=== PATIENT | female | born 1955 | race Caucasian/White ===

== ENCOUNTER 2017-08-11 08:44 | Observation (INO) | payer OTHER ==
[~2017-08-11] VITALS: Ht 165.1 cm; Wt 78.3 kg
[~2017-08-11 08:44] MED LIST: ATV5 PO; OXYC-57 PO; SIMV5TAB2 PO
[2017-08-11] MEDS ORDERED: SODIUM CHLORIDE 0.9% 1000ML 2,000 ML IV STA (08:58)
--- NOTE | 2017-08-11 09:04 | EMERGENCY ROOM VISIT NOTE ---
History Report prepared by Tiara: Katelynn Lawrence Under the Supervision of: Dr. Jyoti Valdivia M.D. First contact with patient: 08:52 Chief Complaint: IRREGULAR HEARTBEAT Stated Complaint: IRREGULAR HEARTBEAT History of Present Illness The patient is a 61 year old female who presents to the Emergency Room with complaints of a persistent irregular heartbeat that began prior to arrival. She currently rates her discomfort as a 7/10 in severity. The patient states that she was at [facility] today for a scheduled colonoscopy. She states that she was found to have an irregular heartbeat and then was found to be in atrial fibrillation. The patient states that she has no history of atrial fibrillation , but reports a history of an irregular heartbeat. She states that she was sent to the emergency department by her sweatband perforator for further evaluation and treatment. The patient states that she was having a colonoscopy done for her IBS. She states that she was nauseous and vomited around 0300 this morning. Source of History: patient Onset: prior to arrival Position: other (heartbeat) Symptom Intensity: 7/10 Quality: other (irregular) Timing: other (persistent) Associated Symptoms: + nausea, + vomiting Review of Systems See HPI for pertinent positives & negatives. A total of 10 systems reviewed and were otherwise negative. Past Medical & Surgical Surgical Problems: (1) H/O breast surgery (2) H/O rotator cuff surgery (3) H/O: hysterectomy (4) Hx of cholecystectomy Family History Cancer Heart disease Social History Smoking Status: Former Smoker Smokeless Tobacco Use: No Alcohol Use: none Marital Status: Housing Status: lives with significant other Current/Historical Medications Scheduled Aspirin (Aspirin EC Low Dose), 81 MG PO QAM Fluticasone Propionate (Nasal) (Flonase Allergy Relief), 1-2 SPRAYS [place] DAILY Gabapentin (Neurontin), 900 MG PO TID Lorazepam (Ativan *), 0.5 MG PO Q6HR PRN Metoprolol Succinate (Metoprolol Succinate ER), 25 MG PO QAM Scheduled PRN Baclofen (Lioresal), 10-20 MG PO DAILY PRN for Muscle Spasms Hydrocodone/Acetaminophen ([place] 10/325 Tab), 1 TAB PO QID PRN for Pain Allergies Coded Allergies: Adhesives (Verified Allergy, Mild, RASH, 08/11/17) Promethazine (Verified Allergy, Mild, ITCHING, 08/11/17) Codeine (Verified Allergy, Unknown, 08/11/17) Uncoded Allergies: ANESTHESIA (Allergy, Unknown, VOMITING, NEASUA, 08/11/17) Physical Exam Vital Signs Date Time Temp Pulse Resp B/P (MAP) Pulse Ox O2 Delivery O2 Flow Rate FiO2 08/11/17 09:01 99 08/11/17 08:48 36.9 107 16 131/90 98 Room Air Physical Exam Vital signs reviewed. General: Well-appearing female, in no significant distress. HEENT: No scleral icterus, PERRLA, neck supple. Atraumatic. Cardiovascular: Slightly tachycardic rate and regular rhythm, no extra sounds. Pulmonary: Clear to auscultation bilaterally, normal work of breathing. Abdomen: Soft, nontender, nondistended, positive bowel sounds. Musculoskeletal: Atraumatic, no peripheral edema. Neurologic: Patient awake alert and oriented x 3, full strength in all 4 extremities. Cranial nerves 2 through 12 grossly intact. Skin: Warm, dry, no rash Medical Decision & Procedures Laboratory Results 08/11/17 09:20 Red Blood Count 4.78, Mean Corpuscular Volume 95.8, Mean Corpuscular Hemoglobin 32.2, Mean Corpuscular Hemoglobin Concent 33.6, Mean Platelet Volume 10.0, Neutrophils (%) (Auto) 64.5, Lymphocytes (%) (Auto) 28.4, Monocytes (%) (Auto) 6.0, Eosinophils (%) (Auto) 0.5, Basophils (%) (Auto) 0.3, Neutrophils # (Auto) 4.22, Lymphocytes # (Auto) 1.86, Monocytes # (Auto) 0.39, Eosinophils # (Auto) 0.03, Basophils # (Auto) 0.02 08/11/17 09:20 08/11/17 10:19 Test 08/11/17 09:20 08/11/17 09:21 08/11/17 10:19 White Blood Count 6.54 K/uL (4.8-10.8) Red Blood Count 4.78 M/uL (4.2-5.4) Hemoglobin 15.4 g/dL (12.0-16.0) Hematocrit 45.8 % (37-47) Mean Corpuscular Volume 95.8 fL (80-100) Mean Corpuscular Hemoglobin 32.2 pg (25-34) Mean Corpuscular Hemoglobin Concent 33.6 g/dl (32-36) Platelet Count 267 K/uL (130-400) Mean Platelet Volume 10.0 fL (7.4-10.4) Neutrophils (%) (Auto) 64.5 % Lymphocytes (%) (Auto) 28.4 % Monocytes (%) (Auto) 6.0 % Eosinophils (%) (Auto) 0.5 % Basophils (%) (Auto) 0.3 % Neutrophils # (Auto) 4.22 K/uL (1.4-6.5) Lymphocytes # (Auto) 1.86 K/uL (1.2-3.4) Monocytes # (Auto) 0.39 K/uL (0.11-0.59) Eosinophils # (Auto) 0.03 K/uL (0-0.5) Basophils # (Auto) 0.02 K/uL (0-0.2) RDW Standard Deviation 49.5 fL (36.4-46.3) RDW Coefficient of Variation 14.1 % (11.5-14.5) Immature Granulocyte % (Auto) 0.3 % Immature Granulocyte # (Auto) 0.02 K/uL (0.00-0.02) Anion Gap 7.0 mmol/L (3-11) Est Creatinine Clear Calc Drug Dose 89.3 ml/min Estimated GFR () 110.0 Estimated GFR (Non- 94.9 BUN/Creatinine Ratio 12.9 (10-20) Calcium Level 9.1 mg/dl (8.5-10.1) Total Bilirubin 0.5 mg/dl (0.2-1) Alanine Aminotransferase (ALT/SGPT) 16 U/L (12-78) Alkaline Phosphatase 83 U/L (45-117) Total Protein 7.3 gm/dl (6.4-8.2) Albumin 3.6 gm/dl (3.4-5.0) Thyroid Stimulating Hormone (TSH) 1.580 uIu/ml (0.300-4.500) Bedside Troponin I < 0.030 ng/ml (0-0.045) Magnesium Level 2.2 mg/dl (1.8-2.4) Direct Bilirubin < 0.1 mg/dl (0-0.2) Aspartate Amino Transf (AST/SGOT) 11 U/L (15-37) Laboratory results per my review. Medications Administered Medications (Trade) Dose Ordered Sig/Lokesh Route Start Time Stop Time Status Last Admin Dose Admin Sodium Chloride 2,000 ml @ 999 mls/hr Q2H1M STAT IV 08/11/17 08:58 08/11/17 10:58 DC 08/11/17 09:31 999 MLS/HR Acetaminophen/ Hydrocodone Bitart ([place] 10/325 Tab) 1 tab NOW STAT PO 08/11/17 09:57 08/11/17 09:59 DC 08/11/17 10:25 1 TAB Gabapentin (Neurontin Tab) 900 mg NOW STAT PO 08/11/17 09:57 08/11/17 09:59 DC 08/11/17 10:25 900 MG ECG Indication: palpitations Rate (beats per minute): 79 Rhythm: sinus rhythm Findings: PAC (frequent), no acute ischemic change, left axis deviation, other (previous septal infarct) Change: Repeat EKG shows atrial fibrillation with RVR, rate of 119, no ischemia. ED Course 0856: Past medical records reviewed. The patient was evaluated in room B11B. A complete history and physical examination was performed. 0858: Ordered Sodium Chloride 2000 ml @ 999 mls/hr IV. 0909: I discussed the patients case with Dr. Buchanan, Gastroenterology. He states that the patient was definitely in atrial fibrillation on a rhythm strip, not an EKG. He states that the patient will not have her colonoscopy done today. 0911: I spoke to the patient at this time, and updated her on the treatment plan. 0957: Ordered Gabapentin 900 mg PO, [place] 10/324 Tab 1 tab PO. 1103: I reevaluated the patient and she is resting comfortably. I discussed the test results with her and I discussed the treatment plan. She verbalized complete understanding and agreement. She will be ready for discharge shortly. 1151: Per nursing staff, the patient stood up and went into atrial fibrillation with RVR. Nursing staff performed an additional EKG. The patient will no longer be discharged at this time. 1156: I reevaluated the patient and she is resting. I discussed the exam findings with her and I discussed the treatment plan. She verbalized complete understanding and agreement. She will be evaluated for further treatment. Ordered Lopressor IV 5 mg IV. 1200: I discussed the patients case with Ascencion Vieyra. She is going to evaluate the patient for further treatment. Medical Decision Differential diagnosis: Etiologies such as premature contractions, electrolyte abnormality, cardiac dysrhythmia, thyroid dysfunction, pulmonary embolism, infection, gastrointestinal, as well as others were entertained. This pt was evaluated and appeared to be in no distress. Pt was placed on the [facility] shift lead and was found to be in a sinus rhythm. She was hydrated with NSS given her recent colonoscopy prep. Lab work was WNL. Pt was monitored for several hours and was prepared for d/c. Upon standing at the bedside, pt returned to a fib w RVR. Pt was given metoprolol 5 mg IV. As this is new onset and recurrent, pt was d/w the hospitalist service for further management. Medication Reconcilliation Current Medication List: was personally reviewed by me Blood Pressure Screening Patient's blood pressure: Normal blood pressure Blood pressure disposition: Did not require urgent referral Consults Time Called: 0858 Consulting Physician: Dr. Buchanan, Gastroenterology Returned Call: [phone] I discussed the patients case with Dr. Buchanan, Gastroenterology. He states that the patient was definitely in atrial fibrillation on a rhythm strip , not an EKG. He states that the patient will not have her colonoscopy done today. Additional Consults: Time Called: 1157 Consulted Physician: Ascencion Vieyra Returned Call: 1200 Additional Comments: I discussed the patients case with Ascencion Vieyra. She is going to evaluate the patient for further treatment. Impression Primary Impression: Transient atrial fibrillation Scribe Attestation The scribe's documentation has been prepared under my direction and personally reviewed by me in its entirety. I confirm that the note above accurately reflects all work, treatment, procedures, and medical decision making performed by me. Departure Information Dispostion Being Evaluated By Hospitalist Prescriptions Fluticasone Propionate (Nasal) (Flonase Allergy Relief) 50 Mcg/Act Spr 1-2 SPRAYS [place] DAILY, #1 SPRAY Prov: Yaneth Dyson ., D.O. 08/12/17 Aspirin (Aspirin EC Low Dose) 81 Mg Ectab 81 MG PO QAM, #30 TAB Prov: Yaneth Dyson ., D.O. 08/12/17 Metoprolol Succinate (Metoprolol Succinate ER) 25 Mg Tabcr 25 MG PO [facility], #30 TABS Prov: Yaneth Dyson ., D.O. 08/12/17 Referrals Hai Ortiz M.D.(ALFA) (PCP)
[2017-08-11 09:35] LABS: BASO % 0.3 %; BASO ABS # 0.02 K/uL (0-0.2); COMPLETE YES; EOS % 0.5 %; HEMATOCRIT 45.8 % (37-47); IG% 0.3 %; LYMPH % 28.4 %; LYMPH ABS # 1.86 K/uL (1.2-3.4); MEAN CELL VOLUME 95.8 fL (80-100); MEAN CORPUSCULAR HEMOGLOBIN 32.2 pg (25-34); MEAN CORPUSCULAR HGB CONC 33.6 g/dl (32-36); NEUT % 64.5 %; PLATELET COUNT 267 K/uL (130-400); RED BLOOD COUNT 4.78 M/uL (4.2-5.4); WHITE BLOOD COUNT 6.54 K/uL (4.8-10.8)
[2017-08-11] MEDS ORDERED: BACL10TA PO (09:39)
[2017-08-11] MEDS ORDERED: HYDR-4383 PO (09:39)
[2017-08-11] MEDS ORDERED: GABA-113 PO (09:39)
[2017-08-11] MEDS ORDERED: GABAPENTIN 600 MG TAB PO STA (09:57)
[2017-08-11] MEDS ORDERED: HYDROCODONE/ACETAMI 10/325 TAB PO STA (09:57)
[2017-08-11 10:07] LABS: BLOOD UREA NITROGEN 9 mg/dl (7-18); BUN/CREATININE RATIO 12.9 (10-20); CALCIUM 9.1 mg/dl (8.5-10.1); CARBON DIOXIDE 23 mmol/L (21-32); CHLORIDE 109 mmol/L (98-107); CREATININE 0.67 mg/dl (0.60-1.20); GLUCOSE 123 mg/dl (70-99); SODIUM 140 mmol/L (136-145)
[2017-08-11 10:13] LABS: ALKALINE PHOSPHATASE 83 U/L (45-117); ALT/SGPT 16 U/L (12-78)
[2017-08-11 10:55] LABS: MAGNESIUM 2.2 mg/dl (1.8-2.4)
[2017-08-11 11:01] LABS: AST/SGOT 11 U/L (15-37)
[2017-08-11] MEDS ORDERED: METOPROLOL TARTRATE 1 MG/ML VIAL IV STA (11:56)
[2017-08-11] MEDS ORDERED: METOPROLOL TARTRATE 1 MG/ML VIAL ONE (12:20)
[2017-08-11] MEDS ORDERED: METOPROLOL TARTRATE 25 MG TAB PO ONE (12:30)
[2017-08-11] MEDS ORDERED: METOPROLOL TARTRATE 1 MG/ML VIAL IV PRN (12:30)
[2017-08-11] MEDS ORDERED: ASPIRIN 81 MG ECTAB PO STA (12:40)
[2017-08-11] MEDS ORDERED: BACLOFEN 10 MG TAB PO PRN (12:45)
[2017-08-11] MEDS ORDERED: ACETAMINOPHEN 325 MG TAB PO PRN (12:45)
[2017-08-11] MEDS ORDERED: LORAZEPAM 0.5 MG TAB PO PRN (12:45)
[2017-08-11] MEDS ORDERED: ONDANSETRON INJ 2 MG/ML 2 ML VIAL IV PRN (12:45)
--- NOTE | 2017-08-11 12:57 | History and Physical ---
History & Physical Date & Time of Service: Aug 11, 2017 at 12:37 Chief Complaint: Irregular Heartbeat Primary Care Physician: Hai Ortiz M.D.(ALFA) History of Present Illness Source: patient, family 61 year old female with history of IBS, Fibromyalgia sent to the ER by Dr. Buchanan for finding of Atrial Fibrillation before scheduled Colonoscopy this AM. Patient follows with Dr. Ortiz for PCP. She states that she performed her bowel prep at around 1 am, and had around 10 BMs since. Earlier today, prior to the Colonoscopy, patient was found to be in A fib. She was then directed to the ER. At the ER, patient was noted to be in sinus rhythm with PACs. She was going to be discharged, but when she stood up, patient converted to A fib with HR 130s. On exam, patient resting in bed, comfortable. Denies chest pain, dyspnea, dizziness, nausea. Reports mild sensation of fast heartbeat but otherwise comfortable. Denies other symptoms. Past Medical/Surgical History Surgical Problems: (1) H/O breast surgery Status: Resolved (2) H/O rotator cuff surgery Status: Resolved (3) H/O: hysterectomy Status: Resolved (4) Hx of cholecystectomy Status: Resolved Family History Cancer Heart disease Social History Smoking Status: Former Smoker Smokeless Tobacco Use: No Alcohol Use: none Drug Use: none Marital Status: Housing status: lives with family Multi-Drug Resistant Organisms History of MDRO: No Allergies Coded Allergies: Adhesives (Verified Allergy, Mild, RASH, 08/11/17) Promethazine (Verified Allergy, Mild, ITCHING, 08/11/17) Codeine (Verified Allergy, Unknown, 08/11/17) Uncoded Allergies: ANESTHESIA (Allergy, Unknown, VOMITING, NEASUA, 08/11/17) Home Medications Scheduled Gabapentin (Neurontin), 900 MG PO TID Lorazepam (Ativan *), 0.5 MG PO Q6HR PRN Scheduled PRN Baclofen (Lioresal), 10-20 MG PO DAILY PRN for Muscle Spasms Hydrocodone/Acetaminophen ([place] 10/325 Tab), 1 TAB PO QID PRN for Pain Review of Systems Constitutional- no fever; no weight loss Eyes- no acute visual changes ENT- no sinus drainage; no pharyngitis Pulmonary- no cough, no wheezing, no shortness of breath Cardiac- no chest pain, no palpitations, no orthopnea, no dependent edema GI- no nausea, no vomiting, no diarrhea, no melena, no hematochezia - no dysuria, no hematuria Musculoskeletal- no arthralgias, no myalgias Derm- no rashes, no new skin lesions, no changing skin lesions Hematologic- no unusual bruising, no unusual bleeding Lymphatics- no adenopathy Endocrine- no polyuria or polydipsia; no heat or cold intolerance Neuro- no headaches, no focal neurologic symptoms Psych- no anxiety, no depression Physical Exam Vital Signs Date Time Temp Pulse Resp B/P (MAP) Pulse Ox O2 Delivery O2 Flow Rate FiO2 08/11/17 12:24 128 141/87 08/11/17 09:01 99 08/11/17 08:48 36.9 107 16 131/90 98 Room Air General Appearance: WD/WN, no apparent distress Head: normocephalic, atraumatic Eyes: normal inspection, PERRL, EOMI, sclerae normal ENT: normal ENT inspection, hearing grossly normal, pharynx normal Neck: supple, no adenopathy, thyroid normal, no JVD, trachea midline Respiratory/Chest: chest non-tender, lungs clear, normal breath sounds, no respiratory distress, no accessory muscle use Cardiovascular: no JVD, no murmur, + tachycardia, + irregularly irregular Abdomen/GI: normal bowel sounds, non tender, soft Back: normal inspection, no CVA tenderness Extremities/Musculoskelatal: normal inspection, no calf tenderness, normal capillary refill, no pedal edema, non-tender 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, no motor/sensory deficits, alert, normal reflexes, oriented x 3 Skin: normal color, warm/dry, no rash Lymphatic: no adenopathy Diagnostics Laboratory Results Results Past 24 Hours Test 08/11/17 09:20 08/11/17 09:21 08/11/17 10:19 Range/Units White Blood Count 6.54 4.8-10.8 K/uL Red Blood Count 4.78 4.2-5.4 M/uL Hemoglobin 15.4 12.0-16.0 g/dL Hematocrit 45.8 37-47 % Mean Corpuscular Volume 95.8 80-100 fL Mean Corpuscular Hemoglobin 32.2 25-34 pg Mean Corpuscular Hemoglobin Concent 33.6 32-36 g/dl Platelet Count 267 130-400 K/uL Mean Platelet Volume 10.0 7.4-10.4 fL Neutrophils (%) (Auto) 64.5 % Lymphocytes (%) (Auto) 28.4 % Monocytes (%) (Auto) 6.0 % Eosinophils (%) (Auto) 0.5 % Basophils (%) (Auto) 0.3 % Neutrophils # (Auto) 4.22 1.4-6.5 K/uL Lymphocytes # (Auto) 1.86 1.2-3.4 K/uL Monocytes # (Auto) 0.39 0.11-0.59 K/uL Eosinophils # (Auto) 0.03 0-0.5 K/uL Basophils # (Auto) 0.02 0-0.2 K/uL RDW Standard Deviation 49.5 36.4-46.3 fL RDW Coefficient of Variation 14.1 11.5-14.5 % Immature Granulocyte % (Auto) 0.3 % Immature Granulocyte # (Auto) 0.02 0.00-0.02 K/uL Sodium Level 140 136-145 mmol/L Potassium Level 4.0 3.5-5.1 mmol/L Chloride Level 109 98-107 mmol/L Carbon Dioxide Level 23 21-32 mmol/L Anion Gap 7.0 3-11 mmol/L Blood Urea Nitrogen 9 7-18 mg/dl Creatinine 0.67 0.60-1.20 mg/dl Est Creatinine Clear Calc Drug Dose 89.3 ml/min Estimated GFR () 110.0 Estimated GFR (Non- 94.9 BUN/Creatinine Ratio 12.9 10-20 Random Glucose 123 70-99 mg/dl Calcium Level 9.1 8.5-10.1 mg/dl Magnesium Level 2.2 1.8-2.4 mg/dl Total Bilirubin 0.5 0.2-1 mg/dl Direct Bilirubin < 0.1 0-0.2 mg/dl Aspartate Amino Transf (AST/SGOT) 11 15-37 U/L Alanine Aminotransferase (ALT/SGPT) 16 12-78 U/L Alkaline Phosphatase 83 45-117 U/L Total Protein 7.3 6.4-8.2 gm/dl Albumin 3.6 3.4-5.0 gm/dl Thyroid Stimulating Hormone (TSH) 1.580 0.300-4.500 uIu/ml Bedside Troponin I < 0.030 0-0.045 ng/ml Diagnostic Radiology cxr pending EKG HR 119, a fib Impression Assessment and Plan 61 year old female with history of IBS, Fibromyalgia sent to the ER by Dr. Buchanan for finding of Atrial Fibrillation before scheduled Colonoscopy this AM. NEW ONSET ATRIAL FIBRILLATION CHADsVasc score 1- female asymptomatic BP stable Lopressor 5mg IV given at the ER, HR improving to 110s K and Mg ok, TSH normal Echo ordered Metoprolol 25mg bid Aspirin 81mg po daily NSS discussed with Dr. Lyles IBS was scheduled for Colonoscopy today follows with GI HISTOR OF FIBROMYALGIA continue Gabapentin, PRN [place] DVT proph Lovenox Full code per patient Dispo pending anticipate d/c home when cleared by Cardio ff up with Dr. Ortiz and Cardio VTE Prophylaxis VTE Risk Assessment Done? Y/N: Yes Risk Level: Moderate
--- NOTE | 2017-08-11 13:00 | DIAGNOSTIC IMAGING REPORT ---
CHEST ONE VIEW PORTABLE CLINICAL HISTORY: atrial fibrillation cardiac arrhythmia COMPARISON STUDY: 03/20/2008 FINDINGS: Minimal chronic linear parenchymal scarring of the lungs bilaterally versus atelectasis. No acute infiltrate. No cardiac enlargement. Diaphragms smooth. IMPRESSION: Chronic change. No acute process. The above report was generated using voice recognition software. It may contain grammatical, syntax or spelling errors. Electronically signed by: Todd Lopez M.D. 08/11/2017 12:59 PM Dictated Date/Time: 08/11/2017 12:58 PM
[2017-08-11] MEDS ORDERED: IV FLUIDS COMPLETED PRN (13:45)
[2017-08-11 14:05] VITALS: BP 144/95; PULSE 122; TEMP 36.9; O2SAT 96; Ht 165.1 cm; Wt 78.3 kg
[2017-08-11 15:06] LABS: PROTHROMBIN TIME (PATIENT) 10.5 SECONDS (9.0-12.0)
[2017-08-11] MEDS: HYDROCODONE/ACETAMI 10/325 TAB PO PRN ×2 (15:41→21:23)
[2017-08-11] MEDS: GABAPENTIN 300 MG CAP PO SCH ×2 (15:41→21:15)
[2017-08-11] MEDS: NSS + 20MEQ KCL 1000ML 1,000 ML IV SCH ×2 (15:41→23:27)
[2017-08-11 16:00] VITALS: BP 140/77; PULSE 113; TEMP 36.9; O2SAT 96
[2017-08-11] MEDS ORDERED: ENOXAPARIN 40 MG/0.4 ML SYR SC SCH (16:00)
--- NOTE | 2017-08-11 16:04 | CARDIOLOGY CONSULTATION ---
DATE OF CONSULTATION: 08/11/2017 DATE OF CONSULTATION: 08/11/2017 REFERRING PHYSICIAN: Dr. Rod Lucas. REASON FOR CONSULTATION: Paroxysmal atrial fibrillation. HISTORY OF PRESENT ILLNESS: Ms. Howard is a 61-year-old female who presented to the Emergency Department by gastroenterology secondary to new onset Afib. The patient took a colonoscopy prep last night, was noted to be in atrial fibrillation. She denies any palpitations currently, however, reports intermittent palpitations for several years. She particularly notes this irregular heartbeat in the evenings. Denies any personal history of atrial fibrillation, however, her has a history of Afib and she is familiar with the disease process. Denies hypertension, diabetes, congestive heart failure, coronary artery disease, or rheumatic fever as a child. The patient underwent exercise stress echocardiography in April 2015 in preparation for hip surgery. At that time a stress test was found to be negative for inducible ischemia. Normal left ventricular systolic function with grade 1 diastolic dysfunction noted. Her left atrial side was reportedly normal. No significant valvular pathology. Currently, patient is resting comfortably. She is in atrial fibrillation with heart rate ranging from 110-135 beats per minute. She is unaware of her heart rate currently. Denies chest pain or palpitations. Reports intermittent lightheadedness which is not necessarily associated with palpitations. She is currently not lightheaded or dizzy. No orthopnea or PND. Offers no other complaints at this time. REVIEW OF SYSTEMS: The pertinent positive noted above, a comprehensive 10-system review is otherwise negative. PAST MEDICAL HISTORY: 1. Colon polyps. 2. Trigeminal neuralgia. 3. Fibromyalgia. 4. Mastodynia. 5. Chronic cholecystitis. 6. Migraine headache. 7. Irritable bowel syndrome. 8. Degenerative disc disease. 9. Chronic low back pain. PAST SURGICAL HISTORY: 1. Breast surgery. 2. Rotator cuff surgery. 3. Hysterectomy. 4. Cholecystectomy. 5. Multiple colonoscopies. SOCIAL HISTORY: Former tobacco use, quitting in 2007 with approximately [id number] history. FAMILY HISTORY: Father with heart disease later in life. Multiple family history with breast cancer, prostate cancer. ALLERGIES: ADHESIVES, PROMETHAZINE, CODEINE, ANESTHESIA. CURRENT OUTPATIENT MEDICATIONS: 1. Percocet 10/325 as needed. 2. Nortriptyline 10 mg, 1-3 capsules at bedtime. 3. Baclofen twice daily. 4. Ativan 0.5 mg 3 times a day. 5. Albuterol inhaler. 6. Neurontin 300 mg 3 times daily in addition to her 600 mg capsule for a total of 900 mg 3 times daily. 7. Excedrin as needed. ECG demonstrates atrial fibrillation 119 beats per minute with left axis deviation, age indeterminate septal infarct. Telemetry demonstrates atrial fibrillation. LABORATORY DATA: Sodium is 140, potassium 4.0, chloride is 109, CO2 is 23, BUN is 9, creatinine 0.67. Point of care troponin less than 0.030. TSH 1.580. White blood cell count 6.54, hemoglobin is 15.4, platelet count 267. PHYSICAL EXAMINATION: VITAL SIGNS: Temperature is 36.9 degrees centigrade, pulse 112 beats per minute and irregular, respiratory rate 60 breaths per minute, blood pressure 148/85. SAO2 is 98% on room air. GENERAL: NAD, awake, alert and oriented x3. HEAD, EYES, EARS, NOSE, AND THROAT: Mucous membranes are moist. No scleral icterus. Conjunctivae are pink. NECK: Supple without JVD or HJR. No carotid bruits. HEART: Is irregular and tachycardic with normal S1, S2. There is no murmur, rub, or gallop. LUNGS: Clear without rales, rhonchi or wheeze. ABDOMEN: Soft, nontender. No rebound or guarding. Normal bowel sounds. EXTREMITIES: Warm and dry without clubbing, cyanosis, or edema. NEUROLOGIC: Exam demonstrates no focal motor deficit. FINAL IMPRESSION: 1. Paroxysmal atrial fibrillation with rapid ventricular response, likely related to colonoscopy prep; however, with history of palpitations, intermittent paroxysmal atrial dysrhythmias must be considered. 2. No evidence of structural heart disease per recent resting 2D transthoracic echo April 2015. 3. No history of ischemic heart disease per recent stress testing April 2015. 4. Longstanding history of palpitations. PLAN AND RECOMMENDATIONS: The patient's overall stroke risk is low. Her CHADS2 score equals 0, CHADS VASc equals 1 secondary to female sex. We discussed risks versus benefit of anticoagulation given her low CHADS2 and CHADS VASc scores. The patient prefers to continue aspirin and beta rika therapy at this time. We will replace electrolytes as needed. She will continue low dose beta-rika therapy, metoprolol 25 mg twice daily. A repeat resting 2D transthoracic echo will be performed during hospitalization. We will continue to monitor telemetry. All questions answered to her satisfaction. I will continue to follow during hospitalization.
[2017-08-11 17:13] VITALS: BP 112/77; PULSE 76
[2017-08-11 20:00] VITALS: BP 127/62; PULSE 67; TEMP 36.6; O2SAT 96
[2017-08-11] MEDS: METOPROLOL TARTRATE 25 MG TAB PO SCH (21:14)
[2017-08-11 23:59] VITALS: BP 102/48; PULSE 58; TEMP 36.7; O2SAT 96
[2017-08-12 03:13] LABS: URINE APPEARANCE CLEAR (CLEAR); URINE BILIRUBIN NEG (NEG); URINE COLOR YELLOW; URINE NITRITE NEG (NEG); URINE SPECIFIC GRAVITY 1.014 (1.000-1.030); UROBILINOGEN NEG (NEG); ZZUR CULT IF INDIC CLEAN CATCH NO
[2017-08-12 03:14] LABS: MANUAL MICROSCOPIC REQUIRED? NO; REVIEW REQ? NO
[2017-08-12 04:00] VITALS: BP 119/72; PULSE 53; TEMP 36.6; O2SAT 96
[2017-08-12 08:00] VITALS: BP 105/57; PULSE 66; TEMP 36.6; O2SAT 95
[2017-08-12] MEDS: NSS + 20MEQ KCL 1000ML 1,000 ML IV SCH (08:51)
[2017-08-12] MEDS: HYDROCODONE/ACETAMI 10/325 TAB PO PRN (08:52)
[2017-08-12] MEDS: GABAPENTIN 300 MG CAP PO SCH (08:54)
[2017-08-12] MEDS: METOPROLOL TARTRATE 25 MG TAB PO SCH (08:56)
[2017-08-12] MEDS ORDERED: ASPIRIN 81 MG ECTAB PO SCH (09:00)
--- NOTE | 2017-08-12 10:15 | ECHOCARDIOGRAM REPORT ---
*NOTICE TO RECEIVING LIBERTARIAN AGENCY This information is strictly Confidential and protected under [place] law. [place] law prohibits you from making any further disclosure of this information unless further disclosure is expressly permitted by the written consent of the person to whom it pertains or is authorized by law. A general authorization for the release of medical or other information is not sufficient for this purpose. Hospital accepts no responsibility if the information is made available to any other person, INCLUDING THE PATIENT. Interpretation Summary * Name: SEKOU VÁSQUEZ Study Date: 08/12/2017 06:31 AM BP: 119/72 mmHg * Patient Location: .MSICU\S\E111\S\1 HR: 53 * : 1955 (M/d/yyy) Gender: Female Height: 65 in * Age: 61 yrs Ethnicity: CA Weight: 164 lb * Ordering Physician: Rod Lucas * Referring Physician: Self, Referred * Performed By: Suyapa Kitchen RCS * * Reason For Study: A-FIB * BSA: 1.8 m2 * The study was technically adequate. * There is no comparison study available. * -- Conclusions -- * Ejection Fraction = 55-60%. * The left atrial size is normal. * Pulse wave TDI of the anterior and posterior mitral annulas demonstrates normal LV relaxation * No significant valvular disease. Procedure Details * A complete two-dimensional transthoracic echocardiogram was performed (2D, M-mode, Doppler and color flow Doppler). Left Ventricle * The left ventricle is normal in size. * There is no thrombus. * There is normal left ventricular wall thickness. * Ejection Fraction = 55-60%. * Left ventricular systolic function is normal. * The left ventricular wall motion is normal. Right Ventricle * The right ventricle is normal size. * The right ventricular systolic function is normal as assessed by tricuspid annular plane systolic excursion (TAPSE) (normal >1.5 cm). Atria * The left atrial size is normal. * Right atrial size is normal. * There is no evidence of atrial septal defect, but resolution does not allow assessment for a patent foramen ovale. Mitral Valve * The mitral valve is normal. * There is no mitral valve stenosis. * Significant mitral regurgitation is absent. Tricuspid Valve * The tricuspid valve is normal. * There is no tricuspid stenosis. * There is trace tricuspid regurgitation. * Doppler findings do not suggest pulmonary hypertension. Aortic Valve * The aortic valve is trileaflet. * Aortic stenosis is absent. * There is no significant aortic regurgitation. Pulmonic Valve * The pulmonary valve is not well seen, but the Doppler examination is normal without significant regurgitation or stenosis. Great Vessels * The aortic root and proximal ascending aorta are normal sized. Pericardium/Pleural * There is no pericardial effusion. Great Vessels * Normal inferior vena cava diameter and respiratory variation suggests normal central venous pressure. Left Ventricular Diastolic Function * Pulse wave TDI of the anterior and posterior mitral annulas demonstrates normal LV relaxation MMode 2D Measurements and Calculations IVSd 1.0 cm IVSs 1.3 cm LVIDd 4.7 cm LVIDs 3.0 cm LVPWd 1.0 cm LVPWs 1.3 cm IVS/LVPW 1.0 FS 36.0 % EDV(Teich) 104.1 ml ESV(Teich) 35.8 ml EF(Teich) 65.6 % EDV(cubed) 106.1 ml ESV(cubed) 27.8 ml EF(cubed) 73.8 % % IVS thick 23.9 % % LVPW thick 25.0 % LV mass(C)d 171.1 grams LV mass(C)dI 94.1 grams/m\S\2 LV mass(C)s 121.1 grams LV mass(C)sI 66.6 grams/m\S\2 SV(Teich) 68.3 ml SI(Teich) 37.6 ml/m\S\2 SV(cubed) 78.3 ml SI(cubed) 43.1 ml/m\S\2 Ao root diam 3.4 cm Ao root area 8.9 cm\S\2 ACS 1.5 cm LA dimension 3.3 cm asc Aorta Diam 3.1 cm LA/Ao 0.99 EDV(MOD-sp4) 113.0 ml ESV(MOD-sp4) 56.0 ml EF(MOD-sp4) 50.4 % EDV(MOD-sp2) 158.0 ml ESV(MOD-sp2) 70.0 ml EF(MOD-sp2) 55.7 % SV(MOD-sp4) 57.0 ml SI(MOD-sp4) 31.4 ml/m\S\2 SV(MOD-sp2) 88.0 ml SI(MOD-sp2) 48.4 ml/m\S\2 Doppler Measurements and Calculations MV E max alison 91.0 cm/sec MV A max alison 54.8 cm/sec MV E/A 1.7 MV P1/2t max alison 100.8 cm/sec MV P1/2t 86.4 msec MVA(P1/2t) 2.5 cm\S\2 MV dec slope 341.9 cm/sec\S\2 MV dec time 0.27 sec Ao V2 max 131.8 cm/sec Ao max PG 7.0 mmHg Ao max PG (full) 2.8 mmHg LV V1 max PG 4.1 mmHg LV V1 max 101.4 cm/sec PA V2 max 84.6 cm/sec PA max PG 2.9 mmHg TR max alison 220.4 cm/sec
--- NOTE | 2017-08-12 11:19 | Cardiology Follow-Up ---
Subjective General Date of Service: Aug 12, 2017. Pt evaluation today including: conversation w/ patient, physical exam, chart review, lab review, review of studies, review of inpatient medication list History of Present Illness The patient is a 61 year old female seen in follow up. Converted to sinus rhythm yesterday at approximate 5 PM. Feeling well from a cardiovascular standpoint. Denies chest pain or unusual shortness of breath. Offers no complaints at this time. Resting 2-D transthoracic echo reviewed: Normal left atrial size, normal left ventricular systolic function, no significant valvular disease. Allergies Coded Allergies: Adhesives (Verified Allergy, Mild, RASH, 08/11/17) Promethazine (Verified Allergy, Mild, ITCHING, 08/11/17) Codeine (Verified Allergy, Unknown, 08/11/17) Uncoded Allergies: ANESTHESIA (Allergy, Unknown, VOMITING, NEASUA, 08/11/17) Social History Smoking Status: Former Smoker Hx Alcohol Use - Type And Amou: No Hx Substance Use - Type And Am: No Problem List Medical Problems: (1) Transient atrial fibrillation Status: Acute Review of Systems Respiratory: No cough, No sputum, No wheezing, No shortness of breath, No dyspnea at rest, No hemoptysis Cardiac: No chest pain, No orthopnea, No PND, No edema, No claudication, No palpitations Physical Exam Vital Signs Last Vital Signs Documentation Date Time Temp Pulse Resp B/P (MAP) Pulse Ox O2 Delivery O2 Flow Rate FiO2 08/12/17 08:00 36.6 66 16 105/57 (73) 95 Room Air Physical Exam Constitutional: General Apperance: heathly-appearing Level of Distress: NAD Ambulation: ambulating normally Head: normocephalic, atraumatic ENMT: normal ENT inspection Lungs: Auscultation: breath sounds normal, no wheezing, no rales/crackles, no rhonchi Cardiovascular: Heart Auscultation: RRR, normal S1, normal S2, no murmurs, no rubs, no gallops Peripheral Pulses: Radial Pulse: normal on the right Abdomen: Inspection & Palpation: soft, non-distended, no tenderness, guarding & rebound Extremities: no cyanosis, no edema, no clubbing, no ulcers Neurologic: Gait & Station: pertinent finding (no focal deficits.) Cranial Nerves: grossly intact Assessment and Plan Assessment and Plan FINAL IMPRESSION: 1. Paroxysmal atrial fibrillation with rapid ventricular response, likely related to colonoscopy prep. - CHADS2 = 0 - CHAdsVASc = 1 (female) 2. No structural heart disease 3. Longstanding history of palpitations. PLAN AND RECOMMENDATIONS: Transition metoprolol tartrate to Toprol-XL 25 mg daily. Continue low-dose aspirin, 81 mg daily. No further cardiac testing at this time. I will arrange for outpatient cardiology follow-up in 3-4 weeks. Thank you for allow me to participate in the care of your patient. Will sign off. Please call with questions. Laboratory Results Last 24 Hours Test 08/11/17 14:40 08/12/17 03:00 Prothrombin Time 10.5 SECONDS Prothromb Time International Ratio 1.0 Urine Color YELLOW Urine Appearance CLEAR Urine pH 5.0 Urine Specific Craig 1.014 Urine Protein NEG Urine Glucose (UA) NEG Urine Ketones NEG Urine Occult Blood NEG Urine Nitrite NEG Urine Bilirubin NEG Urine Urobilinogen NEG Urine Leukocyte Esterase NEG
[2017-08-12] MEDS ORDERED: FLUT0.15 NAE (12:57)
[2017-08-12] MEDS ORDERED: TPRSR25 PO (12:57)
[2017-08-12] MEDS ORDERED: ASPEC81 PO (12:57)
--- NOTE | 2017-08-12 13:02 | Discharge Instructions ---
Discharge Instructions Date of Service Aug 12, 2017. Admission Reason for Admission: Atrial Fibrillation Discharge Discharge Diagnosis / Problem: Atrial fibrillation Discharge Goals Goal(s): Therapeutic intervention Activity Recommendations Activity Limitations: resume your previous activity Lifting Limitations: gradually increase as tolerated Exercise/Sports Limitations: gradually increase as tolerated . Instructions / Follow-Up Instructions / Follow-Up Please see Dr. Ortiz on August 16 at 11:20AM Please see Cardiology in 3-4 weeks as arranged by them For cold/nasal rhinitis and sinus congestion please use nasal steroid spray, and as needed antihistamine (zyrtec or nirav or claritin), and over the counter zinc lozenges (i.e. cold-diego) Current Hospital Diet Patient's current hospital diet: Regular Diet Discharge Diet Recommended Diet: Regular Diet Procedures Procedures Performed: TTE Pending Studies Studies pending at discharge: no Medical Emergencies . Who to Call and When: Medical Emergencies: If at any time you feel your situation is an emergency, please call 911 immediately. . Non-Emergent Contact Non-Emergency issues call your: Primary Care Provider . . "Provider Documentation" section prepared by Yaneth Dyson. . VTE Core Measure Inpt VTE Proph given/why not?: Enoxaparin (Lovenox)SQ
--- NOTE | 2017-08-12 13:06 | Discharge Summary ---
Discharge Summary Date of Service Aug 12, 2017. Discharge Summary Admission Date: Aug 11, 2017 at 12:30 Discharge Date: Aug 12, 2017 Discharge Disposition: Home Principal Diagnosis: Atrial fibrillation Consultations: Cardiology Pending Studies/Follow-Up: Follow up with Cardiology in 3-4 weeks Medication Reconciliation New Medications: Fluticasone Propionate (Nasal) (Flonase Allergy Relief) 50 Mcg/Act Spr 1-2 SPRAYS [place] DAILY, #1 SPRAY Aspirin (Aspirin EC Low Dose) 81 Mg Ectab 81 MG PO QAM, #30 TAB Metoprolol Succinate (Metoprolol Succinate ER) 25 Mg Tabcr 25 MG PO QAM, #30 TABS Continued Medications: Baclofen (Lioresal) 10 Mg Tab 10-20 MG PO DAILY PRN for Muscle Spasms, TAB Gabapentin (Neurontin) 300 Mg Cap 900 MG PO TID, CAP Hydrocodone/Acetaminophen ([place] 10/325 Tab) 1 Tab Tab 1 TAB PO QID PRN for Pain, TAB Lorazepam (Ativan *) 0.5 Mg Tab 0.5 MG PO Q6HR PRN, 0 Refills Admission Information HPI (per Admitting provider): 61 year old female with history of IBS, Fibromyalgia sent to the ER by Dr. Buchanan for finding of Atrial Fibrillation before scheduled Colonoscopy this AM. Patient follows with Dr. Ortiz for PCP. She states that she performed her bowel prep at around 1 am, and had around 10 BMs since. Earlier today, prior to the Colonoscopy, patient was found to be in A fib. She was then directed to the ER. At the ER, patient was noted to be in sinus rhythm with PACs. She was going to be discharged, but when she stood up, patient converted to A fib with HR 130s. On exam, patient resting in bed, comfortable. Denies chest pain, dyspnea, dizziness, nausea. Reports mild sensation of fast heartbeat but otherwise comfortable. Denies other symptoms. Physical Exam (per Admitting): General Appearance: WD/WN, no apparent distress Head: normocephalic, atraumatic Eyes: normal inspection, PERRL, EOMI, sclerae normal ENT: normal ENT inspection, hearing grossly normal, pharynx normal Neck: supple, no adenopathy, thyroid normal, no JVD, trachea midline Respiratory/Chest: chest non-tender, lungs clear, normal breath sounds, no respiratory distress, no accessory muscle use Cardiovascular: no JVD, no murmur, + tachycardia, + irregularly irregular Abdomen/GI: normal bowel sounds, non tender, soft Back: normal inspection, no CVA tenderness Extremities/Musculoskelatal: normal inspection, no calf tenderness, normal capillary refill, no pedal edema, non-tender 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, no motor/sensory deficits, alert , normal reflexes, oriented x 3 Skin: normal color, warm/dry, no rash Lymphatic: no adenopathy Hospital Course NEW ONSET ATRIAL FIBRILLATION: -[id number] score 1- female -asymptomatic, HR controlled, BP stable -Lopressor 5mg IV given at the ER, was then started on PO lopressor -Potassium and Mg levels normal -TSH normal -TTE -Cardiology consulted, HR controlled, asa due to low chads score, ok for discharge with outpatient follow up -continue aspirin 81mg po daily -was on IV fluids overnight IBS: -was scheduled for Colonoscopy and had undergone the bowel prep when the a fib was detected by GI -outpatient follow up FIBROMYALGIA: -continue Gabapentin, PRN [place] PHYSICAL EXAM ON DAY OF DISCHARGE: GENERAL: Patient is in no acute distress. HEENT: No acute trauma, normocephalic, mucous membranes moist, no nasal congestion, no scleral icterus. NECK: No stridor, trachea is midline. LUNGS: Clear to auscultation bilaterally, no wheeze, no rhonchi, breath sounds equal. HEART: Without murmurs gallops or rubs, regular rate and rhythm. ABDOMEN: Soft, nontender, bowel sounds positive EXTREMITIES: No cyanosis or edema, full range of motion of all the joints without pain or difficulty NEUROLOGIC: Oriented x 3, no acute motor or sensory deficits, no focal weakness. SKIN: No rash, no jaundice, no diaphoresis. Total time spent on discharge = 35 This includes examination of the patient, discharge planning, medication reconciliation, and communication with other providers. Discharge Instructions See patient instructions
[2017-08-12 13:42] VITALS: BP 105/57; PULSE 66; TEMP 36.6; O2SAT 95
[2017-08-13] MEDS ORDERED: METOPROLOL SUCC 25MG EXT REL TAB PO SCH (09:00)
[2017-08-13] MEDS ORDERED: ALBU18002 PO (18:20)
[2017-08-13] MEDS ORDERED: FLUT0.15 NAE (18:20)
[2017-08-13] MEDS ORDERED: METO25TA3 PO (18:20)
[2017-08-13] MEDS ORDERED: NORT10CA2 PO (18:20)
[2017-08-13] MEDS ORDERED: ATV5 PO (18:20)
[2017-08-13] MEDS ORDERED: ASPI81TA28 PO (18:20)
[2017-08-16] MEDS ORDERED: BTP80 PO (17:32)
== END 2017-08-12 13:50 | disposition home or self-care (01) ==
LOC: C.EDB 08:45 → C.MSICU 12:30 → ENRESERV 13:03 → C.MSICU 14:05 → UNDOADMOB 14:05
PROVIDERS: ADMIT Internal Medicine; ATTEND Internal Medicine
DX: I48.91 Unspecified atrial fibrillation (principal); K58.9 Irritable bowel syndrome, unspecified; M79.7 Fibromyalgia; Z87.891 Personal history of nicotine dependence; Z79.82 Long term (current) use of aspirin; Z79.899 Other long term (current) drug therapy

== ENCOUNTER 2017-08-13 16:33 | Inpatient (IN) | payer OTHER ==
[~2017-08-13] VITALS: Ht 165.1 cm; Wt 78.1 kg
[~2017-08-13 16:33] MED LIST changes: +ASPEC81 PO; +BACL10TA PO; +FLUT0.15 NAE; +GABA-113 PO; +HYDR-4383 PO; -OXYC-57 PO; -SIMV5TAB2 PO; +TPRSR25 PO
[2017-08-13] MEDS ORDERED: METOPROLOL TARTRATE 1 MG/ML VIAL IV STA ×2 (17:08→17:51)
--- NOTE | 2017-08-13 17:22 | EMERGENCY ROOM VISIT NOTE ---
History Report prepared by Tiara: Adriana Garrett Under the Supervision of: Dr. Jyoti Valdivia M.D. First contact with patient: 16:46 Chief Complaint: IRREGULAR HEARTBEAT Stated Complaint: A FIB Nursing Triage Summary: pt seen in hospital and admitted for 2 days for new onset afib rvr pt d/c yesterday and pt was in nss today pt reports "getting sensation again" feeling dizzy, lightheaded, sweating pt was started on Metroprolol and asa History of Present Illness The patient is a 61 year old female who presents to the Emergency Room with complaints of a persistent irregular heartbeat. She was seen here in the ED and remained in the hospital for 2 days for new onset atrial fibrillation and was discharged home yesterday in a normal sinus rhythm. Earlier today, she began to feel dizzy and diaphoretic and states she could feel her heart beat become irregular again. The patient takes daily Metoprolol and Aspirin but no other daily blood thinners. 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 A total of 10 systems reviewed and were otherwise negative. Past Medical & Surgical Medical Problems: (1) Atrial fibrillation Surgical Problems: (1) H/O breast surgery (2) H/O rotator cuff surgery (3) H/O: hysterectomy (4) Hx of cholecystectomy Family History Cancer Heart disease Social History Smoking Status: Former Smoker Alcohol Use: none Drug Use: none Marital Status: Housing Status: lives with significant other Occupation Status: retired Current/Historical Medications Scheduled Aspirin (Aspirin Ec), 81 MG PO QAM Fluticasone Propionate (Nasal) (Flonase Allergy Relief), 1-2 SPRAYS [place] DAILY Gabapentin (Neurontin), 900 MG PO TID Metoprolol Succ (Toprol Xl) (Toprol-Xl), 25 MG PO QAM Nortriptyline (Pamelor), 10-30 MG PO HS Scheduled PRN Albuterol Sulfate (Proair Respiclick), 2 PUFFS PO Q6H PRN for IBS RELATED ISSUE Baclofen (Lioresal), 10-20 MG PO DAILY PRN for Muscle Spasms Hydrocodone/Acetaminophen ([place] 10/325 Tab), 1 TAB PO QID PRN for Pain Lorazepam (Lorazepam), 0.5 MG PO Q6H PRN for Anxiety/Agitation Allergies Coded Allergies: Adhesives (Verified Allergy, Mild, RASH, 08/13/17) Promethazine (Verified Allergy, Mild, ITCHING, 08/13/17) Codeine (Verified Allergy, Unknown, 08/13/17) Uncoded Allergies: ANESTHESIA (Allergy, Unknown, VOMITING, NEASUA, 08/11/17) Physical Exam Vital Signs Date Time Temp Pulse Resp B/P (MAP) Pulse Ox O2 Delivery O2 Flow Rate FiO2 08/13/17 21:16 92 08/13/17 20:57 120 16 113/76 98 Room Air 08/13/17 20:00 92 16 109/76 98 Room Air 08/13/17 19:15 115 16 123/89 95 Room Air 08/13/17 19:14 130 16 110/88 95 Room Air 08/13/17 18:16 127 20 114/81 95 Room Air 08/13/17 18:15 134 114/81 08/13/17 17:31 123 16 136/89 95 Room Air 08/13/17 17:30 126 145/104 08/13/17 17:02 139 08/13/17 16:59 139 08/13/17 16:41 37.0 130 20 149/114 94 Room Air Physical Exam Vital signs reviewed. General: Well-appearing 61 year old male, in no significant distress. HEENT: No scleral icterus, PERRLA, neck supple. Atraumatic. Cardiovascular: Rapid rate, irregular rhythm, no extra sounds. Pulmonary: Clear to auscultation bilaterally, normal work of breathing. Abdomen: Soft, nontender, nondistended, positive bowel sounds. Musculoskeletal: Atraumatic, no peripheral edema. Neurologic: Patient awake alert and oriented x 3, full strength in all 4 extremities. Cranial nerves 2 through 12 grossly intact. Skin: Warm, dry, no rash Medical Decision & Procedures Laboratory Results 08/13/17 17:30 08/13/17 17:30 Test 08/13/17 17:30 Red Blood Count 4.22 M/uL (4.2-5.4) Mean Corpuscular Volume 96.0 fL (80-100) Mean Corpuscular Hemoglobin 31.5 pg (25-34) Mean Corpuscular Hemoglobin Concent 32.8 g/dl (32-36) RDW Standard Deviation 49.3 fL (36.4-46.3) RDW Coefficient of Variation 14.0 % (11.5-14.5) Mean Platelet Volume 9.9 fL (7.4-10.4) Anion Gap 7.0 mmol/L (3-11) Est Creatinine Clear Calc Drug Dose 91.7 ml/min Estimated GFR () 108.9 Estimated GFR (Non- 94.0 BUN/Creatinine Ratio 20.2 (10-20) Calcium Level 8.9 mg/dl (8.5-10.1) Total Bilirubin 0.2 mg/dl (0.2-1) Aspartate Amino Transf (AST/SGOT) 16 U/L (15-37) Alanine Aminotransferase (ALT/SGPT) 21 U/L (12-78) Alkaline Phosphatase 79 U/L (45-117) Total Protein 6.4 gm/dl (6.4-8.2) Albumin 3.4 gm/dl (3.4-5.0) Globulin 3.0 gm/dl (2.5-4.0) Albumin/Globulin Ratio 1.1 (0.9-2) Laboratory results per my review. Medications Administered Medications (Trade) Dose Ordered Sig/Lokesh Route Start Time Stop Time Status Last Admin Dose Admin Metoprolol Tartrate (Lopressor Iv) 5 mg NOW STAT IV 08/13/17 17:08 08/13/17 17:13 DC 08/13/17 17:30 5 MG Metoprolol Tartrate (Lopressor Iv) 5 mg NOW STAT IV 08/13/17 17:51 08/13/17 17:53 DC 08/13/17 18:15 5 MG Sodium Chloride 250 ml @ 999 mls/hr Q16M STAT IV 08/13/17 18:35 08/13/17 18:50 DC 08/13/17 18:52 999 MLS/HR Diltiazem HCl (Cardizem Inj) 10 mg NOW STAT IV 08/13/17 18:46 08/13/17 18:50 DC 08/13/17 19:13 10 MG Acetaminophen/ Hydrocodone Bitart ([place] 10/325 Tab) 1 tab ONE STAT PO 08/13/17 19:41 08/13/17 19:44 DC 08/13/17 19:57 1 TAB Gabapentin (Neurontin Tab) 900 mg NOW STAT PO 08/13/17 19:41 08/13/17 19:44 DC 08/13/17 19:57 900 MG ECG Indication: other (atrial fibrillation) Rate (beats per minute): 135 Rhythm: atrial fibrillation (with RVR) Findings: no acute ischemic change, left axis deviation, other (Possible previous inferior infarct, likely previous septal infarct) ED Course 170: Lopressor 5 mg IV. 171: Past medical records reviewed. The patient was evaluated in room C5. A complete history and physical examination was performed. 175: Lopressor 5 mg IV. 183: NSS 250 ml @ 999 mls/hr IV. 184: Diltiazem 10 mg IV. 1940: Gabapentin 900 mg PO, [place] 10/325 mg 1 tab PO. 1956: I discussed the patients case with Dr. Norton, [facility] Hospitalist. The patient will be further evaluated. Medical Decision Differential diagnosis: Etiologies such as premature contractions, electrolyte abnormality, cardiac dysrhythmia, thyroid dysfunction, pulmonary embolism, infection, gastrointestinal, as well as others were entertained. This patient was evaluated and appeared to be in no significant distress. IV access was obtained and laboratory work was drawn. Patient was placed on the traffic monitor specialist and found to be in a rapid atrial fibrillation. He was medicated with 5 mg of IV metoprolol 2. Patient had very little improvement in her heart rate. She did require 250 mL of IV fluid for a mild drop in her systolic pressure. Patient was then given 10 mg of IV Cardizem with better rate control. She remained in atrial fibrillation. Given her recent inpatient stay and multiple hours in a rapid atrial fibrillation per patient's account, she will be evaluated by the hospitalist service for further management. Medication Reconcilliation Current Medication List: was personally reviewed by or Blood Pressure Screening Patient's blood pressure: Normal blood pressure Blood pressure disposition: Did not require urgent referral Consults Time Called: 1954 Consulting Physician: Dr. Norton, [facility] Hospitalist Returned Call: 1956 I discussed the patients case with Dr. Norton, [facility] Hospitalist. The patient will be further evaluated. Impression Primary Impression: Atrial fibrillation with RVR Critical Care I have personally spent greater than 30 minutes of critical care time in the direct management of this patient. This includes bedside care, interpretation of diagnostic studies, and testing, discussion with consultants, patient, and family members, and other required patient management activities. This 30 minutes is in excess of all separately billable procedures. Scribe Attestation The scribe's documentation has been prepared under my direction and personally reviewed by me in its entirety. I confirm that the note above accurately reflects all work, treatment, procedures, and medical decision making performed by me. Departure Information Dispostion Being Evaluated By Hospitalist Referrals Hai Ortiz M.D.([facility]) (PCP) Patient Instructions My [facility]
--- NOTE | 2017-08-13 17:23 | EMERGENCY ROOM VISIT NOTE ---
History First contact with patient: 16:46 Chief Complaint: IRREGULAR HEARTBEAT Stated Complaint: A FIB Nursing Triage Summary: pt seen in hospital and admitted for 2 days for new onset afib rvr pt d/c yesterday and pt was in nss today pt reports "getting sensation again" feeling dizzy, lightheaded, sweating pt was started on Metroprolol and asa History of Present Illness The patient is a 61 year old female who presents to the Emergency Room with complaints of irregular heart rate She was admitted two days ago with new onset AFIB with RVR. Patient was discharge yesterday afternoon and around 9pm began to feel palpitations and could not fall asleep. The patient was watching TV at 3am when she reports having blurry vision, dizziness and pronounced palpitations. Patient reports that the symptoms have waxed and waned since. She decided to come in this afternoon after consultation with her family physician. Patient denies CP, SOB, lower extremity swelling or syncopal episode. During previous hospitalization, patient was controlled with 25mg of Metoprolol. She was admitted and underwent a cardio workup which was found to be unremarkable. Cardiology sent home with Metoprolol 25 and ASA. Her Afib was thought to be due to colonoscopy preparation. Review of Systems see below Constitutional: No fever, No chills, No sweats Respiratory: No cough, No sputum, No wheezing, No shortness of breath, No dyspnea on exertion Cardiovascular: + palpitations, No chest pain, No orthopnea, No edema Abdomen: No pain, No nausea, No vomiting Past Medical/Surgical History Medical Problems: (1) Atrial fibrillation Surgical Problems: (1) H/O breast surgery (2) H/O rotator cuff surgery (3) H/O: hysterectomy (4) Hx of cholecystectomy Family History Cancer Heart disease Social History Smoking Status: Former Smoker Alcohol Use: none Drug Use: none Marital Status: Housing Status: lives with significant other Current/Historical Medications Scheduled Aspirin (Aspirin Ec), 81 MG PO QAM Fluticasone Propionate (Nasal) (Flonase Allergy Relief), 1-2 SPRAYS [place] DAILY Gabapentin (Neurontin), 900 MG PO TID Metoprolol Succ (Toprol Xl) (Toprol-Xl), 25 MG PO QAM Nortriptyline (Pamelor), 10-30 MG PO HS Scheduled PRN Albuterol Sulfate (Proair Respiclick), 2 PUFFS PO Q6H PRN for IBS RELATED ISSUE Baclofen (Lioresal), 10-20 MG PO DAILY PRN for Muscle Spasms Hydrocodone/Acetaminophen ([place] 10/325 Tab), 1 TAB PO QID PRN for Pain Lorazepam (Lorazepam), 0.5 MG PO Q6H PRN for Anxiety/Agitation Physical Exam Vital Signs Date Time Temp Pulse Resp B/P (MAP) Pulse Ox O2 Delivery O2 Flow Rate FiO2 08/13/17 22:06 75 16 115/72 98 Room Air 08/13/17 21:16 92 08/13/17 20:57 120 16 113/76 98 Room Air 08/13/17 20:00 92 16 109/76 98 Room Air 08/13/17 19:15 115 16 123/89 95 Room Air 08/13/17 19:14 130 16 110/88 95 Room Air 08/13/17 18:16 127 20 114/81 95 Room Air 08/13/17 18:15 134 114/81 08/13/17 17:31 123 16 136/89 95 Room Air 08/13/17 17:30 126 145/104 08/13/17 17:02 139 08/13/17 16:59 139 08/13/17 16:41 37.0 130 20 149/114 94 Room Air Physical Exam see below General Appearance: WD/WN, no apparent distress Head: normocephalic, atraumatic Respiratory/Chest: chest non-tender, lungs clear, normal breath sounds, no respiratory distress, no accessory muscle use Cardiovascular: no edema, no gallop, no murmur, + irregularly irregular Abdomen / GI: normal bowel sounds, non tender, soft Neurologic/Psych: alert, normal mood/affect, normal reflexes Medical Decision & Procedures Laboratory Results 08/13/17 17:30 08/13/17 17:30 Test 08/13/17 17:30 Red Blood Count 4.22 M/uL (4.2-5.4) Mean Corpuscular Volume 96.0 fL (80-100) Mean Corpuscular Hemoglobin 31.5 pg (25-34) Mean Corpuscular Hemoglobin Concent 32.8 g/dl (32-36) RDW Standard Deviation 49.3 fL (36.4-46.3) RDW Coefficient of Variation 14.0 % (11.5-14.5) Mean Platelet Volume 9.9 fL (7.4-10.4) Anion Gap 7.0 mmol/L (3-11) Est Creatinine Clear Calc Drug Dose 91.7 ml/min Estimated GFR () 108.9 Estimated GFR (Non- 94.0 BUN/Creatinine Ratio 20.2 (10-20) Calcium Level 8.9 mg/dl (8.5-10.1) Total Bilirubin 0.2 mg/dl (0.2-1) Aspartate Amino Transf (AST/SGOT) 16 U/L (15-37) Alanine Aminotransferase (ALT/SGPT) 21 U/L (12-78) Alkaline Phosphatase 79 U/L (45-117) Total Protein 6.4 gm/dl (6.4-8.2) Albumin 3.4 gm/dl (3.4-5.0) Globulin 3.0 gm/dl (2.5-4.0) Albumin/Globulin Ratio 1.1 (0.9-2) Medications Administered Medications (Trade) Dose Ordered Sig/Lokesh Route Start Time Stop Time Status Last Admin Dose Admin Metoprolol Tartrate (Lopressor Iv) 5 mg NOW STAT IV 08/13/17 17:08 08/13/17 17:13 DC 08/13/17 17:30 5 MG Metoprolol Tartrate (Lopressor Iv) 5 mg NOW STAT IV 08/13/17 17:51 08/13/17 17:53 DC 08/13/17 18:15 5 MG Sodium Chloride 250 ml @ 999 mls/hr Q16M STAT IV 08/13/17 18:35 08/13/17 18:50 DC 08/13/17 18:52 999 MLS/HR Diltiazem HCl (Cardizem Inj) 10 mg NOW STAT IV 08/13/17 18:46 08/13/17 18:50 DC 08/13/17 19:13 10 MG Acetaminophen/ Hydrocodone Bitart ([place] 10/325 Tab) 1 tab ONE STAT PO 08/13/17 19:41 08/13/17 19:44 DC 08/13/17 19:57 1 TAB Gabapentin (Neurontin Tab) 900 mg NOW STAT PO 08/13/17 19:41 08/13/17 19:44 DC 12/9/17 19:57 900 MG ED Course 1700 History and physical performed 1715 ordered the following test; EKG, CBC, CMP. Gave the patient 5mg of Metoprolol. 1745 patient given second does of Metoprolol 5 mg 1800 Reaccessed the patient 1830 Patient given 10mg of Cardizem, 250 NS bolus 1900 reaccessed the patient 1999 discussed admission with the [facility] Medical Decision 61 yo female comes into the ED with Afib with RVR Goal of therapy was to rate control and convert patient back in NSR. Patient was given 5 mg of Metoprolol x2. Her pressure decreased by 20mmhg and ventricular rate decreased by 20. Patient did not convert back to NSR. Patient was next given a 250 MS bolus and 10 mg push of Cardizem. Patient stayed in Afib despite interventions. Patient was seen in the ED on for new onset afib and was observed overnight. She converted back to NSR in the ED and was seen the following day by cardiology. . Cardiology did a ECHO which showed normal LV function. Patient was discharged on Tuesday with metoprolol 25 mg and returned to the ED in AFib this afternoon. The patient is being admitted for further workup. Patient is currently on ASA. Impression Primary Impression: Atrial fibrillation with RVR Departure Information Dispostion Admitted as an inpatient Condition FAIR Referrals Hai Ortiz M.D.(HUGH) (PCP) Patient Instructions My [facility]
[2017-08-13 17:42] LABS: HEMATOCRIT 40.5 % (37-47); MEAN CORPUSCULAR HEMOGLOBIN 31.5 pg (25-34); MEAN CORPUSCULAR HGB CONC 32.8 g/dl (32-36); MEAN PLATELET VOLUME 9.9 fL (7.4-10.4); PLATELET COUNT 246 K/uL (130-400); RED BLOOD COUNT 4.22 M/uL (4.2-5.4); WHITE BLOOD COUNT 6.27 K/uL (4.8-10.8)
[2017-08-13 17:58] LABS: BUN/CREATININE RATIO 20.2 (10-20); CALCIUM 8.9 mg/dl (8.5-10.1); CREATININE 0.69 mg/dl (0.60-1.20); POTASSIUM 4.1 mmol/L (3.5-5.1)
[2017-08-13 18:01] LABS: ALB/GLOB RATIO 1.1 (0.9-2)
[2017-08-13] MEDS ORDERED: ASPI81TA28 PO (18:20)
[2017-08-13] MEDS ORDERED: METO25TA3 PO (18:20)
[2017-08-13] MEDS ORDERED: FLUT0.15 NAE (18:20)
[2017-08-13] MEDS ORDERED: ALBU18002 PO (18:20)
[2017-08-13] MEDS ORDERED: NORT10CA2 PO (18:20)
[2017-08-13] MEDS ORDERED: ATV5 PO (18:20)
[2017-08-13] MEDS ORDERED: SODIUM CHLORIDE 0.9% 250ML 250 ML IV STA (18:35)
[2017-08-13] MEDS ORDERED: DILTIAZEM HCL 5 MG/ML 5 ML VIAL IV STA (18:46)
[2017-08-13] MEDS ORDERED: HYDROCODONE/ACETAMI 10/325 TAB PO STA (19:41)
[2017-08-13] MEDS ORDERED: GABAPENTIN 600 MG TAB PO STA (19:41)
--- NOTE | 2017-08-13 21:11 | History and Physical ---
History & Physical Date & Time of Service: Aug 13, 2017 at 21:10 Chief Complaint: A FIB Primary Care Physician: Hai Ortiz M.D.(ALFA) History of Present Illness Source: patient Patient is a 61 yr female with PMH of IBS, migraine, HLP, Fibromyalgia and other problems who was discharged yesterday from [facility] after being treated for Afib RVR returns back to ED with complaints of intermittent palpitations, dizziness, diaphoresis and nausea since one day duration. Also reports a very transient episode of blurry vision at around 3am today. She checked her HR and was found to be 130s and so called her PCP who recommended to be evaluated in ED. Patient was evaluated by cardiology during prior admission and was discharged on Metoprolol and Aspirin. She denies any history of Chest pain, SOB , cough, wheezing, fever, chills, syncope, abd pain, diarrhea, dysuria. Past Medical/Surgical History Surgical Problems: (1) H/O breast surgery Status: Resolved (2) H/O rotator cuff surgery Status: Resolved (3) H/O: hysterectomy Status: Resolved (4) Hx of cholecystectomy Status: Resolved Family History Cancer Heart disease Reviewed. Social History Smoking Status: Former Smoker Alcohol Use: none Drug Use: none Marital Status: Housing status: lives with family Occupational Status: retired Multi-Drug Resistant Organisms History of MDRO: No Allergies Coded Allergies: Adhesives (Verified Allergy, Mild, RASH, 08/13/17) Promethazine (Verified Allergy, Mild, ITCHING, 08/13/17) Codeine (Verified Allergy, Unknown, 08/13/17) Uncoded Allergies: ANESTHESIA (Allergy, Unknown, VOMITING, NEASUA, 08/11/17) Home Medications Scheduled Aspirin (Aspirin Ec), 81 MG PO QAM Fluticasone Propionate (Nasal) (Flonase Allergy Relief), 1-2 SPRAYS [place] DAILY Gabapentin (Neurontin), 900 MG PO TID Metoprolol Succ (Toprol Xl) (Toprol-Xl), 25 MG PO QAM Nortriptyline (Pamelor), 10-30 MG PO HS Scheduled PRN Albuterol Sulfate (Proair Respiclick), 2 PUFFS PO Q6H PRN for IBS RELATED ISSUE Baclofen (Lioresal), 10-20 MG PO DAILY PRN for Muscle Spasms Hydrocodone/Acetaminophen ([place] 10/325 Tab), 1 TAB PO QID PRN for Pain Lorazepam (Lorazepam), 0.5 MG PO Q6H PRN for Anxiety/Agitation Review of Systems See HPI for pertinent positives & negatives. A total of 10 systems reviewed and were otherwise negative. Physical Exam Vital Signs Date Time Temp Pulse Resp B/P (MAP) Pulse Ox O2 Delivery O2 Flow Rate FiO2 08/13/17 20:57 120 16 113/76 98 Room Air 08/13/17 20:00 92 16 109/76 98 Room Air 08/13/17 19:15 115 16 123/89 95 Room Air 08/13/17 19:14 130 16 110/88 95 Room Air 08/13/17 18:16 127 20 114/81 95 Room Air 08/13/17 18:15 134 114/81 08/13/17 17:31 123 16 136/89 95 Room Air 08/13/17 17:30 126 145/104 08/13/17 17:02 139 08/13/17 16:41 37.0 130 20 149/114 94 Room Air General Appearance: WD/WN, no apparent distress Head: normocephalic, atraumatic Eyes: normal inspection, PERRL, EOMI ENT: normal ENT inspection, hearing grossly normal Neck: supple, trachea midline Respiratory/Chest: chest non-tender, lungs clear, normal breath sounds, no respiratory distress, no accessory muscle use Cardiovascular: no edema, no murmur, + irregularly irregular Abdomen/GI: normal bowel sounds, non tender, soft Back: normal inspection Extremities/Musculoskelatal: normal inspection, no pedal edema 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/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: 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 as tested, no motor/sensory deficits, alert, normal mood/affect, oriented x 3 Skin: normal color, warm/dry Diagnostics Laboratory Results Results Past 24 Hours Test 08/13/17 17:30 Range/Units White Blood Count 6.27 4.8-10.8 K/uL Red Blood Count 4.22 4.2-5.4 M/uL Hemoglobin 13.3 12.0-16.0 g/dL Hematocrit 40.5 37-47 % Mean Corpuscular Volume 96.0 80-100 fL Mean Corpuscular Hemoglobin 31.5 25-34 pg Mean Corpuscular Hemoglobin Concent 32.8 32-36 g/dl RDW Standard Deviation 49.3 36.4-46.3 fL RDW Coefficient of Variation 14.0 11.5-14.5 % Platelet Count 246 130-400 K/uL Mean Platelet Volume 9.9 7.4-10.4 fL Sodium Level 143 136-145 mmol/L Potassium Level 4.1 3.5-5.1 mmol/L Chloride Level 111 98-107 mmol/L Carbon Dioxide Level 24 21-32 mmol/L Anion Gap 7.0 3-11 mmol/L Blood Urea Nitrogen 14 7-18 mg/dl Creatinine 0.69 0.60-1.20 mg/dl Est Creatinine Clear Calc Drug Dose 91.7 ml/min Estimated GFR () 108.9 Estimated GFR (Non- 94.0 BUN/Creatinine Ratio 20.2 10-20 Random Glucose 97 70-99 mg/dl Calcium Level 8.9 8.5-10.1 mg/dl Total Bilirubin 0.2 0.2-1 mg/dl Aspartate Amino Transf (AST/SGOT) 16 15-37 U/L Alanine Aminotransferase (ALT/SGPT) 21 12-78 U/L Alkaline Phosphatase 79 45-117 U/L Total Protein 6.4 6.4-8.2 gm/dl Albumin 3.4 3.4-5.0 gm/dl Globulin 3.0 2.5-4.0 gm/dl Albumin/Globulin Ratio 1.1 0.9-2 Impression Assessment and Plan Afib RVR: Admit in Telemetry CHADVasc: 1 Increase Metoprolol to 25mg BID Lopressor PRN Continue Aspirin Cardiology consulted ECHO ON 08/12: Ejection Fraction = 55-60%. The left atrial size is normal. Pulse wave TDI of the anterior and posterior mitral annulas demonstrates normal LV relaxation No significant valvular disease. IBS Follows with H/O Fibromyalgia: continue Gabapentin, PRN [place] DVT Px: Heparin SQ Code Status: Full code Disposition: Monitor in Tele
[2017-08-13] MEDS ORDERED: ACETAMINOPHEN 325 MG TAB PO PRN (21:45)
[2017-08-13] MEDS ORDERED: ONDANSETRON INJ 2 MG/ML 2 ML VIAL IV PRN (21:45)
[2017-08-13] MEDS ORDERED: SODIUM CHLORIDE 0.9% 1000ML 1,000 ML IV ONE (21:45)
[2017-08-13] MEDS ORDERED: BACLOFEN 10 MG TAB PO PRN (22:00)
[2017-08-13] MEDS ORDERED: LORAZEPAM 0.5 MG TAB PO PRN (22:00)
[2017-08-13 22:51] VITALS: BP 133/71; PULSE 87; TEMP 36.6; O2SAT 98; Ht 165.1 cm; Wt 78.1 kg
[2017-08-13] MEDS: METOPROLOL TARTRATE 1 MG/ML VIAL IV PRN (23:49)
[2017-08-13] MEDS: HYDROCODONE/ACETAMI 10/325 TAB PO PRN (23:56)
[2017-08-14] VITALS (8 sets, daily range): BP systolic 113–145; BP diastolic 61–94; PULSE 55–112; TEMP 36.4–36.8; O2SAT 93–98
[2017-08-14] MEDS ORDERED: HEPARIN SOD 5000 UNIT/0.5 ML CARP SQ SCH (06:00)
[2017-08-14 06:01] LABS: HEMATOCRIT 38.5 % (37-47); MEAN CORPUSCULAR HEMOGLOBIN 30.7 pg (25-34); MEAN CORPUSCULAR HGB CONC 31.7 g/dl (32-36); MEAN PLATELET VOLUME 10.2 fL (7.4-10.4); PLATELET COUNT 223 K/uL (130-400); RED BLOOD COUNT 3.97 M/uL (4.2-5.4); WHITE BLOOD COUNT 5.52 K/uL (4.8-10.8)
[2017-08-14 06:20] LABS: CALCIUM 8.3 mg/dl (8.5-10.1); CREATININE 0.48 mg/dl (0.60-1.20); MAGNESIUM 2.1 mg/dl (1.8-2.4); POTASSIUM 3.9 mmol/L (3.5-5.1)
[2017-08-14] MEDS: ASPIRIN 81 MG ECTAB PO SCH (07:38)
[2017-08-14] MEDS: FLUTICASONE PROPIONATE NA SPR 16 GM BTL NAE SCH (07:38)
[2017-08-14] MEDS: GABAPENTIN 300 MG CAP PO SCH ×3 (07:38→21:11)
[2017-08-14] MEDS: HYDROCODONE/ACETAMI 10/325 TAB PO PRN ×2 (07:41→21:58)
[2017-08-14] MEDS: METOPROLOL TARTRATE 1 MG/ML VIAL IV PRN (07:51)
[2017-08-14] MEDS ORDERED: METOPROLOL TARTRATE 25 MG TAB PO SCH (09:00)
[2017-08-14] MEDS ORDERED: SOTALOL HCL 80 MG TAB PO ONE (10:45)
[2017-08-14] MEDS ORDERED: POTASSIUM CHLORIDE 20 MEQ TABCR PO STA (10:48)
[2017-08-14] MEDS ORDERED: HEPARIN IV BOLUS 4,000 UNIT in SYRINGE 0 ML IV ONE (11:05)
[2017-08-14 11:24] LABS: BASO % 0.6 %; BASO ABS # 0.03 K/uL (0-0.2); EOS % 1.9 %; HEMATOCRIT 38.2 % (37-47); LYMPH % 40.2 %; LYMPH ABS # 2.07 K/uL (1.2-3.4); MEAN CELL VOLUME 96.2 fL (80-100); MEAN CORPUSCULAR HEMOGLOBIN 31.2 pg (25-34); MEAN PLATELET VOLUME 9.8 fL (7.4-10.4); MONO % 7.6 %; NEUT % 49.7 %; PLATELET COUNT 204 K/uL (130-400); RED BLOOD COUNT 3.97 M/uL (4.2-5.4); WHITE BLOOD COUNT 5.15 K/uL (4.8-10.8)
[2017-08-14 11:26] LABS: COMPLETE YES; MEAN CORPUSCULAR HGB CONC 32.5 g/dl (32-36)
[2017-08-14] MEDS: HEPARIN 25,000 UNIT/500ML D5W 500 ML IV PRN ×2 (11:26→18:37)
[2017-08-14 11:33] LABS: PARTIAL THROMBOPLASTIN RATIO 1.1; PROTHROMBIN TIME (PATIENT) 10.3 SECONDS (9.0-12.0)
--- NOTE | 2017-08-14 15:36 | CARDIOLOGY CONSULTATION ---
DATE OF CONSULTATION: 08/14/2017 Please refer to complete cardiology consultation performed on 08/11/2017. HISTORY OF PRESENT ILLNESS: The patient is a 61-year-old female who carries a history of paroxysmal atrial fibrillation, irritable bowel syndrome, chronic fibromyalgia, degenerative disc disease with chronic low back pain, recently hospitalized on 08/11/2017 with lapse into atrial fibrillation following colonoscopy prep. She spontaneously converted this on that admission. Upon returning home, was once again lapsed back into atrial fibrillation with rapid ventricular response. She notes symptoms began approximately at 3:00 a.m. with associated sensation of dizziness and blurry vision. Heart rates have slowed intermittently with IV metoprolol, but remain elevated. She denies any current chest pain. Notes no fevers, chills or sweats. Notes no melena, hematochezia, dysuria, or hematuria. Appetite and weight have been generally stable though with chronic issues present. Has chronic sleep disruption. ALLERGIES: ADHESIVE, CODEINE AND PROMETHAZINE. MEDICATIONS: Prior to hospitalization were albuterol inhaler, aspirin 81 mg per day, baclofen, gabapentin 900 t.i.d., lorazepam p.r.n., Toprol XL 25 mg q.a.m., Pamelor 30 mg at bedtime, hydrocodone p.r.n. pain. For past surgical, family, and social history, please refer to recent consultation. PHYSICAL EXAMINATION: VITAL SIGNS: Heart rate is 112, blood pressure is 127/89. HEENT: Normocephalic and atraumatic. Nares without discharge. Throat was clear. NECK: Supple without thyromegaly or lymphadenopathy. LUNGS: Clear to auscultation. CARDIOVASCULAR: Irregularly irregular with a rapid ventricular response of less than grade 1/6 systolic murmur. ABDOMEN: Soft, nontender. EXTREMITIES: Without cyanosis or clubbing. There is no peripheral edema. There are intact distal pulses. LABORATORY STUDIES: White cell count is 5.1, hemoglobin is 12.4, hematocrit is 38.2, , platelet count is 204. Sodium is 137, potassium is 3.9, chloride is 109, bicarbonate is 25, BUN is 12, creatinine is 0.48. Magnesium level is 2.1. INR is 1.0. Chest x-ray reveals no infiltrate or edema on the last examination. EKG today demonstrates atrial fibrillation with rapid ventricular response, rate 94, QT corrected 427. IMPRESSION: A 61-year-old female with paroxysmal atrial fibrillation with 2 recent relapses, once again presenting with atrial fibrillation with rapid ventricular response. Discussed options of management. RECOMMENDATIONS: We will begin anticoagulation with IV heparin at least transiently during hospital stay. We will initiate antiarrhythmic therapy with sotalol 80 mg twice per day, discontinuing Toprol. The patient will be mandated to be on monitor for at least an additional 36 hours. We will follow QT intervals on EKG and maintain constant telemetry. Potassium will be supplemented today. Bridged anticoagulation will be discussed with the patient. She continues to have low CHADS-VASc score.
[2017-08-14] MEDS: SOTALOL HCL 80 MG TAB PO SCH (16:08)
[2017-08-14 18:00] LABS: PARTIAL THROMBOPLASTIN RATIO 1.4
[2017-08-14] MEDS ORDERED: HEPARIN IV BOLUS 4,500 UNIT in SYRINGE 0 ML IV ONE (18:30)
--- NOTE | 2017-08-14 19:53 | Progress Note ---
Medicine Progress Note Date & Time of Visit: Aug 14, 2017 at 19:53. Subjective Patient seen earlier today; had just received first dose of sotalol. Complains of palpitations and feeling tired. States she also feels slight short of breath. No overnight events noted. Tolerating PO. Objective Last 8 Hrs Date Time Temp Pulse Resp B/P (MAP) Pulse Ox O2 Delivery O2 Flow Rate FiO2 08/14/17 19:49 Room Air 08/14/17 19:08 36.5 74 18 139/70 (93) 96 08/14/17 16:00 Room Air 08/14/17 15:57 36.8 68 18 145/72 (96) 97 08/14/17 12:00 Room Air Physical Exam: GENERAL: Patient is in no acute distress. HEENT: No acute trauma, normocephalic atraumatic, mucous membranes moist, no nasal congestion, no scleral icterus. NECK: No stridor, trachea is midline. LUNGS: Clear to auscultation bilaterally, no wheeze, no rhonchi, breath sounds equal. HEART: Without murmurs gallops or rubs, irregularly, irregular ABDOMEN: Soft, nontender, bowel sounds positive EXTREMITIES: No cyanosis or edema, full range of motion of all the joints without pain or difficulty, no signs for acute trauma. NEUROLOGIC: Oriented x 3, no acute motor or sensory deficits, no focal weakness. SKIN: No rash, no jaundice, no diaphoresis. Laboratory Results: Last 24 Hours Test 08/14/17 05:21 08/14/17 11:08 08/14/17 17:37 White Blood Count 5.52 K/uL 5.15 K/uL Red Blood Count 3.97 M/uL 3.97 M/uL Hemoglobin 12.2 g/dL 12.4 g/dL Hematocrit 38.5 % 38.2 % Mean Corpuscular Volume 97.0 fL 96.2 fL Mean Corpuscular Hemoglobin 30.7 pg 31.2 pg Mean Corpuscular Hemoglobin Concent 31.7 g/dl 32.5 g/dl RDW Standard Deviation 49.8 fL 50.3 fL RDW Coefficient of Variation 13.9 % 14.2 % Platelet Count 223 K/uL 204 K/uL Mean Platelet Volume 10.2 fL 9.8 fL Sodium Level 137 mmol/L Potassium Level 3.9 mmol/L Chloride Level 109 mmol/L Carbon Dioxide Level 25 mmol/L Anion Gap 3.0 mmol/L Blood Urea Nitrogen 12 mg/dl Creatinine 0.48 mg/dl Est Creatinine Clear Calc Drug Dose 127.7 ml/min Estimated GFR () 122.7 Estimated GFR (Non- 105.9 BUN/Creatinine Ratio 25.0 Random Glucose 87 mg/dl Calcium Level 8.3 mg/dl Magnesium Level 2.1 mg/dl Neutrophils (%) (Auto) 49.7 % Lymphocytes (%) (Auto) 40.2 % Monocytes (%) (Auto) 7.6 % Eosinophils (%) (Auto) 1.9 % Basophils (%) (Auto) 0.6 % Neutrophils # (Auto) 2.56 K/uL Lymphocytes # (Auto) 2.07 K/uL Monocytes # (Auto) 0.39 K/uL Eosinophils # (Auto) 0.10 K/uL Basophils # (Auto) 0.03 K/uL Immature Granulocyte % (Auto) 0.0 % Immature Granulocyte # (Auto) 0.00 K/uL Prothrombin Time 10.3 SECONDS Prothromb Time International Ratio 1.0 Activated Partial Thromboplast Time 28.0 SECONDS 36.1 SECONDS Partial Thromboplastin Ratio 1.1 1.4 Assessment & Plan PAROXYSMAL ATRIAL FIBRILLATION: -[id number] score 1- female -now symptomatic -HR controlled, BP stable -recently discharged on Lopressor and ASA -Potassium and Mg levels normal -TSH normal -Cardiology consulted, patient taken off lopressor, started on sotalol and heparin -was on IV fluids overnight IBS: -was scheduled for Colonoscopy and had undergone the bowel prep when the a fib was first detected by GI on Tuesday -outpatient follow up FIBROMYALGIA: -continue Gabapentin, PRN [place] Current Inpatient Medications: Current Inpatient Medications Medications (Trade) Dose Ordered Sig/Lokesh Route Start Time Stop Time Status Last Admin Dose Admin Acetaminophen (Tylenol Tab) 650 mg Q4H PRN PO 08/13/17 21:45 09/12/17 21:44 Ondansetron HCl (Zofran Inj) 4 mg Q6H PRN IV 08/13/17 21:45 09/12/17 21:44 Aspirin (Ecotrin Tab) 81 mg QAM PO 08/14/17 09:00 09/13/17 08:59 08/14/17 07:38 81 MG Baclofen (Lioresal Tab) 10 mg DAILY PRN PO 08/13/17 22:00 09/12/17 21:59 Fluticasone Propionate (Flonase Nasal [place]) 1 sprays DAILY [place] 08/14/17 09:00 09/13/17 08:59 Gabapentin (Neurontin Cap) 900 mg TID PO 08/14/17 09:00 09/13/17 08:59 08/14/17 14:01 900 MG Acetaminophen/ Hydrocodone Bitart ([place] 10/325 Tab) 1 tab QID PRN PO 08/13/17 22:00 08/27/17 21:59 08/14/17 07:41 1 TAB Lorazepam (Ativan Tab) 0.5 mg Q6H PRN PO 08/13/17 22:00 09/12/17 21:59 Nortriptyline HCl (Pamelor Cap) 10 mg HS PO 08/14/17 21:00 09/13/17 20:59 Sotalol HCl (Betapace Tab) 80 mg BID17 PO 08/14/17 17:00 09/13/17 16:59 08/14/17 16:08 80 MG Heparin Sodium/ Dextrose 500 ml @ 19 mls/hr Q24H PRN IV 08/14/17 11:15 09/13/17 11:14 08/14/17 18:37 19 MLS/HR
[2017-08-14] MEDS: NORTRIPTYLINE HCL 10 MG CAP PO SCH (21:11)
[2017-08-15 00:34] LABS: PARTIAL THROMBOPLASTIN RATIO 2.4
[2017-08-15 03:00] VITALS: BP 129/78; PULSE 53; TEMP 36.5; O2SAT 96
[2017-08-15] MEDS: HYDROCODONE/ACETAMI 10/325 TAB PO PRN ×3 (04:03→17:26)
[2017-08-15 07:20] VITALS: BP 115/69; PULSE 51; TEMP 36.9; O2SAT 95
[2017-08-15 07:29] LABS: MEAN CELL VOLUME 96.7 fL (80-100); MEAN CORPUSCULAR HEMOGLOBIN 30.9 pg (25-34); MEAN PLATELET VOLUME 9.8 fL (7.4-10.4); PLATELET COUNT 180 K/uL (130-400); RED BLOOD COUNT 3.62 M/uL (4.2-5.4); WHITE BLOOD COUNT 4.88 K/uL (4.8-10.8)
[2017-08-15 07:44] LABS: PARTIAL THROMBOPLASTIN RATIO 1.8
[2017-08-15] MEDS: SOTALOL HCL 80 MG TAB PO SCH ×2 (07:51→17:26)
[2017-08-15] MEDS: ASPIRIN 81 MG ECTAB PO SCH (07:51)
[2017-08-15] MEDS: FLUTICASONE PROPIONATE NA SPR 16 GM BTL NAE SCH (07:51)
[2017-08-15] MEDS: GABAPENTIN 300 MG CAP PO SCH ×3 (07:51→17:28)
[2017-08-15] MEDS: HEPARIN 25,000 UNIT/500ML D5W 500 ML IV PRN (08:40)
[2017-08-15] MEDS ORDERED: HEPARIN IV BOLUS 3,000 UNIT in SYRINGE 0 ML IV ONE (08:45)
[2017-08-15 11:12] VITALS: BP 13/54; PULSE 50; TEMP 36.6; O2SAT 93
--- NOTE | 2017-08-15 13:46 | PROGRESS NOTE ---
DATE: 08/15/2017 CARDIOLOGY CONSULTATION FOLLOWUP NOTE The patient seen and examined. Chart, medications, telemetry reviewed. SUBJECTIVE: The patient feels improved this morning, spontaneously converted to sinus rhythm last evening. Notes no dizziness, chest pain, shortness of breath, orthopnea. Notes no worsening peripheral edema. Notes no dizziness or lightheadedness when up in room. Notes no bleeding difficulties on current IV heparin. OBJECTIVE: VITAL SIGNS: Heart rate is 50, blood pressure is 115/69. HEENT: Normocephalic, atraumatic. Nares without discharge. Throat was clear. NECK: Supple without thyromegaly or lymphadenopathy. There are no carotid bruits. LUNGS: Clear to auscultation. CARDIOVASCULAR: Regular. Normal S1S2 ABD: Soft EXT: EKG: Pending AP PAF with successful conversion to sinus rhythm on Sotalol Will reduce sotalol to 49 mg bid, continue telemetry, IV heparin EKG am Bo JACOB
[2017-08-15 15:35] LABS: PARTIAL THROMBOPLASTIN RATIO 2.2
[2017-08-15 15:45] VITALS: BP 106/68; PULSE 50; TEMP 36.4; O2SAT 96
[2017-08-15 20:16] VITALS: BP 116/64; PULSE 64; TEMP 36.4; O2SAT 98
--- NOTE | 2017-08-15 20:36 | Progress Note ---
Medicine Progress Note Date & Time of Visit: Aug 15, 2017 at 20:33. Subjective Patient converted to NSR yesterday; states today she feels very tired and weak and also a bit lightheaded and dizzy when she stands. Also complains of hip and gluteal pain from laying in bed. Denies any CP or palpitations. No overnight events noted. Objective Last 8 Hrs Date Time Temp Pulse Resp B/P (MAP) Pulse Ox O2 Delivery O2 Flow Rate FiO2 08/15/17 20:16 36.4 64 16 116/64 (81) 98 Room Air 08/15/17 16:00 Room Air 08/15/17 15:45 36.4 50 20 106/68 (81) 96 Room Air Physical Exam: GENERAL: Patient is in no acute distress. HEENT: No acute trauma, normocephalic atraumatic, mucous membranes moist, no nasal congestion, no scleral icterus. NECK: No stridor, trachea is midline. LUNGS: Clear to auscultation bilaterally, no wheeze, no rhonchi, breath sounds equal. HEART: Without murmurs gallops or rubs, RR, S1 and S2 auscultated ABDOMEN: Soft, nontender, bowel sounds positive EXTREMITIES: No cyanosis or edema, full range of motion of all the joints without pain or difficulty, no signs for acute trauma. NEUROLOGIC: Oriented x 3, no acute motor or sensory deficits, no focal weakness. SKIN: No rash, no jaundice, no diaphoresis. Laboratory Results: Last 24 Hours Test 08/15/17 00:08 08/15/17 07:05 08/15/17 15:02 Activated Partial Thromboplast Time 61.4 SECONDS 46.2 SECONDS 56.2 SECONDS Partial Thromboplastin Ratio 2.4 1.8 2.2 White Blood Count 4.88 K/uL Red Blood Count 3.62 M/uL Hemoglobin 11.2 g/dL Hematocrit 35.0 % Mean Corpuscular Volume 96.7 fL Mean Corpuscular Hemoglobin 30.9 pg Mean Corpuscular Hemoglobin Concent 32.0 g/dl RDW Standard Deviation 51.4 fL RDW Coefficient of Variation 14.3 % Platelet Count 180 K/uL Mean Platelet Volume 9.8 fL Assessment & Plan PAROXYSMAL ATRIAL FIBRILLATION: -[id number] score 1- female -now symptomatic -HR controlled, BP stable -was recently discharged on Lopressor and ASA as she had returned to NSR -Potassium and Mg levels normal -TSH normal -Cardiology consulted, patient taken off lopressor, started on sotalol and heparin (day#2); sotalol dose decreased per Cardiology -was on IV fluids overnight IBS: -was scheduled for Colonoscopy and had undergone the bowel prep when the a fib was first detected by GI on Tuesday -outpatient follow up FIBROMYALGIA: -continue Gabapentin, PRN [place] Current Inpatient Medications: Current Inpatient Medications Medications (Trade) Dose Ordered Sig/Lokesh Route Start Time Stop Time Status Last Admin Dose Admin Acetaminophen (Tylenol Tab) 650 mg Q4H PRN PO 08/13/17 21:45 09/12/17 21:44 08/15/17 08:06 650 MG Ondansetron HCl (Zofran Inj) 4 mg Q6H PRN IV 08/13/17 21:45 09/12/17 21:44 Aspirin (Ecotrin Tab) 81 mg QAM PO 08/14/17 09:00 09/13/17 08:59 08/15/17 07:51 81 MG Baclofen (Lioresal Tab) 10 mg DAILY PRN PO 08/13/17 22:00 09/12/17 21:59 Fluticasone Propionate (Flonase Nasal [place]) 1 sprays DAILY [place] 08/14/17 09:00 09/13/17 08:59 Gabapentin (Neurontin Cap) 900 mg TID PO 08/14/17 09:00 09/13/17 08:59 08/15/17 17:28 900 MG Acetaminophen/ Hydrocodone Bitart ([place] 10/325 Tab) 1 tab QID PRN PO 08/13/17 22:00 08/27/17 21:59 08/15/17 17:26 1 TAB Lorazepam (Ativan Tab) 0.5 mg Q6H PRN PO 08/13/17 22:00 09/12/17 21:59 Nortriptyline HCl (Pamelor Cap) 10 mg HS PO 08/14/17 21:00 09/13/17 20:59 08/14/17 21:11 10 MG Heparin Sodium/ Dextrose 500 ml @ 20 mls/hr Q24H PRN IV 08/14/17 11:15 09/13/17 11:14 12/11/17 08:40 20 MLS/HR Sotalol HCl (Betapace Tab) 40 mg BID17 PO 08/15/17 17:00 09/13/17 16:59 08/15/17 17:26 40 MG
[2017-08-15] MEDS: NORTRIPTYLINE HCL 10 MG CAP PO SCH (21:24)
[2017-08-15 23:29] VITALS: BP 112/58; PULSE 54; TEMP 36.8; O2SAT 93
[2017-08-16] MEDS: HYDROCODONE/ACETAMI 10/325 TAB PO PRN ×3 (03:18→15:01)
[2017-08-16 04:00] VITALS: BP 116/62; PULSE 64; TEMP 37; O2SAT 96
[2017-08-16 07:12] LABS: HEMATOCRIT 36.1 % (37-47); MEAN CORPUSCULAR HEMOGLOBIN 31.2 pg (25-34); MEAN CORPUSCULAR HGB CONC 32.1 g/dl (32-36); MEAN PLATELET VOLUME 10.3 fL (7.4-10.4); PLATELET COUNT 196 K/uL (130-400); RED BLOOD COUNT 3.72 M/uL (4.2-5.4); WHITE BLOOD COUNT 4.52 K/uL (4.8-10.8)
[2017-08-16 07:24] LABS: PARTIAL THROMBOPLASTIN RATIO 1.8
[2017-08-16 07:35] VITALS: BP 120/67; PULSE 71; TEMP 37; O2SAT 93
[2017-08-16 07:40] LABS: CALCIUM 8.7 mg/dl (8.5-10.1); CREATININE 0.52 mg/dl (0.60-1.20); MAGNESIUM 2.2 mg/dl (1.8-2.4); POTASSIUM 4.3 mmol/L (3.5-5.1)
[2017-08-16] MEDS: FLUTICASONE PROPIONATE NA SPR 16 GM BTL NAE SCH (08:04)
[2017-08-16] MEDS: GABAPENTIN 300 MG CAP PO SCH ×2 (08:05→15:01)
[2017-08-16] MEDS: ASPIRIN 81 MG ECTAB PO SCH (08:05)
[2017-08-16] MEDS: SOTALOL HCL 80 MG TAB PO SCH (08:06)
[2017-08-16] MEDS ORDERED: HEPARIN IV BOLUS 3,000 UNIT in SYRINGE 0 ML IV ONE (09:00)
[2017-08-16] MEDS: HEPARIN 25,000 UNIT/500ML D5W 500 ML IV PRN (09:21)
--- NOTE | 2017-08-16 11:16 | PROGRESS NOTE ---
DATE: 08/16/2017 The patient seen and examined. Chart, medications, telemetry reviewed. SUBJECTIVE: The patient feels well this morning. She has had no further atrial arrhythmias. Rhythms has been sinus bradycardia. Notes no chest pains, dizziness, lightheadedness, syncope or near syncope. OBJECTIVE: VITAL SIGNS: Heart rate 71, blood pressure is 120/67. NECK: Thin. There is no jugular venous distention. No carotid bruits. LUNGS: Clear to auscultation. CARDIOVASCULAR: Regular with normal S1, S2, no murmur, gallop or rub. ABDOMEN: Soft, nontender. EXTREMITIES: Without cyanosis or clubbing. There is no peripheral edema. DATA: EKG reveals sinus bradycardia, rate of 537. QT corrected 370. IMPRESSION: A 61-year-old female with paroxysmal atrial fibrillation, now on a reduced dose of sotalol, no further arrhythmias. Heart rates are trending to slightly lower. We will repeat EKG after afternoon dose today. There is no QT prolongation. The patient is ambulatory in the hallway without complaint. We will discharge to home with plan to close clinical followup.
[2017-08-16 11:28] VITALS: BP 123/60; PULSE 51; TEMP 36.9; O2SAT 97
[2017-08-16 15:28] VITALS: BP 139/65; PULSE 46; TEMP 36.6; O2SAT 94
[2017-08-16] MEDS ORDERED: SOTALOL HCL 80 MG TAB PO SCH (16:00)
--- NOTE | 2017-08-16 17:26 | Progress Note ---
Internal Med Progress Note Date of Service: Aug 16, 2017. Provider Documentation: SUBJECTIVE: The patient was seen and examined Generally tired otherwise no other symptoms OBJECTIVE: Vital Signs-as noted below Exam: General-no distress at rest Eyes-normal ENT-normal Neck-supple Lungs-clear to auscultate bilaterally Heart-Regular,no murmur Abdomen-benign,no masses,bowel sound present Extremities-NO edema Neuro-AAOx3 Lab data as noted below. ASSESSMENT & PLAN: PAROXYSMAL ATRIAL FIBRILLATION: -[id number] score 1- female -HR controlled, BP stable -was recently discharged on Lopressor and ASA as she had returned to NSR -Potassium and Mg levels normal -TSH normal -Cardiology consulted, patient taken off Lopressor, started on sotalol and heparin (day#2); sotalol dose decreased per Cardiology -No more arrhythmia -Sotalol dose has been reduced -likely discharge today IBS: -was scheduled for Colonoscopy and had undergone the bowel prep when the a fib was first detected by GI on Tuesday -outpatient follow up FIBROMYALGIA: -continue Gabapentin, PRN [place] DISPOSITION Likely discharge today Vital Signs: Date Time Temp Pulse Resp B/P (MAP) Pulse Ox O2 Delivery O2 Flow Rate FiO2 08/16/17 16:00 Room Air 08/16/17 15:28 36.6 46 18 139/65 (89) 94 Room Air 08/16/17 12:00 Room Air 08/16/17 11:28 36.9 51 18 123/60 (81) 97 Room Air 08/16/17 08:00 Room Air 08/16/17 07:35 37.0 71 18 120/67 (84) 93 Room Air 08/16/17 04:00 Room Air 08/16/17 04:00 37.0 64 17 116/62 (80) 96 Room Air 08/15/17 23:59 Room Air 08/15/17 23:29 36.8 54 18 112/58 (76) 93 Room Air 08/15/17 20:16 36.4 64 16 116/64 (81) 98 Room Air 08/15/17 20:00 Room Air Lab Results: Results Past 24 Hours Test 08/16/17 06:43 Range/Units White Blood Count 4.52 4.8-10.8 K/uL Red Blood Count 3.72 4.2-5.4 M/uL Hemoglobin 11.6 12.0-16.0 g/dL Hematocrit 36.1 37-47 % Mean Corpuscular Volume 97.0 80-100 fL Mean Corpuscular Hemoglobin 31.2 25-34 pg Mean Corpuscular Hemoglobin Concent 32.1 32-36 g/dl RDW Standard Deviation 51.4 36.4-46.3 fL RDW Coefficient of Variation 14.4 11.5-14.5 % Platelet Count 196 130-400 K/uL Mean Platelet Volume 10.3 7.4-10.4 fL Activated Partial Thromboplast Time 46.3 21.0-31.0 SECONDS Partial Thromboplastin Ratio 1.8 Sodium Level 139 136-145 mmol/L Potassium Level 4.3 3.5-5.1 mmol/L Chloride Level 108 98-107 mmol/L Carbon Dioxide Level 25 21-32 mmol/L Anion Gap 6.0 3-11 mmol/L Blood Urea Nitrogen 17 7-18 mg/dl Creatinine 0.52 0.60-1.20 mg/dl Est Creatinine Clear Calc Drug Dose 117.4 ml/min Estimated GFR () 119.5 Estimated GFR (Non- 103.1 BUN/Creatinine Ratio 33.0 10-20 Random Glucose 88 70-99 mg/dl Calcium Level 8.7 8.5-10.1 mg/dl Magnesium Level 2.2 1.8-2.4 mg/dl
[2017-08-16] MEDS ORDERED: BTP80 PO (17:32)
--- NOTE | 2017-08-16 17:34 | Discharge Instructions ---
Discharge Instructions Date of Service Aug 16, 2017. Admission Reason for Admission: Atrial Fibrillation With Rvr Discharge Discharge Diagnosis / Problem: AF with RVR Discharge Goals Goal(s): Prevent Disease Progression Activity Recommendations Activity Limitations: resume your previous activity . Instructions / Follow-Up Instructions / Follow-Up PCP in 1 week-will call with appointment.Cardiology in 2 weeks Current Hospital Diet Patient's current hospital diet: AHA Diet (Heart Healthy) Discharge Diet Recommended Diet: AHA Diet (Heart Healthy) Pending Studies Studies pending at discharge: no Medical Emergencies . Who to Call and When: Medical Emergencies: If at any time you feel your situation is an emergency, please call 911 immediately. . Non-Emergent Contact Non-Emergency issues call your: Primary Care Provider . Past History Medical & Surgical History: (1) Atrial fibrillation (2) Atrial fibrillation with RVR . "Provider Documentation" section prepared by Jean Gray. . VTE Core Measure Inpt VTE Proph given/why not?: Unfractionated heparin SQ
[2017-08-16 17:45] VITALS: BP 139/65; PULSE 46; TEMP 36.6; O2SAT 94
--- NOTE | 2017-08-16 18:02 | PROGRESS NOTE ---
DATE: 08/16/2017 The patient seen and examined. Chart, medications reviewed. The patient notes only minimal lightheadedness when standing. She has been ambulatory in the hallway. Heart rates are running between 45 and 65, no arrhythmias. EKG this afternoon reveals no QT prolongation. Study at 08/16/2017 at 16:28 demonstrating sinus bradycardia, rate of 51. QT corrected of 416. Discussed findings in detail. Plan will be to continue low dose sotalol for arrhythmia control at 40 mg twice per day. Would not increase this further if the patient had recurrent events. Would consider Tikosyn. The patient is stable for discharge later today. Arrangements made for outpatient follow up.
--- NOTE | 2017-08-17 07:46 | Discharge Summary ---
Discharge Summary Date of Service Aug 17, 2017. Discharge Summary Admission Date: Aug 13, 2017 at 21:42 Discharge Date: Aug 16, 2017 Discharge Disposition: Home Principal Diagnosis: AF with RVR Secondary Diagnoses/Problems: Please see H&P and Hospital Progress note Consultations: Cardiology Medication Reconciliation New Medications: Sotalol HCl (Sotalol HCl) 80 Mg Tab 40 MG PO BID@0900,1600 for 30 Days, #30 TAB Continued Medications: Albuterol Sulfate (Proair Respiclick) 108 Mcg/Act Aer 2 PUFFS PO Q6H PRN for IBS RELATED ISSUE Aspirin (Aspirin Ec) 81 Mg Tab 81 MG PO QAM Baclofen (Lioresal) 10 Mg Tab 10-20 MG PO DAILY PRN for Muscle Spasms, TAB Fluticasone Propionate (Nasal) (Flonase Allergy Relief) 50 Mcg/Act Spr 1-2 SPRAYS [place] DAILY Gabapentin (Neurontin) 300 Mg Cap 900 MG PO TID, CAP Hydrocodone/Acetaminophen ([place] 10/325 Tab) 1 Tab Tab 1 TAB PO QID PRN for Pain, TAB Lorazepam (Lorazepam) 0.5 Mg Tab 0.5 MG PO Q6H PRN for Anxiety/Agitation Nortriptyline (Pamelor) 10 Mg Cap 10-30 MG PO HS, CAP Discontinued Medications: Metoprolol Succ (Toprol Xl) (Toprol-Xl) 25 Mg Tabcr 25 MG PO QAM, #30 TAB Admission Information HPI (per Admitting provider): Patient is a 61 yr female with PMH of IBS, migraine, HLP, Fibromyalgia and other problems who was discharged yesterday from [facility] after being treated for Afib RVR returns back to ED with complaints of intermittent palpitations, dizziness, diaphoresis and nausea since one day duration. Also reports a very transient episode of blurry vision at around 3am today. She checked her HR and was found to be 130s and so called her PCP who recommended to be evaluated in ED. Patient was evaluated by cardiology during prior admission and was discharged on Metoprolol and Aspirin. She denies any history of Chest pain, SOB , cough, wheezing, fever, chills, syncope, abd pain, diarrhea, dysuria. Past Medical/Surgical History Surgical Problems: (1) H/O breast surgery Status: Resolved (2) H/O rotator cuff surgery Status: Resolved (3) H/O: hysterectomy Status: Resolved (4) Hx of cholecystectomy Status: Resolved Family History Cancer Heart disease Reviewed. Social History Smoking Status: Former Smoker Alcohol Use: none Drug Use: none Marital Status: Housing status: lives with family Occupational Status: retired Multi-Drug Resistant Organisms History of MDRO: No Allergies Coded Allergies: Adhesives (Verified Allergy, Mild, RASH, 08/13/17) Promethazine (Verified Allergy, Mild, ITCHING, 08/13/17) Codeine (Verified Allergy, Unknown, 08/13/17) Uncoded Allergies: ANESTHESIA (Allergy, Unknown, VOMITING, NEASUA, 08/11/17) Home Medications Scheduled Aspirin (Aspirin Ec), 81 MG PO QAM Fluticasone Propionate (Nasal) (Flonase Allergy Relief), 1-2 SPRAYS [place] DAILY Gabapentin (Neurontin), 900 MG PO TID Metoprolol Succ (Toprol Xl) (Toprol-Xl), 25 MG PO QAM Nortriptyline (Pamelor), 10-30 MG PO HS Scheduled PRN Albuterol Sulfate (Proair Respiclick), 2 PUFFS PO Q6H PRN for IBS RELATED ISSUE Baclofen (Lioresal), 10-20 MG PO DAILY PRN for Muscle Spasms Hydrocodone/Acetaminophen ([place] 10/325 Tab), 1 TAB PO QID PRN for Pain Lorazepam (Lorazepam), 0.5 MG PO Q6H PRN for Anxiety/Agitation Review of Systems See HPI for pertinent positives & negatives. A total of 10 systems reviewed and were otherwise negative. Physical Ex - H&P Physical Exam Vital Signs Date Time Temp Pulse Resp B/P (MAP) Pulse Ox O2 Delivery O2 Flow Rate FiO2 08/13/17 20:57 120 16 113/76 98 Room Air 08/13/17 20:00 92 16 109/76 98 Room Air 08/13/17 19:15 115 16 123/89 95 Room Air 08/13/17 19:14 130 16 110/88 95 Room Air 08/13/17 18:16 127 20 114/81 95 Room Air 08/13/17 18:15 134 114/81 08/13/17 17:31 123 16 136/89 95 Room Air 08/13/17 17:30 126 145/104 08/13/17 17:02 139 08/13/17 16:41 37.0 130 20 149/114 94 Room Air General Appearance: WD/WN, no apparent distress Head: normocephalic, atraumatic Eyes: normal inspection, PERRL, EOMI ENT: normal ENT inspection, hearing grossly normal Neck: supple, trachea midline Respiratory/Chest: chest non-tender, lungs clear, normal breath sounds, no respiratory distress, no accessory muscle use Cardiovascular: no edema, no murmur, + irregularly irregular Abdomen/GI: normal bowel sounds, non tender, soft Back: normal inspection Extremities/Musculoskelatal: normal inspection, no pedal edema 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, no motor/sensory deficits, alert, normal mood/affect, oriented x 3 Skin: normal color, warm/dry Diagnostics - H&P Diagnostics Laboratory Results Results Past 24 Hours Test 08/13/17 17:30 Range/Units White Blood Count 6.27 4.8-10.8 K/uL Red Blood Count 4.22 4.2-5.4 M/uL Hemoglobin 13.3 12.0-16.0 g/dL Hematocrit 40.5 37-47 % Mean Corpuscular Volume 96.0 80-100 fL Mean Corpuscular Hemoglobin 31.5 25-34 pg Mean Corpuscular Hemoglobin Concent 32.8 32-36 g/dl RDW Standard Deviation 49.3 36.4-46.3 fL RDW Coefficient of Variation 14.0 11.5-14.5 % Platelet Count 246 130-400 K/uL Mean Platelet Volume 9.9 7.4-10.4 fL Sodium Level 143 136-145 mmol/L Potassium Level 4.1 3.5-5.1 mmol/L Chloride Level 111 98-107 mmol/L Carbon Dioxide Level 24 21-32 mmol/L Anion Gap 7.0 3-11 mmol/L Blood Urea Nitrogen 14 7-18 mg/dl Creatinine 0.69 0.60-1.20 mg/dl Est Creatinine Clear Calc Drug Dose 91.7 ml/min Estimated GFR () 108.9 Estimated GFR (Non- 94.0 BUN/Creatinine Ratio 20.2 10-20 Random Glucose 97 70-99 mg/dl Calcium Level 8.9 8.5-10.1 mg/dl Total Bilirubin 0.2 0.2-1 mg/dl Aspartate Amino Transf (AST/SGOT) 16 15-37 U/L Alanine Aminotransferase (ALT/SGPT) 21 12-78 U/L Alkaline Phosphatase 79 45-117 U/L Total Protein 6.4 6.4-8.2 gm/dl Albumin 3.4 3.4-5.0 gm/dl Globulin 3.0 2.5-4.0 gm/dl Albumin/Globulin Ratio 1.1 0.9-2 Impression - H&P Impression Assessment and Plan Afib RVR: Admit in Telemetry CHADVasc: 1 Increase Metoprolol to 25mg BID Lopressor PRN Continue Aspirin Cardiology consulted ECHO ON 08/12: Ejection Fraction = 55-60%. The left atrial size is normal. Pulse wave TDI of the anterior and posterior mitral annulas demonstrates normal LV relaxation No significant valvular disease. IBS Follows with H/O Fibromyalgia: continue Gabapentin, PRN [place] DVT Px: Heparin SQ Code Status: Full code Disposition: Monitor in Tele Physical Exam (per Admitting): General Appearance: WD/WN, no apparent distress Head: normocephalic, atraumatic Eyes: normal inspection, PERRL, EOMI ENT: normal ENT inspection, hearing grossly normal Neck: supple, trachea midline Respiratory/Chest: chest non-tender, lungs clear, normal breath sounds, no respiratory distress, no accessory muscle use Cardiovascular: no edema, no murmur, + irregularly irregular Abdomen/GI: normal bowel sounds, non tender, soft Back: normal inspection Extremities/Musculoskelatal: normal inspection, no pedal edema 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, no motor/sensory deficits, alert , normal mood/affect, oriented x 3 Skin: normal color, warm/dry Hospital Course PAROXYSMAL ATRIAL FIBRILLATION: -[id number] score 1- female -HR controlled, BP stable -was recently discharged on Lopressor and ASA as she had returned to NSR -Potassium and Mg levels normal -TSH normal -Cardiology consulted, patient taken off Lopressor, started on sotalol and heparin (day#2); sotalol dose decreased per Cardiology -No more arrhythmia -Sotalol dose has been reduced -likely discharge today IBS: -was scheduled for Colonoscopy and had undergone the bowel prep when the a fib was first detected by GI on Tuesday -outpatient follow up FIBROMYALGIA: -continue Gabapentin, PRN [place] DISPOSITION Likely discharge today Total time spent on discharge = 35 minutes This includes examination of the patient, discharge planning, medication reconciliation, and communication with other providers. Discharge Instructions Date of Service Aug 16, 2017. Admission Reason for Admission: Atrial Fibrillation With Rvr Discharge Discharge Diagnosis / Problem: AF with RVR Discharge Goals Goal(s): Prevent Disease Progression Activity Recommendations Activity Limitations: resume your previous activity . Instructions / Follow-Up Instructions / Follow-Up PCP in 1 week-will call with appointment.Cardiology in 2 weeks Current Hospital Diet Patient's current hospital diet: AHA Diet (Heart Healthy) Discharge Diet Recommended Diet: AHA Diet (Heart Healthy) Pending Studies Studies pending at discharge: no Medical Emergencies . Who to Call and When: Medical Emergencies: If at any time you feel your situation is an emergency, please call 911 immediately. . Non-Emergent Contact Non-Emergency issues call your: Primary Care Provider . Past History Medical & Surgical History: (1) Atrial fibrillation (2) Atrial fibrillation with RVR . "Provider Documentation" section prepared by Jean Gray. . VTE Core Measure Inpt VTE Proph given/why not?: Unfractionated heparin SQ <Electronically signed by Jean Gray M.D.> Additional Copies To Hai Ortiz M.D.(ALFA)
== END 2017-08-16 18:20 | disposition home or self-care (01) | DRG 310 ==
LOC: C.EDB 16:34 → C.2T 21:42 → ENRESERV 22:00 → C.2T 08-14 16:06
PROVIDERS: ADMIT Internal Medicine; ATTEND Internal Medicine
DX: I48.0 Paroxysmal atrial fibrillation (principal); K58.9 Irritable bowel syndrome, unspecified; E78.5 Hyperlipidemia, unspecified; M79.7 Fibromyalgia; Z87.891 Personal history of nicotine dependence; Z79.82 Long term (current) use of aspirin

== ENCOUNTER 2017-08-26 21:47 | Observation (INO) | payer OTHER ==
[~2017-08-26] VITALS: Ht 165.1 cm; Wt 75.1 kg
[~2017-08-26 21:47] MED LIST changes: -ASPEC81 PO; +ASPI81TA28 PO; -ATV5 PO; -BACL10TA PO; +BTP80 PO; -HYDR-4383 PO; +NORT10CA2 PO; -TPRSR25 PO
[2017-08-26] MEDS ORDERED: DILTIAZEM HCL 5 MG/ML 5 ML VIAL IV STA ×2 (22:04)
--- NOTE | 2017-08-26 22:05 | EMERGENCY ROOM VISIT NOTE ---
History Report prepared by Tiara: Eugenie Ahmadi Under the Supervision of: Dr. Papito Davis M.D. First contact with patient: 21:55 Chief Complaint: CARDIAC ASSESSMENT Stated Complaint: A-FIB History of Present Illness The patient is a 61 year old female who presents to the Emergency Room with complaints of constant heart fluttering beginning 5 days ago. The patient states that she was admitted to the hospital 3 weeks ago for atrial fibrillation. She notes that she was put on Sotalol and has also been taking Lisinopril for her hypertension and Aspirin. She reports that that she was wrapping presents when she felt the onset of her atrial fibrillation and she notes that she did drink coffee today which is unusual for her. She complains of diaphoresis and chest pressure. The patient denies any abdominal pain and shortness of breath. She notes that her symptoms today feel the same as her prior episodes of atrial fibrillation. Source of History: patient Onset: 5 hours ago Position: other (heart) Quality: other (fluttering) Timing: constant Associated Symptoms: + diaphoresis, + chest pain, No SOB, No abdominal pain Review of Systems See HPI for pertinent positives & negatives. A total of 10 systems reviewed and were otherwise negative. Past Medical & Surgical Medical Problems: (1) Atrial fibrillation Surgical Problems: (1) H/O breast surgery (2) H/O rotator cuff surgery (3) H/O: hysterectomy (4) Hx of cholecystectomy Family History Cancer Heart disease Social History Smoking Status: Never Smoker Alcohol Use: none Drug Use: none Marital Status: Housing Status: lives with significant other Occupation Status: retired Current/Historical Medications Scheduled Aspirin (Aspirin Ec), 81 MG PO QAM Baclofen (Lioresal), 10 MG PO BID Gabapentin (Neurontin), 300 MG PO TID Gabapentin (Neurontin), 600 MG PO TID Lisinopril (Zestril), 5 MG PO DAILY Sotalol Hcl (Sotalol Hcl), 40 MG PO QD@0900 Sotalol Hcl (Sotalol Hcl), 40 MG PO QD@1600 Scheduled PRN Albuterol Sulfate (Proair Respiclick), 2 PUFFS INH Q6H PRN for IBS Related Issue Topkwzm-Nnyjodefkelgl-Jirlmlgx (Excedrin Migraine), 1 TAB PO UD PRN for Migraine Hydrocodone/Acetaminophen ([place] 10/325 Tab), 1 TAB PO Q4-6HRS PRN for Pain Lorazepam (Lorazepam), 0.5 MG PO TID PRN for Anxiety Allergies Coded Allergies: Adhesives (Verified Allergy, Mild, RASH, 08/13/17) Promethazine (Verified Allergy, Mild, ITCHING, 08/13/17) Codeine (Verified Allergy, Unknown, 08/13/17) Uncoded Allergies: ANESTHESIA (Allergy, Unknown, VOMITING, NEASUA, 08/11/17) Physical Exam Vital Signs Date Time Temp Pulse Resp B/P (MAP) Pulse Ox O2 Delivery O2 Flow Rate FiO2 08/27/17 00:05 87 18 117/73 95 08/26/17 23:29 73 18 104/68 94 Room Air 08/26/17 23:20 69 18 92/60 91 Room Air 08/26/17 22:45 100 14 121/75 93 Room Air 08/26/17 22:32 108 128/68 92 Room Air 08/26/17 22:30 90 18 114/72 92 Room Air 08/26/17 22:24 94 Room Air 08/26/17 22:15 111 16 120/85 93 Room Air 08/26/17 22:13 115 08/26/17 22:10 94 Room Air 08/26/17 21:49 36.7 99 18 144/80 97 Room Air Physical Exam GENERAL: Patient is a healthy-appearing well-nourished [] HEAD: Normocephalic atraumatic EYES: Ocular movements intact pupils equal and react to light OROPHARYNX mucous membranes are moist no exudates present no erythema or edema present NECK: Supple no nuchal rigidity CHEST: Good equal expansion LUNGS: Clear and equal to auscultation CARDIAC: Normal S1 and S2 ABDOMEN: Soft nontender no guarding BACK: No CVA tenderness EXTREMITIES: No pain upon palpation normal muscle strength in all groups no clubbing cyanosis or edema NEURO: Patient is following commands and answering questions appropriately. Alert and oriented x3 Cranial Nerves 2-12 grossly intact Medical Decision & Procedures ER Provider Diagnostic Interpretation: X-ray results as stated below per interpretation by me and the radiologist: CHEST ONE VIEW PORTABLE FINDINGS: The cardiac and mediastinal contours are normal. There is no evidence of focal pulmonary consolidation. There is no evidence of failure. No pleural effusions are visualized.[ There are bilateral areas of linear atelectasis/scarring. IMPRESSION: No active disease in the chest. Electronically signed by: Yury Georges M.D. 08/26/2017 10:42 PM Dictated Date/Time: 08/26/2017 10:41 PM Laboratory Results 08/26/17 22:10 Red Blood Count 4.43, Mean Corpuscular Volume 95.0, Mean Corpuscular Hemoglobin 32.7, Mean Corpuscular Hemoglobin Concent 34.4, Mean Platelet Volume 9.9, Neutrophils (%) (Auto) 54.9, Lymphocytes (%) (Auto) 35.7, Monocytes (%) (Auto) 7.6, Eosinophils (%) (Auto) 1.0, Basophils (%) (Auto) 0.7, Neutrophils # (Auto) 4.22, Lymphocytes # (Auto) 2.74, Monocytes # (Auto) 0.58, Eosinophils # (Auto) 0.08, Basophils # (Auto) 0.05 08/26/17 22:10 Test 08/26/17 22:10 White Blood Count 7.68 K/uL (4.8-10.8) Red Blood Count 4.43 M/uL (4.2-5.4) Hemoglobin 14.5 g/dL (12.0-16.0) Hematocrit 42.1 % (37-47) Mean Corpuscular Volume 95.0 fL (80-100) Mean Corpuscular Hemoglobin 32.7 pg (25-34) Mean Corpuscular Hemoglobin Concent 34.4 g/dl (32-36) Platelet Count 276 K/uL (130-400) Mean Platelet Volume 9.9 fL (7.4-10.4) Neutrophils (%) (Auto) 54.9 % Lymphocytes (%) (Auto) 35.7 % Monocytes (%) (Auto) 7.6 % Eosinophils (%) (Auto) 1.0 % Basophils (%) (Auto) 0.7 % Neutrophils # (Auto) 4.22 K/uL (1.4-6.5) Lymphocytes # (Auto) 2.74 K/uL (1.2-3.4) Monocytes # (Auto) 0.58 K/uL (0.11-0.59) Eosinophils # (Auto) 0.08 K/uL (0-0.5) Basophils # (Auto) 0.05 K/uL (0-0.2) RDW Standard Deviation 48.0 fL (36.4-46.3) RDW Coefficient of Variation 13.8 % (11.5-14.5) Immature Granulocyte % (Auto) 0.1 % Immature Granulocyte # (Auto) 0.01 K/uL (0.00-0.02) Prothrombin Time 10.3 SECONDS (9.0-12.0) Prothromb Time International Ratio 1.0 (0.9-1.1) Anion Gap 6.0 mmol/L (3-11) Est Creatinine Clear Calc Drug Dose 94.0 ml/min Estimated GFR () 111.6 Estimated GFR (Non- 96.3 BUN/Creatinine Ratio 29.2 (10-20) Calcium Level 9.0 mg/dl (8.5-10.1) Phosphorus Level 3.9 mg/dl (2.5-4.9) Magnesium Level 2.2 mg/dl (1.8-2.4) Total Bilirubin 0.2 mg/dl (0.2-1) Direct Bilirubin < 0.1 mg/dl (0-0.2) Aspartate Amino Transf (AST/SGOT) 14 U/L (15-37) Alanine Aminotransferase (ALT/SGPT) 17 U/L (12-78) Alkaline Phosphatase 80 U/L (45-117) Total Creatine Kinase 99 U/L (26-192) Creatine Kinase MB 0.8 ng/ml (0.5-3.6) Creatine Kinase MB Ratio 0.8 (0-3.0) Troponin I < 0.015 ng/ml (0-0.045) Total Protein 6.5 gm/dl (6.4-8.2) Albumin 3.8 gm/dl (3.4-5.0) Lipase 154 U/L (73-393) Labs reviewed by ED physician. Medications Administered Medications (Trade) Dose Ordered Sig/Lokesh Route Start Time Stop Time Status Last Admin Dose Admin Diltiazem HCl (Cardizem Inj) 18 mg NOW STAT IV 08/26/17 22:04 08/26/17 22:07 DC 08/26/17 22:23 18 MG Diltiazem HCl (Cardizem Inj) 26 mg NOW STAT IV 08/26/17 22:04 08/26/17 22:08 DC 08/26/17 22:52 26 MG Gabapentin (Neurontin Cap) 900 mg NOW STAT PO 08/26/17 23:11 08/26/17 23:14 DC 08/26/17 23:27 900 MG Aspirin (Aspirin Chew) 324 mg NOW STAT PO 08/26/17 23:11 08/26/17 23:14 DC 08/26/17 23:26 324 MG Acetaminophen/ Hydrocodone Bitart ([place] 10/325 Tab) 1 tab NOW STAT PO 08/26/17 23:11 08/26/17 23:14 DC 08/26/17 23:27 1 TAB ECG Indication: palpitations Rate (beats per minute): 117 Rhythm: atrial fibrillation Findings: no acute ischemic change, no ectopy, other (RVR, old septal infarct) ED Course 2154: Past medical records reviewed. The patient was evaluated in room C9. A complete history and physical examination was performed. 2204: Cardizem Inj 26mg IV, Cardizem Inj 18mg IV. 2304: Cardizem Bolus/Drip 1 ea IV. 2315: Diltiazem HCl 125mg/Dextrose 125ml @ 0mls/hr protocol PRN IV titration. 2334: I discussed the patient's case with Dr. Ellison, he has agreed to evaluate the patient for further management and care. 2352: Upon reexamination the patient is doing well. I discussed results and treatment plan with the patient. She verbalizes agreement and understanding. I spoke with Dr. Ellison from the [facility] Hospitalist Service. The patient will be evaluated for further management. Medical Decision Differential diagnosis: Etiologies such as cardiac ischemia, aortic dissection, pulmonary embolism, pneumonia, pneumothorax, musculoskeletal, infections, pericarditis, myocarditis , esophageal rupture, gastrointestinal, as well as others were entertained. This is a 61 year old female who presents emergency department complaining of A. fib with RVR. Upon arrival to emergency Department patient start rate is 130 and she is in atrial fibrillation. The patient is not anticoagulated but takes 81 mg of aspirin a day. She was given Cardizem dosing 2. She continued to stay in A. fib therefore discussed the case with the hospitalist service who agreed to admit the patient. Patient family were in agreement with the treatment plan. Medication Reconcilliation Current Medication List: was personally reviewed by me Blood Pressure Screening Patient's blood pressure: Elevated blood pressure Blood pressure disposition: Elevated BP felt to be situational Consults Time Called: [phone] Consulting Physician: Dr. Terra Vegas Returned Call: [phone] I discussed the patient's case with Dr. Ellison, he has agreed to evaluate the patient for further management and care. Impression Primary Impression: Atrial fibrillation with rapid ventricular response Scribe Attestation The scribe's documentation has been prepared under my direction and personally reviewed by me in its entirety. I confirm that the note above accurately reflects all work, treatment, procedures, and medical decision making performed by me. Departure Information Dispostion Being Evaluated By Hospitalist Referrals Hai Ortiz M.D.(ALFA) (PCP) Patient Instructions My [facility]
[2017-08-26 22:25] LABS: BASO % 0.7 %; BASO ABS # 0.05 K/uL (0-0.2); EOS ABS # 0.08 K/uL (0-0.5); HEMATOCRIT 42.1 % (37-47); HEMOGLOBIN 14.5 g/dL (12.0-16.0); IG# 0.01 K/uL (0.00-0.02); LYMPH % 35.7 %; LYMPH ABS # 2.74 K/uL (1.2-3.4); MEAN CORPUSCULAR HEMOGLOBIN 32.7 pg (25-34); MEAN CORPUSCULAR HGB CONC 34.4 g/dl (32-36); MEAN PLATELET VOLUME 9.9 fL (7.4-10.4); MONO % 7.6 %; MONO ABS # 0.58 K/uL (0.11-0.59); NEUT % 54.9 %; NEUT ABS # 4.22 K/uL (1.4-6.5); PLATELET COUNT 276 K/uL (130-400); RED CELL DISTRIBUTION WIDTH CV 13.8 % (11.5-14.5); WHITE BLOOD COUNT 7.68 K/uL (4.8-10.8)
--- NOTE | 2017-08-26 22:43 | DIAGNOSTIC IMAGING REPORT ---
CHEST ONE VIEW PORTABLE CLINICAL HISTORY: Atypical chest pain COMPARISON STUDY: 08/11/2017 FINDINGS: The cardiac and mediastinal contours are normal. There is no evidence of focal pulmonary consolidation. There is no evidence of failure. No pleural effusions are visualized.[ There are bilateral areas of linear atelectasis/scarring. IMPRESSION: No active disease in the chest. Electronically signed by: Yury Georges M.D. 08/26/2017 10:42 PM Dictated Date/Time: 08/26/2017 10:41 PM
[2017-08-26 22:45] LABS: ALBUMIN 3.8 gm/dl (3.4-5.0); ALT/SGPT 17 U/L (12-78); BLOOD UREA NITROGEN 19 mg/dl (7-18); CARBON DIOXIDE 24 mmol/L (21-32); CREATININE 0.64 mg/dl (0.60-1.20); GLUCOSE 102 mg/dl (70-99); LIPASE 154 U/L (73-393); POTASSIUM 4.3 mmol/L (3.5-5.1); SODIUM 138 mmol/L (136-145)
[2017-08-26 22:49] LABS: ALKALINE PHOSPHATASE 80 U/L (45-117); AST/SGOT 14 U/L (15-37); CKMB 0.8 ng/ml (0.5-3.6); PHOSPHORUS 3.9 mg/dl (2.5-4.9); TOTAL PROTEIN 6.5 gm/dl (6.4-8.2)
[2017-08-26] MEDS ORDERED: LISI-729 PO (22:53)
[2017-08-26] MEDS ORDERED: SOTA80TA PO ×2 (22:53)
[2017-08-26] MEDS ORDERED: DILTIAZEM BOLUS / DRIP IV STA (23:04)
[2017-08-26] MEDS ORDERED: ASPIRIN 324 MG CHEW PO STA (23:11)
[2017-08-26] MEDS ORDERED: HYDROCODONE/ACETAMI 10/325 TAB PO STA (23:11)
[2017-08-26] MEDS ORDERED: GABAPENTIN 300 MG CAP PO STA (23:11)
[2017-08-26] MEDS ORDERED: DILTIAZEM HCL INJ 125 MG in DEXTROSE 5% 100ML IV PRN (23:15)
--- NOTE | 2017-08-26 23:28 | History and Physical ---
History & Physical Date & Time of Service: Aug 26, 2017 at 23:28 . Chief Complaint: palpitations . Primary Care Physician: Hai Ortiz M.D.(ALFA) . History of Present Illness Source: patient, family, clinic records, hospital records 61 YO female followed by Dr. Ortiz for Family Medicine and Dr. Bro for Cardiology. Recently diagnosed with paroxysmal atrial fibrillation. Initially hospitalized 08/11/17 with rapid AF. Converted to NSR after receiving metoprolol. Lytes, TSH, echo [place]. CHADS2-VASc score 1. Discharged 08/12 on aspirin and metoprolol. Recurrent AF 08/13. Transitioned from metoprolol to sotalol and converted to NSR. Bradycardic @ 50/min on sotalol 80 BID; dose decreased to 40 BID. Discharged 08/16 on sotalol 40 BID. Consideration of dofetilide recommended if NSR not maintained on sotalol. Had 2 episodes of palpitations since discharge, not severe, self-limited ( lasted 1-2 hrs). Did not seek medical attention. Checks BP at home and noted systolic BP as high as 190. Lisinopril 5 mg daily started 08/25. Wrapping [place] presents and home this evening and enjoying a mug of coffee. Developed tachypalpitations associated with mild midsternal chest pressure, sweats, lightheadedness. Symptoms persisted, so she came to ED where she was found to be in rapid AF with vent rate in 130's. Received 2 boluses of IV diltiazem with slowing of her rate and improvement of her symptoms. . Past Medical/Surgical History Chronic and Resolved Medical Problems: (1) Ankylosing spondylitis Status: Chronic (2) Degenerative disc disease Status: Chronic (3) Dyslipidemia Status: Chronic (4) Fibromyalgia Status: Chronic (5) History of adenomatous polyp of colon Status: Chronic (6) Hypertension Status: Chronic (7) Irritable bowel syndrome Status: Chronic (8) Migraine headache Status: Chronic (9) Paroxysmal atrial fibrillation Status: Chronic (10) Trigeminal neuralgia Status: Chronic Surgical Problems: (1) H/O breast surgery Status: Chronic (2) H/O rotator cuff surgery Status: Chronic (3) H/O: hysterectomy Status: Chronic (4) Hx of cholecystectomy Status: Chronic . Family History FATHER Colon cancer Prostate cancer Coronary artery disease MOTHER Breast cancer SISTER Cancer GRANDFATHER Stroke AUNT Diabetes mellitus Social History Smoking Status: Never Smoker Alcohol Use: none Drug Use: none Marital Status: Housing status: lives with family Occupational Status: retired Multi-Drug Resistant Organisms History of MDRO: No Allergies Coded Allergies: Adhesives (Verified Allergy, Mild, RASH, 08/13/17) Promethazine (Verified Allergy, Mild, ITCHING, 08/13/17) Codeine (Verified Allergy, Unknown, 08/13/17) Uncoded Allergies: ANESTHESIA (Allergy, Unknown, VOMITING, NEASUA, 08/11/17) Home Medications Scheduled Aspirin (Aspirin Ec), 81 MG PO QAM Baclofen (Lioresal), 10 MG PO BID Gabapentin (Neurontin), 300 MG PO TID Gabapentin (Neurontin), 600 MG PO TID Lisinopril (Zestril), 5 MG PO DAILY Sotalol Hcl (Sotalol Hcl), 40 MG PO QD@0900 Sotalol Hcl (Sotalol Hcl), 40 MG PO QD@1600 Scheduled PRN Albuterol Sulfate (Proair Respiclick), 2 PUFFS INH Q6H PRN for IBS Related Issue Hrathtv-Kpbovfaacisjc-Nutdaeaz (Excedrin Migraine), 1 TAB PO UD PRN for Migraine Hydrocodone/Acetaminophen ([place] 10/325 Tab), 1 TAB PO Q4-6HRS PRN for Pain Lorazepam (Lorazepam), 0.5 MG PO TID PRN for Anxiety Review of Systems Constitutional: No fever, No weight loss Eyes: No worsening of vision ENT: No nasal symptoms Respiratory: No cough, No shortness of breath Cardiovascular: + problem reported (as noted in HPI) Abdomen: + nausea (mild), + diarrhea (chronic), No vomiting, No GI bleeding Musculoskeletal: + joint pain, + muscle pain Genitourinary - Female: No dysuria, No hematuria Neurologic: + problem reported (migraine headaches) Psychiatric: + problem reported (stress) Endocrine: + fatigue, No excessive thirst, No excessive urination Hematologic / Lymphatic: + abnormal bleeding/bruising (bruises easily), No swollen lymph nodes Integumentary: + rash (fingers and elbows), No new/changing skin lesions Physical Exam Vital Signs Date Time Temp Pulse Resp B/P (MAP) Pulse Ox O2 Delivery O2 Flow Rate FiO2 08/26/17 23:20 69 18 92/60 91 Room Air 08/26/17 22:45 100 14 121/75 93 Room Air 08/26/17 22:32 108 128/68 92 Room Air 08/26/17 22:30 90 18 114/72 92 Room Air 08/26/17 22:24 94 Room Air 08/26/17 22:15 111 16 120/85 93 Room Air 08/26/17 22:13 115 08/26/17 22:10 94 Room Air 08/26/17 21:49 36.7 99 18 144/80 97 Room Air General Appearance: WD/WN, no apparent distress Head: normocephalic, atraumatic Eyes: normal inspection, PERRL, EOMI, sclerae normal ENT: normal ENT inspection, hearing grossly normal, pharynx normal Neck: supple, no adenopathy, thyroid normal, no JVD, trachea midline Respiratory/Chest: lungs clear, no respiratory distress, no accessory muscle use Cardiovascular: no edema, no gallop, no JVD, no murmur, normal peripheral pulses, + irregularly irregular Abdomen/GI: normal bowel sounds, non tender, soft, no organomegaly Extremities/Musculoskelatal: normal inspection, no calf tenderness, normal capillary refill, no pedal edema 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/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: 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 nml as tested (PERRL, EOMI, no facial palsy, no dysarthria), no motor/sensory deficits (motor strength upper and lower extremities intact), alert, normal mood/affect, oriented x 3 Skin: normal color, warm/dry, + pertinent finding (rash extensor surface of fingers) Lymphatic: no adenopathy (cervical) Diagnostics Laboratory Results Results Past 24 Hours Test 08/26/17 22:10 Range/Units White Blood Count 7.68 4.8-10.8 K/uL Red Blood Count 4.43 4.2-5.4 M/uL Hemoglobin 14.5 12.0-16.0 g/dL Hematocrit 42.1 37-47 % Mean Corpuscular Volume 95.0 80-100 fL Mean Corpuscular Hemoglobin 32.7 25-34 pg Mean Corpuscular Hemoglobin Concent 34.4 32-36 g/dl Platelet Count 276 130-400 K/uL Mean Platelet Volume 9.9 7.4-10.4 fL Neutrophils (%) (Auto) 54.9 % Lymphocytes (%) (Auto) 35.7 % Monocytes (%) (Auto) 7.6 % Eosinophils (%) (Auto) 1.0 % Basophils (%) (Auto) 0.7 % Neutrophils # (Auto) 4.22 1.4-6.5 K/uL Lymphocytes # (Auto) 2.74 1.2-3.4 K/uL Monocytes # (Auto) 0.58 0.11-0.59 K/uL Eosinophils # (Auto) 0.08 0-0.5 K/uL Basophils # (Auto) 0.05 0-0.2 K/uL RDW Standard Deviation 48.0 36.4-46.3 fL RDW Coefficient of Variation 13.8 11.5-14.5 % Immature Granulocyte % (Auto) 0.1 % Immature Granulocyte # (Auto) 0.01 0.00-0.02 K/uL Prothrombin Time 10.3 9.0-12.0 SECONDS Prothromb Time International Ratio 1.0 0.9-1.1 Sodium Level 138 136-145 mmol/L Potassium Level 4.3 3.5-5.1 mmol/L Chloride Level 108 98-107 mmol/L Carbon Dioxide Level 24 21-32 mmol/L Anion Gap 6.0 3-11 mmol/L Blood Urea Nitrogen 19 7-18 mg/dl Creatinine 0.64 0.60-1.20 mg/dl Est Creatinine Clear Calc Drug Dose 94.0 ml/min Estimated GFR () 111.6 Estimated GFR (Non- 96.3 BUN/Creatinine Ratio 29.2 10-20 Random Glucose 102 70-99 mg/dl Calcium Level 9.0 8.5-10.1 mg/dl Phosphorus Level 3.9 2.5-4.9 mg/dl Magnesium Level 2.2 1.8-2.4 mg/dl Total Bilirubin 0.2 0.2-1 mg/dl Direct Bilirubin < 0.1 0-0.2 mg/dl Aspartate Amino Transf (AST/SGOT) 14 15-37 U/L Alanine Aminotransferase (ALT/SGPT) 17 12-78 U/L Alkaline Phosphatase 80 45-117 U/L Total Creatine Kinase 99 26-192 U/L Creatine Kinase MB 0.8 0.5-3.6 ng/ml Creatine Kinase MB Ratio 0.8 0-3.0 Troponin I < 0.015 0-0.045 ng/ml Total Protein 6.5 6.4-8.2 gm/dl Albumin 3.8 3.4-5.0 gm/dl Lipase 154 73-393 U/L Diagnostic Radiology Chest x-ray reviewed by the undersigned and formally interpreted by Radiology: FINDINGS: The cardiac and mediastinal contours are normal. There is no evidence of focal pulmonary consolidation. There is no evidence of failure. No pleural effusions are visualized.[ There are bilateral areas of linear atelectasis/scarring. IMPRESSION: No active disease in the chest. Electronically signed by: Yury Georges M.D. 08/26/2017 10:42 PM Dictated Date/Time: 08/26/2017 10:41 PM . EKG EKG performed at 21:57 reviewed and demonstrated atrial fibrillation at 120 / minute, poor R-wave progression, no acute ST changes. EKG performed at 23:07 reviewed and demonstrated atrial fibrillation at 65 / minute, poor R-wave progression, no acute ST changes. . Impression Assessment and Plan PAROXYSMAL ATRIAL FIBRILLATION Recurrent PAF with RVR despite anti-arrhythmic therapy with sotalol. Lytes normal. Recent TSH normal. Sotalol dose only 40 mg BID, but had significant bradycardia at dose of 80 mg BID. Rate improved in ED after IV diltiazem x 2 boluses; will start diltiazem infusion once BP improved. Start IV heparin. Consult Cardiology. NPO in case cardioversion recommended. CHADS2-VASc score previously calculated at 1; score now 2 due to recently diagnosed hypertension. Will defer anti-thrombotic recommendations to Cardiology. HYPERTENSION Systolic BP's at home recently as high as 190. Started on lisinopril 5 mg daily. BP low after receiving IV diltiazem in ED. Follow and titrate Rx. FIBROMYALGIA Continue gabapentin. RASH Patient recently noted rash on extensor surfaces of elbows and fingers. May have psoriasis. Outpatient follow-up with PCP or Derm recommended. VTE PROPHYLAXIS IV heparin being initiated. Ambulate. DISPOSITION Observation status on Telemetry Unit. Expected discharge to home. Family Medicine follow-up with Dr. Ortiz. Cardiology follow-up with Dr. Bro. . VTE Prophylaxis Given or contraindicated: Other Anticoagulation (IV heparin)
[2017-08-26] MEDS ORDERED: LORAZEPAM 0.5 MG TAB PO PRN (23:45)
[2017-08-27] VITALS (12 sets, daily range): BP systolic 85–115; BP diastolic 56–77; PULSE 77–95; TEMP 36.3–36.8; O2SAT 93–97; Ht 165.1 cm; Wt 75.1 kg
--- NOTE | 2017-08-27 00:14 | NUR ---
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 AMBULATED FROM LITER TO BED WITH STEADY GAIT. A/O X 4 AND DENIES PAIN/CP. VOLTAGE TESTER APPLIED REVEALS AFIB WITH RATE IN THE 80'S-100'S. VS ACCEPTABLE. LUNGS CTA O2 SATS MID 90'S ON RA. L FA 22G SL PATENT/INTACT. ORIENTED TO ROOM, UNIT AND CALL [facility] SYSTEM. REINFORCED NPO STATUS AND DISCUSSED PLAN OF CARE. QUESTIONS ENCOURAGED. PROVIDED WITH STROKE EDUCATION PACKET AND DISCUSSED RISK FACTORS SPECIFICALLY AFIB. PRIMARY NURSE CHU ASSUMES CARE OF PT.
[2017-08-27] MEDS ORDERED: HEPARIN IV BOLUS 5,000 UNIT in SYRINGE 0 ML IV ONE (00:45)
[2017-08-27] MEDS ORDERED: HEPARIN 25,000 UNIT/500ML D5W 500 ML IV PRN (00:45)
[2017-08-27] MEDS ORDERED: DILTIAZEM BOLUS / DRIP IV STA (01:01)
[2017-08-27 01:15] LABS: PTT PATIENT 28.5 SECONDS (21.0-31.0)
--- NOTE | 2017-08-27 01:15 | NUR ---
Heparin drip and Cardizem drip initiated per orders. Patient was educated on these medications and communicated understanding of use and risks.
[2017-08-27] MEDS ORDERED: IV FLUIDS COMPLETED PRN (02:00)
--- NOTE | 2017-08-27 04:00 | NUR ---
A. Patient reassessed, resting in bed. No changes at this time. Sleeping on/off. She is denying any pain, SOB or dizziness. HR remains controlled <100 on Cardizem gtt @ 5mg/hr. Heparin drip infusing. IVs intact. Voiding in toilet. She was reminded to call if needing anything or any returning symptoms.
[2017-08-27 07:08] LABS: HEMATOCRIT 41.4 % (37-47); HEMOGLOBIN 13.8 g/dL (12.0-16.0); MEAN CELL VOLUME 95.4 fL (80-100); MEAN CORPUSCULAR HEMOGLOBIN 31.8 pg (25-34); MEAN CORPUSCULAR HGB CONC 33.3 g/dl (32-36); MEAN PLATELET VOLUME 9.7 fL (7.4-10.4); PLATELET COUNT 226 K/uL (130-400); RED CELL DISTRIBUTION WIDTH SD 49.1 fL (36.4-46.3)
[2017-08-27 07:34] LABS: PTT PATIENT 73.9 SECONDS (21.0-31.0)
[2017-08-27 07:45] LABS: CALCIUM 8.9 mg/dl (8.5-10.1); CREATININE 0.52 mg/dl (0.60-1.20); POTASSIUM 3.7 mmol/L (3.5-5.1)
--- NOTE | 2017-08-27 08:00 | NUR ---
A: Nursing assessment complete and documented in emr. A&O. VS WNL. Medicated for back pain. Denies sob. Afib per tele, rate 80-110. Lungs cta. Heparin and cardizem gtts infusing without difficulty. Independent in activity. No s/s of acute distress noted at this time. Call jefferson within reach and pt instructed to ring for assistance. Will continue to monitor. See emr for full assessment data.
[2017-08-27] MEDS: GABAPENTIN 300 MG CAP PO SCH ×3 (08:02→20:19)
[2017-08-27] MEDS: BACLOFEN 10 MG TAB PO SCH ×2 (08:02→20:19)
[2017-08-27] MEDS: GABAPENTIN 600 MG TAB PO SCH ×3 (08:04→20:19)
[2017-08-27] MEDS: HYDROCODONE/ACETAMI 10/325 TAB PO PRN ×3 (08:08→20:20)
[2017-08-27] MEDS ORDERED: ASPIRIN 81 MG ECTAB PO SCH (09:00)
--- NOTE | 2017-08-27 09:48 | NUR ---
body recall instructor case management note. Pt identified on social service screening tool as 30 day readmission. Spoke with pt. Pt a&o. Pt lives with , son and grandson. Pt does not use any assistive devices. Pt drives. Pt is independent with adl's. Pt does not have home health. Pt is a 30 day readmission. Pt discharged home self care. Explained role of caseworker protective services. Pt plans to return home at discharge. Pt denies any discharge needs. Case management to follow with pt.
[2017-08-27] MEDS ORDERED: SOTALOL HCL 80 MG TAB PO ONE (10:15)
[2017-08-27] MEDS ORDERED: RIVAROXABAN 20 MG TAB PO ONE (10:15)
--- NOTE | 2017-08-27 10:42 | CARDIOLOGY CONSULTATION ---
DATE OF CONSULTATION: 08/27/2017 CONSULTATION FOR: [facility] service. REASON FOR CONSULTATION: Atrial fibrillation with RVR. HISTORY OF PRESENT ILLNESS: This patient has had multiple hospital admissions for paroxysmal atrial fibrillation over the past several weeks. On the first admission, she was spontaneously converted to sinus rhythm and was started on metoprolol and aspirin and discharged home. The patient represented again with atrial fibrillation and was started on sotalol and has spontaneously converted to normal sinus rhythm. She had been started on a dose of 80 mg of sotalol twice daily. It is unclear to me from Dr. Bro's notes from the previous admission, but the sotalol dose was decreased to 40 mg b.i.d. after she converted to normal sinus rhythm. It did not seem that she had prolonged QT interval lengthening or hypotension. In any case, she was sent home on sotalol 40 mg b.i.d. She was receiving a prep for a colonoscopy. The patient then had reoccurrence of atrial fibrillation and is once again admitted. She was started on a diltiazem drip, which has controlled her heart rates, but she is in persistent atrial fibrillation. She was also started on heparin. She has no cardiac complaints at present. ALLERGIES: ADHESIVES, PROMETHAZINE, CODEINE, AND ANESTHESIA. PAST MEDICAL HISTORY: The patient has a history of paroxysmal atrial fibrillation as outlined above. She also has a history of fibromyalgia, IBS, ankylosing spondylitis, trigeminal neuralgia and hypertension. SOCIAL HISTORY: She lives with her . She has never smoked. FAMILY MEDICAL HISTORY: Noncontributory. REVIEW OF SYSTEMS: The 10-point review of systems is negative except for the history of chief complaint. PHYSICAL EXAMINATION: GENERAL: She is alert and oriented. VITAL SIGNS: She is in a persistent atrial fibrillation with heart rates in the 90/110 beats per minute, blood pressure is 120/70. HEENT: She is normocephalic. Pupils are equal and reactive to light. Extraocular muscles are intact bilaterally. NECK: The neck veins are flat. Carotids have good upstrokes bilaterally without bruits. Thyroid is nonpalpable. RESPIRATORY: Breath sounds equal bilaterally and clear to auscultation. CARDIOVASCULAR: Heart has a regular rhythm. Normal S1, S2. No S3, S4. No cardiac rubs or murmurs. GASTROINTESTINAL: Abdomen is soft, nontender without organomegaly. EXTREMITIES: Free of edema, digit clubbing, or cyanosis. NEUROLOGIC: Grossly intact. SKIN: Warm to touch. LYMPH NODES: Negative to palpation. LABORATORY DATA: Hemoglobin is 14.5, platelets 276. Creatinine 0.64, BUN is 19, potassium is 4.3. IMPRESSION: 1. Persistent atrial fibrillation. 2. Hypertension. 3. Fibromyalgia. 4. Irritable bowel syndrome. RECOMMENDATIONS: The sotalol dose that the patient was discharged on may not have been therapeutic. She would benefit from an increase in her sotalol to 80 mg b.i.d. As mentioned above, it is unclear why they dropped the dosage before discharge. I think it is worth trying once again to maintain her on a little higher dose of the sotalol. If she has prolongation of the QT interval or other problems such as bradycardia, then we will discontinue this medication and try Tikosyn. She is a little young to start amiodarone, but that is certainly a possibility. I outlined my plan with the patient and all questions were answered. She understands that she may be in the hospital for several days prior to being able to be discharged home. In regard to anticoagulation, her also has atrial fibrillation and is currently taking Xarelto. I think that this would be a better medication for her than warfarin. I think we can discontinue the heparin and start her on p.o. Xarelto today. I will obtain a daily EKG and monitor her heart rhythm as well as QT interval with this increased dosage of the sotalol.
--- NOTE | 2017-08-27 12:00 | NUR ---
A: Assessment complete and documented. VS WNL. Afib, rate 70-90's. Lungs cta. No complaints or s/s of acute distress noted. Call jefferson within reach. Will continue to monitor. See emr.
--- NOTE | 2017-08-27 12:40 | Progress Note ---
Internal Med Progress Note Date of Service: Aug 27, 2017. Provider Documentation: SUBJECTIVE: Seen and examined at bedside Feels tired Has intermittent palpitations Denies chest pain, SOB, dizziness Nauseous this morning which resolved Family at bedside No other complaints OBJECTIVE: Vital Signs-as noted below Physical Exam: General Appearance:Moderately built and nourished, no apparent distress Head: normocephalic, Atraumatic Eyes: normal inspection, EOMI, PERRL Neck: supple, Trachea midline Respiratory/Chest: Normal breath sounds, CTA Cardiovascular: Irregularly Irregular, No murmur Abdomen/GI:Soft, Non tender, Bowel sounds present Extremities/Musculoskelatal:normal inspection, no edema Neurologic/Psych:AAOX3, grossly no focal neurological deficits Skin: normal color, warm Lab data as noted below. ASSESSMENT & PLAN: Persistent Atrial Fibrillation TSH normal Sotalol dose increased to 80 mg BID IV heparin discontinued Started on Xarelto for anticoagulation Appreciate Cardiology Input Daily ECG to monitor QTC HTN Currently on lower side On BB Fibromyalgia: Continue gabapentin. Rash on UE: likely Psoriasis Advised to follow up as outpatient DVT Px: On Xarelto DISPOSITION Observation in Tele Expectant to discharge home when stable Vital Signs: Date Time Temp Pulse Resp B/P (MAP) Pulse Ox O2 Delivery O2 Flow Rate FiO2 08/27/17 10:49 36.8 95 20 99/69 (79) 97 Room Air 08/27/17 08:00 Room Air 08/27/17 07:42 36.7 87 20 106/71 (83) 95 Room Air 08/27/17 06:16 90 105/64 (78) 08/27/17 04:00 Room Air 08/27/17 03:59 89 106/75 (85) 08/27/17 03:57 36.8 81 18 100/61 (74) 97 Room Air 08/27/17 02:18 77 111/74 (86) 08/27/17 00:14 36.6 83 16 115/77 96 Room Air 08/27/17 00:05 87 18 117/73 95 08/26/17 23:29 73 18 104/68 94 Room Air 08/26/17 23:20 69 18 92/60 91 Room Air 08/26/17 22:45 100 14 121/75 93 Room Air 08/26/17 22:32 108 128/68 92 Room Air 08/26/17 22:30 90 18 114/72 92 Room Air 08/26/17 22:24 94 Room Air 08/26/17 22:15 111 16 120/85 93 Room Air 08/26/17 22:13 115 08/26/17 22:10 94 Room Air 08/26/17 21:49 36.7 99 18 144/80 97 Room Air Lab Results: Results Past 24 Hours Test 08/26/17 22:10 08/27/17 06:58 Range/Units White Blood Count 7.68 5.80 4.8-10.8 K/uL Red Blood Count 4.43 4.34 4.2-5.4 M/uL Hemoglobin 14.5 13.8 12.0-16.0 g/dL Hematocrit 42.1 41.4 37-47 % Mean Corpuscular Volume 95.0 95.4 80-100 fL Mean Corpuscular Hemoglobin 32.7 31.8 25-34 pg Mean Corpuscular Hemoglobin Concent 34.4 33.3 32-36 g/dl Platelet Count 276 226 130-400 K/uL Mean Platelet Volume 9.9 9.7 7.4-10.4 fL Neutrophils (%) (Auto) 54.9 % Lymphocytes (%) (Auto) 35.7 % Monocytes (%) (Auto) 7.6 % Eosinophils (%) (Auto) 1.0 % Basophils (%) (Auto) 0.7 % Neutrophils # (Auto) 4.22 1.4-6.5 K/uL Lymphocytes # (Auto) 2.74 1.2-3.4 K/uL Monocytes # (Auto) 0.58 0.11-0.59 K/uL Eosinophils # (Auto) 0.08 0-0.5 K/uL Basophils # (Auto) 0.05 0-0.2 K/uL RDW Standard Deviation 48.0 49.1 36.4-46.3 fL RDW Coefficient of Variation 13.8 14.0 11.5-14.5 % Immature Granulocyte % (Auto) 0.1 % Immature Granulocyte # (Auto) 0.01 0.00-0.02 K/uL Prothrombin Time 10.3 9.0-12.0 SECONDS Prothromb Time International Ratio 1.0 0.9-1.1 Activated Partial Thromboplast Time 28.5 73.9 21.0-31.0 SECONDS Partial Thromboplastin Ratio 1.1 2.8 Sodium Level 138 138 136-145 mmol/L Potassium Level 4.3 3.7 3.5-5.1 mmol/L Chloride Level 108 107 98-107 mmol/L Carbon Dioxide Level 24 27 21-32 mmol/L Anion Gap 6.0 4.0 3-11 mmol/L Blood Urea Nitrogen 19 16 7-18 mg/dl Creatinine 0.64 0.52 0.60-1.20 mg/dl Est Creatinine Clear Calc Drug Dose 94.0 115.1 ml/min Estimated GFR () 111.6 119.5 Estimated GFR (Non- 96.3 103.1 BUN/Creatinine Ratio 29.2 31.1 10-20 Random Glucose 102 95 70-99 mg/dl Calcium Level 9.0 8.9 8.5-10.1 mg/dl Phosphorus Level 3.9 2.5-4.9 mg/dl Magnesium Level 2.2 1.8-2.4 mg/dl Total Bilirubin 0.2 0.2-1 mg/dl Direct Bilirubin < 0.1 0-0.2 mg/dl Aspartate Amino Transf (AST/SGOT) 14 15-37 U/L Alanine Aminotransferase (ALT/SGPT) 17 12-78 U/L Alkaline Phosphatase 80 45-117 U/L Total Creatine Kinase 99 26-192 U/L Creatine Kinase MB 0.8 0.5-3.6 ng/ml Creatine Kinase MB Ratio 0.8 0-3.0 Troponin I < 0.015 0-0.045 ng/ml Total Protein 6.5 6.4-8.2 gm/dl Albumin 3.8 3.4-5.0 gm/dl Lipase 154 73-393 U/L
[2017-08-27 14:11] LABS: PTT PATIENT 37.6 SECONDS (21.0-31.0)
--- NOTE | 2017-08-27 20:00 | NUR ---
A:Nursing assessment completed. Pt resting in bed. Reporting hip pain increased from usual due to lying in bed more than usual. Remains in Afib on monitor. Denies needs. Ambulating in room to bathroom independently. Call jefferson within reach. Verbalizes understanding to ring for assistance with needs.
[2017-08-27] MEDS: SOTALOL HCL 80 MG TAB PO SCH (20:19)
[2017-08-28] VITALS (7 sets, daily range): BP systolic 93–171; BP diastolic 62–90; PULSE 52–94; TEMP 36.4–36.9; O2SAT 95–98
--- NOTE | 2017-08-28 | NUR ---
A:Resting in bed with eyes closed, reports being very tired this night. Remains in Afib. Denies needs.
--- NOTE | 2017-08-28 04:00 | NUR ---
A:Has been resting in bed. Reports mild nausea upon wakening, crackers given. Declines need for antiemetic. Afib with rates 80-100's at rest, non sustained bursts up to 130's with activity.
[2017-08-28] MEDS: HYDROCODONE/ACETAMI 10/325 TAB PO PRN ×3 (05:26→21:27)
[2017-08-28 06:49] LABS: HEMATOCRIT 42.9 % (37-47); MEAN CORPUSCULAR HEMOGLOBIN 31.3 pg (25-34); MEAN CORPUSCULAR HGB CONC 32.6 g/dl (32-36); MEAN PLATELET VOLUME 9.9 fL (7.4-10.4); PLATELET COUNT 266 K/uL (130-400); RED CELL DISTRIBUTION WIDTH SD 49.6 fL (36.4-46.3); WHITE BLOOD COUNT 5.86 K/uL (4.8-10.8)
[2017-08-28 07:21] LABS: CALCIUM 8.8 mg/dl (8.5-10.1); CREATININE 0.61 mg/dl (0.60-1.20); POTASSIUM 4.3 mmol/L (3.5-5.1)
--- NOTE | 2017-08-28 08:00 | NUR ---
A: Nursing assessment complete and documented in emr. A&O. VS WNL. C/O back pain. Denies sob. Afib per tele, rate 80-110. Lungs cta. Independent in activity. No s/s of acute distress noted at this time. Call jefferson within reach and pt instructed to ring for assistance. Will continue to monitor. See emr for full assessment data.
[2017-08-28] MEDS: BACLOFEN 10 MG TAB PO SCH ×2 (08:33→21:19)
[2017-08-28] MEDS: GABAPENTIN 300 MG CAP PO SCH ×3 (08:33→21:19)
[2017-08-28] MEDS: SOTALOL HCL 80 MG TAB PO SCH (08:33)
[2017-08-28] MEDS: GABAPENTIN 600 MG TAB PO SCH ×3 (08:33→21:19)
[2017-08-28] MEDS: RIVAROXABAN 20 MG TAB PO SCH (08:34)
--- NOTE | 2017-08-28 09:52 | Progress Note ---
Internal Med Progress Note Date of Service: Aug 28, 2017. Provider Documentation: SUBJECTIVE: Seen and examined at bedside Reports intermittent palpitations but improved Reports nausea but no vomiting Denies chest pain, SOB, dizziness No other complaints OBJECTIVE: Vital Signs-as noted below Physical Exam: General Appearance:Moderately built and nourished, no apparent distress Head: normocephalic, Atraumatic Eyes: normal inspection, EOMI, PERRL Neck: supple, Trachea midline Respiratory/Chest: Normal breath sounds, CTA Cardiovascular: Irregularly Irregular, +Tachycardia, No murmur Abdomen/GI:Soft, Non tender, Bowel sounds present Extremities/Musculoskelatal:normal inspection, no edema Neurologic/Psych:AAOX3, grossly no focal neurological deficits Skin: normal color, warm Lab data as noted below. ASSESSMENT & PLAN: Persistent Atrial Fibrillation TSH normal Continue Sotalol 80 mg BID IV heparin discontinued Continue Xarelto for anticoagulation Appreciate Cardiology Input Continue daily ECG to monitor QTC Tiredness improved HTN Stable On BB Fibromyalgia: Continue gabapentin. Rash on UE: likely Psoriasis Advised to follow up as outpatient DVT Px: On Xarelto DISPOSITION Observation in Tele Expectant to discharge home when stable Vital Signs: Date Time Temp Pulse Resp B/P (MAP) Pulse Ox O2 Delivery O2 Flow Rate FiO2 08/28/17 07:04 36.4 94 20 115/75 (88) 98 Room Air 08/28/17 04:00 Room Air 08/28/17 03:49 36.5 79 17 108/81 (90) 97 Room Air 08/28/17 00:00 Room Air 08/27/17 23:35 36.5 92 16 88/61 (70) 95 Room Air 08/27/17 20:00 Room Air 08/27/17 19:19 36.3 92 16 94/63 (73) 97 Room Air 08/27/17 16:00 Room Air 08/27/17 15:00 36.8 78 18 100/62 (75) 93 Room Air 08/27/17 12:00 Room Air 08/27/17 10:49 36.8 95 20 99/69 (79) 97 Room Air Lab Results: Results Past 24 Hours Test 08/27/17 13:47 08/28/17 06:04 Range/Units Activated Partial Thromboplast Time 37.6 28.0 21.0-31.0 SECONDS Partial Thromboplastin Ratio 1.4 1.1 White Blood Count 5.86 4.8-10.8 K/uL Red Blood Count 4.47 4.2-5.4 M/uL Hemoglobin 14.0 12.0-16.0 g/dL Hematocrit 42.9 37-47 % Mean Corpuscular Volume 96.0 80-100 fL Mean Corpuscular Hemoglobin 31.3 25-34 pg Mean Corpuscular Hemoglobin Concent 32.6 32-36 g/dl RDW Standard Deviation 49.6 36.4-46.3 fL RDW Coefficient of Variation 14.0 11.5-14.5 % Platelet Count 266 130-400 K/uL Mean Platelet Volume 9.9 7.4-10.4 fL Sodium Level 138 136-145 mmol/L Potassium Level 4.3 3.5-5.1 mmol/L Chloride Level 108 98-107 mmol/L Carbon Dioxide Level 25 21-32 mmol/L Anion Gap 5.0 3-11 mmol/L Blood Urea Nitrogen 27 7-18 mg/dl Creatinine 0.61 0.60-1.20 mg/dl Est Creatinine Clear Calc Drug Dose 98.1 ml/min Estimated GFR () 113.4 Estimated GFR (Non- 97.8 BUN/Creatinine Ratio 44.6 10-20 Random Glucose 91 70-99 mg/dl Calcium Level 8.8 8.5-10.1 mg/dl Magnesium Level 2.3 1.8-2.4 mg/dl
--- NOTE | 2017-08-28 10:25 | PROGRESS NOTE ---
DATE: 08/28/2017 FOLLOWUP VISIT SUBJECTIVE: The patient is a 61-year-old female with multiple hospital admissions for paroxysmal atrial fibrillation. She has been restarted on sotalol at an increased dose of 80 mg b.i.d. So far, she has not converted to sinus rhythm. I also started Xarelto yesterday and she is tolerating this medication. She has no new cardiac complaints. OBJECTIVE: GENERAL: She is alert and oriented in no acute distress. VITAL SIGNS: Blood pressure is 115/75 and pulse is irregular at 100 beats per minute. She is afebrile. HEENT: She is normocephalic. Pupils are equal and reactive to light. Extraocular muscles are intact bilaterally. NECK: The neck veins are flat. Carotids have good upstrokes bilaterally without bruits. Thyroid is nonpalpable. RESPIRATORY: Breath sounds equal bilaterally and clear to auscultation. CARDIOVASCULAR: Heart has an irregular rhythm. Normal S1 and S2. No S3 or S4. No cardiac rubs or murmurs. GASTROINTESTINAL: Abdomen is soft and nontender without organomegaly. EXTREMITIES: Free of edema, digit clubbing, or cyanosis. NEUROLOGIC: Grossly intact. SKIN: Warm to touch. LYMPH NODES: Negative to palpation. IMPRESSION: 1. Persistent atrial fibrillation. 2. Hypertension. 3. Fibromyalgia. 4. Irritable bowel syndrome. RECOMMENDATIONS: The patient is tolerating sotalol well. His QT interval is stable. I will continue the sotalol at a dosage of 80 mg b.i.d. So far, she has not converted spontaneously to sinus mechanism.
--- NOTE | 2017-08-28 12:00 | NUR ---
A: Assessment complete and documented. VS WNL. Afib, rate 70-110's. Lungs cta. No complaints or s/s of acute distress noted. Call jefferson within reach. Will continue to monitor. See emr.
--- NOTE | 2017-08-28 15:27 | NUR ---
A: Please disregard vital signs entered for 1201. Entered on wrong patient.
--- NOTE | 2017-08-28 16:00 | NUR ---
A: Assessment complete and documented. VS WNL. SB per tele. Lungs dim. No complaints or s/s of acute distress noted. Call jefferson within reach. Will continue to monitor. See emr.
[2017-08-28] MEDS ORDERED: NURSING VERBAL MED ORDER ONE (16:15)
--- NOTE | 2017-08-28 20:00 | NUR ---
A:Nursing assessment completed. Pt independent in room. Remains in Sinus bhumi 50's to Nsr 60's with pac's. Denies needs. Verbalizes understanding to ring for assistance with needs.
[2017-08-28] MEDS ORDERED: SOTALOL HCL 80 MG TAB PO SCH (21:00)
--- NOTE | 2017-08-29 | NUR ---
A: Pt alert and oriented, VSS on room air. SR/SB on monitor. Pt denies pain or SOB at this time. Pt independent in room. D/c plans uncertain at this time. Call jefferson in reach. Will continue to monitor.
[2017-08-29] MEDS: HYDROCODONE/ACETAMI 10/325 TAB PO PRN ×4 (03:29→23:43)
[2017-08-29 03:54] VITALS: BP 102/67; PULSE 56; TEMP 36.4; O2SAT 98
--- NOTE | 2017-08-29 04:00 | NUR ---
A: Assessment and vitals as charted. No change in pt condition noted. No new needs verbalized. Monitoring to continue.
[2017-08-29 07:29] VITALS: BP 131/74; PULSE 47; TEMP 36.8; O2SAT 98
--- NOTE | 2017-08-29 08:00 | NUR ---
No changes this morning; pt slept ok and ate breakfast. Heart rate 40-60 overnight.
--- NOTE | 2017-08-29 08:36 | Progress Note ---
Internal Med Progress Note Date of Service: Aug 29, 2017. Provider Documentation: SUBJECTIVE: Seen and examined at bedside States palpitations, tiredness, dizziness resolved Currently in Sinus with PACs on monitor Denies chest pain, SOB No other complaints OBJECTIVE: Vital Signs-as noted below Physical Exam: General Appearance:Moderately built and nourished, no apparent distress Head: normocephalic, Atraumatic Eyes: normal inspection, EOMI, PERRL Neck: supple, Trachea midline Respiratory/Chest: Normal breath sounds, CTA Cardiovascular: S1, S2, No murmur Abdomen/GI:Soft, Non tender, Bowel sounds present Extremities/Musculoskelatal:normal inspection, no edema Neurologic/Psych:AAOX3, grossly no focal neurological deficits Skin: normal color, warm Lab data as noted below. ASSESSMENT & PLAN: Atrial Fibrillation with RVR: Converted to sinus TSH normal Continue Sotalol 80 mg BID>>>60mg BID Currently in Sinus with PACs on monitor Continue Xarelto for anticoagulation Appreciate Cardiology Input Daily ECG to monitor QTC HTN Stable Fibromyalgia: Continue gabapentin. Rash on UE: likely Psoriasis Advised to follow up as outpatient DVT Px: On Xarelto DISPOSITION Observation in Tele Expectant to discharge home when stable Vital Signs: Date Time Temp Pulse Resp B/P (MAP) Pulse Ox O2 Delivery O2 Flow Rate FiO2 08/29/17 07:29 36.8 47 18 131/74 (93) 98 Room Air 08/29/17 04:00 Room Air 08/29/17 03:54 36.4 56 17 102/67 (79) 98 Room Air 08/29/17 00:00 Room Air 08/28/17 23:51 36.8 55 17 93/69 (77) 96 Room Air 08/28/17 20:00 Room Air 08/28/17 19:30 36.9 63 16 99/62 (74) 95 Room Air 08/28/17 16:00 Room Air 08/28/17 15:15 36.7 52 16 116/76 (89) 96 Room Air 08/28/17 12:01 59 18 171/90 (117) 98 08/28/17 12:00 Room Air 08/28/17 10:26 36.5 94 20 98/67 (77) 95 Room Air
--- NOTE | 2017-08-29 09:15 | PROGRESS NOTE ---
DATE: 08/29/2017 FOLLOWUP VISIT SUBJECTIVE: The patient is a 61-year-old female with multiple hospital admissions for paroxysmal atrial fibrillation. She was on 40 mg of sotalol b.i.d. and had breakthrough atrial fibrillation with RVR. After admission, she increased her sotalol 80 mg b.i.d. and converted to normal sinus rhythm yesterday. She was then given 60 mg of sotalol last night. She has also been started on Xarelto. She had an uneventful night without any complaints. Her heart rates are generally adequate in the 50s and 60s while she is awake. At some point in the park worker hours while she was sleeping, her heart rates dipped into the 40s. Her QT interval has not lengthened. She has had no new complaints this morning. OBJECTIVE: GENERAL: She is alert and oriented in no acute distress. VITAL SIGNS: Blood pressure is 130/70, pulse is regular at 60 beats per minute. She is afebrile. HEENT: She is normocephalic. Pupils are equal and reactive to light. Extraocular muscles are intact bilaterally. NECK: The neck veins are flat. Carotids have good upstrokes bilaterally without bruits. Thyroid is nonpalpable. RESPIRATORY: Breath sounds equal bilaterally and clear to auscultation. CARDIOVASCULAR: Heart has a regular rhythm. Normal S1, S2. No S3, S4. No cardiac rubs or murmurs. GASTROINTESTINAL: Abdomen is soft, nontender without organomegaly. EXTREMITIES: Free of edema, digit clubbing, or cyanosis. NEUROLOGIC: Grossly intact. SKIN: Warm to touch. LYMPH NODES: Negative to palpation. IMPRESSION: 1. Paroxysmal atrial fibrillation. 2. Hypertension. 3. Fibromyalgia. 4. Irritable bowel syndrome. RECOMMENDATIONS: As outlined above, the patient is tolerating the sotalol. I believe after reviewing her telemetry that her heart rates are adequate. We will continue with the sotalol at 60 mg b.i.d. I planned to monitor her throughout today. If she becomes bradycardic on this new dose of sotalol, then we will have to consider stopping the medication and allowing it to wash out before we start her on Tikosyn.
[2017-08-29] MEDS: BACLOFEN 10 MG TAB PO SCH ×2 (10:41→21:47)
[2017-08-29] MEDS: RIVAROXABAN 20 MG TAB PO SCH (10:41)
[2017-08-29] MEDS: GABAPENTIN 300 MG CAP PO SCH ×3 (10:41→23:41)
[2017-08-29] MEDS: SOTALOL HCL 80 MG TAB PO SCH ×2 (10:42→21:47)
[2017-08-29] MEDS: GABAPENTIN 600 MG TAB PO SCH ×3 (10:44→23:40)
--- NOTE | 2017-08-29 12:00 | NUR ---
Pt ambulating hallway; no changes. Requests pain pill for back pain.
[2017-08-29 12:33] VITALS: BP 108/59; PULSE 64; TEMP 36.4; O2SAT 93
[2017-08-29 15:44] VITALS: BP 105/67; PULSE 57; TEMP 36.8; O2SAT 97
--- NOTE | 2017-08-29 16:00 | NUR ---
Ambulating hallway with . Requests pain pill for back. No changes at this time. Plan to dc home tomorrow.
[2017-08-29 19:24] VITALS: BP 103/55; PULSE 49; TEMP 36.6; O2SAT 97
--- NOTE | 2017-08-29 20:00 | NUR ---
A: Pt alert and oriented, VSS on room air. SB on monitor. Pt denies pain or SOB at this time. Ambulating independently in hallways, independent in room. D/c plans uncertain at this time. Call jefferson in reach. Will continue to monitor.
[2017-08-29 23:57] VITALS: BP 127/79; PULSE 52; TEMP 36.5; O2SAT 96
--- NOTE | 2017-08-30 | NUR ---
A: Assessment and vitals as charted. No change in pt condition noted at this time. Pain treated with prn medication. Monitoring ongoing
[2017-08-30 03:30] VITALS: BP 114/81; PULSE 50; TEMP 36.5; O2SAT 96
--- NOTE | 2017-08-30 04:00 | NUR ---
A: Pt resting in bed at this time. VSS, SB on monitor. See EMR for full assessment. Monitoring to continue.
[2017-08-30 04:25] VITALS: BP 114/81; PULSE 50; TEMP 36.5; O2SAT 96
[2017-08-30] MEDS: HYDROCODONE/ACETAMI 10/325 TAB PO PRN (06:24)
[2017-08-30 07:16] VITALS: BP 103/65; PULSE 47; TEMP 36.5; O2SAT 95
[2017-08-30 07:24] LABS: CALCIUM 8.6 mg/dl (8.5-10.1); CREATININE 0.63 mg/dl (0.60-1.20); POTASSIUM 4.1 mmol/L (3.5-5.1)
--- NOTE | 2017-08-30 08:00 | NUR ---
A: Patient awake, alert and oriented. Sinus bradycardia with frequent PACs noted. Patient verbalizes understanding of dosing changes to Sotalol. Denies chest pain/discomfort. Ambulating frequently. Call jefferson within reach, demonstrates ability to ring for assistance as needed.
[2017-08-30] MEDS: BACLOFEN 10 MG TAB PO SCH (08:20)
[2017-08-30] MEDS: SOTALOL HCL 80 MG TAB PO SCH (08:20)
[2017-08-30] MEDS: GABAPENTIN 600 MG TAB PO SCH (08:20)
[2017-08-30] MEDS: GABAPENTIN 300 MG CAP PO SCH (08:20)
[2017-08-30] MEDS: RIVAROXABAN 20 MG TAB PO SCH (08:21)
--- NOTE | 2017-08-30 10:09 | Progress Note ---
Internal Med Progress Note Date of Service: Aug 30, 2017. Provider Documentation: SUBJECTIVE: Seen and examined at bedside Reports being anxious for a brief period overnight but doing well this morning States palpitations, tiredness, dizziness resolved Currently in Sinus with PACs on monitor Denies chest pain, SOB No other complaints Discussed with Cardiology Today OBJECTIVE: Vital Signs-as noted below Physical Exam: General Appearance:Moderately built and nourished, no apparent distress Head: normocephalic, Atraumatic Eyes: normal inspection, EOMI, PERRL Neck: supple, Trachea midline Respiratory/Chest: Normal breath sounds, CTA Cardiovascular: S1, S2, No murmur Abdomen/GI:Soft, Non tender, Bowel sounds present Extremities/Musculoskelatal:normal inspection, no edema Neurologic/Psych:AAOX3, grossly no focal neurological deficits Skin: normal color, warm Lab data as noted below. ASSESSMENT & PLAN: Atrial Fibrillation with RVR: Converted to sinus TSH normal Continue Sotalol 80 mg BID>>>60mg BID Currently in Sinus with PACs on monitor Continue Xarelto for anticoagulation Appreciate Cardiology Input Daily ECG to monitor QTC Continue current management HTN Stable Fibromyalgia: Continue gabapentin. Rash on UE: likely Psoriasis Advised to follow up as outpatient DVT Px: On Xarelto DISPOSITION Plan to discharge home today Follow up with Dr. Ortiz on 09/02/17 at 1:55pm Follow up with your Oil Field Operator on 09/01/17 at 9:45am Your Sotolol dose is changed to 60mg Twice a day as per recommendations from cardiology Seek immediate medical attention if your symptoms reoccur or worsen Vital Signs: Date Time Temp Pulse Resp B/P (MAP) Pulse Ox O2 Delivery O2 Flow Rate FiO2 08/30/17 08:00 Room Air 08/30/17 07:16 36.5 47 20 103/65 (78) 95 Room Air 08/30/17 04:25 36.5 50 17 114/81 (92) 96 Room Air 08/30/17 04:00 Room Air 08/30/17 03:30 36.5 50 17 114/81 (92) 96 Room Air 08/30/17 00:00 Room Air 08/29/17 23:57 36.5 52 17 127/79 (95) 96 Room Air 08/29/17 20:00 Room Air 08/29/17 19:24 36.6 49 16 103/55 (71) 97 Room Air 08/29/17 16:02 Room Air 08/29/17 15:44 36.8 57 16 105/67 (80) 97 Room Air 08/29/17 12:33 36.4 64 19 108/59 (75) 93 Room Air 08/29/17 12:15 Room Air Lab Results: Results Past 24 Hours Test 08/30/17 06:14 Range/Units Sodium Level 140 136-145 mmol/L Potassium Level 4.1 3.5-5.1 mmol/L Chloride Level 108 98-107 mmol/L Carbon Dioxide Level 27 21-32 mmol/L Anion Gap 5.0 3-11 mmol/L Blood Urea Nitrogen 18 7-18 mg/dl Creatinine 0.63 0.60-1.20 mg/dl Est Creatinine Clear Calc Drug Dose 95.1 ml/min Estimated GFR () 112.2 Estimated GFR (Non- 96.8 BUN/Creatinine Ratio 28.0 10-20 Random Glucose 82 70-99 mg/dl Calcium Level 8.6 8.5-10.1 mg/dl Magnesium Level 2.2 1.8-2.4 mg/dl
[2017-08-30] MEDS ORDERED: SOTA120T PO (10:14)
[2017-08-30] MEDS ORDERED: XRL20 PO (10:14)
--- NOTE | 2017-08-30 10:17 | Discharge Summary ---
Discharge Summary Date of Service Aug 30, 2017. Discharge Summary Admission Date: Aug 26, 2017 at 23:30 Discharge Date: Aug 30, 2017 Discharge Disposition: Home Principal Diagnosis: Afib RVR Procedures: CXR: No active disease in the chest Consultations: Cardiology Pending Studies/Follow-Up: Follow up with Dr. Ortiz on 09/02/17 at 1:55pm Follow up with your Manager Wealth Management on 09/01/17 at 9:45am Your Sotolol dose is changed to 60mg Twice a day as per recommendations from cardiology Aspirin was discontinued as your are started on Xarelto Also Lisinopril 5mg daily is discontinued Seek immediate medical attention if your symptoms reoccur or worsen Medication Reconciliation New Medications: Sotalol Hcl (Sotalol Hcl) 120 Mg Tab 60 MG PO BID for 30 Days, #30 TABS Rivaroxaban (Xarelto) 20 Mg Tab 20 MG PO DAILY for 30 Days, #30 TAB 1 Refill Continued Medications: Albuterol Sulfate (Proair Respiclick) 108 Mcg/Act Aer 2 PUFFS INH Q6H PRN for IBS Related Issue Clwsurj-Njfvudaecqzvm-Zmnfcvkl (Excedrin Migraine) 1 Tab Tab 1 TAB PO UD PRN for Migraine TAKE PER PACKAGE DIRECTIONS Baclofen (Lioresal) 10 Mg Tab 10 MG PO BID, TAB Gabapentin (Neurontin) 300 Mg Cap 300 MG PO TID, CAP TAKE ONE 300 MG CAPSULE ALONG WITH ONE 600 MG CAPSULE TO EQUAL 900 MG DOSE THREE TIMES A DAY Gabapentin (Neurontin) 600 Mg Tab 600 MG PO TID, TAB TAKE ONE 600 MG CAPSULE ALONG WITH ONE 300 MG CAPSULE TO EQUAL 900 MG DOSE THREE TIMES A DAY Hydrocodone/Acetaminophen ([place] 10/325 Tab) 1 Tab Tab 1 TAB PO Q4-6HRS PRN for Pain, TAB Lorazepam (Lorazepam) 0.5 Mg Tab 0.5 MG PO TID PRN for Anxiety Discontinued Medications: Aspirin (Aspirin Ec) 81 Mg Tab 81 MG PO QAM Lisinopril (Zestril) 5 Mg Tab 5 MG PO DAILY, TAB Sotalol Hcl (Sotalol Hcl) 80 Mg Tab 40 MG PO QD@0900, TAB Sotalol Hcl (Sotalol Hcl) 80 Mg Tab 40 MG PO QD@1600, TAB Admission Information HPI (per Admitting provider): 61 YO female followed by Dr. Ortiz for Family Medicine and Dr. Bro for Cardiology. Recently diagnosed with paroxysmal atrial fibrillation. Initially hospitalized 08/11/17 with rapid AF. Converted to NSR after receiving metoprolol. Lytes, TSH, echo OK. CHADS2-VASc score 1. Discharged 08/12 on aspirin and metoprolol. Recurrent AF 08/13. Transitioned from metoprolol to sotalol and converted to NSR. Bradycardic @ 50/min on sotalol 80 BID; dose decreased to 40 BID. Discharged 08/16 on sotalol 40 BID. Consideration of dofetilide recommended if NSR not maintained on sotalol. Had 2 episodes of palpitations since discharge, not severe, self-limited ( lasted 1-2 hrs). Did not seek medical attention. Checks BP at home and noted systolic BP as high as 190. Lisinopril 5 mg daily started 08/25. Wrapping Tina presents and home this evening and enjoying a mug of coffee. Developed tachypalpitations associated with mild midsternal chest pressure, sweats, lightheadedness. Symptoms persisted, so she came to ED where she was found to be in rapid AF with vent rate in 130's. Received 2 boluses of IV diltiazem with slowing of her rate and improvement of her symptoms. . Physical Exam (per Admitting): General Appearance: WD/WN, no apparent distress Head: normocephalic, atraumatic Eyes: normal inspection, PERRL, EOMI, sclerae normal ENT: normal ENT inspection, hearing grossly normal, pharynx normal Neck: supple, no adenopathy, thyroid normal, no JVD, trachea midline Respiratory/Chest: lungs clear, no respiratory distress, no accessory muscle use Cardiovascular: no edema, no gallop, no JVD, no murmur, normal peripheral pulses, + irregularly irregular Abdomen/GI: normal bowel sounds, non tender, soft, no organomegaly Extremities/Musculoskelatal: normal inspection, no calf tenderness, normal capillary refill, no pedal edema Neurologic/Psych: children's librarian II-XII nml as tested (PERRL, EOMI, no facial palsy, no dysarthria), no motor/sensory deficits (motor strength upper and lower extremities intact), alert, normal mood/affect, oriented x 3 Skin: normal color, warm/dry, + pertinent finding (rash extensor surface of fingers) Lymphatic: no adenopathy (cervical) Hospital Course Atrial Fibrillation with RVR: Converted to sinus TSH normal Continue Sotalol 80 mg BID>>>60mg BID Currently in Sinus with PACs on monitor Continue Xarelto for anticoagulation Appreciate Cardiology Input Daily ECG to monitor QTC Continue current management HTN Stable Fibromyalgia: Continue gabapentin. Rash on UE: likely Psoriasis Advised to follow up as outpatient DVT Px: On Xarelto DISPOSITION Plan to discharge home today Follow up with Dr. Ortiz on 09/02/17 at 1:55pm Follow up with your Manager Wealth Management on 09/01/17 at 9:45am Your Sotolol dose is changed to 60mg Twice a day as per recommendations from cardiology Seek immediate medical attention if your symptoms reoccur or worsen Total time spent on discharge = 34 minutes This includes examination of the patient, discharge planning, medication reconciliation, and communication with other providers. Discharge Instructions Discharge Instructions Date of Service Aug 30, 2017. Admission Reason for Admission: Atrial Fibrillation With Rapid Ventricular Respons Discharge Discharge Diagnosis / Problem: Afib RVR Discharge Goals Goal(s): Decrease discomfort, Improve function Activity Recommendations Activity Limitations: resume your previous activity Exercise/Sports Limitations: as tolerated . Instructions / Follow-Up Instructions / Follow-Up Follow up with Dr. Ortiz on 09/02/17 at 1:55pm Follow up with your Manager Wealth Management on 09/01/17 at 9:45am Your Sotolol dose is changed to 60mg Twice a day as per recommendations from cardiology Aspirin was discontinued as your are started on Xarelto Also Lisinopril 5mg daily is discontinued Seek immediate medical attention if your symptoms reoccur or worsen Current Hospital Diet Patient's current hospital diet: AHA Diet (Heart Healthy) Discharge Diet Recommended Diet: AHA Diet (Heart Healthy) Pending Studies Studies pending at discharge: no Medical Emergencies . Who to Call and When: Medical Emergencies: If at any time you feel your situation is an emergency, please call 911 immediately. . Non-Emergent Contact Non-Emergency issues call your: Primary Care Provider, Manager Wealth Management Call Non-Emergent contact if: you have a fever, your pain is not controlled, your pain is worsening, your pain is unusual for you, your pain is concerning you, you have any medication questions . . "Provider Documentation" section prepared by Adilson Norton. . VTE Core Measure Inpt VTE Proph given/why not?: Other Anticoagulation (Xarelto)
[2017-08-30 10:33] VITALS: BP 103/65; PULSE 47; TEMP 36.5; O2SAT 95
--- NOTE | 2017-08-30 10:47 | PROGRESS NOTE ---
DATE: 08/30/2017 FOLLOWUP VISIT SUBJECTIVE: The patient is a 61-year-old female with paroxysmal atrial fibrillation. She converted spontaneously to normal sinus rhythm and is currently taking sotalol 60 mg b.i.d. She is tolerating this medication and her QT interval has not been prolonged. She is also on Xarelto. She has no new complaints today and has maintained a sinus rhythm with appropriate heart rates on the current dosage of sotalol. OBJECTIVE: GENERAL: She is alert and oriented in no acute distress. VITAL SIGNS: Blood pressure is 130/70, pulse is regular at 65 beats per minute. She is afebrile. HEENT: She is normocephalic. Pupils are equal and reactive to light. Extraocular muscles are intact bilaterally. NECK: The neck veins are flat. Carotids have good upstrokes bilaterally without bruits. Thyroid is not palpable. RESPIRATORY: Breath sounds equal bilaterally and clear to auscultation. CARDIOVASCULAR: Heart has a regular rhythm. Normal S1, S2. No S3, S4. No cardiac rubs or murmurs. GASTROINTESTINAL: Abdomen is soft, nontender without organomegaly. EXTREMITIES: Free of edema, digit clubbing, or cyanosis. NEUROLOGIC: Grossly intact. SKIN: Warm to touch. LYMPH NODES: Negative to palpation. IMPRESSION: 1. Paroxysmal atrial fibrillation. 2. Hypertension. 3. Fibromyalgia. 4. Irritable bowel syndrome. RECOMMENDATIONS: The patient is clinically stable and can be discharged to outpatient followup. She has a followup appointment with her jig worker Dr. Bro this , which I recommended that she keep.
[2018-02-12] MEDS ORDERED: BACL10TA PO (09:39)
[2018-02-12] MEDS ORDERED: HYDR-4383 PO (09:39)
[2018-02-12] MEDS ORDERED: SOTA120T PO ×2 (16:48)
[2018-02-12] MEDS ORDERED: RIVA1TAB4 PO (16:48)
[2018-02-12] MEDS ORDERED: PRLSR20 PO (16:53)
[2018-02-12] MEDS ORDERED: PHEN-775 PO (17:57)
[2018-02-12] MEDS ORDERED: CEPH500C PO (17:57)
[2018-02-12] MEDS ORDERED: ALBU18002 INH (18:20)
[2018-02-12] MEDS ORDERED: ATV5 PO (18:20)
[2018-02-12] MEDS ORDERED: LISI-729 PO (18:58)
[2018-02-12] MEDS ORDERED: GABA-1218 PO (22:53)
[2018-02-12] MEDS ORDERED: GABA600T PO (22:53)
[2018-02-12] MEDS ORDERED: ASPI-390 PO (22:56)
== END 2017-08-30 11:12 | disposition home or self-care (01) ==
LOC: C.EDB 21:48 → C.2T 23:30 → ENRESERV 23:52
PROVIDERS: ADMIT Hospitalist; ATTEND Internal Medicine
DX: I48.0 Paroxysmal atrial fibrillation (principal); I10 Essential (primary) hypertension; R21 Rash and other nonspecific skin eruption; M79.7 Fibromyalgia; G50.0 Trigeminal neuralgia; K58.9 Irritable bowel syndrome, unspecified; M45.9 Ankylosing spondylitis of unspecified sites in spine; Z79.01 Long term (current) use of anticoagulants; Z86.010 Personal history of colon polyps; Z90.710 Acquired absence of both cervix and uterus; Z90.49 Acquired absence of other specified parts of digestive tract

== ENCOUNTER 2017-09-04 18:16 | Emergency (ER) | payer OTHER ==
[~2017-09-04] VITALS: Ht 165.1 cm; Wt 76.9 kg
[~2017-09-04 18:16] MED LIST changes: -ASPI81TA28 PO; -BTP80 PO; -FLUT0.15 NAE; -GABA-113 PO; -NORT10CA2 PO; +SOTA120T PO; +XRL20 PO
[2017-09-04 18:17] VITALS: TEMP 36.9; Ht 165.1 cm; Wt 76.9 kg
[2017-09-04] MEDS ORDERED: SODIUM CHLORIDE 0.9% 500ML 500 ML IV STA (18:42)
[2017-09-04 18:57] VITALS: O2SAT 96
--- NOTE | 2017-09-04 19:07 | DIAGNOSTIC IMAGING REPORT ---
CHEST ONE VIEW PORTABLE CLINICAL HISTORY: CHEST PAIN dyspnea COMPARISON STUDY: 08/26/2017 FINDINGS: Mild stable cardia megaly. Stable platelike atelectasis both lung bases. Lungs otherwise appear clear. Slight accentuation of the basilar parenchymal markings possibly secondary to mild pulmonary hypoaeration. IMPRESSION: Negative chest. The above report was generated using voice recognition software. It may contain grammatical, syntax or spelling errors. Electronically signed by: Todd Lopez M.D. 09/04/2017 7:06 PM Dictated Date/Time: 09/04/2017 7:05 PM
[2017-09-04 19:19] LABS: BASO % 0.7 %; BASO ABS # 0.05 K/uL (0-0.2); EOS ABS # 0.15 K/uL (0-0.5); HEMATOCRIT 40.3 % (37-47); HEMOGLOBIN 13.6 g/dL (12.0-16.0); IG# 0.01 K/uL (0.00-0.02); LYMPH ABS # 2.45 K/uL (1.2-3.4); MEAN CELL VOLUME 95.7 fL (80-100); MEAN CORPUSCULAR HEMOGLOBIN 32.3 pg (25-34); MEAN CORPUSCULAR HGB CONC 33.7 g/dl (32-36); MEAN PLATELET VOLUME 9.8 fL (7.4-10.4); MONO ABS # 0.52 K/uL (0.11-0.59); NEUT % 57.2 %; NEUT ABS # 4.25 K/uL (1.4-6.5); PLATELET COUNT 232 K/uL (130-400); RED CELL DISTRIBUTION WIDTH SD 48.9 fL (36.4-46.3); WHITE BLOOD COUNT 7.43 K/uL (4.8-10.8)
[2017-09-04 19:44] LABS: ALBUMIN 3.8 gm/dl (3.4-5.0); ALT/SGPT 18 U/L (12-78); BLOOD UREA NITROGEN 20 mg/dl (7-18); CALCIUM 9.1 mg/dl (8.5-10.1); CARBON DIOXIDE 25 mmol/L (21-32); CREATININE 0.62 mg/dl (0.60-1.20); GLUCOSE 91 mg/dl (70-99); LIPASE 181 U/L (73-393); SODIUM 141 mmol/L (136-145)
[2017-09-04 19:55] LABS: ALKALINE PHOSPHATASE 71 U/L (45-117); AST/SGOT 14 U/L (15-37); TOTAL PROTEIN 6.8 gm/dl (6.4-8.2)
[2017-09-04 21:30] VITALS: BP 151/83; PULSE 55; O2SAT 97
--- NOTE | 2017-09-04 21:44 | EMERGENCY ROOM VISIT NOTE ---
History Report prepared by Tiara: Donald Fish Under the Supervision of: Dr. Jameson Ortega M.D. First contact with patient: 18:30 Chief Complaint: CARDIAC ASSESSMENT Stated Complaint: A-FIB History of Present Illness The patient is a 61 year old female who presents to the Emergency Room with complaints of intermittent heart palpitations beginning two days ago. She has a history of A-fib for which she is on Xarelto. She was admitted as an inpatient last week for her A-fib. The patient is worried because her heart rate felt rapid today, but feels slower now. Her palpitations have been persistent for the past 3.5 hours. She took Sotalol shortly prior to arrival, but nothing has improved her symptoms. The patient notes that she spoke with her Matchbook Maker ( Dr. Bro) three days ago. She notes that she was started on Lisinopril two days ago for HTN. She has a history of IBS, but states that she has had increased diarrhea recently. The patient denies cough, congestion, urinary symptoms, fevers, or chills. She was diagnosed with A-fib earlier this month during a visit for a routine colonoscopy. Source of History: patient Onset: Two days ago Quality: other (heart palpitations) Timing: intermittent Associated Symptoms: No fevers, No chills, No cough, No urinary symptoms Note: The patient denies congestion. Review of Systems See HPI for pertinent positives and negatives. A total of ten systems were reviewed and were otherwise negative. Past Medical & Surgical Medical Problems: (1) Ankylosing spondylitis (2) Degenerative disc disease (3) Dyslipidemia (4) Fibromyalgia (5) History of adenomatous polyp of colon (6) Hypertension (7) Irritable bowel syndrome (8) Migraine headache (9) Paroxysmal atrial fibrillation (10) Trigeminal neuralgia Surgical Problems: (1) H/O breast surgery (2) H/O rotator cuff surgery (3) H/O: hysterectomy (4) Hx of cholecystectomy Family History Breast cancer MOTHER Cancer SISTER Colon cancer FATHER Coronary artery disease FATHER Diabetes mellitus AUNT Prostate cancer FATHER Stroke GRANDFATHER Social History Smoking Status: Never Smoker Alcohol Use: none Drug Use: none Marital Status: Housing Status: lives with significant other Occupation Status: retired Current/Historical Medications Scheduled Baclofen (Lioresal), 10 MG PO BID Gabapentin (Neurontin), 300 MG PO TID Gabapentin (Neurontin), 600 MG PO TID Lisinopril (Prinivil), 5 MG PO DAILY Rivaroxaban (Xarelto), 20 MG PO DAILY Sotalol Hcl (Sotalol Hcl), 60 MG PO BID Scheduled PRN Albuterol Sulfate (Proair Respiclick), 2 PUFFS INH Q6H PRN for IBS Related Issue Fmuwzhy-Jyxojrzpzduxq-Sftkpzcf (Excedrin Migraine), 1 TAB PO UD PRN for Migraine Hydrocodone/Acetaminophen ([place] 10/325 Tab), 1 TAB PO Q4-6HRS PRN for Pain Lorazepam (Lorazepam), 0.5 MG PO TID PRN for Anxiety Allergies Coded Allergies: Adhesives (Verified Allergy, Mild, RASH, 09/04/17) Promethazine (Verified Allergy, Mild, ITCHING, 09/04/17) Codeine (Verified Allergy, Unknown, 09/04/17) Uncoded Allergies: ANESTHESIA (Allergy, Unknown, VOMITING, NEASUA, 08/11/17) Physical Exam Vital Signs Date Time Temp Pulse Resp B/P (MAP) Pulse Ox O2 Delivery O2 Flow Rate FiO2 09/04/17 21:30 55 16 151/83 97 Room Air 09/04/17 20:00 54 16 143/80 96 Room Air 09/04/17 18:57 96 Room Air 09/04/17 18:57 96 Room Air 09/04/17 18:46 59 09/04/17 18:17 36.9 68 18 133/74 95 Room Air Physical Exam GENERAL: Awake, alert, anxious-appearing, in no distress HENT: Normocephalic, atraumatic. Dry mucous membranes. EYES: Normal conjunctiva. Sclera non-icteric. NECK: Supple. No nuchal rigidity. FROM. No JVD. RESPIRATORY: Clear to auscultation. CARDIAC: Irregularly irregular rhythm. Normal rate. Extremities warm and well perfused. Pulses equal. ABDOMEN: Soft, non-distended. No tenderness to palpation. No rebound or guarding. No masses. RECTAL: Deferred. MUSCULOSKELETAL: Chest examination reveals no tenderness. The back is symmetrical on inspection without obvious abnormality. There is no CVA tenderness to palpation. No joint edema. LOWER EXTREMITIES: Calves are equal size bilaterally and non-tender. No edema. No discoloration. NEURO: Normal sensorium. No sensory or motor deficits noted. SKIN: No rash or jaundice noted. Medical Decision & Procedures ER Provider Diagnostic Interpretation: Radiology results as stated below per my review and radiologist interpretation: CHEST ONE VIEW PORTABLE FINDINGS: Mild stable cardia megaly. Stable platelike atelectasis both lung bases. Lungs otherwise appear clear. Slight accentuation of the basilar parenchymal markings possibly secondary to mild pulmonary hypoaeration. IMPRESSION: Negative chest. The above report was generated using voice recognition software. It may contain grammatical, syntax or spelling errors. Electronically signed by: Todd Lopez M.D. 09/04/2017 7:06 PM Laboratory Results 09/04/17 18:05 Red Blood Count 4.21, Mean Corpuscular Volume 95.7, Mean Corpuscular Hemoglobin 32.3, Mean Corpuscular Hemoglobin Concent 33.7, Mean Platelet Volume 9.8, Neutrophils (%) (Auto) 57.2, Lymphocytes (%) (Auto) 33.0, Monocytes (%) (Auto) 7.0, Eosinophils (%) (Auto) 2.0, Basophils (%) (Auto) 0.7, Neutrophils # (Auto) 4.25, Lymphocytes # (Auto) 2.45, Monocytes # (Auto) 0.52, Eosinophils # (Auto) 0.15, Basophils # (Auto) 0.05 09/04/17 18:05 Test 09/04/17 18:05 09/04/17 21:00 White Blood Count 7.43 K/uL (4.8-10.8) Red Blood Count 4.21 M/uL (4.2-5.4) Hemoglobin 13.6 g/dL (12.0-16.0) Hematocrit 40.3 % (37-47) Mean Corpuscular Volume 95.7 fL (80-100) Mean Corpuscular Hemoglobin 32.3 pg (25-34) Mean Corpuscular Hemoglobin Concent 33.7 g/dl (32-36) Platelet Count 232 K/uL (130-400) Mean Platelet Volume 9.8 fL (7.4-10.4) Neutrophils (%) (Auto) 57.2 % Lymphocytes (%) (Auto) 33.0 % Monocytes (%) (Auto) 7.0 % Eosinophils (%) (Auto) 2.0 % Basophils (%) (Auto) 0.7 % Neutrophils # (Auto) 4.25 K/uL (1.4-6.5) Lymphocytes # (Auto) 2.45 K/uL (1.2-3.4) Monocytes # (Auto) 0.52 K/uL (0.11-0.59) Eosinophils # (Auto) 0.15 K/uL (0-0.5) Basophils # (Auto) 0.05 K/uL (0-0.2) RDW Standard Deviation 48.9 fL (36.4-46.3) RDW Coefficient of Variation 14.0 % (11.5-14.5) Immature Granulocyte % (Auto) 0.1 % Immature Granulocyte # (Auto) 0.01 K/uL (0.00-0.02) Anion Gap 7.0 mmol/L (3-11) Est Creatinine Clear Calc Drug Dose 97.7 ml/min Estimated GFR () 112.8 Estimated GFR (Non- 97.3 BUN/Creatinine Ratio 31.7 (10-20) Calcium Level 9.1 mg/dl (8.5-10.1) Magnesium Level 2.2 mg/dl (1.8-2.4) Total Bilirubin 0.2 mg/dl (0.2-1) Direct Bilirubin < 0.1 mg/dl (0-0.2) Aspartate Amino Transf (AST/SGOT) 14 U/L (15-37) Alanine Aminotransferase (ALT/SGPT) 18 U/L (12-78) Alkaline Phosphatase 71 U/L (45-117) Troponin I < 0.015 ng/ml (0-0.045) Total Protein 6.8 gm/dl (6.4-8.2) Albumin 3.8 gm/dl (3.4-5.0) Lipase 181 U/L (73-393) Thyroid Stimulating Hormone (TSH) 1.930 uIu/ml (0.300-4.500) Urine Color YELLOW Urine Appearance CLEAR (CLEAR) Urine pH 6.0 (4.5-7.5) Urine Specific [place] 1.027 (1.000-1.030) Urine Protein NEG (NEG) Urine Glucose (UA) NEG (NEG) Urine Ketones NEG (NEG) Urine Occult Blood NEG (NEG) Urine Nitrite NEG (NEG) Urine Bilirubin NEG (NEG) Urine Urobilinogen NEG (NEG) Urine Leukocyte Esterase NEG (NEG) Laboratory results reviewed by me Medications Administered Medications (Trade) Dose Ordered Sig/Lokesh Route Start Time Stop Time Status Last Admin Dose Admin Sodium Chloride 500 ml @ 999 mls/hr Q31M STAT IV 09/04/17 18:42 09/04/17 19:12 DC 09/04/17 18:42 999 MLS/HR ECG Indication: palpitations Rate (beats per minute): 59 Rhythm: sinus bradycardia Findings: no acute ischemic change, left axis deviation ED Course 1830: The patient was evaluated in room B9. A complete history and physical exam was performed. 2139: I reevaluated the patient. Discussed results and discharge instructions: she verbalized understanding and agreement. The patient is ready for discharge. Medical Decision I reviewed the patient's past medical history, medications, and the nursing notes as described above. The patient's presentation and history were concerning for etiologies such as premature contractions, electrolyte abnormality, cardiac dysrhythmia, thyroid dysfunction, pulmonary embolism, infection, gastrointestinal, as well as others were entertained. The patient is a 61 y/o woman with a pmhx of IBS and a recent dx in August of parosymal afib on [facility] who presents to the emergency department with persistent palpitations with "fast and normal heart beat" since tuesday per HPI. On arrival the patient is anxious appearing but in NAD. AFVSS. On exam the patient does have a IRIR but when palced on the monitor and on EKG was NSR. Labs unremarkable. CXR negative. Patient in NSR throughout ED observation with normal rate. Patient follows with [facility], and will contact the office on Tuesday for an appointment. Per Dr. Bro's clinic note from last plan is for changing patient's antiarhythmic or obtain EP eval for possible ablation if patient's sx persist. Findings and plan for follow-up reviewed with patient. Patient agreeable and d/c'd per discharge instructions. Medication Reconcilliation Current Medication List: was personally reviewed by me Blood Pressure Screening Patient's blood pressure: Elevated blood pressure Blood pressure disposition: Elevated BP felt to be situational Impression Primary Impression: Atrial fibrillation Scribe Attestation The scribe's documentation has been prepared under my direction and personally reviewed by me in its entirety. I confirm that the note above accurately reflects all work, treatment, procedures, and medical decision making performed by me. Departure Information Dispostion Home / Self-Care Referrals Hai Ortiz M.D.(ALFA) (PCP) Patient Instructions Atrial Fibrillation Dc, My [facility] Additional Instructions Please follow up with your computer typesetter keyliner, Dr. Bro, on Tuesday for re- evaluation. Otherwise, your exam, EKG, chest xray, and lab results did not show signs of an emergent condition at this time. Return to the emergency department for worsening symptoms as described in the accompanying instructions.
[2018-02-12] MEDS ORDERED: BACL10TA PO (09:39)
[2018-02-12] MEDS ORDERED: HYDR-4383 PO (09:39)
[2018-02-12] MEDS ORDERED: RIVA1TAB4 PO (16:48)
[2018-02-12] MEDS ORDERED: SOTA120T PO ×2 (16:48)
[2018-02-12] MEDS ORDERED: PRLSR20 PO (16:53)
[2018-02-12] MEDS ORDERED: CEPH500C PO (17:57)
[2018-02-12] MEDS ORDERED: PHEN-775 PO (17:57)
[2018-02-12] MEDS ORDERED: ALBU18002 INH (18:20)
[2018-02-12] MEDS ORDERED: ATV5 PO (18:20)
[2018-02-12] MEDS ORDERED: LISI-729 PO (18:58)
[2018-02-12] MEDS ORDERED: GABA-1218 PO (22:53)
[2018-02-12] MEDS ORDERED: GABA600T PO (22:53)
[2018-02-12] MEDS ORDERED: ASPI-390 PO (22:56)
== END 2017-09-04 21:52 | disposition home or self-care (01) ==
LOC: C.EDB 18:16
DX: I48.91 Unspecified atrial fibrillation (principal); K58.9 Irritable bowel syndrome, unspecified; M45.9 Ankylosing spondylitis of unspecified sites in spine; E78.5 Hyperlipidemia, unspecified; M79.7 Fibromyalgia; I10 Essential (primary) hypertension; G50.0 Trigeminal neuralgia; Z79.01 Long term (current) use of anticoagulants; Z79.899 Other long term (current) drug therapy; Z80.9 Family history of malignant neoplasm, unspecified; Z82.49 Family history of ischemic heart disease and other diseases of the circulatory system; Z83.3 Family history of diabetes mellitus

== ENCOUNTER 2023-12-22 18:33 | Inpatient (IN) ==
[2023-12-22] MEDS: SODIUM CHLORIDE 0.9% 500 ML IV STA (19:21)
[2023-12-22 19:33] LABS: Hematocrit (blood only) 17.9 % (37.0-47.0); Hemoglobin 4.9 g/dl (12.0-16.0); Mean Corpuscular Hemoglobin 21.8 pg (25.0-34.0); Mean Corpuscular Hgb Conc 27.4 g/dL (32.0-36.0); Mean Corpuscular Volume 79.6 fL (80.0-100.0); Mean Platelet Volume 9.9 fL (9.4-12.4); Nucleated RBC # (auto) 0.03 K/uL (0.00-0.12); Nucleated RBC % (auto) 0.4 %; Platelet Count 382 K/uL (130-400); RDW Coefficient of Variation 24.1 % (11.5-14.5); RDW Standard Deviation 64.2 fL (36.4-46.3); Red Blood Count 2.25 M/uL (4.20-5.40); White Blood Count 8.15 K/ul (4.8-10.8)
[2023-12-22] MEDS ORDERED: SODIUM CHLORIDE 0.9% 250 ML IV PRN ×2 (19:40→20:29)
--- NOTE | 2023-12-22 19:42 | Emergency Department Note ---
Impression & Plan SOB (shortness of breath), Anemia, Acute GI bleeding, Coagulopathy ED Provider Note NAME: SEKOU VÁSQUEZ AGE: 67 SEX: F : 1955 ARRIVES VIA: Walk-In INFORMANT: [Patient] ED PROVIDER(S): [Kelvin Hernandez MD] CHIEF COMPLAINT: Chest pain, weakness HISTORY OF PRESENT ILLNESS: The patient is a 67-year-old female who presents to the ER with a week of increasing fatigue and shortness of breath. She states that she has had about 4 days of intermittent epigastric abdominal pain, 2 days of black stool. She has had some pressure across the chest, almost a heaviness. All her symptoms worsen with exertion. She can barely take a few steps without having to stop and rest. Patient's noticed she was quite pale today. She presents for evaluation. Patient does have a history of A-fib and is on warfarin. Her last INR was therapeutic. The patient has had an ulcer in the past, she cannot recall ever being diagnosed with GI bleeding. The patient states she has been using a lot of Tylenol lately, occasionally some Excedrin. PMHx/PSHx/Social Hx: See Below PHYSICAL EXAM: GENERAL: Patient is in no acute distress. HEENT: No acute trauma, normocephalic atraumatic, mucous membranes moist, no nasal congestion. NECK: No stridor, no adenopathy, no meningismus, trachea is midline. LUNGS: Clear to auscultation bilaterally, no wheeze, no rhonchi, breath sounds equal. HEART: Subtle systolic murmur, regular rate and rhythm. ABDOMEN: Soft, nontender, no peritonitis. EXTREMITIES: No cyanosis, full range of motion of all the joints without pain or difficulty. NEUROLOGIC: Oriented x 3, no acute motor or sensory deficits, no focal weakness. SKIN: No jaundice, no diaphoresis. Very pale. Rectal: Black stool, heme positive. DIFFERENTIAL DIAGNOSIS: GI bleeding, ulcer, anemia, gastritis, coagulopathy, PR, among others EMERGENCY DEPARTMENT PROCEDURES: MEDICAL DECISION MAKING: There is no leukocytosis. The patient was significantly anemic with a hemoglobin of 4.9. There was a normal platelet count. Stool was black in color and heme positive. INR was quite high at greater than 9.5. Potassium somewhat low at 3.1. No renal failure. No concerning liver enzyme elevation. ECG showed a sinus rhythm, no ischemia. Cardiac enzyme testing x 1 was not consistent with acute cardiac injury. Chest x-ray did not show pneumonia, free air or pneumothorax. On exam, the patient was quite pale. She complained of some epigastric abdominal pain. The patient was aggressively managed given her findings. She was ordered for 2 units of packed red blood cells to be transfused. She did sign consent for the transfusion. She received a liter of IV saline for hydration. She received IV Protonix and IV Pepcid. She was given IV vitamin K and IV Kcentra. She received IV Zofran for nausea, IV morphine for pain. Patient presents with shortness of breath. She was quite pale. She was found to be significant anemic. She was found to be suffering from GI bleeding, likely upper GI bleeding. She was over anticoagulated. Given her findings, given her presentation, she is in need of a hospital stay. I did speak with the patient and case management. I did speak with Dr. Back. The on-call hospitalist was consulted. Prior/Outside records/notes reviewed: None ECG per my interpretation: Indication was weakness. The ECG shows a normal sinus rhythm with a rate of 90. There is LVH present. No acute ST elevation, no PVCs. The QTc is 489. Continuous Cardiac Monitoring per my interpretation: An order was placed for continuous cardiac monitoring. The monitor shows a rate of 85 with normal sinus rhythm. Imaging/x-ray results per my interpretation: Chest x-ray did not show mediastinal widening, or free air or CHF. There was no pneumonia. Chronic Medical/Social conditions affecting care: Chronic warfarin use. Care/Management discussed with: Case management, the on-call hospitalist. Coagulation consult-Dr. Back Level of care consideration(s): After review of the information above and other included data: --I believe the patient requires escalation of care to admission Critical Care Note: I have personally spent 52 minutes of critical care time in the direct management of this patient. This includes bedside care, interpretation of diagnostic studies, and testing, discussion with consultants, patient, and family members, and other required patient management activities. This 52 minutes is in excess of all separately billable procedures. DISPOSITION: Admission Past Med/Surg History Medical History (Updated 12/23/23 @ 00:01 by Kelvin Hernandez MD) Gastroesophageal reflux H/O cold sores Tinnitus Vertigo History of adenomatous polyp of colon Ankylosing spondylitis Trigeminal neuralgia Migraine headache Fibromyalgia Surgical History Hx of cholecystectomy (~1985) H/O: hysterectomy (~2002) and BSO H/O rotator cuff surgery (~03/2008) left H/O breast surgery 1985 breast augmentation with silicone implants, r replaced 2000 with saline Family History Other Breast cancer Colorectal cancer Diabetes Social History Smoking Status: Never smoker Tobacco Type: Cigarettes Preferred Language: Maori Feels Safe at Home: Yes Allergies Allergies Allergy/AdvReac Type Severity Reaction Status Date / Time adhesive Allergy Mild RASH Verified 12/22/23 20:50 promethazine Allergy Mild ITCHING Verified 12/22/23 20:50 codeine Allergy Unknown CAN'T Verified 12/22/23 20:50 REMEMBER fentanyl AdvReac Nausea Verified 12/22/23 21:10 ANESTHESIA Allergy Intermediate VOMITING, Uncoded 12/22/23 20:50 NEASUA Home Meds Home Medications Medication Instructions Recorded Confirmed albuterol sulfate 90 mcg/actuation 1 puff inhalation QID PRN 12/22/23 12/22/23 aerosol inhaler Shortness Of Breath Or Wheezing amlodipine 2.5 mg tablet 2.5 mg PO HS 12/22/23 12/22/23 [id number] 250 1 tab PO Q6H PRN Migraine Headache 12/22/23 12/22/23 mg-250 mg-65 mg tablet (Excedrin Extra Strength) clotrimazole-betamethasone 1 1 applic topical BID PRN flare ups 12/22/23 12/22/23 %-0.05 % topical cream ezetimibe 10 mg tablet 10 mg PO QAM 12/22/23 12/22/23 furosemide 20 mg tablet (Lasix) 20 mg PO DIRECTED PRN Edema 12/22/23 12/22/23 gabapentin 800 mg tablet 800 mg PO TID 12/22/23 12/22/23 lisinopril 5 mg tablet 5 mg PO QAM 12/22/23 12/22/23 rosuvastatin 20 mg tablet 20 mg PO QAM 12/22/23 12/22/23 sotalol 120 mg tablet 120 mg PO AMHS 12/22/23 12/22/23 warfarin 5 mg tablet 5 - 10 mg PO DIRECTED 12/22/23 12/22/23 Results & Data (ED) Vital Signs Vital Signs - 24 hr 12/22/23 18:47 12/22/23 19:27 12/22/23 19:28 Temperature Temperature Source Pulse Rate 85 82 81 Pulse Rate from SpO2 Sensor 80 Pulse Rhythm Pulse Strength Respiratory Rate 22 25 H Blood Pressure 105/59 L Blood Pressure Mean 74 Blood Pressure Position Pulse Oximetry 99 98 Oxygen Delivery Method Room Air Oxygen Flow Rate Sepsis Recent Fever Within 48 Hours No Sepsis New/Unexplained Change in Mental Status No Sepsis Action Taken by Nursing No Action Required 12/22/23 19:30 12/22/23 20:00 12/22/23 20:10 Temperature Temperature Source Pulse Rate 79 84 85 Pulse Rate from SpO2 Sensor 81 Pulse Rhythm Pulse Strength Respiratory Rate 16 21 21 Blood Pressure 141/58 H Blood Pressure Mean 85 Blood Pressure Position Pulse Oximetry 97 Oxygen Delivery Method Oxygen Flow Rate Sepsis Recent Fever Within 48 Hours Sepsis New/Unexplained Change in Mental Status Sepsis Action Taken by Nursing 12/22/23 20:30 12/22/23 21:45 12/22/23 22:00 Temperature 36.6 C 36.7 C Temperature Source Oral Oral Pulse Rate 80 91 H 89 Pulse Rate from SpO2 Sensor Pulse Rhythm Regular Regular Pulse Strength Normal Normal Respiratory Rate 19 17 16 Blood Pressure 108/55 L 167/70 H 139/74 Blood Pressure Mean 72 102 95 Blood Pressure Position Lying Pulse Oximetry 96 93 Oxygen Delivery Method Oxygen Flow Rate 0 0 Sepsis Recent Fever Within 48 Hours Sepsis New/Unexplained Change in Mental Status Sepsis Action Taken by Nursing 12/22/23 22:15 12/22/23 22:45 Temperature 36.5 C 36.6 C Temperature Source Oral Oral Pulse Rate 91 H 91 H Pulse Rate from SpO2 Sensor Pulse Rhythm Regular Regular Pulse Strength Normal Normal Respiratory Rate 18 20 Blood Pressure 140/69 136/65 Blood Pressure Mean 92 88 Blood Pressure Position Sitting Sitting Pulse Oximetry 96 95 Oxygen Delivery Method Oxygen Flow Rate 0 0 Sepsis Recent Fever Within 48 Hours Sepsis New/Unexplained Change in Mental Status Sepsis Action Taken by [facility] Medications Current Medication List: was personally reviewed by me Laboratory Data Attestation: I reviewed the patient's lab results. 12/22/23 18:59 12/22/23 18:59 Lab Results 12/22/23 12/22/23 12/22/23 Range/Units 18:59 19:05 19:28 WBC 8.15 (4.8-10.8) K/ul RBC 2.25 L (4.20-5.40) M/uL Hgb 4.9 L* (12.0-16.0) g/dl Hct 17.9 L* (37.0-47.0) % MCV 79.6 L (80.0-100.0) fL MCH 21.8 L (25.0-34.0) pg MCHC 27.4 L (32.0-36.0) g/dL RDW Std Deviation 64.2 H (36.4-46.3) fL RDW Coeff of Ana Cristina 24.1 H (11.5-14.5) % Plt Count 382 (130-400) K/uL MPV 9.9 (9.4-12.4) fL Immature Gran % (Auto) 0.4 % Neut % (Auto) 67.5 % Lymph % (Auto) 22.7 % [place] % (Auto) 8.0 % Eos % (Auto) 0.2 % Baso % (Auto) 1.2 % Neut # (Auto) 5.50 (1.40-6.50) K/uL Lymph # (Auto) 1.85 (1.20-3.40) K/uL [place] # (Auto) 0.65 H (0.11-0.59) K/uL Eos # (Auto) 0.02 (0.00-0.50) K/uL Baso # (Auto) 0.10 (0.00-0.20) K/uL Immature Gran # (Auto) 0.03 (0.01-0.20) K/uL Absolute Nucleated RBC 0.03 (0.00-0.12) K/uL Nucleated RBC % (auto) 0.4 % Polychromasia 2+ Anisocytosis Present Microcytosis Present PT > 90.0 H (9.0-12.0) Seconds INR > 9.5 H* (0.9-1.1) APTT 46 H (21-31) Seconds PTT Ratio 1.6 Sodium 137 (136-145) mmol/L Potassium 3.1 L (3.5-5.1) mmol/L Chloride 106 (98-107) mmol/L Carbon Dioxide 20 L (21-32) mmol/L Anion Gap 11 (3-11) BUN 18 (6-23) mg/dl Creatinine 0.75 (0.6-1.2) mg/dl Est Cr Clr Drug Dosing Not Reportable Est GFR ( Amer) 95.6 ml/min Est GFR (Non-Af Amer) 82.5 ml/min BUN/Creatinine Ratio 24.0 H (10-20) Glucose 211 H (70-99(Fasting)) mg/dl POC Glucose 250 H (70-99) mg/dl Calcium 8.5 L (8.6-10.3) mg/dl Magnesium 2.0 (1.7-2.4) mg/dl Total Bilirubin 0.2 (0.2-1.0) mg/dl AST 10 L (13-39) U/L ALT 7 (7-52) U/L Alkaline Phosphatase 73 (34-104) U/L Troponin I High Sens 6.1 (0-14) pg/ml Total Protein 6.1 (6.0-8.3) gm/dl Albumin 4.0 (3.4-5.0) gm/dl Globulin 2.1 L (2.5-4.0) gm/dl Albumin/Globulin Ratio 1.9 (0.9-2) Blood Type A Positive Blood Type Recheck Antibody Screen NEGATIVE Crossmatch See Detail 12/22/23 Range/Units 20:50 WBC (4.8-10.8) K/ul RBC (4.20-5.40) M/uL Hgb (12.0-16.0) g/dl Hct (37.0-47.0) % MCV (80.0-100.0) fL MCH (25.0-34.0) pg MCHC (32.0-36.0) g/dL RDW Std Deviation (36.4-46.3) fL RDW Coeff of Ana Cristina (11.5-14.5) % Plt Count (130-400) K/uL MPV (9.4-12.4) fL Immature Gran % (Auto) % Neut % (Auto) % Lymph % (Auto) % [place] % (Auto) % Eos % (Auto) % Baso % (Auto) % Neut # (Auto) (1.40-6.50) K/uL Lymph # (Auto) (1.20-3.40) K/uL [place] # (Auto) (0.11-0.59) K/uL Eos # (Auto) (0.00-0.50) K/uL Baso # (Auto) (0.00-0.20) K/uL Immature Gran # (Auto) (0.01-0.20) K/uL Absolute Nucleated RBC (0.00-0.12) K/uL Nucleated RBC % (auto) % Polychromasia Anisocytosis Microcytosis PT (9.0-12.0) Seconds INR (0.9-1.1) APTT (21-31) Seconds PTT Ratio Sodium (136-145) mmol/L Potassium (3.5-5.1) mmol/L Chloride (98-107) mmol/L Carbon Dioxide (21-32) mmol/L Anion Gap (3-11) BUN (6-23) mg/dl Creatinine (0.6-1.2) mg/dl Est Cr Clr Drug Dosing Est GFR ( Amer) ml/min Est GFR (Non-Af Amer) ml/min BUN/Creatinine Ratio (10-20) Glucose (70-99(Fasting)) mg/dl POC Glucose (70-99) mg/dl Calcium (8.6-10.3) mg/dl Magnesium (1.7-2.4) mg/dl Total Bilirubin (0.2-1.0) mg/dl AST (13-39) U/L ALT (7-52) U/L Alkaline Phosphatase (34-104) U/L Troponin I High Sens (0-14) pg/ml Total Protein (6.0-8.3) gm/dl Albumin (3.4-5.0) gm/dl Globulin (2.5-4.0) gm/dl Albumin/Globulin Ratio (0.9-2) Blood Type Blood Type Recheck A Positive Antibody Screen Crossmatch Administered Medications Pantoprazole Sodium 40 mg/ (Dextrose) 100 mls @ 20 mls/hr IV Q5H TARA Stop: 01/21/24 20:29 Last Admin: 12/22/23 22:47 Dose: 8 mg/hr, 20 mls/hr Documented By: YOSEF Potassium Chloride/Sodium Chloride (Normal Saline W/20 Meq Kcl) 20 meq in 1,000 mls @ 60 mls/hr IV .[id number] ONE; Protocol Stop: 12/23/23 13:05 Last Admin: 12/22/23 23:25 Dose: 60 mls/hr Documented By: YOSEF Potassium Chloride (Potassium Chloride Crtab 20 Meq Tabcr) 40 meq PO TODAY@2024 TARA Stop: 12/22/23 23:59 Last Admin: 12/22/23 23:24 Dose: 40 meq Documented By: YOSEF Discontinued Medications Sodium Chloride (Nss) 500 mls @ 999 mls/hr IV .Q31M STA Stop: 12/22/23 19:39 Last Infusion: 12/22/23 20:01 Dose: Infused Documented By: Admin: 12/22/23 19:21 Dose: 999 mls/hr Documented By: YOSEF Famotidine (Pepcid 20mg Iv Push) 20 mg in 5 mls @ 2.5 mls/min IV NOW STA Stop: 12/22/23 19:40 Last Admin: 12/22/23 19:54 Dose: 2.5 mls/min Documented By: YOSEF Pantoprazole Sodium 80 mg/ (Dextrose) 120 mls @ 400 mls/hr IV NOW ONE Stop: 12/22/23 19:56 Last Infusion: 12/22/23 20:35 Dose: Infused Documented By: Admin: 12/22/23 20:17 Dose: 400 mls/hr Documented By: YOSEF Sodium Chloride (Nss) 500 mls @ 999 mls/hr IV .Q31M ONE Stop: 12/22/23 20:09 Last Infusion: 12/22/23 20:35 Dose: Infused Documented By: Admin: 12/22/23 20:01 Dose: 999 mls/hr Documented By: YOSEF Phytonadione 10 mg/ Dextrose 51 mls @ 102 mls/hr IV ONE ONE Stop: 12/22/23 21:44 Last Infusion: 12/22/23 22:29 Dose: Infused Documented By: Admin: 12/22/23 21:31 Dose: 102 mls/hr Documented By: YOSEF Phytonadione 10 mg/ Dextrose 51 mls @ 102 mls/hr IV ONE ONE Stop: 12/22/23 21:28 Last Admin: 12/22/23 22:29 Dose: Not Given Documented By: YOSEF Prothrombin Complex Concent ( (Human) 4,000 units/ Syringe) 160 mls @ 10 mls/min IV NOW ONE; Protocol Stop: 12/22/23 22:00 Last Admin: 12/22/23 22:01 Dose: 10 mls/min Documented By: YOSEF Ioversol (Optiray 320 100ml) 92 ml IV ONCE ONE Stop: 12/22/23 21:26 Last Admin: 12/22/23 21:26 Dose: 92 ml Documented By: CONSTANTINO Morphine Sulfate (Morphine Sulfate 2 Mg/Ml Carp) 2 mg IV NOW STA Stop: 12/22/23 19:59 Last Admin: 12/22/23 20:06 Dose: 2 mg Documented By: YOSEF Morphine Sulfate (Morphine Sulfate 4 Mg/Ml 1 Ml Carp\Vial) 4 mg IV Q30M PRN PRN Reason: Pain Stop: 01/05/24 21:24 Last Admin: 12/22/23 23:24 Dose: 4 mg Documented By: Admin: 12/22/23 21:31 Dose: 4 mg Documented By: YOSEF Ondansetron HCl (Ondansetron Inj 2 Mg/Ml 2 Ml Vial) 4 mg IV NOW STA Stop: 12/22/23 19:44 Last Admin: 12/22/23 19:54 Dose: 4 mg Documented By: YOSEF Imaging Data Radiologist's Impression: Chest X-Ray 12/22/23 18:52 SINGLE VIEW CHEST CLINICAL HISTORY: Atypical chest pain. FINDINGS: An AP, portable, upright chest radiograph is compared to study dated 09/04/2017. The heart is enlarged noting atherosclerotic calcification of the thoracic aorta. The pulmonary vasculature is noncongested. Linear scarring/atelectasis is seen in the left mid lung. No airspace consolidation or large pleural effusion is identified. No pneumothorax is seen. The skeletal structures are osteopenic. The bony thorax is grossly intact. A surgical anchor is noted in the left humeral head. IMPRESSION: Cardiomegaly with no active disease in the chest. ACT 112: Negative or not required by law. Electronically signed by: Kelvin Danielle M.D. 12/22/2023 9:44 PM Abdomen/Pelvis CT 12/22/23 20:55 CT SCAN OF THE ABDOMEN AND PELVIS WITH IV CONTRAST CLINICAL HISTORY: Generalized abdominal pain. GI bleeding. COMPARISON STUDY: Abdominal CT dated 03/28/2021. TECHNIQUE: Following the IV administration of 92 cc of Optiray 320, CT scan of the abdomen and pelvis is performed from the lung bases to the proximal femora. Images are reviewed in the axial, sagittal, and coronal planes. IV contrast was administered without complication. A dose lowering technique was utilized adhering to the principles of ALARA. FINDINGS: Lung bases: The heart is top normal in size and without pericardial effusion. There is mild bibasilar atelectasis. The lung bases are otherwise clear. A small fat-containing Bochdalek hernia is noted on the right. Bilateral breast implants are noted. Liver: The contrast-enhanced liver is normal in size, contour, and attenuation. There is mild intrahepatic biliary ductal dilatation. The hepatic veins and portal veins are patent. Scattered hepatic cysts measure up to 3.8 cm. Additional subcentimeter hepatic hypodensities also likely represent cysts but are too small for definitive characterization. Gallbladder: Surgically absent noting clips in the gallbladder fossa. Spleen: Normal in size and attenuation. Pancreas: .A 1.8 cm simple cystic lesion in the pancreatic head on image #128 is unchanged and likely represents a sidebranch IPMN versus mucinous cystic neoplasm. The pancreas is otherwise normal in appearance. Adrenal glands: Unremarkable. Kidneys: The contrast enhanced kidneys are normal in size and without hydronephrosis. The kidneys enhance symmetrically. A 4 mm nonobstructing calculus is seen in the left upper pole. Abdominal vasculature: The abdominal aorta is normal in course and caliber noting advanced atherosclerotic calcification. Bowel: There is moderate colonic diverticulosis without CT evidence of acute diverticulitis. No bowel obstruction is seen. The appendix is well-visualized and normal. Peritoneum: There is no intraperitoneal free air or abdominal ascites. There is a fat-containing umbilical hernia. Lymphadenopathy: None. Pelvic viscera: The bladder is normal as visualized. The uterus is surgically absent. No adnexal lesion is seen. Skeletal structures: The skeletal structures are osteopenic. There is mild lumbosacral spondylosis. No lytic or blastic lesions are seen. IMPRESSION: 1. No acute infectious or inflammatory findings are identified in the abdomen or pelvis. 2. Left-sided nephrolithiasis. 3. Colonic diverticulosis without CT evidence of acute diverticulitis. 4. Additional findings as above. ACT 112: Negative or not required by law. Electronically signed by: Kelvin Danielle M.D. 12/22/2023 9:[address] 12/22/23 20:55 CT SCAN OF THE BRAIN WITHOUT IV CONTRAST CLINICAL HISTORY: Headache. COMPARISON STUDY: MRI of the brain dated 06/03/2014. TECHNIQUE: Unenhanced axial CT scan of the brain is performed from the vertex to the skull base. A dose lowering technique was utilized adhering to the principles of ALARA. CT DOSE: 2005.75 mGy.cm FINDINGS: Brain parenchyma: The brain parenchyma is normal in appearance. There is no hemorrhage, mass effect, or evidence of acute territorial ischemia by CT criteria. Daniels-white matter differentiation is preserved. No extra-axial fluid collection is seen. Ventricles, sulci, cisterns: Normal in configuration. Intracranial vasculature: There is atherosclerotic calcification of the cavernous carotid arteries. Calvarium: Unremarkable. Sinuses and mastoids: The visualized paranasal sinuses are clear. The mastoid air cells are well pneumatized. Orbits: The bony orbits are grossly intact. IMPRESSION: No acute intracranial abnormality. ACT 112: Negative or not required by law. Electronically signed by: Kelvin Danielle M.D. 12/22/2023 9:47 PM Discharge Plan Visit Data Chief Complaint: Chest Pain Stated Complaint: AFIB, SOB, DIZZY ED Provider: Kelvin Hernandez Discharge Problem: SOB (shortness of breath), Anemia, Acute GI bleeding, Coagulopathy Patient Disposition: Admitted As Inpatient Condition: Serious Discharge Instructions Interventions: ED Discharge Assessment Last Done: 12/22/23 23:34 Discharge Problem: Anemia Qualifiers: Anemia type: unspecified type Qualified Code(s): D64.9 - Anemia, unspecified
[2023-12-22 19:44] LABS: Alanine Aminotransferase 7 U/L (7-52); Albumin Globulin Ratio 1.9 (0.9-2); Alkaline Phosphatase 73 U/L (34-104); Anion Gap 11 (3-11); Aspartate Aminotransferase 10 U/L (13-39); Bilirubin,Total 0.2 mg/dl (0.2-1.0); Blood Urea Nitrogen 18 mg/dl (6-23); Calcium 8.5 mg/dl (8.6-10.3); Carbon Dioxide 20 mmol/L (21-32); Chloride 106 mmol/L (98-107); Est GFR (African American) 95.6 ml/min; Est GFR (Non-African American) 82.5 ml/min; Globulin 2.1 gm/dl (2.5-4.0); Glucose 211 mg/dl (70-99(Fasting)); Potassium 3.1 mmol/L (3.5-5.1); Sodium 137 mmol/L (136-145); Total Protein 6.1 gm/dl (6.0-8.3)
[2023-12-22 19:50] LABS: Anisocytosis Present; Basophils % (auto) 1.2 %; Eosinophils # (auto) 0.02 K/uL (0.00-0.50); Eosinophils % (auto) 0.2 %; Immature Granulocytes # (auto) 0.03 K/uL (0.01-0.20); Immature Granulocytes % (auto) 0.4 %; Lymphocytes # (auto) 1.85 K/uL (1.20-3.40); Lymphocytes % (auto) 22.7 %; Microcytosis Present; Monocytes # (auto) 0.65 K/uL (0.11-0.59); Neutrophils % (auto) 67.5 %; Polychromasia 2+; Troponin I High Sensitivity 6.1 pg/ml (0-14)
[2023-12-22] MEDS: ONDANSETRON INJ 2 MG/ML 2 ML VIAL IV STA (19:54)
[2023-12-22] MEDS: FAMOTIDINE 20MG IV PUSH 20 MG/5 ML SYR IV STA (19:54)
[2023-12-22] MEDS: SODIUM CHLORIDE 0.9% 500 ML IV ONE (20:01)
[2023-12-22] MEDS: MoRPHine SULFATE 2 MG/ML CARP IV STA (20:06)
[2023-12-22] MEDS: PANTOprazole 80 MG in DEXTROSE 5% 100 ML IV ONE (20:17)
[2023-12-22 20:21] LABS: Partial Thromboplastin Ratio 1.6; Partial Thromboplastin Time 46 Seconds (21-31)
[2023-12-22] MEDS ORDERED: POTASSIUM CHLORIDE CRTAB 20 MEQ TABCR PO STA (20:25)
[2023-12-22 20:46] LABS: INR > 9.5 (0.9-1.1); Prothrombin Time > 90.0 Seconds (9.0-12.0)
[2023-12-22] MEDS: OPTIRAY 320 100ml IV ONE (21:26)
[2023-12-22] MEDS: PHYTONADIONE 10 MG in DEXTROSE 5% 50 ML IV ONE ×2 (21:31→22:29)
[2023-12-22] MEDS: MoRPHine SULFATE 4 MG/ML 1 ML CARP\\VIAL IV PRN (21:31)
--- NOTE | 2023-12-22 21:46 | XRay Report ---
SINGLE VIEW CHEST CLINICAL HISTORY: Atypical chest pain. FINDINGS: An AP, portable, upright chest radiograph is compared to study dated 09/04/2017. The heart is enlarged noting atherosclerotic calcification of the thoracic aorta. The pulmonary vasculature is noncongested. Linear scarring/atelectasis is seen in the left mid lung. No airspace consolidation or large pleural effusion is identified. No pneumothorax is seen. The skeletal structures are osteopenic . The bony thorax is grossly intact. A surgical anchor is noted in the left humeral head. IMPRESSION: Cardiomegaly with no active disease in the chest. ACT 112: Negative or not required by law. Electronically signed by: Kelvin Danielle M.D. 12/22/2023 9:44 PM
--- NOTE | 2023-12-22 21:49 | CT Scan Report ---
CT SCAN OF THE BRAIN WITHOUT IV CONTRAST CLINICAL HISTORY: Headache. COMPARISON STUDY: MRI of the brain dated 06/03/2014. TECHNIQUE: Unenhanced axial CT scan of the brain is performed from the vertex to the skull base. A d ose lowering technique was utilized adhering to the principles of ALARA. CT DOSE: 2005.75 mGy.cm FINDINGS: Brain parenchyma: The brain parenchyma is normal in appearance. There is no hemorrhage, mass effect, or evidence of acute territorial ischemia by CT criteria. Daniels-white matter differentiation is preser suri. No extra-axial fluid collection is seen. Ventricles, sulci, cisterns: Normal in configuration. Intracranial vasculature: There is atherosclerotic calcification of the cavernous carotid arteries. Calvarium: Unremarkable. Sinuses and mastoids: The visualized paranasal sinuses are clear. The mastoid air cells are well pneu matized. Orbits: The bony orbits are grossly intact. IMPRESSION: No acute intracranial abnormality. ACT 112: Negative or not required by law. Electronically signed by: Kelvin Danielle M.D. 12/22/2023 9:47 PM
--- NOTE | 2023-12-22 21:57 | CT Scan Report ---
CT SCAN OF THE ABDOMEN AND PELVIS WITH IV CONTRAST CLINICAL HISTORY: Generalized abdominal pain. GI bleeding. COMPARISON STUDY: Abdominal CT dated 03/28/2021. TECHNIQUE: Following the IV administration of 92 cc of Optiray 320, CT scan of the abdomen and pelvi s is performed from the lung bases to the proximal femora. Images are reviewed in the axial, sagittal , and coronal planes. IV contrast was administered without complication. A dose lowering technique wa s utilized adhering to the principles of ALARA. FINDINGS: Lung bases: The heart is top normal in size and without pericardial effusion. There is mild bibasilar atelectasis. The lung bases are otherwise clear. A small fat-containing Bochdalek hernia is noted on the right. Bilateral breast implants are noted. Liver: The contrast-enhanced liver is normal in size, contour, and attenuation. There is mild intrahe patic biliary ductal dilatation. The hepatic veins and portal veins are patent. Scattered hepatic cys ts measure up to 3.8 cm. Additional subcentimeter hepatic hypodensities also likely represent cysts b ut are too small for definitive characterization. Gallbladder: Surgically absent noting clips in the gallbladder fossa. Spleen: Normal in size and attenuation. Pancreas: .A 1.8 cm simple cystic lesion in the pancreatic head on image #128 is unchanged and likely represents a sidebranch IPMN versus mucinous cystic neoplasm. The pancreas is otherwise normal in ap pearance. Adrenal glands: Unremarkable. Kidneys: The contrast enhanced kidneys are normal in size and without hydronephrosis. The kidneys enh ance symmetrically. A 4 mm nonobstructing calculus is seen in the left upper pole. Abdominal vasculature: The abdominal aorta is normal in course and caliber noting advanced atheroscle rotic calcification. Bowel: There is moderate colonic diverticulosis without CT evidence of acute diverticulitis. No bowel obstruction is seen. The appendix is well-visualized and normal. Peritoneum: There is no intraperitoneal free air or abdominal ascites. There is a fat-containing umbi lical hernia. Lymphadenopathy: None. Pelvic viscera: The bladder is normal as visualized. The uterus is surgically absent. No adnexal lesi on is seen. Skeletal structures: The skeletal structures are osteopenic. There is mild lumbosacral spondylosis. N o lytic or blastic lesions are seen. IMPRESSION: 1. No acute infectious or inflammatory findings are identified in the abdomen or pelvis. 2. Left-sided nephrolithiasis. 3. Colonic diverticulosis without CT evidence of acute diverticulitis. 4. Additional findings as above. ACT 112: Negative or not required by law. Electronically signed by: Kelvin Danielle M.D. 12/22/2023 9:54 PM
[2023-12-22] MEDS: PROTHROMBIN COMP CONC- KCENTRA 4,000 UNITS in SYRINGE 0 ML IV ONE (22:01)
[2023-12-22] MEDS: PANTOprazole 40 MG in DEXTROSE 5% MINI-B 100 ML IV SCH (22:47)
--- NOTE | 2023-12-22 22:59 | History & Physical Report ---
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 until patient seen by GI in anticipation of endoscopy DVT prophylaxis. SCDs Re: GI bleed Full code Text document was generated using [employer] voice recognition software. It may contain grammatical or spelling errors. Kindly contact undersigned for clarification of any documentation item in question. History of Present Illness Chief Complaint: Melena, abdominal pain Primary Care Provider: Evangelist Parada DO History obtained from patient and records. 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 Last confinement 2016 for A-fib with RVR. 3 weeks ago, patient fell down after her dog jumped on her. Achy pain in her bottom. No head trauma or LOC. Last week, patient noted shortness of breath worse on exertion. Few days ago, patient noted epigastric discomfort followed by melanotic stools 2 days ago. Bilious emesis. Migraine attack somewhat more intense. Transient chest pressure and dizziness symptoms. Patient admits to taking 2 tablets of Excedrin daily on an empty stomach for some time now. No recent changes in Coumadin regimen. Last outpatient INR from 2 weeks ago was 3.1. No unusual weight loss. Patient consulted ER for evaluation. IV Protonix and Pepcid, Kcentra, vitamin K, 2 units PRBC transfused at the ER for UGIB. 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 Allergies Allergy/AdvReac Type Severity Reaction Status Date / Time adhesive Allergy Mild RASH Verified 12/23/23 10:53 promethazine Allergy Mild ITCHING Verified 12/23/23 10:53 codeine Allergy Unknown CAN'T Verified 12/23/23 10:53 REMEMBER fentanyl AdvReac Nausea Verified 12/23/23 10:53 ANESTHESIA Allergy Intermediate VOMITING, Uncoded 12/23/23 10:53 NEASUA Home Medications Medication Instructions Recorded Confirmed Type albuterol sulfate 90 mcg/actuation 1 puff inhalation QID PRN 12/22/23 12/22/23 History aerosol inhaler Shortness Of Breath Or Wheezing amlodipine 2.5 mg tablet 2.5 mg PO HS 12/22/23 12/22/23 History oxtnnlr-xrhaciyzxcktc-mbhjcljn 250 1 tab PO Q6H PRN Migraine Headache 12/22/23 12/22/23 History mg-250 mg-65 mg tablet (Excedrin Extra Strength) clotrimazole-betamethasone 1 1 applic topical BID PRN flare ups 12/22/23 12/22/23 History %-0.05 % topical cream ezetimibe 10 mg tablet 10 mg PO QAM 12/22/23 12/22/23 History furosemide 20 mg tablet (Lasix) 20 mg PO DIRECTED PRN Edema 12/22/23 12/22/23 History gabapentin 800 mg tablet 800 mg PO TID 12/22/23 12/22/23 History lisinopril 5 mg tablet 5 mg PO QAM 12/22/23 12/22/23 History rosuvastatin 20 mg tablet 20 mg PO QAM 12/22/23 12/22/23 History sotalol 120 mg tablet 120 mg PO AMHS 12/22/23 12/22/23 History warfarin 5 mg tablet 5 - 10 mg PO DIRECTED 12/22/23 12/22/23 History Past Med/Surg History Medical History Gastroesophageal reflux H/O cold sores Tinnitus Vertigo History of adenomatous polyp of colon Ankylosing spondylitis Trigeminal neuralgia Migraine headache Fibromyalgia Surgical History Hx of cholecystectomy (~1985) H/O: hysterectomy (~2002) and BSO H/O rotator cuff surgery (~03/2008) left H/O breast surgery 1985 breast augmentation with silicone implants, r replaced 2000 with saline Family History Other Breast cancer Colorectal cancer Diabetes Social History Smoking Status: Never smoker Tobacco Type: Cigarettes Hx Alcohol Use: No Hx Substance Use: No Preferred Language: Greek Communication Ability: Effective 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 Beliefs That Will Affect Care: None Current Living Situation: Spouse Other Information That Helps Us Care for You: No Feels Safe at Home: Yes Safety Concerns: Feels Safe At This Time Assistive Devices: None Review of Systems Review of Systems: As per HPI, all other systems reviewed and negative Physical Exam Physical Exam: GENERAL: Comfortable, pleasant, obese, no respiratory distress SKIN: Pallor, warm HEENT: Pale palpebral conjunctivae, no ptosis, dry buccal mucosa NECK : Supple, no tenderness CHEST : CTA, no tenderness HEART : RRR, no obvious murmurs ABDOMEN: Some distention, epigastric tenderness EXTREMITIES : No LE swelling/tenderness, no other conspicuous deformities noted NEUROLOGIC : Coherent, no facial asymmetry, no other gross focality Results & Data Results & Data Vital Signs (Past 12 Hours) Vital Signs Temp Pulse Resp BP Pulse Ox O2 Del Method O2 Flow Rate 12/22/23 22:45 36.6 C 91 H 20 136/65 95 0 12/22/23 22:15 36.5 C 91 H 18 140/69 96 0 12/22/23 22:00 36.7 C 89 16 139/74 93 0 12/22/23 21:45 36.6 C 91 H 17 167/70 H 96 0 12/22/23 20:30 80 19 108/55 L 12/22/23 20:10 85 21 141/58 H 12/22/23 20:00 84 21 12/22/23 19:30 79 16 97 12/22/23 19:28 81 25 H 98 12/22/23 19:27 82 12/22/23 18:47 85 22 105/59 L 99 Room Air Laboratory Results Laboratory Results WBC 8.15 K/ul (4.8-10.8) 12/22/23 18:59 RBC 2.25 M/uL (4.20-5.40) L 12/22/23 18:59 Hgb 4.9 g/dl (12.0-16.0) L* 12/22/23 18:59 Hct 17.9 % (37.0-47.0) L* 12/22/23 18:59 MCV 79.6 fL (80.0-100.0) L 12/22/23 18:59 MCH 21.8 pg (25.0-34.0) L 12/22/23 18:59 MCHC 27.4 g/dL (32.0-36.0) L 12/22/23 18:59 RDW Std Deviation 64.2 fL (36.4-46.3) H 12/22/23 18:59 RDW Coeff of Ana Cristina 24.1 % (11.5-14.5) H 12/22/23 18:59 Plt Count 382 K/uL (130-400) 12/22/23 18:59 MPV 9.9 fL (9.4-12.4) 12/22/23 18:59 Immature Gran % (Auto) 0.4 % 12/22/23 18:59 Neut % (Auto) 67.5 % 12/22/23 18:59 Lymph % (Auto) 22.7 % 12/22/23 18:59 [place] % (Auto) 8.0 % 12/22/23 18:59 Eos % (Auto) 0.2 % 12/22/23 18:59 Baso % (Auto) 1.2 % 12/22/23 18:59 Neut # (Auto) 5.50 K/uL (1.40-6.50) 12/22/23 18:59 Lymph # (Auto) 1.85 K/uL (1.20-3.40) 12/22/23 18:59 [place] # (Auto) 0.65 K/uL (0.11-0.59) H 12/22/23 18:59 Eos # (Auto) 0.02 K/uL (0.00-0.50) 12/22/23 18:59 Baso # (Auto) 0.10 K/uL (0.00-0.20) 12/22/23 18:59 Immature Gran # (Auto) 0.03 K/uL (0.01-0.20) 12/22/23 18:59 Absolute Nucleated RBC 0.03 K/uL (0.00-0.12) 12/22/23 18:59 Nucleated RBC % (auto) 0.4 % 12/22/23 18:59 Polychromasia 2+ 12/22/23 18:59 Anisocytosis Present 12/22/23 18:59 Microcytosis Present 12/22/23 18:59 PT > 90.0 Seconds (9.0-12.0) H 12/22/23 18:59 INR > 9.5 (0.9-1.1) H* 12/22/23 18:59 APTT 46 Seconds (21-31) H 12/22/23 18:59 PTT Ratio 1.6 12/22/23 18:59 Sodium 137 mmol/L (136-145) 12/22/23 18:59 Potassium 3.1 mmol/L (3.5-5.1) L 12/22/23 18:59 Chloride 106 mmol/L (98-107) 12/22/23 18:59 Carbon Dioxide 20 mmol/L (21-32) L 12/22/23 18:59 Anion Gap 11 (3-11) 12/22/23 18:59 BUN 18 mg/dl (6-23) 12/22/23 18:59 Creatinine 0.75 mg/dl (0.6-1.2) 12/22/23 18:59 Est Cr Clr Drug Dosing Not Reportable 12/22/23 18:59 Est GFR ( Amer) 95.6 ml/min 12/22/23 18:59 Est GFR (Non-Af Amer) 82.5 ml/min 12/22/23 18:59 BUN/Creatinine Ratio 24.0 (10-20) H 12/22/23 18:59 Glucose 211 mg/dl (70-99(Fasting)) H 12/22/23 18:59 POC Glucose 250 mg/dl (70-99) H 12/22/23 19:05 Calcium 8.5 mg/dl (8.6-10.3) L 12/22/23 18:59 Magnesium 2.0 mg/dl (1.7-2.4) 12/22/23 18:59 Total Bilirubin 0.2 mg/dl (0.2-1.0) 12/22/23 18:59 AST 10 U/L (13-39) L 12/22/23 18:59 ALT 7 U/L (7-52) 12/22/23 18:59 Alkaline Phosphatase 73 U/L (34-104) 12/22/23 18:59 Troponin I High Sens 6.1 pg/ml (0-14) 12/22/23 18:59 Total Protein 6.1 gm/dl (6.0-8.3) 12/22/23 18:59 Albumin 4.0 gm/dl (3.4-5.0) 12/22/23 18:59 Globulin 2.1 gm/dl (2.5-4.0) L 12/22/23 18:59 Albumin/Globulin Ratio 1.9 (0.9-2) 12/22/23 18:59 Blood Type A Positive 12/22/23 19:28 Blood Type Recheck A Positive 12/22/23 20:50 Antibody Screen NEGATIVE 12/22/23 19:28 Crossmatch See Detail 12/22/23 19:28 Impressions Chest X-Ray 12/22/23 18:52 SINGLE VIEW CHEST CLINICAL HISTORY: Atypical chest pain. FINDINGS: An AP, portable, upright chest radiograph is compared to study dated 09/04/2017. The heart is enlarged noting atherosclerotic calcification of the thoracic aorta. The pulmonary vasculature is noncongested. Linear scarring/atelectasis is seen in the left mid lung. No airspace consolidation or large pleural effusion is identified. No pneumothorax is seen. The skeletal structures are osteopenic. The bony thorax is grossly intact. A surgical anchor is noted in the left humeral head. IMPRESSION: Cardiomegaly with no active disease in the chest. ACT 112: Negative or not required by law. Electronically signed by: Kelvin Danielle M.D. 12/22/2023 9:44 PM Abdomen/Pelvis CT 12/22/23 20:55 CT SCAN OF THE ABDOMEN AND PELVIS WITH IV CONTRAST CLINICAL HISTORY: Generalized abdominal pain. GI bleeding. COMPARISON STUDY: Abdominal CT dated 03/28/2021. TECHNIQUE: Following the IV administration of 92 cc of Optiray 320, CT scan of the abdomen and pelvis is performed from the lung bases to the proximal femora. Images are reviewed in the axial, sagittal, and coronal planes. IV contrast was administered without complication. A dose lowering technique was utilized adhering to the principles of ALARA. FINDINGS: Lung bases: The heart is top normal in size and without pericardial effusion. There is mild bibasilar atelectasis. The lung bases are otherwise clear. A small fat-containing Bochdalek hernia is noted on the right. Bilateral breast implants are noted. Liver: The contrast-enhanced liver is normal in size, contour, and attenuation. There is mild intrahepatic biliary ductal dilatation. The hepatic veins and portal veins are patent. Scattered hepatic cysts measure up to 3.8 cm. Additional subcentimeter hepatic hypodensities also likely represent cysts but are too small for definitive characterization. Gallbladder: Surgically absent noting clips in the gallbladder fossa. Spleen: Normal in size and attenuation. Pancreas: .A 1.8 cm simple cystic lesion in the pancreatic head on image #128 is unchanged and likely represents a sidebranch IPMN versus mucinous cystic neoplasm. The pancreas is otherwise normal in appearance. Adrenal glands: Unremarkable. Kidneys: The contrast enhanced kidneys are normal in size and without hydronephrosis. The kidneys enhance symmetrically. A 4 mm nonobstructing calculus is seen in the left upper pole. Abdominal vasculature: The abdominal aorta is normal in course and caliber noting advanced atherosclerotic calcification. Bowel: There is moderate colonic diverticulosis without CT evidence of acute diverticulitis. No bowel obstruction is seen. The appendix is well-visualized and normal. Peritoneum: There is no intraperitoneal free air or abdominal ascites. There is a fat-containing umbilical hernia. Lymphadenopathy: None. Pelvic viscera: The bladder is normal as visualized. The uterus is surgically absent. No adnexal lesion is seen. Skeletal structures: The skeletal structures are osteopenic. There is mild lumbosacral spondylosis. No lytic or blastic lesions are seen. IMPRESSION: 1. No acute infectious or inflammatory findings are identified in the abdomen or pelvis. 2. Left-sided nephrolithiasis. 3. Colonic diverticulosis without CT evidence of acute diverticulitis. 4. Additional findings as above. ACT 112: Negative or not required by law. Electronically signed by: Kelvin Danielle M.D. 12/22/2023 9:[address] 12/22/23 20:55 CT SCAN OF THE BRAIN WITHOUT IV CONTRAST CLINICAL HISTORY: Headache. COMPARISON STUDY: MRI of the brain dated 06/03/2014. TECHNIQUE: Unenhanced axial CT scan of the brain is performed from the vertex to the skull base. A dose lowering technique was utilized adhering to the principles of ALARA. CT DOSE: 2005.75 mGy.cm FINDINGS: Brain parenchyma: The brain parenchyma is normal in appearance. There is no hemorrhage, mass effect, or evidence of acute territorial ischemia by CT criteria. Daniels-white matter differentiation is preserved. No extra-axial fluid collection is seen. Ventricles, sulci, cisterns: Normal in configuration. Intracranial vasculature: There is atherosclerotic calcification of the cavernous carotid arteries. Calvarium: Unremarkable. Sinuses and mastoids: The visualized paranasal sinuses are clear. The mastoid air cells are well pneumatized. Orbits: The bony orbits are grossly intact. IMPRESSION: No acute intracranial abnormality. ACT 112: Negative or not required by law. Electronically signed by: Kelvin Danielle M.D. 12/22/2023 9:47 PM Diagnostic Findings EKG as per my interpretation :Rate 90, NSR, LAD, LAFB, LVH, no ischemia
[2023-12-22] MEDS ORDERED: LORazepam 0.5 MG TAB PO PRN (23:03)
[2023-12-22] MEDS: POTASSIUM CHLORIDE CRTAB 20 MEQ TABCR PO SCH (23:24)
[2023-12-22] MEDS: NSS + 20MEQ KCL 20 MEQ/1,000 ML BAG IV ONE (23:25)
[2023-12-23] MEDS: SOTALOL HCL 80 MG TAB PO SCH (01:07)
[2023-12-23] MEDS: oxyCODONE HCL IR 5 MG TAB (IMMEDIATE RELEASE) PO PRN (01:08)
[2023-12-23 07:03] LABS: Basophils # (auto) 0.08 K/uL (0.00-0.20); Eosinophils # (auto) 0.05 K/uL (0.00-0.50); Eosinophils % (auto) 0.6 %; Hematocrit (blood only) 26.9 % (37.0-47.0); Hemoglobin 8.1 g/dl (12.0-16.0); Immature Granulocytes # (auto) 0.03 K/uL (0.01-0.20); Immature Granulocytes % (auto) 0.4 %; Lymphocytes # (auto) 1.42 K/uL (1.20-3.40); Lymphocytes % (auto) 17.1 %; Mean Corpuscular Hemoglobin 24.8 pg (25.0-34.0); Mean Corpuscular Hgb Conc 30.1 g/dL (32.0-36.0); Mean Corpuscular Volume 82.5 fL (80.0-100.0); Mean Platelet Volume 9.7 fL (9.4-12.4); Monocytes # (auto) 0.63 K/uL (0.11-0.59); Monocytes % (auto) 7.6 %; Neutrophils # (auto) 6.11 K/uL (1.40-6.50); Neutrophils % (auto) 73.3 %; Nucleated RBC # (auto) 0.02 K/uL (0.00-0.12); Nucleated RBC % (auto) 0.2 %; Platelet Count 212 K/uL (130-400); RDW Coefficient of Variation 19.8 % (11.5-14.5); RDW Standard Deviation 58.1 fL (36.4-46.3); Red Blood Count 3.26 M/uL (4.20-5.40); White Blood Count 8.32 K/ul (4.8-10.8)
[2023-12-23 07:07] LABS: Hypochromasia Present
[2023-12-23 07:26] LABS: Prothrombin Time 11.1 Seconds (9.0-12.0)
[2023-12-23 07:29] LABS: BUN Creatinine Ratio 19.5 (10-20); Calcium 8.3 mg/dl (8.6-10.3); Creatinine Clr Calc Pharmacy 141.4 ml/min; Est GFR (African American) 123.9 ml/min; Est GFR (Non-African American) 106.9 ml/min; Potassium 3.6 mmol/L (3.5-5.1)
[2023-12-23] MEDS: lisinopril 5 MG TAB PO SCH (08:07)
[2023-12-23] MEDS: ROSUVASTATIN CALCIUM 20 MG TAB PO SCH (08:07)
[2023-12-23] MEDS: EZETIMIBE 10 MG TAB PO SCH (08:07)
[2023-12-23] MEDS: GABAPENTIN 800 MG TAB PO SCH (08:08)
--- NOTE | 2023-12-23 09:26 | Gastrointestinal Consultation ---
Date of Consultation December 23, 2023 Assessment & Plan (1) Melena: (2) Anemia: Plan -Continue PPI drip at present -Keep NPO for EGD today -Continue to monitor H/H -Further recommendations pending results of EGD Supervising Physician Co-Signing Physician Notes Agree with TOSHIA Silverman as above Interviewed and examined patient independently and agree with above Abd: Soft, NT, ND, +BS Continue current therapy and supportive care Proceed with EGD now. History of Present Illness Reason for Consultation: Melena, anemia Attending Physician: Jerry Salinas MD History of Present Illness Patient is a 67 yo female with PMH of arthritis, HL, IBS, HTN, Paroxysmal A fib on Coumadin, & Mercer's Esophagus who presents to the ED at [facility] with symptoms of melena x 3 days and epigastric pain. She notes progressive weakness and d yspnea on exertion. She presented to the ED and was noted ot have an H/H of 4.9/17.9. Her INR was >9.5. She is presently on a PPI drip, INR has been reversed and is now 1.0. She has been transfused and now has an H/H of 8.1/26.9. She notes that she has a history of Mercer's Esophagus and undergoes annual EGDs with Dr. Pineda of [facility]. She notes her last EGD was in August 2023 and she does not recall any alarming findings. She infrequently uses NSAIDs. She does not have a PPI listed on her home med list. She notes frequent colonoscopies due to a family history of Peutz-Jeghers Syndrome. I do not have copies of her previous EGDs & colonoscopies along with subsequent pathology as these were performed by a different GI group an an external facility. Allergies Allergy/AdvReac Type Severity Reaction Status Date / Time adhesive Allergy Mild RASH Verified 12/22/23 20:50 promethazine Allergy Mild ITCHING Verified 12/22/23 20:50 codeine Allergy Unknown CAN'T Verified 12/22/23 20:50 REMEMBER fentanyl AdvReac Nausea Verified 12/22/23 21:10 ANESTHESIA Allergy Intermediate VOMITING, Uncoded 12/22/23 20:50 NEASUA Home Medications Medication Instructions Recorded Confirmed Type albuterol sulfate 90 mcg/actuation 1 puff inhalation QID PRN 12/22/23 12/22/23 History aerosol inhaler Shortness Of Breath Or Wheezing amlodipine 2.5 mg tablet 2.5 mg PO HS 12/22/23 12/22/23 History deikghm-srpkfqmxegkav-ywbprdgr 250 1 tab PO Q6H PRN Migraine Headache 12/22/23 12/22/23 History mg-250 mg-65 mg tablet (Excedrin Extra Strength) clotrimazole-betamethasone 1 1 applic topical BID PRN flare ups 12/22/23 12/22/23 History %-0.05 % topical cream ezetimibe 10 mg tablet 10 mg PO QAM 12/22/23 12/22/23 History furosemide 20 mg tablet (Lasix) 20 mg PO DIRECTED PRN Edema 12/22/23 12/22/23 History gabapentin 800 mg tablet 800 mg PO TID 12/22/23 12/22/23 History lisinopril 5 mg tablet 5 mg PO QAM 12/22/23 12/22/23 History rosuvastatin 20 mg tablet 20 mg PO QAM 12/22/23 12/22/23 History sotalol 120 mg tablet 120 mg PO AMHS 12/22/23 12/22/23 History warfarin 5 mg tablet 5 - 10 mg PO DIRECTED 12/22/23 12/22/23 History Patient History Medical History Gastroesophageal reflux H/O cold sores Tinnitus Vertigo History of adenomatous polyp of colon Ankylosing spondylitis Trigeminal neuralgia Migraine headache Fibromyalgia Surgical History Hx of cholecystectomy (~1985) H/O: hysterectomy (~2002) and BSO H/O rotator cuff surgery (~03/2008) left H/O breast surgery 1985 breast augmentation with silicone implants, r replaced 2000 with saline Family History Other Breast cancer Colorectal cancer Diabetes Social History Smoking Status: Never smoker Tobacco Type: Cigarettes Hx Alcohol Use: No Hx Substance Use: No Preferred Language: Polish Communication Ability: Effective Home Health Rn Required: No Beliefs That Will Affect Care: None Current Living Situation: Spouse Other Information That Helps Us Care for You: No Feels Safe at Home: Yes Safety Concerns: Feels Safe At This Time Assistive Devices: None Review of Systems Constitutional: + weakness; no fever and no chills Respiratory: + dyspnea on exertion; no cough Cardiovascular: no chest pain Gastrointestinal: + abdominal pain and + melena; no heartb urn, no nausea, no vomiting, no coffee ground emesis and no change in bowel habits Physical Exam Constitutional: well developed Respiratory: normal respiratory effort Cardiovascular: Rate/Rhythm: regular rate Gastrointestinal (Abdomen): Inspection/Auscultation: abdomen normal to inspection Psychiatric: Orientation: alert and oriented x 3 Results & Data Vital Signs (Past 12 Hours) Vital Signs Temp Pulse Resp BP Pulse Ox Pulse Ox O2 Del Method 12/23/23 08:13 76 12/23/23 05:30 66 15 93 Room Air 12/23/23 05:00 68 14 146/74 H 93 Room Air 12/23/23 04:31 65 20 124/51 L 93 Room Air 12/23/23 04:30 36.9 C 63 18 126/72 93 12/23/23 04:15 63 20 112/49 L 93 Room Air 12/23/23 04:00 66 16 138/55 L 93 Room Air 12/23/23 04:00 36.9 C 12/23/23 03:58 69 18 146/60 H 93 Room Air 12/23/23 03:45 146/73 H 90 Room Air 12/23/23 03:45 36.9 C 12/23/23 03:30 140/68 90 Room Air 12/23/23 03:30 36.8 C 12/23/23 03:15 36.7 C 12/23/23 03:00 36.8 C 12/23/23 03:00 68 21 138/65 94 Room Air 12/23/23 02:58 36.7 C 75 17 146/51 H 93 12/23/23 02:45 71 14 159/73 H 93 Room Air 12/23/23 02:45 Room Air 12/23/23 02:45 36.8 C 12/23/23 02:41 71 16 156/68 H 93 Room Air 12/23/23 02:41 36.8 C 72 18 156/68 H 93 12/23/23 02:30 71 15 154/70 H 94 Room Air 12/23/23 02:20 36.9 C 70 20 140/73 93 12/23/23 02:15 74 16 135/97 94 Room Air 12/23/23 02:00 36.8 C 12/23/23 02:00 79 19 152/68 H 91 Room Air 12/23/23 01:45 78 15 133/86 94 Room Air 12/23/23 01:45 36.9 C 12/23/23 01:45 36.9 C 12/23/23 01:30 74 14 125/64 91 Room Air 12/23/23 01:30 36.8 C 12/23/23 01:16 78 19 151/72 H 93 Room Air 12/23/23 01:16 36.8 C 12/23/23 01:00 36.9 C 12/23/23 01:00 80 15 127/63 93 Room Air 12/23/23 00:52 85 22 146/74 H 91 Room Air 12/23/23 00:46 82 17 144/66 H 91 12/23/23 00:46 36.9 C 84 18 144/66 H 93 12/23/23 00:42 36.9 C 12/23/23 00:41 93 12/23/23 00:39 80 15 141/93 H 92 Room Air 12/23/23 00:00 78 14 141/69 H 93 Room Air 12/22/23 23:45 83 17 148/67 H 12/22/23 23:45 36.5 C 80 18 148/67 H 96 12/22/23 23:31 89 20 150/67 H 99 12/22/23 23:01 94 H 18 119/42 L 12/22/23 22:45 90 19 136/65 12/22/23 22:45 36.6 C 91 H 20 136/65 95 12/22/23 22:31 87 15 96 12/22/23 22:30 86 17 126/100 96 12/22/23 22:15 85 18 140/69 96 12/22/23 22:15 36.5 C 91 H 18 140/69 96 12/22/23 22:00 88 18 139/74 93 12/22/23 22:00 36.7 C 89 16 139/74 93 12/22/23 21:47 90 18 138/60 12/22/23 21:45 36.6 C 91 H 17 167/70 H 96 12/22/23 21:30 96 H 22 167/70 H 98 12/22/23 21:28 96 H 22 163/65 H 97 O2 Del Method O2 Flow Rate 12/23/23 08:13 12/23/23 05:30 12/23/23 05:00 12/23/23 04:31 12/23/23 04:30 12/23/23 04:15 12/23/23 04:00 12/23/23 04:00 12/23/23 03:58 12/23/23 03:45 12/23/23 03:45 12/23/23 03:30 12/23/23 03:30 12/23/23 03:15 12/23/23 03:00 12/23/23 03:00 12/23/23 02:58 12/23/23 02:45 12/23/23 02:45 12/23/23 02:45 12/23/23 02:41 12/23/23 02:41 12/23/23 02:30 12/23/23 02:20 12/23/23 02:15 12/23/23 02:00 12/23/23 02:00 12/23/23 01:45 12/23/23 01:45 12/23/23 01:45 12/23/23 01:30 12/23/23 01:30 12/23/23 01:16 12/23/23 01:16 12/23/23 01:00 12/23/23 01:00 12/23/23 00:52 12/23/23 00:46 12/23/23 00:46 12/23/23 00:42 12/23/23 00:41 Room Air 12/23/23 00:39 12/23/23 00:00 12/22/23 23:45 12/22/23 23:45 0 12/22/23 23:31 12/22/23 23:01 12/22/23 22:45 12/22/23 22:45 0 12/22/23 22:31 12/22/23 22:30 12/22/23 22:15 12/22/23 22:15 0 12/22/23 22:00 12/22/23 22:00 0 12/22/23 21:47 12/22/23 21:45 0 12/22/23 21:30 12/22/23 21:28 PG Care Time/CCT Total # of Minutes Spent Total Time Spent with Patient: Total time spent is greater than 50% in coordination of care (as documented) at patient's floor/unit and/or counseling patient: Coding Level of Care Code 54619 INT INP/OBS CARE 3/75MIN Diagnoses Melena K92.1 Anemia D64.9 Anemia type: unspecified type (2) Anemia Anemia type: unspecified type Qualified Code(s): D64.9 - Anemia, unspecified
[2023-12-23] MEDS ORDERED: POTASSIUM CHLORIDE CRTAB 20 MEQ TABCR PO STA (09:44)
--- NOTE | 2023-12-23 09:58 | Anesthesiology Consultation ---
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 Surgery Operation Date: 12/23/23 16:30 Proposed Procedures p Esophagogastroduodenoscopy Dr Aguila - Gavino Jean Case, DO Height/Weight Height: 5 ft 3 in Weight: 89.6 kg Allergies Allergy/AdvReac Type Severity Reaction Status Date / Time adhesive Allergy Mild RASH Verified 12/22/23 20:50 promethazine Allergy Mild ITCHING Verified 12/22/23 20:50 codeine Allergy Unknown CAN'T Verified 12/22/23 20:50 REMEMBER fentanyl AdvReac Nausea Verified 12/22/23 21:10 ANESTHESIA Allergy Intermediate VOMITING, Uncoded 12/22/23 20:50 NEASUA Medications Home Medications Medication Instructions Recorded Confirmed Last Taken albuterol sulfate 90 mcg/actuation 1 puff inhalation QID PRN 12/22/23 12/22/23 Unknown aerosol inhaler Shortness Of Breath Or Wheezing amlodipine 2.5 mg tablet 2.5 mg PO HS 12/22/23 12/22/23 12/21/23 widnpvx-ymwjcrjeuilvb-tmcprvcm 250 1 tab PO Q6H PRN Migraine Headache 12/22/23 12/22/23 12/21/23 mg-250 mg-65 mg tablet (Excedrin Extra Strength) clotrimazole-betamethasone 1 1 applic topical BID PRN flare ups 12/22/23 12/22/23 Unknown %-0.05 % topical cream ezetimibe 10 mg tablet 10 mg PO QAM 12/22/23 12/22/23 12/22/23 06:00 furosemide 20 mg tablet (Lasix) 20 mg PO DIRECTED PRN Edema 12/22/23 12/22/23 Unknown gabapentin 800 mg tablet 800 mg PO TID 12/22/23 12/22/23 12/22/23 12:00 lisinopril 5 mg tablet 5 mg PO QAM 12/22/23 12/22/23 12/22/23 06:00 rosuvastatin 20 mg tablet 20 mg PO QAM 12/22/23 12/22/23 12/22/23 06:00 sotalol 120 mg tablet 120 mg PO AMHS 12/22/23 12/22/23 12/22/23 06:00 warfarin 5 mg tablet 5 - 10 mg PO DIRECTED 04/12/22/23 12/21/23 Active Medications Generic Name Dose Route Start Last Admin Trade Name Freq PRN Reason Stop Dose Admin Ezetimibe 10 mg 12/23/23 09:00 12/23/23 08:07 Ezetimibe 10 Mg Tab PO 01/22/24 08:59 10 mg QAM TARA Administration Gabapentin 800 mg 12/23/23 09:00 12/23/23 08:08 Gabapentin 800 Mg Tab PO 01/22/24 08:59 800 mg TID TARA Administration Pantoprazole Sodium 40 mg/ 100 mls @ 20 mls/hr 12/22/23 20:30 12/23/23 08:36 Dextrose IV 01/21/24 20:29 8 mg/hr Q5H TARA 20 mls/hr Administration 8 MG/HR Potassium Chloride/Sodium Chloride 20 meq in 1,000 mls @ 60 mls/hr 12/22/23 20:26 12/22/23 23:25 Normal Saline W/20 Meq Kcl IV 12/23/23 13:05 60 mls/hr .[id number] ONE Administration Protocol Lisinopril 5 mg 12/23/23 09:00 12/23/23 08:07 Lisinopril 5 Mg Tab PO 01/22/24 08:59 5 mg QAM TARA Administration Oxycodone HCl 5 mg 12/22/23 23:03 12/23/23 08:06 Oxycodone Hcl Ir 5 Mg Tab (Immediate Release) PO 01/05/24 23:02 5 mg Q4H PRN Administration Pain Rosuvastatin Calcium 20 mg 12/23/23 09:00 12/23/23 08:07 Rosuvastatin Calcium 20 Mg Tab PO 01/22/24 08:59 20 mg QAM TARA Administration Sotalol HCl 120 mg 12/22/23 23:34 12/23/23 08:07 Sotalol Hcl 80 Mg Tab PO 01/21/24 23:33 120 mg AMHS TARA Administration Past Medical History Medical History Gastroesophageal reflux H/O cold sores Tinnitus Vertigo History of adenomatous polyp of colon Ankylosing spondylitis Trigeminal neuralgia Migraine headache Fibromyalgia Past Family History Family History Other Breast cancer Colorectal cancer Diabetes Past Surgical History Surgical History Hx of cholecystectomy (~1985) H/O: hysterectomy (~2002) and BSO H/O rotator cuff surgery (~03/2008) left H/O breast surgery 1985 breast augmentation with silicone implants, r replaced 2000 with saline Social History Smoking Status: Never smoker Hx Alcohol Use: No Hx Substance Use: No substance use type: does not use Physical Exam Vital Signs Last Vital Signs Temp 98.4 F 12/23/23 04:30 Pulse 76 12/23/23 08:13 Resp 15 12/23/23 05:30 BP 146/74 H 12/23/23 05:00 Pulse Ox 93 12/23/23 05:30 O2 Del Method Room Air 12/23/23 05:30 O2 Flow Rate 0 12/22/23 23:45 Testing Laboratory Results 12/23/23 06:24 12/23/23 06:24 PT 11.1 Seconds (9.0-12.0) 12/23/23 06:24 INR 1.0 (0.9-1.1) 12/23/23 06:24 APTT 46 Seconds (21-31) H 12/22/23 18:59 Blood Type A Positive 12/22/23 19:28 Antibody Screen NEGATIVE 12/22/23 19:28 Electrocardiogram Date: 12/22/23 Normal sinus rhythm, rate 90 bpm Left ventricular hypertrophy with repolarization abnormality ( R in aVL , [place] product ) Abnormal ECG When compared with ECG of 12-FEB-2018 16:20, T wave inversion no longer evident in Anterior leads QT has lengthened Chest X-Ray IMPRESSION: Cardiomegaly with no active disease in the chest.
[2023-12-23] MEDS: SODIUM CHLORIDE 0.9% 500 ML IV PRN (10:48)
--- NOTE | 2023-12-23 12:04 | GI REPORT ---
Patient Name: Jennifer Howard Procedure Date: 12/23/2023 11:34 AM Date of : 1955 Admit Type: Inpatient Age: 67 Gender: Female Attending MD: Gavino Aguila DO, Procedure: Upper GI endoscopy Providers: Gavino Aguila DO Referring MD: Jerry Salinas Md, Evangelist Parada Do Indications: Acute post hemorrhagic anemia, Melena Medicines: Monitored Anesthesia Care Complications: No immediate complications. Estimated Blood Loss: Estimated blood loss: none. Procedure: Pre-Anesthesia Assessment: - Prior to the procedure, a History and Physical was performed, and patient medications and allergies were reviewed. The patient's tolerance of previous anesthesia was also reviewed. The risks and benefits of the procedure and the sedation options and risks were discussed with the patient. All questions were answered, and informed consent was obtained. Prior Anticoagulants: The patient has taken Coumadin (warfarin), last dose was 2 days prior to procedure. ASA Grade Assessment: III - A patient with severe systemic disease. After reviewing the risks and benefits, the patient was deemed in satisfactory condition to undergo the procedure. After obtaining informed consent, the endoscope was passed under direct vision. Throughout the procedure, the patient's blood pressure, pulse, and oxygen saturations were monitored continuously. The Endoscope was introduced through the mouth, and advanced to the second part of duodenum. The upper GI endoscopy was accomplished without difficulty. The patient tolerated the procedure well. Findings: The esophagus was normal. Localized moderate inflammation characterized by erosions and erythema was found in the gastric antrum. Biopsies were taken with a cold forceps for histology. The examined duodenum was normal. Impression: - Normal esophagus. - Gastritis. Biopsied. - Normal examined duodenum. Recommendation: - Return patient to hospital [facility] for ongoing care. - Advance diet as tolerated. - Continue present medications. - Await pathology results. Gavino Aguila DO 12/23/2023 12:03:58 PM This report has been signed electronically. Note Initiated On: 12/23/2023 11:34 AM Number of Addenda: 0 I attest to the content of the Intraoperative Record and orders documented therein, exceptions below {[id number]}
--- NOTE | 2023-12-23 12:21 | Anesthesiology Progress Note ---
Date of Service December 23, 2023 Anesthesia Post Procedure Vital Signs Vital Signs: Temp Pulse Pulse Resp BP BP Pulse Ox 12/23/23 12:13 60 16 119/40 L 98 12/23/23 11:58 60 14 136/41 L 98 12/23/23 10:42 97.9 F 63 16 168/70 H 94 12/23/23 08:13 76 12/23/23 08:00 65 18 175/108 H 12/23/23 05:30 66 15 93 12/23/23 05:00 68 14 146/74 H 93 12/23/23 04:31 65 20 124/51 L 93 12/23/23 04:30 98.4 F 63 18 126/72 93 12/23/23 04:15 63 20 112/49 L 93 12/23/23 04:00 66 16 138/55 L 93 12/23/23 04:00 98.4 F 12/23/23 03:58 69 18 146/60 H 93 12/23/23 03:45 146/73 H 90 12/23/23 03:45 98.4 F 12/23/23 03:30 140/68 90 12/23/23 03:30 98.2 F 12/23/23 03:15 98.1 F 12/23/23 03:00 98.2 F 12/23/23 03:00 68 21 138/65 94 12/23/23 02:58 98.1 F 75 17 146/51 H 93 12/23/23 02:45 71 14 159/73 H 93 12/23/23 02:45 12/23/23 02:45 98.2 F 12/23/23 02:41 71 16 156/68 H 93 12/23/23 02:41 98.2 F 72 18 156/68 H 93 12/23/23 02:30 71 15 154/70 H 94 12/23/23 02:20 98.4 F 70 20 140/73 93 12/23/23 02:15 74 16 135/97 94 12/23/23 02:00 98.2 F 12/23/23 02:00 79 19 152/68 H 91 12/23/23 01:45 78 15 133/86 94 12/23/23 01:45 98.4 F 12/23/23 01:45 98.4 F 12/23/23 01:30 74 14 125/64 91 12/23/23 01:30 98.2 F 12/23/23 01:16 78 19 151/72 H 93 12/23/23 01:16 98.2 F 12/23/23 01:00 98.4 F 12/23/23 01:00 80 15 127/63 93 12/23/23 00:52 85 22 146/74 H 91 12/23/23 00:46 82 17 144/66 H 91 12/23/23 00:46 98.4 F 84 18 144/66 H 93 12/23/23 00:42 98.4 F 12/23/23 00:41 12/23/23 00:39 80 15 141/93 H 92 12/23/23 00:00 78 14 141/69 H 93 12/22/23 23:45 83 17 148/67 H 12/22/23 23:45 97.7 F 80 18 148/67 H 96 12/22/23 23:31 89 20 150/67 H 99 12/22/23 23:01 94 H 18 119/42 L 12/22/23 22:45 90 19 136/65 12/22/23 22:45 97.9 F 91 H 20 136/65 95 12/22/23 22:31 87 15 96 12/22/23 22:30 86 17 126/100 96 12/22/23 22:15 85 18 140/69 96 12/22/23 22:15 97.7 F 91 H 18 140/69 96 12/22/23 22:00 88 18 139/74 93 12/22/23 22:00 98.1 F 89 16 139/74 93 12/22/23 21:47 90 18 138/60 12/22/23 21:45 97.9 F 91 H 17 167/70 H 96 12/22/23 21:30 96 H 22 167/70 H 98 12/22/23 21:28 96 H 22 163/65 H 97 12/22/23 21:00 86 29 H 116/64 12/22/23 20:30 80 19 108/55 L 12/22/23 20:10 85 21 141/58 H 12/22/23 20:00 84 21 12/22/23 19:30 79 16 97 12/22/23 19:28 81 25 H 98 12/22/23 19:27 82 12/22/23 18:47 85 22 105/59 L 99 Pulse Ox O2 Del Method O2 Del Method O2 Flow Rate 12/23/23 12:13 Room Air 12/23/23 11:58 Oxymask 11 12/23/23 10:42 Room Air 12/23/23 08:13 12/23/23 08:00 12/23/23 05:30 Room Air 12/23/23 05:00 Room Air 12/23/23 04:31 Room Air 12/23/23 04:30 12/23/23 04:15 Room Air 12/23/23 04:00 Room Air 12/23/23 04:00 12/23/23 03:58 Room Air 12/23/23 03:45 Room Air 12/23/23 03:45 12/23/23 03:30 Room Air 12/23/23 03:30 12/23/23 03:15 12/23/23 03:00 12/23/23 03:00 Room Air 12/23/23 02:58 12/23/23 02:45 Room Air 12/23/23 02:45 Room Air 12/23/23 02:45 12/23/23 02:41 Room Air 12/23/23 02:41 12/23/23 02:30 Room Air 12/23/23 02:20 12/23/23 02:15 Room Air 12/23/23 02:00 12/23/23 02:00 Room Air 12/23/23 01:45 Room Air 12/23/23 01:45 12/23/23 01:45 12/23/23 01:30 Room Air 12/23/23 01:30 12/23/23 01:16 Room Air 12/23/23 01:16 12/23/23 01:00 12/23/23 01:00 Room Air 12/23/23 00:52 Room Air 12/23/23 00:46 12/23/23 00:46 12/23/23 00:42 12/23/23 00:41 93 Room Air 12/23/23 00:39 Room Air 12/23/23 00:00 Room Air 12/22/23 23:45 12/22/23 23:45 0 12/22/23 23:31 12/22/23 23:01 12/22/23 22:45 12/22/23 22:45 0 12/22/23 22:31 12/22/23 22:30 12/22/23 22:15 12/22/23 22:15 0 12/22/23 22:00 12/22/23 22:00 0 12/22/23 21:47 12/22/23 21:45 0 12/22/23 21:30 12/22/23 21:28 12/22/23 21:00 12/22/23 20:30 12/22/23 20:10 12/22/23 20:00 12/22/23 19:30 12/22/23 19:28 12/22/23 19:27 12/22/23 18:47 Room Air Pain Intensity Abdomen: Pain Intensity: 9 Transfer of Care Handoff Completed per policy Notes Mental Status: alert / awake / arousable and participated in evaluation Patient Amnestic to Procedure: Yes Nausea / Vomiting: adequately controlled Pain: adequately controlled Airway Patency, RR, SpO2: stable & adequate BP & HR: stable & adequate Hydration State: stable & adequate Anesthetic Complications: no major complications apparent and Pt Satisfied with anesthetic care
[2023-12-23] MEDS ORDERED: Nursing to Pharmacy Communication SCH (14:00)
--- NOTE | 2023-12-23 14:00 | Hospitalist Progress Note ---
Date of Service December 23, 2023 Assessment & Plan (1) UGIB (upper gastrointestinal bleed): Plan: 67-year-old lady with PMH of PAF s/p ablation/ on Coumadin, HTN, HLD, prediabetes, trigeminal neuralgia, migraine, fibromyalgia, IBS, gastritis, diverticulosis, polyps, colonic angiodysplasia, Peutz Jegers syndrome, past tobacco abuse presented with complaint of shortness of breath with exertion going on for about a week, she also noted epigastric discomfort with melanotic stool a few days ago prior to arrival. Patient admits to taking 2 tablets of Excedrin daily on an empty stomach for some time now. 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 No unusual weight loss. No changes in Coumadin regimen. She is being managed for the following: Upper GI bleed ISO Coumadin coagulopathy and Excedrin treatment for migraine History of gastritis: Per EGD 2021. Coumadin coagulopathy Acute blood loss anemia, symptomatic anemia Patient reports taking Excedrin x 2 tablets on empty stomach, denies any Coumadin changes recently Patient coming in with progressive shortness of breath and epigastric pain associated with melanotic stool. Admitting hemoglobin of 4.9, admitting INR greater than 9.5. Admitting CXR with no acute finding, admitting CTAP with no acute finding/there is left-sided nephrolithiasis. GI on board, status post EGD scope 12/22, gastritis noted with normal esophagus and normal duodenum. Biopsies taken -follow biopsy results. Recs are ADAT, continue current meds. Status post 3 unit PRBC, H&H 8 point 1 in the morning. Repeat H&H in the afternoon and in the night. Transfuse PRBC for less than 7 or symptomatic anemia. Patient counseled to avoid Excedrin and NSAIDs in future. Continue PPI IV, continue to monitor PT/INR. Will resume anticoagulation with clearance from GI. 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 Follow-up with your PCP office for long-term monitoring. Will likely benefit from outpatient GI evaluation. Fall: Per patient about 3 weeks ago, has hurt her back. Will get an LS x-ray. Patient declined any Voltaren gel or lidocaine patch. Other chronic medical conditions: Continue with/resume home meds as and when able PAF status post ablation on Coumadin. Anticoagulation on hold [see above]. EKG with NSR. hypertension, BP stable. Continue home medications hyperlipidemia, on statin Rx. Continue. 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 SCDs Re: GI bleed Full code Text document was generated using [employer] voice recognition software. It may contain grammatical or spelling errors. Kindly contact undersigned for clarification of any documentation item in question. Admission and Anticipated Discharge Date Admission Date: December 22, 2023 Subjective Patient was seen and examined at bedside. Patient was sitting up in bed, on room air, NAD. Patient denies abdominal pain, denies any further bowel movement. Patient denies lightheadedness or dizziness or chest pain or palpitation. Patient reports low back pain, reports falling 3 weeks ago. Will get an x-ray. Physical Exam Physical Exam: GENERAL: Comfortable, pleasant, obese class II, no respiratory distress SKIN: Pallor, warm HEENT: Pale palpebral conjunctivae, no ptosis, moist buccal mucosa NECK : Supple, no tenderness CHEST : CTA, no tenderness HEART : RRR, no obvious murmurs ABDOMEN: Some distention, epigastric tenderness EXTREMITIES : No LE swelling/tenderness, no other conspicuous deformities noted NEUROLOGIC : Coherent, no facial asymmetry, no other gross focality Results & Data Results & Data Vital Signs (Past 12 Hours) Vital Signs Temp Pulse Pulse Resp BP BP Pulse Ox 12/23/23 12:24 58 L 16 117/50 L 95 12/23/23 12:13 60 16 119/40 L 98 12/23/23 11:58 60 14 136/41 L 98 12/23/23 10:42 36.6 C 63 16 168/70 H 94 12/23/23 08:13 76 12/23/23 08:00 65 18 175/108 H 12/23/23 05:30 66 15 93 12/23/23 05:00 68 14 146/74 H 93 12/23/23 04:31 65 20 124/51 L 93 12/23/23 04:30 36.9 C 63 18 126/72 93 12/23/23 04:15 63 20 112/49 L 93 12/23/23 04:00 66 16 138/55 L 93 12/23/23 04:00 36.9 C 12/23/23 03:58 69 18 146/60 H 93 12/23/23 03:45 146/73 H 90 12/23/23 03:45 36.9 C 12/23/23 03:30 140/68 90 12/23/23 03:30 36.8 C 12/23/23 03:15 36.7 C 12/23/23 03:00 36.8 C 12/23/23 03:00 68 21 138/65 94 12/23/23 02:58 36.7 C 75 17 146/51 H 93 12/23/23 02:45 71 14 159/73 H 93 12/23/23 02:45 12/23/23 02:45 36.8 C 12/23/23 02:41 71 16 156/68 H 93 12/23/23 02:41 36.8 C 72 18 156/68 H 93 12/23/23 02:30 71 15 154/70 H 94 12/23/23 02:20 36.9 C 70 20 140/73 93 12/23/23 02:15 74 16 135/97 94 12/23/23 02:00 36.8 C 12/23/23 02:00 79 19 152/68 H 91 O2 Del Method O2 Flow Rate 12/23/23 12:24 Room Air 12/23/23 12:13 Room Air 12/23/23 11:58 Oxymask 11 12/23/23 10:42 Room Air 12/23/23 08:13 12/23/23 08:00 12/23/23 05:30 Room Air 12/23/23 05:00 Room Air 12/23/23 04:31 Room Air 12/23/23 04:30 12/23/23 04:15 Room Air 12/23/23 04:00 Room Air 12/23/23 04:00 12/23/23 03:58 Room Air 12/23/23 03:45 Room Air 12/23/23 03:45 12/23/23 03:30 Room Air 12/23/23 03:30 12/23/23 03:15 12/23/23 03:00 12/23/23 03:00 Room Air 12/23/23 02:58 12/23/23 02:45 Room Air 12/23/23 02:45 Room Air 12/23/23 02:45 12/23/23 02:41 Room Air 12/23/23 02:41 12/23/23 02:30 Room Air 12/23/23 02:20 12/23/23 02:15 Room Air 12/23/23 02:00 12/23/23 02:00 Room Air
[2023-12-23] MEDS: POTASSIUM CHLORIDE CRTAB 20 MEQ TABCR PO STA (14:33)
[2023-12-23 14:49] LABS: Hematocrit (blood only) 28.9 % (37.0-47.0)
--- NOTE | 2023-12-23 16:29 | XRay Report ---
LUMBAR SPINE 3 VIEWS CLINICAL HISTORY: Recent fall. Low back pain. FINDINGS: 3 views of the lumbar spine are compared to study dated 09/11/2014. The skeletal structures are osteopenic. There is no radiographic evidence of fracture or malalignment. Vertebral body height is maintained. There is minimal anterolisthesis at L4-L5. Alignment is otherwise preserved. The trans verse and spinous processes are intact. Small anterior and lateral marginal osteophytes are seen thro ughout. Mild facet arthropathy is noted in the lower lumbar region. The lumbar disc spaces appear cailin ntained. There is moderate disc space narrowing with endplate sclerosis at T11-T12. The visualized fidelia ny pelvis appears intact. Degenerative sclerosis is seen in the sacroiliac joints. There is a nonobst ructed abdominal bowel gas pattern. Cholecystectomy clips are noted in the right upper quadrant. Athe rosclerotic calcification is noted in the abdominal aorta. IMPRESSION: 1. No acute bony abnormality is seen involving the lumbar spine. 2. Osteopenia and mild spondylotic change as above. ACT 112: Negative or not required by law. Electronically signed by: Kelvin Danielle M.D. 12/23/2023 4:27 PM
[2023-12-23] MEDS: amLODIPine BESYLATE 5 MG TAB PO SCH (20:22)
--- OUTSIDE RECORDS SUMMARY | 2023-12-23 21:05 | External Medical Summary | Summary of Care ---
Author Name Unknown Organization [facility] Address [address] [place] [address] Phone [phone] Care Team Providers Care Medical Dermatologist Name Role Phone Evangelist Parada Primary Care Provider Reason for Visit * Reason Comments eRx-Medication Refill Encounter Details Date Type Department Care Team ([facility] Contact Info) Description 11/08/2023 Refill Cardiology, [facility] [address] [place] [place] [address] Bo Bro MD [address] [facility] [address] Paroxysmal atrial fibrillation (HCC) Allergies Active Allergy Reactions Criticality Noted Date Comments Adhesive Tape 10/24/2002 band-aid type-blisters Anesthetics, Chata Itching 02/26/2015 Allergy to novocaine Codeine Hives 03/20/1998 SOB Fentanyl 12/08/2020 vomiting Phenothiazines Hives 10/24/2002 Phenergan makes pt itch documented as of this encounter (statuses as of 11/09/2023) Medications Medication Sig Dispensed Refills Start Date End Date Status Furosemide 20 MG Oral Tablet (Lasix) Take 2-3 days per week as needed for edema 30 Tab 5 1 Active Albuterol Sulfate HFA 108 (90 Base) MCG/ACT Inhalation Aerosol Solution Inhale 2 Puffs by mouth every 6 hours as needed (anal pain). 18 g 1 1 Active Ferrous Sulfate 325 (65 Fe) MG Oral Tablet (Feosol) 1 tab every other day 60 Tab 11 1 Active Alendronate Sodium 70 MG Oral Tablet (Fosamax)Indicat ions:Age-related osteoporosis without current pathological fracture Take by mouth 1 Tablet once a week . with 8 oz. water 30 minutes before first meal of the day. Remain upright for 30 min after taking tablet. 15 Tablet 3 2 Active Additional Information Patient not taking.Reported on 08/11/2023 Vitamin B-12 1000 MCG Oral TabletIndication s:B12 deficiency Take by mouth 1 Tablet in the morning. 90 Tablet 3 2 Active metFORMIN HCl ER 500 MG Oral Tablet Extended Release 24 Hour (Glucophage XR) Take by mouth 1 Tablet in the morning. 90 Tablet 3 2 Active Additional Information Patient not taking.Reported on 08/15/2023 Clotrimazole-Bet amethasone 1-0.05 % External Cream (Lotrisone)Indic ations:Rash and nonspecific skin eruption APPLY TO AFFECTED AREA TWICE DAILY UNTIL HEALED. USE NO LONGER THAN 28 DAYS 45 g 1 2 Active Methocarbamol 500 MG Oral Tablet (Robamol) Take 1 Tablet by mouth in the morning and 1 Tablet at noon and 1 Tablet before bedtime. 90 Tablet 5 3 Active Warfarin Sodium 5 MG Oral Tablet (Coumadin) 15 mg every Tuesday; 10 mg all other days or as directed by anticoagulation clinic 200 Tablet 5 3 Active Ezetimibe 10 MG Oral Tablet (Zetia)Indicatio ns:Dyslipidemia, goal to be determined Take 1 Tablet by mouth in the morning. 90 Tablet 3 3 Active amLODIPine Besylate 2.5 MG Oral Tablet (Norvasc)Indicat ions:HTN, goal below 140/90 TAKE 1 TABLET BY MOUTH ONCE DAILY AT BEDTIME 90 Tablet 3 3 Active Gabapentin 800 MG Oral Tablet (Neurontin) TAKE 1 TABLET BY MOUTH IN THE MORNING, 1 TABLET AT NOON AND 1 TABLET BEFORE BEDTIME 270 Tablet 3 3 Active Lisinopril 5 MG Oral Tablet (Prinivil)Indica tions:HTN, goal below 140/90 TAKE 1 TABLET BY MOUTH IN THE MORNING 90 Tablet 3 3 Active Excedrin Extra Strength 250-250-65 MG Oral Tablet (Aspirin-Acetami nophen-Caffeine 250-250-65 mg per tab) Take 1 Tablet by mouth every 6 hours as needed for Migraine. 0 Active Ciprofloxacin HCl 500 MG Oral Tablet (Cipro) Take 1 Tablet by mouth in the morning and 1 Tablet before bedtime. 10 Tablet 0 3 Active Rosuvastatin Calcium 20 MG Oral Tablet (Crestor)Indicat ions:Dyslipidemi a, goal to be determined TAKE 1 TABLET BY MOUTH ONCE DAILY IN THE MORNING 90 Tablet 3 4 Active Sotalol HCl 120 MG Oral TabletIndication s:Paroxysmal atrial fibrillation (HCC) TAKE 1 TABLET BY MOUTH IN THE MORNING AND 1 TAB AT BEDTIME 180 Tablet 0 4 Active Sotalol HCl 120 MG Oral TabletIndication s:Paroxysmal atrial fibrillation (HCC) TAKE 1 TABLET BY MOUTH IN THE MORNING AND 1 TAB BEFORE BEDTIME 180 Tablet 0 4 024 Discontinued documented as of this encounter (statuses as of 11/09/2023) Active Problems Problem Noted Date Diagnosed Date Prediabetes 03/15/2022 Overview: Per Prediabetes protocol Peutz-Jeghers syndrome 02/11/2022 Peutz-Jeghers syndrome 02/11/2022 Peutz-Jeghers syndrome 02/11/2022 S/P ablation of atrial fibrillation 12/24/2017 PAF (paroxysmal atrial fibrillation) 10/20/2017 Chronic left-sided low back pain with left-sided sciatica 06/24/2016 MEDICATION USE AGREEMENT 10/03/2014 Overview: Signed 10/03/2014 MD Amparo Hernandez Degeneration of cervical intervertebral disc Degeneration of lumbosacral intervertebral disc 04/18/2014 IBS (irritable bowel syndrome) 07/24/2012 Migraine with aura 12/30/2010 Family history of GI malignancy 03/04/2010 ADVANCE DIRECTIVE INFORMATION 10/19/2009 Overview: Yes, Patient instructed to provide copy of advance directive for provider to review and to be scanned into Electronic Medical Record DYSLIPIDEMIA, GOAL TO BE DETERMINED 08/14/2009 Overview: Per Lipid Taxonomy. Fibromyalgia 02/22/2003 Trigeminal neuralgia 01/17/2003 FAMILY HX-BREAST MALIG 02/07/2002 documented as of this encounter (statuses as of 11/09/2023) Resolved Problems Problem Noted Date Diagnosed Date Resolved Date Prediabetes 06/16/2020 04/21/2021 Overview: Per Prediabetes protocol Enthesopathy of hip region 10/16/2014 1 Vitamin D deficiency 03/13/2014 017 Sciatica 03/27/2012 06/24/2016 ALLERGIC RHINITIS - MIXED TYPE 04/14/2010 09/02/2017 Irritable bowel syndrome 01/11/200812/2014 Tobacco use disorder 09/11/2007 010 PLANTAR FIBROMATOSIS 04/23/2005 017 Chronic cholecystitis 09/15/20042016 Mastodynia 04/25/2003 09/02/2017 DUE TO BREAST PROTHESIS 09/04/200208/06 PURE HYPERCHOLESTEROLEM 06/21/200108/05 Overview: Per Lipid Taxonomy. HERPETIC GINGIVOSTOMAT 06/17/200009/02 Panic disorder 04/29/2000 07/24/2012 CLASSICAL MIGRAINE WITHOU ME NTION OF INTRACTABLE MIGRAINE 04/29/2000 11/25/2020 documented as of this encounter (statuses as of 11/09/2023) Immunizations Name Administration Dates Next Due COVID-19 mRNA, LNP-s, No Pre serve, 2-Dose Series (Pfizer) 06/27/2021,06/06/2021 Seasonal Influenza, PF, 6 M & above, IM , (FluLaval or Fluzone) 05/23/2020 Seasonal Influenza, Split, IIV3, With Preserve, Inj 08/05/2016 TDAP (age 10 and older)(Boostrix) 01/25/2020 TDAP (age 11 and older)(Adacel) 08/28/2009 documented as of this encounter Social History Tobacco Use Types Packs/Day Years Used Date Smoking Tobacco: Former Cigarettes 0.5 10 0 03/05/1998 - 03/05/2008 Smokeless Tobacco: Never Comments:no passive smoke ex posures Alcohol Use Standard Drinks/Week Comments No 0 (1 standard drink = 0.6 oz pur e alcohol) PHQ-2 Answer Date Recorded PHQ Adult Total Score 0 03/27/2021 Hunger Vital Sign Answer Date Recorded Within the past 12 months, y ou worried that your food would run out before you got the money to buy more. Never true 11/25/19 21 Within the past 12 months, t he food you bought just didn't last and you didn't have money to get more. Never true 11/24/2020 Sex and Gender Information Value Date Recorded Sex Assigned at Female 06/26/2021 8:41 AM EDT Gender Identity Female 06/26/2021 8:41 AM EDT Sexual Orientation Straight 06/26/2021 8: 41 AM EDT Job Start Date Occupation Industry Not on file Not on file Not on file documented as of this encounter Miscellaneous Notes * Telephone Encounter - Vicki Barry COT - 11/09/2023 8:38 AM ESTPending Prescriptions: Disp Refills Sotalol HCl 120 MG Oral Tablet 180 Ta*0 Sig: TAKE 1 TABLET BY MOUTH IN THE MORNING AND 1 TAB AT BEDTIME * Telephone Encounter - Vicki Barry COT - 11/09/2023 8:37 AM EST Scheduling -- please contact pt for follow up. * Telephone Encounter - Vicki Barry COT - 11/09/2023 8:37 AM EST Did you pend patient's preferred pharmacy and medication before forwarding?yes Pharmacy: [facility] [address] [place] [address] [facility] Pending Prescriptions: Disp Refills Sotalol HCl 120 MG Oral Tablet 180 Ta*0 Sig: TAKE 1 TABLET BY MOUTH IN THE MORNING AND 1 TAB AT BEDTIME Last Visit: 03/10/2022 (in office), Visit date not found (telemedicine) Next Visit: Visit date not found If no future appointments scheduled, and last appointment is greater than a year ago, please schedule patient for a follow-up appointment Last date the medication was ordered: 09-27-2023 Is this request for a controlled substance?No Urine Drug Screen: Results for orders placed or performed in visit on 05/04/22 PAIN MANAGEMENT DRUG PANEL, URINE W/ INTERPRETATION Result Value Compliance Interpretation Based on the medication information provided: The presence of hydrocodone, dihydrocodeine and hydromorphone is CONSISTENT with hydrocodone use. Amphetamines Screen, U Negative Benzodiazepines Screen, U Negative Cannabinoids Screen, U Negative Cocaine Metabolite Screen, U Negative Fentanyl Screen, U Negative Hydrocodone Screen, U Refer to confirmation results (A) Methadone Metabolite Screen, U Negative Morphine/Codeine Screen, U Refer to confirmation results (A) Oxycodone Screen, U Refer to confirmation results (A) Valid Interpretation Normal Creatinine, U 112 Narrative Cutoff Concentrations: Drug Level Amphetamines 500 ng/mL Benzodiazepines 100 ng/mL Cannabinoids 50 ng/mL Cocaine Metabolite 150 ng/mL Fentanyl 1 ng/mL Hydrocodone / Hydromorphone 300 ng/mL Methadone Metabolite 100 ng/mL Morphine / Codeine 300 ng/mL Oxycodone / Oxymorphone 100 ng/mL Screening results are presumptive and can only be used for medical purposes. Confirmatory testing is available upon request. Results for orders placed or performed in visit on 06/05/18 TOX SCREEN, URINE, W/ CONFIRMATION Result Value Amphetamine NEGATIVE Barbiturates NEGATIVE Benzodiazepines NEGATIVE Cannabinoids NEGATIVE Cocaine Metabolite NEGATIVE Morphine / Codeine POSITIVE (A) METHADONE METABOLITE NEGATIVE OXYCODONE NEGATIVE TOX COMMENT THE ABOVE SCREENING RESULTS ARE PRESUMPTIVE AND CAN ONLY BE USED FOR MEDICAL PURPOSES. POSITIVE RESULTS REFLEX TO CONFIRMATORY TESTING. Cutoff Concentration *Note: Due to a large number of results and/or encounters for the requested time period, some results have not been displayed. A complete set of results can be found in Results Review. Patient Phone Numbers Labs: Lab Results Component Value Date/Time CREAT 0.6 02/21/2023 02:51 PM CREAT 0.7 06/04/2020 08:02 AM POTASSIUM 4.6 02/21/2023 02:51 PM POTASSIUM 4.5 06/04/2020 08:02 AM TSH 2.48 07/16/2019 07:05 AM LDLCALC 105 02/23/2022 09:51 AM LDLCALC 220 (H) 11/23/2019 10:12 AM LDLDIRECT 49 12/01/2020 01:47 PM LDLDIRECT NOT APPLICABLE 11/23/2019 10:12 AM LDLDIRECT 123 (H) 03/04/2010 03:24 PM ALT 20 02/21/2023 02:51 PM ALT 12 06/04/2020 08:02 AM HGBA1C 5.4 02/21/2023 02:51 PM HGBA1C 5.8 (H) 06/04/2020 08:02 AM documented in this encounter Plan of Treatment Upcoming Encounters Date Type Department Care Team (Late st Contact Info) Description 11/28/2023 3:45 PM EDT Office Visit Urology, [facility] [address] [facility] [place] [address] Cale Mosley MD [address] [facility] [address] [place] [address] 12/06/2023 4:20 PM EDT Laboratory Laboratory [facility] [place] [address] [place] [id number] [place] [address] [place] [address] 12/07/2023 6:15 AM EDT Anticoagulation Pharmacy Call Center [phone] [place] [address] [facility] [address] [facility] [place] [address] 02/15/2024 10:45 AM EDT Imaging Radiology [facility] [address] [facility] [address] [facility] [place] [address] 07/05/2024 6:00 PM EDT Office Visit Family Practice [facility] [address] [place] [address] Evangelist Parada, [address] [place] [address] Scheduled Procedures Name Priority Associated Diagnoses Date/Ti me ESOPHAGOGASTRODUODENOSCOPY ( EGD), FLEXIBLE, TRANSORAL, DIAGNOSTIC Recall Mercer's esophagus with esophagitis Pancreatic cyst ESOPHAGOGASTRODUODENOSCOPY ( EGD), FLEXIBLE, TRANSORAL, ENDOSCOPIC ULTRASOUND Recall Mercer's esophagus with esophagitis Pancreatic cyst COLONOSCOPY FLEXIBLE PROXIMAL DIAGNOSTIC Recall History of colon polyps Familial polyposis Health Maintenance Due Date Last Done Comments Zoster Vaccines (1 of 2) 12/28/2005 Pneumococcal Vaccine: 65+ Years (1 of 1 - PCV) 12/28/2020 Depression Screening 03/27/2022 03/27/2021 COVID-19 Vaccine (3 - 2022- season) 2023 06/27/2021, 06/06/2021 Influenza Vaccine (FLU shot) (#1) 2023 05/23/2020, 08/05/2016 COLONOSCOPY-EVERY 3 YRS AGES 18-100 10/28/2023 10/28/2020, 10/28/2020, 09/04/2019, Additional history exists Mammogram 02/10/2024 02/09/2023, 06/0 03/2023, 01/19/2022, Additional history exists HbA1c 02/22/2024 02/21/2023, 02/04, 12/01/2020, Additional history exists Lipid Panel 02/23/2027 02/23/2022, 11/04, 11/23/2019, Additional history exists DXA Scan 01/12/2029 01/12/2022, 01/12/2022 DTaP,Tdap,and Td Vaccines (3 - Td or Tdap) 01/24/2030 01/25/2020, 08/28/2009 COLONOSCOPY-ANNUAL AGES 18-100 Discontinued 10/28/2020, 10/28/2020, 09/04/2019, Additional history exists GARDASIL-HPV IMMUNIZATION SERIES Aged Out No longer eligible based on patient's age to complete this topic Hepatitis B Aged Out No longer eligi ble based on patient's age to complete this topic MENINGOCOCCAL (MENACTRA/MENVEO) Aged Out No longer eligible based on patient's age to complete this topic documented as of this encounter Medical Devices Implanted Type Area Horticulture Superintendent Device Identifier Shelf Expiration Date Model / Serial / Lot Endotine Forehead 3.5mm - [id number] Implanted:Qty: 1 on 02/10/2021 by Charlee Rincon MD at OR [facility] [employer] [id number] 08/02/2022 [id number] / [id number] documented as of this encounter Visit Diagnoses Diagnosis Paroxysmal atrial fibrillation (HCC) Atrial fibrillation documented in this encounter Advance Directives Latest Code Status on File Code Status Date Activated Date Inactivated Comments Full Code 02/06/2018 2:41 PM 02/07/2018 1:28 PM This or vu reflects the patients wishes and were consensually agreed upon. Code Status History Code Status Date Activated Date Inactivated Comments Full Code 12/19/2017 1:21 PM 12/20/2017 12:45 PM This order reflects the patients wishes and were consensually agreed upon. Care Teams Medical Dermatologist Relationship Specialty Start Date End Date Evangelist Parada DO [address] [place] [id number] PCP - General Family Medicine 10/30/20 documented as of this encounter
--- OUTSIDE RECORDS SUMMARY | 2023-12-23 21:05 | External Medical Summary | Summary of Care ---
Author Name Unknown Organization [facility] Address [address] [place] [address] Phone [phone] Care Team Providers Care Administrative Manager Name Role Phone Yulissa Paradaalvin Tateallan Primary Care Provider Reason for Visit * Reason Comments Outpatient Testing Encounter Details Date Type Department Care Team (Late st Contact Info) Description 11/08/2023 2:40 PM EST Laboratory Laboratory [facility] [address] [place] [address] [facility] [address] [place] [address] PAF (paroxysmal atrial fibrillation) ([facility]); 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; 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 Allergies Active Allergy Reactions Criticality Noted Date Comments Adhesive Tape 10/24/2002 band-aid type-blisters Anesthetics, Chata Itching 02/26/2015 Allergy to novocaine Codeine Hives 03/20/1998 SOB Fentanyl 12/08/2020 vomiting Phenothiazines Hives 10/24/2002 Phenergan makes pt itch documented as of this encounter (statuses as of 11/08/2023) Medications Medication Sig Dispensed Refills Start Date End Date Status Furosemide 20 MG Oral Tablet (Lasix) Take 2-3 days per week as needed for edema 30 Tab 5 12/10/2020 Active Albuterol Sulfate HFA 108 (90 Base) MCG/ACT Inhalation Aerosol Solution Inhale 2 Puffs by mouth every 6 hours as needed (anal pain). 18 g 1 04/09/2021 Active Ferrous Sulfate 325 (65 Fe) MG Oral Tablet (Feosol) 1 tab every other day 60 Tab 11 07/06/2021 Active Alendronate Sodium 70 MG Oral Tablet (Fosamax)Indicatio ns:Age-related osteoporosis without current pathological fracture Take by mouth 1 Tablet once a week . with 8 oz. water 30 minutes before first meal of the day. Remain upright for 30 min after taking tablet. 15 Tablet 3 02/02/2022 Active Additional Information Patient not taking.Reported on 08/11/2023 Vitamin B-12 1000 MCG Oral TabletIndications: B12 deficiency Take by mouth 1 Tablet in the morning. 90 Tablet 3 02/16/2022 Active metFORMIN HCl ER 500 MG Oral Tablet Extended Release 24 Hour (Glucophage XR) Take by mouth 1 Tablet in the morning. 90 Tablet 3 03/02/2022 Active Additional Information Patient not taking.Reported on 08/15/2023 Clotrimazole-Betam ethasone 1-0.05 % External Cream (Lotrisone)Indicat ions:Rash and nonspecific skin eruption APPLY TO AFFECTED AREA TWICE DAILY UNTIL HEALED. USE NO LONGER THAN 28 DAYS 45 g 1 09/03/2022 Active Methocarbamol 500 MG Oral Tablet (Robamol) Take 1 Tablet by mouth in the morning and 1 Tablet at noon and 1 Tablet before bedtime. 90 Tablet 5 09/23/2022 Active Warfarin Sodium 5 MG Oral Tablet (Coumadin) 15 mg every Tuesday; 10 mg all other days or as directed by anticoagulation clinic 200 Tablet 5 12/31/2022 Active Ezetimibe 10 MG Oral Tablet (Zetia)Indications :Dyslipidemia, goal to be determined Take 1 Tablet by mouth in the morning. 90 Tablet 3 02/03/2023 Active amLODIPine Besylate 2.5 MG Oral Tablet (Norvasc)Indicatio ns:HTN, goal below 140/90 TAKE 1 TABLET BY MOUTH ONCE DAILY AT BEDTIME 90 Tablet 3 03/02/2023 Active Gabapentin 800 MG Oral Tablet (Neurontin) TAKE 1 TABLET BY MOUTH IN THE MORNING, 1 TABLET AT NOON AND 1 TABLET BEFORE BEDTIME 270 Tablet 3 07/22/2023 Active Lisinopril 5 MG Oral Tablet (Prinivil)Indicati ons:HTN, goal below 140/90 TAKE 1 TABLET BY MOUTH IN THE MORNING 90 Tablet 3 07/25/2023 Active Excedrin Extra Strength 250-250-65 MG Oral Tablet (Aspirin-Acetamino phen-Caffeine 250-250-65 mg per tab) Take 1 Tablet by mouth every 6 hours as needed for Migraine. 0 Active Ciprofloxacin HCl 500 MG Oral Tablet (Cipro) Take 1 Tablet by mouth in the morning and 1 Tablet before bedtime. 10 Tablet 0 08/15/2023 Active Sotalol HCl 120 MG Oral TabletIndications: Paroxysmal atrial fibrillation (HCC) TAKE 1 TABLET BY MOUTH IN THE MORNING AND 1 TAB BEFORE BEDTIME 180 Tablet 0 09/27/2023 Active Rosuvastatin Calcium 20 MG Oral Tablet (Crestor)Indicatio ns:Dyslipidemia, goal to be determined TAKE 1 TABLET BY MOUTH ONCE DAILY IN THE MORNING 90 Tablet 3 09/28/2023 Active documented as of this encounter (statuses as of 11/08/2023) Active Problems Problem Noted Date Diagnosed Date [...] as of this encounter (statuses as of 11/08/2023) Resolved Problems Problem Noted Date Diagnosed Date [...] as of this encounter (statuses as of 11/08/2023) Immunizations Name Administration Dates Next Due COVID-19 mRNA, LNP-s, No Pre serve, 2-Dose Series ([employer]) 06/27/2021,06/06/2021 Seasonal Influenza, PF, 6 M & [...] on file documented as of this encounter Plan of Treatment Upcoming Encounters Date Type Department Care Team (Late st Contact Info) Description 11/09/2023 6:15 AM EST Anticoagulation Pharmacy Call Center [address] [facility] [place] [address] [facility] 58 60 [facility] [place] [address] 11/28/2023 3:45 PM EDT Office Visit Urology, [facility] [address] [place] [address] Cale Mosley MD [address] [place] [address] [place] [address] 02/15/2024 10:45 AM EDT Imaging Radiology [facility] 1st [facility] [address] [place] [address] 07/05/2024 6:00 PM EDT Office Visit Family Practice [facility] [address] [place] [address] Evangelist Parada DO [address] [place] [address] Pending Results Name Type Priority Associated Diagnoses Date /Time PT INR Lab Routine PAF (paroxysmal atrial fibrillation) (HCC) 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 11/08/2023 2:23 PM EST Scheduled Procedures Name Priority Associated Diagnoses Date/Ti [...] this encounter Medical Devices Implanted Type Area Restaurant Hourly Manager Device Identifier Shelf Expiration Date Model / Serial / Lot Endotine Forehead 3.5mm - [id number] Implanted:Qty: 1 on 02/10/2021 by Charlee Rincon MD at OR [facility] [employer] [id number] 08/02/2022 [id number] / / [id number] documented as of this encounter Visit Diagnoses Diagnosis PAF (paroxysmal atrial fibrillation) (HCC) Atrial fibrillation 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 Care Teams Administrative Manager Relationship Specialty Start Date End Date Evangelist Parada DO [address] [address] PCP - General Family Medicine 10/30/20 documented as of this encounter
--- OUTSIDE RECORDS SUMMARY | 2023-12-23 21:05 | External Medical Summary | Summary of Care ---
Author Name Unknown Organization [facility] Address [address] [place] [address] Phone [phone] Care Team Providers Care Cotton Ginner Helper Name Role Phone Evangelist Parada Primary Care Provider Reason for Visit * Reason Onset Date Comments Appointment 07/20/2023 Encounter Details Date Type Department Care Team ([facility] Contact Info) Description 07/20/2023 Telephone Pharmacy, [facility] [address] [place] [address] [facility] [address] [place] [address] Appointment Allergies Active Allergy Reactions Criticality Noted Date Comments Adhesive Tape 10/24/2002 band-aid type-blisters Anesthetics, Chata Itching 02/26/2015 Allergy to novocaine Codeine Hives 03/20/1998 SOB Fentanyl 12/08/2020 vomiting Phenothiazines Hives 10/24/2002 Phenergan makes pt itch documented as of this encounter (statuses as of 10/19/2023) Medications Medication Sig Dispensed Refills Start Date [...] AT BEDTIME 90 Tablet 3 03/02/2023 Active Excedrin Extra Strength 250-250-65 MG Oral Tablet (Aspirin-Acetamino phen-Caffeine 250-250-65 mg per tab) Take 1 Tablet by mouth every 6 hours as needed for Migraine. 0 Active Ciprofloxacin HCl 500 MG Oral Tablet (Cipro) Take 1 Tablet by mouth in the morning and 1 Tablet before bedtime. 10 Tablet 0 08/15/2023 Active documented as of this encounter (statuses as of 10/19/2023) Active Problems Problem Noted Date Diagnosed Date [...] as of this encounter (statuses as of 10/19/2023) Resolved Problems Problem Noted Date Diagnosed Date [...] as of this encounter (statuses as of 10/19/2023) Immunizations Name Administration Dates Next Due COVID-19 [...] Date Smoking Tobacco: Former Cigarettes 0.5 10 Q uit: 03/05/2008 Smokeless Tobacco: Never Comments:no passive smoke [...] encounter Miscellaneous Notes * Telephone Encounter - Gillian Hannon [facility] - 07/20/2023 12:09 PM EST Spoke with patient today. Pt is having ongoing issues with Vertigo. Denies any concerns with Warfarin. Will plan to go to labon Mon 07/25 along with . Gillian Hannon Rp, Pharm.D. Clinical Pharmacist [facility] ([facility]) (formerly Telepharmacy) [phone] 07/20/2023,12:13 PM * Telephone Encounter - Romi Bhatt [facility] - 07/20/2023 10:20 AM EST Pt needs to reschedule phone appt. Was not able to do lab draw due to illness today. Please call pt back to assist at [phone]. documented in this encounter Plan of Treatment Upcoming Encounters Date Type Department Care Team (Late st Contact Info) Description 11/01/2023 11:30 AM EST Laboratory Laboratory [facility] [address] [place] [id number] Cammal, [facility] [address] [place] [address] 11/02/2023 6:15 AM EST Anticoagulation Pharmacy Call Center [address] [place] [address] [facility] 58 60 [facility] [address] 11/28/2023 3:45 PM EDT Office Visit Urology, [facility] 132 [facility] [place] [address] Cale Mosley MD 27 [facility] [address] [place] [address] 02/15/2024 10:45 AM EDT Imaging Radiology [address] 132 [facility] [place] [address] 07/05/2024 6:00 PM EDT Office Visit Family [facility] [address] [place] [address] Evangelist Parada DO [address] [place] [address] Scheduled Procedures Name Priority Associated Diagnoses Date/Ti [...] 2) 12/28/2005 Pneumococcal Vaccine: 65+ Years (1 - PCV) 12/28/2020 Depression Screening 03/27/2022 03/27/2021 COVID-19 Vaccine (3 - 2022- season) 2023 06/27/2021, 06/06/2021 Influenza Vaccine (FLU shot) (#1) 2023 05/23/2020, 08/05/2016 COLONOSCOPY-EVERY 3 YRS AGES 18-100 10/28/2023 10/28/2020, 10/28/2020, 09/04/2019, Additional history exists Mammogram 02/10/2024 02/09/2023, 0603/2023, 01/19/2022, Additional history exists HbA1c 02/22/2024 02/21/2023, [...] this encounter Medical Devices Implanted Type Area Fire Prevention Bureau Captain Device Identifier Shelf Expiration Date Model / Serial / Lot Endotine Forehead 3.5mm - [id number] Implanted:Qty: 1 on 02/10/2021 by Charlee Rincon MD at OR [facility] [employer] [id number] 08/02/2022 [id number] / / [id number] documented as of this encounter Visit Diagnoses Diagnosis PAF (paroxysmal atrial fibrillation) (HCC)- Primary Atrial fibrillation documented in this encounter Advance [...] and were consensually agreed upon. Care Teams Cotton Ginner Helper Relationship Specialty Start Date End Date Evangelist Parada DO [address] [place] [address] PCP - General Family Medicine 10/30/20 documented as of this encounter
--- OUTSIDE RECORDS SUMMARY | 2023-12-23 21:05 | External Medical Summary | Summary of Care ---
Author Name Unknown Organization [facility] Address [address] [place] [address] Phone [phone] Care Team Providers Care Banking And Finance Instructor Name Role Phone Evangelist Parada Primary Care Provider Encounter Details Date Type Department Care Team (Late st Contact Info) Description 11/08/2023 Orders Only Outcomes Research Department [address] [place] [address] Ruthann De La Cruz CHRA [employer] Research Other*[id number] Allergies Active Allergy Reactions Criticality Noted Date [...] 6:15 AM EST Anticoagulation Pharmacy Call Center WB [address]60 [facility] [place] [address] Ccp, [facility] 58 60 [facility] [place] [address] 11/28/2023 3:45 PM EDT Office Visit Urology, [facility] 132 [facility] [place] [address] Cale Mosley MD 27 [facility] [address] [place] [address] 02/15/2024 10:45 AM EDT Imaging Radiology [facility] 1st [facility] 132 [facility] [place] [address] 07/05/2024 6:00 PM EDT Office Visit Family Practice [facility] 132 [facility] [place] [address] Evangelist Parada, 132 [facility] [place] [address] Scheduled Orders Name Type Priority Associated Diagnoses Orde r Schedule MYCODE SUBSEQUENT ADULT Lab Routine My[employer] Research Other*[id number] Every 6 Months for 2 Occurrences starting 11/08/2023 until 11/27/2024 Scheduled Procedures Name Priority Associated Diagnoses Date/Ti [...] Additional history exists Lipid Panel 02/23/2027 02/23/2022, 2 05/2021, 11/23/2019, Additional history exists DXA Scan 01/12/2029 [...] this encounter Medical Devices Implanted Type Area Oil Refinery Operator Device Identifier Shelf Expiration Date Model / Serial / Lot Endotine Forehead 3.5mm - [id number] Implanted:Qty: 1 on 02/10/2021 by Charlee Rincon MD at [place] [facility] [employer] [id number] 08/02/2022 [id number] / / [id number] documented as of this encounter Visit Diagnoses Diagnosis [employer] Research Other*[id number] documented in this encounter Advance Directives Latest [...] and were consensually agreed upon. Care Teams Banking And Finance Instructor Relationship Specialty Start Date End Date Evangelist Parada DO [address] [place] [address] PCP - General Family Medicine 10/30/20 documented as of this encounter
--- OUTSIDE RECORDS SUMMARY | 2023-12-23 21:05 | External Medical Summary | Summary of Care ---
Author Name Unknown Organization [facility] Address [address] [place] [address] Phone [phone] Care Team Providers Care Laser Beam Machine Operator Name Role Phone Hernan Paradatad Tateallan Primary Care Provider Reason for Visit * Reason Comments Dosage Adjustment Via Phone (anticoag Cl inic) Encounter Details Date Type Department Care Team (Latest Contact Info) Description 11/09/2023 6:15 AM EST Anticoagulation Pharmacy Call Center [address] [place] [address] [facility] [address] [place] [address] PAF (paroxysmal atrial fibrillation) ([facility])* Allergies Active Allergy Reactions Criticality Noted Date [...] before bedtime. 10 Tablet 0 08/15/2023 Active Rosuvastatin Calcium 20 MG Oral Tablet (Crestor)Indicatio ns:Dyslipidemia, goal to be determined TAKE 1 TABLET BY MOUTH ONCE DAILY IN THE MORNING 90 Tablet 3 09/28/2023 Active Sotalol HCl 120 MG Oral TabletIndications: Paroxysmal atrial fibrillation (HCC) TAKE 1 TABLET BY MOUTH IN THE MORNING AND 1 TAB AT BEDTIME 180 Tablet 0 11/09/2023 Active documented as of this encounter (statuses [...] mRNA, LNP-s, No Pre serve, 2-Dose Series ([employer]) 06/27/2021,06/06/2021 Seasonal Influenza, PF, 6 M & [...] on file documented as of this encounter Progress Notes * Helga Ruiz PHARM Tech - 11/09/2023 3:49 PM EST Contacts Type Contact Phone/Fax 11/09/2023 03:48 PM EST Phone (Outgoing) Jennifer Howard (Self) [phone] (M) Spoke to Patient Subjective Patient Findings Negatives: Signs/symptoms of bleeding, Change in health, Change in activity, Upcoming invasive procedure, Missed doses, Extra doses, Change in medications, Change in diet/appetite, Bruising Advised patient to contact Anticoagulation Clinic if any unusual bruising or bleeding, recent illness, changes in medication, or questions/concerns. PT/INR results, Coumadin dose instructions, and next PT/INR date communicated as noted by Pharmacist: Yes RAJESH Neri 11/09/2023, 3:49 PM * [facility] - 11/09/2023 8:07 AM EST Coumadin Clinic (region specific) Objective Current Warfarin Dose As of 11/09/2023 Warfarin maintenance plan: 5 mg (5 mg x 1) every Mon, Fri; 10 mg (5 mg x 2) all other days INR Result As of 11/09/2023 INR goal: 2.0-3.0 INR used for dosin.0 (11/08/2023) Assessment & Plan Warfarin Plan As of 11/09/2023 Full warfarin instructions: 5 mg every Mon, Fri; 10 mg all other days No change documented: Gillian Hannon RPh Next INR check: 12/06/2023 Repeat PT/INR in 4 week(s) Weekly dose: not changed Additional Dosing Information: Description Charlotte Parkinson 12/23/22: Xarelto & Eliquis too expensive- pt looking into financial assistance specialist options but will continue Coumadin for now Tech to contact patient with dose instructions as noted. Gillian Hannon RPh 11/09/2023, 8:07 AM documented in this encounter Plan of Treatment Upcoming Encounters Date Type Department Care Team (Late st Contact Info) Description 11/28/2023 3:45 PM EDT Office Visit Urology, [facility] 132 [facility] [place] [address] Cale Mosley MD 27 [facility] [address] [place] [address] 12/06/2023 4:20 PM EDT Laboratory Laboratory [facility] 200 [facility] [place] [phone] [facility] 200 [facility] [place] [address] 12/07/2023 6:15 AM EDT Anticoagulation Pharmacy Call Center WB [address]60 [facility] [place] [address] [facility] 58 60 [facility] [place] [address] 02/15/2024 10:45 AM EDT Imaging Radiology [facility] 1st [facility] 132 [facility] [place] [address] 07/05/2024 6:00 PM EDT Office Visit Family Practice [facility] 132 [facility] [place] [address] Evangelist Parada, DO [address] [place] [address] Scheduled Procedures Name Priority Associated Diagnoses Date/Ti [...] this encounter Medical Devices Implanted Type Area Clothing Sales Assistant Device Identifier Shelf Expiration Date Model / Serial / Lot Endotine Forehead 3.5mm - [id number] Implanted:Qty: 1 on 02/10/2021 by Charlee Rincon MD at OR [facility] [employer] [id number] 08/02/2022 [id number] / / [id number] documented as of this encounter Visit Diagnoses [...] and were consensually agreed upon. Care Teams Laser Beam Machine Operator Relationship Specialty Start Date End Date Evangelist Parada DO [address] [place] [address] PCP - General Family Medicine 10/30/20 documented as of this encounter
--- OUTSIDE RECORDS SUMMARY | 2023-12-23 21:05 | External Medical Summary ---
Author Name Unknown Address Unknown Organization K09[facility] [address] Laboratory Report Ordering Provider Test Date Status SEBASTIAN SANTACRUZ V 11/08/2023 14:23:32 Final Warfarin Therapy
INR: 2 .0-3.0 conventional anticoagulation
INR: 2.5- 3.5 high intensity anticoagulation Observation Date Value Abnormality Reference (Units ) Status PT 11/08/2023 14:23:32 31.9 Above high normal 11 .6-15.2 (seconds) Final INR 11/08/2023 14:23:32 3.0 Above high normal 0. 8-1.2 Final Performing Location [facility] [place] [address]
--- OUTSIDE RECORDS SUMMARY | 2023-12-23 21:06 | External Medical Summary ---
Author Name Unknown Address Unknown Organization [id number]:[facility] [address] Laboratory Report Ordering Provider Test Date Status SEBASTIAN SANTACRUZ V 10/04/2023 14:30:43 Final Warfarin Therapy
INR: 2 .0-3.0 conventional anticoagulation
INR: 2.5- 3.5 high intensity anticoagulation Observation Date Value Abnormality Reference (Units ) Status PT 10/04/2023 14:30:43 28.1 Above high normal 11 .6-15.2 (seconds) Final INR 10/04/2023 14:30:43 2.6 Above high normal 0. 8-1.2 Final Performing Location [facility] [place] [address]
--- OUTSIDE RECORDS SUMMARY | 2023-12-23 21:06 | External Medical Summary | Summary of Care ---
Author Name Unknown Organization [facility] Address [address] [place] [address] Phone [phone] Care Team Providers Care Spa Associate Name Role Phone Hernan Paradatad Tateallan Primary Care Provider Reason for Visit * Reason Comments Dosage Adjustment Via Phone (anticoag Cl inic) Encounter Details Date Type Department Care Team (Latest Contact Info) Description 10/05/2023 6:15 AM EST Anticoagulation Pharmacy Call Center [address] [place] [address] [facility] [address] [place] [address] PAF (paroxysmal atrial fibrillation) ([facility])* Allergies Active Allergy Reactions Criticality Noted Date Comments Adhesive Tape 10/24/2002 band-aid type-blisters Anesthetics, Chata Itching 02/26/2015 Allergy to novocaine Codeine Hives 03/20/1998 SOB Fentanyl 12/08/2020 vomiting Phenothiazines Hives 10/24/2002 Phenergan makes pt itch documented as of this encounter (statuses as of 10/05/2023) Medications Medication Sig Dispensed Refills Start Date [...] as of this encounter (statuses as of 10/05/2023) Active Problems Problem Noted Date Diagnosed Date [...] as of this encounter (statuses as of 10/05/2023) Resolved Problems Problem Noted Date Diagnosed Date [...] as of this encounter (statuses as of 10/05/2023) Immunizations Name Administration Dates Next Due COVID-19 mRNA, LNP-s, No Pre serve, 2-Dose Series (H2020) 06/27/2021,06/06/2021 Seasonal Influenza, PF, 6 M & [...] as of this encounter Progress Notes * Gabriela Cobian PHARM Tech - 10/05/2023 10:03 AM EST Contacts Type Contact Phone/Fax 10/05/2023 10:00 AM EST Phone (Outgoing) Jennifer Howard (Self) [phone] (M) No Answer/Busy Subjective Patient Findings Negatives: Signs/symptoms of bleeding, Change in health, Change in activity, Upcoming invasive procedure, Missed doses, Extra doses, Change in medications, Change in diet/appetite, Bruising Advised patient to contact Anticoagulation Clinic if any unusual bruising or bleeding, recent illness, changes in medication, or questions/concerns. PT/INR results, Coumadin dose instructions, and next PT/INR date communicated as noted by Pharmacist: Yes RAJESH EDOUARD 10/05/2023, 10:03 AM * Gillian Hannon [facility] - 10/05/2023 8:55 AM EST Coumadin Clinic (region specific) Objective Current Warfarin Dose As of 10/05/2023 Warfarin maintenance plan: 5 mg (5 mg x 1) every Mon, Fri; 10 mg (5 mg x 2) all other days INR Result As of 10/05/2023 INR goal: 2.0-3.0 INR used for dosin.6 (10/04/2023) Assessment & Plan Warfarin Plan As of 10/05/2023 Full warfarin instructions: 5 mg every Mon, Fri; 10 mg all other days No change documented: Gillian Hannon RPh Next INR check: 11/01/2023 Repeat PT/INR in 4 week(s) Weekly dose: not changed Additional Dosing Information: Description Charlotte Parkinson 12/23/22: Xarelto & Eliquis too expensive- pt 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 Gillian Hannon RPh 10/05/2023, 8:56 AM documented in this encounter Plan of Treatment Upcoming Encounters Date Type Department Care Team (Late st Contact Info) Description 11/01/2023 11:30 AM EST Laboratory Laboratory [facility] [address] [place] [phone] [place] [facility] 200 [facility] [place] [address] 11/02/2023 6:15 AM EST Anticoagulation Pharmacy Call Center [address] [place] [address] [facility] [address] 60 [facility] [place] [address] 11/28/2023 3:45 PM EDT Office Visit Urology, [facility] [address] [facility] [place] [address] Cale Mosley MD 27 [facility] [address] [place] [address] 02/15/2024 10:45 AM EDT Imaging Radiology [facility] 1st [facility] [address] [place] [address] 07/05/2024 6:00 PM EDT Office Visit Family Practice [facility] [address] [facility] [place] [address] Evangelist Parada, DO [address] [place] [address] Scheduled Procedures Name Priority Associated Diagnoses Date/Ti [...] this encounter Medical Devices Implanted Type Area Financial Professional Device Identifier Shelf Expiration Date Model / Serial / Lot Endotine Forehead 3.5mm - [id number] Implanted:Qty: 1 on 02/10/2021 by Charlee Rincon MD at [place] [facility] [employer] [id number] 08/02/2022 [id number] / / [id number] documented as of this encounter Visit Diagnoses [...] and were consensually agreed upon. Care Teams Spa Associate Relationship Specialty Start Date End Date Evangelist Parada DO 132 [place] [address] PCP - General Family Medicine 10/30/20 documented as of this encounter
--- OUTSIDE RECORDS SUMMARY | 2023-12-23 21:06 | External Medical Summary | Summary of Care ---
Author Name Unknown Organization [facility] Address [address] [place] [address] Phone [phone] Care Team Providers Care Financial Services Counselor Name Role Phone Hernan Paradatad Tateallan Primary Care Provider Reason for Visit * Reason Comments Outpatient Testing Encounter Details Date Type Department Care Team (Late st Contact Info) Description 09/26/2023 1:40 PM EST Laboratory [facility] [address] [place] [phone] [facility] [address] [place] [address] PAF (paroxysmal atrial fibrillation) ([facility]); 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; [facility] current use of anticoagulant therapy Allergies Active Allergy Reactions Criticality Noted Date Comments Adhesive Tape 10/24/2002 band-aid type-blisters Anesthetics, Chata Itching 02/26/2015 Allergy to novocaine Codeine Hives 03/20/1998 SOB Fentanyl 12/08/2020 vomiting Phenothiazines Hives 10/24/2002 Phenergan makes pt itch documented as of this encounter (statuses as of 09/26/2023) Medications Medication Sig Dispensed Refills Start Date [...] other day 60 Tab 11 07/06/2021 Active Sotalol HCl 120 MG Oral TabletIndications: Paroxysmal atrial fibrillation (HCC) Take by mouth 1 Tablet in the morning AND 1 Tablet before bedtime. 135 Tablet 3 12/25/2021 Active Alendronate Sodium 70 MG Oral Tablet [...] the morning. 90 Tablet 3 02/03/2023 Active Rosuvastatin Calcium 20 MG Oral Tablet (Crestor)Indicatio ns:Dyslipidemia, goal to be determined Take 1 Tablet by mouth in the morning. 90 Tablet 0 02/03/2023 Active amLODIPine Besylate 2.5 MG Oral [...] as of this encounter (statuses as of 09/26/2023) Active Problems Problem Noted Date Diagnosed Date [...] as of this encounter (statuses as of 09/26/2023) Resolved Problems Problem Noted Date Diagnosed Date [...] as of this encounter (statuses as of 09/26/2023) Immunizations Name Administration Dates Next Due COVID-19 mRNA, LNP-s, No Pre serve, 2-Dose Series ([employer]) 06/27/2021,06/06/2021 Seasonal Influenza, PF, 6 M & [...] Care Team (Late st Contact Info) Description 09/27/2023 11:50 AM EST Laboratory Laboratory Scenery [facility] [address] [place] [phone] [address] [facility] [address] [place] [address] 09/28/2023 6:15 AM EST Anticoagulation Pharmacy Call Center [address] [place] [address] [facility] [address] [place] [address] 11/10/2023 1:00 PM EST Office Visit Family Practice [facility] 132 [facility] [place] [address] Evangelist Parada, [address] [place] [address] 11/28/2023 3:45 PM EDT Office Visit Urology, [facility] [address] [place] [address] Cale Mosley MD [address] [place] [address] 02/15/2024 10:45 AM EDT Imaging Radiology [address] [place] [address] Pending Results Name Type Priority Associated Diagnoses Date /Time PT INR Lab Routine PAF (paroxysmal atrial fibrillation) (HCC) 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 09/26/2023 1:42 PM EST Scheduled Procedures Name Priority Associated [...] this encounter Medical Devices Implanted Type Area Poolroom Table Attendant Device Identifier Shelf Expiration Date Model / Serial / Lot Endotine Forehead 3.5mm - [id number] Implanted:Qty: 1 on 02/10/2021 by Charlee Rincon MD at [place] [facility] [employer] [id number] 08/02/2022 [id number] / / [id number] documented as of this encounter Visit Diagnoses Diagnosis PAF (paroxysmal atrial fibrillation) (HCC) Atrial fibrillation 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 Encounter for therapeutic drug monitoring 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 Care Teams Financial Services Counselor Relationship Specialty Start Date End Date Evangelist Parada DO [address] [place] [address] PCP - General Family Medicine 10/30/20 documented as of this encounter
--- OUTSIDE RECORDS SUMMARY | 2023-12-23 21:06 | External Medical Summary | Summary of Care ---
Author Name Unknown Organization [facility] Address [address] [place] [address] Phone [phone] Care Team Providers Care Director Of Residential Services Name Role Phone Vicente Parada DO Primary Care Provider Reason for Visit * Reason Comments eRx-Medication Refill Encounter Details Date Type Department Care Team ([facility] Contact Info) Description 09/26/[address] [facility] [address] [place] [address] Vicente Parada DO [address] [facility] [address] Dyslipidemia, goal to be determined Allergies Active Allergy Reactions Criticality Noted Date Comments Adhesive Tape 10/24/2002 band-aid type-blisters Anesthetics, Chata Itching 02/26/2015 Allergy to novocaine Codeine Hives 03/20/1998 SOB Fentanyl 12/08/2020 vomiting Phenothiazines Hives 10/24/2002 Phenergan makes pt itch documented as of this encounter (statuses as of 09/28/2023) Medications Medication Sig Dispensed Refills Start Date [...] MG Oral TabletIndication s:Paroxysmal atrial fibrillation (HCC) Take by mouth 1 Tablet in the morning AND 1 Tablet before bedtime. 135 Tablet 3 2 024 Discontinued Rosuvastatin Calcium 20 MG Oral Tablet (Crestor)Indicat ions:Dyslipidemi a, goal to be determined Take 1 Tablet by mouth in the morning. 90 Tablet 0 3 024 Discontinued documented as of this encounter (statuses as of 09/28/2023) Active Problems Problem Noted Date Diagnosed Date [...] as of this encounter (statuses as of 09/28/2023) Resolved Problems Problem Noted Date Diagnosed Date [...] as of this encounter (statuses as of 09/28/2023) Immunizations Name Administration Dates Next Due COVID-19 mRNA, LNP-s, No Pre serve, 2-Dose Series ([employer]) 06/27/2021,06/06/2021 Seasonal Influenza, PF, 6 M & [...] encounter Miscellaneous Notes * Telephone Encounter - Vicente Parada DO - 09/28/2023 9:38 AM EST Signed Prescriptions: Disp Refills Rosuvastatin Calcium 20 MG Oral Tablet (Cr*90 Tab*3 Sig: TAKE 1 TABLET BY MOUTH ONCE DAILY IN THE MORNING Authorizing Provider: VICENTE PARADA Refused Prescriptions: Disp Refills predniSONE 5 MG Oral Tablet (Deltasone) 21 Tab*0 Sig: TAKE 3 TABLETS BY MOUTH ONCE DAILY FOR 3 DAYS, THEN 2 TABS ONC E DAILY FOR 4 DAYS, THEN 1 TAB ONCE DAILY FOR 4 DAYS NEEDED FOR PAIN Refused By: SHIRLEY ZABALA Reason for Refusal: Appt. Required, please call patient * Telephone Encounter - Shirley Zabala LPN - 09/28/2023 9:21 AM ESTPending Prescriptions: Disp Refills Rosuvastatin Calcium 20 MG Oral Tablet (Cr*90 Tab*0 Sig: TAKE 1 TABLET BY MOUTH ONCE DAILY IN THE MORNING Refused Prescriptions: Disp Refills predniSONE 5 MG Oral Tablet (Deltasone) 21 Tab*0 Sig: TAKE 3 TABLETS BY MOUTH ONCE DAILY FOR 3 DAYS, THEN 2 TABS ONCE DAILY FOR 4 DAYS, THEN 1 TAB ONCE DAILY FOR 4 DAYS NEEDED FOR PAIN Refused By: SHIRLEY ZABALA Reason for Refusal: Appt. Required, please call patient * Telephone Encounter - Shirley Zabala LPN - 09/28/2023 9:12 AM EST Pending Prescriptions: Disp Refills Rosuvastatin Calcium 20 MG Oral Tablet (C*90 Tab*0 Sig: TAKE 1 TABLET BY MOUTH ONCE DAILY IN THE MORNING Refused Prescriptions: Disp Refills predniSONE 5 MG Oral Tablet (Deltasone) 21 Tab*0 Sig: TAKE 3 TABLETS BY MOUTH ONCE DAILY FOR 3 DAYS, THEN 2 TABS ONCE DAILY FOR 4 DAYS, THEN 1 TAB ONCE DAILY FOR 4 DAYS NEEDED FOR PAIN Refused By: SHIRLEY ZABALA Reason for Refusal: Appt. Required, please call patient Last Visit: 02/11/2022 (in office), 04/01/2021 (telemedicine) Next Visit: 11/10/2023 Last date the medication was ordered: 02/03/23 Patient Active Problem List Diagnosis Code FAMILY HX-BREAST MALIG Z80.3 Trigeminal neuralgia G50.0 Fibromyalgia M79.7 ADVANCE DIRECTIVE INFORMATION DYSLIPIDEMIA, GOAL TO BE DETERMINED E78.5 Family history of GI malignancy Z80.0 Migraine with aura G43.109 IBS (irritable bowel syndrome) K58.9 Degeneration of cervical intervertebral disc M50.30 Degeneration of lumbosacral intervertebral disc M51.37 MEDICATION USE AGREEMENT [id number] Chronic left-sided low back pain with left-sided sciatica M54.42, G89.29 PAF (paroxysmal atrial fibrillation) ([facility]) I48.0 S/P ablation of atrial fibrillation Z98.890, Z86.79 Peutz-Jeghers 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 syndrome (HCC) Q85.89 Prediabetes R73.03 Labs: Lab Results Component Value Date/Time CREATININE - [facility] 0.6 02/21/2023 02:51 PM CREATININE - [facility] 0.7 06/04/2020 08:02 AM CREATININE LUIS 85 11/23/2019 10:07 AM CREATININE LUIS - [facility] 112 05/04/2022 09:03 AM CREATININE, RANDOM URINE - [facility] 32 03/10/2023 02:48 PM CREATININE-OUTSIDE LAB 0.78 02/12/2018 12:00 AM Lab Results Component Value Date/Time POTASSIUM - [facility] 4.6 02/21/2023 02:51 PM POTASSIUM - [facility] 4.5 06/04/2020 08:02 AM POTASSIUM POCT - [facility] 4.0 12/19/2017 10:55 AM POTASSIUM-OUTSIDE LAB 3.9 02/12/2018 12:00 AM Lab Results Component Value Date/Time TSH - [facility] 2.48 07/16/2019 07:05 AM Lab Results Component Value Date/Time LDL CHOLESTEROL (CALCULATED) - [facility] 105 02/23/2022 09:51 AM LDL CHOLESTEROL (CALCULATED) - [facility] 220 (H) 11/23/2019 10:12 AM LDL CHOLESTEROL (CALCULATED) - [facility] 177 (H) 07/16/2019 07:05 AM LDL CHOLESTEROL (DIRECT MEASURE) - [facility] 49 12/01/2020 01:47 PM LDL CHOLESTEROL (DIRECT MEASURE) - [facility] NOT APPLICABLE 11/23/2019 10:12 AM LDL CHOLESTEROL (DIRECT MEASURE) - [facility] 123 (H) 03/04/2010 03:24 PM Lab Results Component Value Date/Time ALT - [facility] 20 02/21/2023 02:51 PM ALT - [facility] 12 06/04/2020 08:02 AM ALT-OUTSIDE LAB 18 09/04/2017 12:00 AM Hemoglobin AIC Results: Lab Results Component Value Date/Time HEMOGLOBIN A1C - [facility] 5.4 02/21/2023 02:51 PM HEMOGLOBIN A1C - [facility] 5.7 (H) 02/23/2022 09:51 AM HEMOGLOBIN A1C - [facility] 5.6 12/01/2020 01:47 PM HEMOGLOBIN A1C - [facility] 5.8 (H) 06/04/2020 08:02 AM documented in this encounter Plan of Treatment Upcoming Encounters Date Type Department Care Team (Late st Contact Info) Description 10/03/2023 11:50 AM EST Laboratory Laboratory [address] [address] [place] [phone] [place], Lab Scenery [address] [place] [address] 10/04/2023 6:15 AM EST [facility] Pharmacy Call Center [address] [facility] [place] [address] [facility] 58 60 [facility] [place] [address] 11/10/2023 1:00 PM EST Office Visit Family Practice [facility] 132 [facility] [place] [address] Vicente Parada DO [address] [place] [address] 11/28/2023 3:45 PM EDT Office Visit Urology, [facility] [address] [place] [address] Cale Mosley MD [address] [place] [address] [place] [address] 02/15/2024 10:45 AM EDT Imaging [facility]st [facility] 132 [place] [address] Scheduled Procedures Name Priority Associated Diagnoses Date/Ti [...] 09/04/2019, Additional history exists Mammogram 02/10/2024 02/09/2023, 060 03/2023, 01/19/2022, Additional history exists HbA1c 02/22/2024 [...] this encounter Medical Devices Implanted Type Area Media Planner / Buyer Device Identifier Shelf Expiration Date Model / Serial / Lot Endotine Forehead 3.5mm - [id number] Implanted:Qty: 1 on 02/10/2021 by Charlee Rincon MD [place] [facility] [employer] [id number] 08/02/2022 [facility]-[id number] / / [id number] documented as of this encounter Visit Diagnoses Diagnosis Dyslipidemia, goal to be determined Other and unspecified hyperlipidemia documented in this encounter Advance Directives Latest [...] and were consensually agreed upon. Care Teams Director Of Residential Services Relationship Specialty Start Date End Date Vicente Parada DO [address] [place] [address] PCP - General Family Medicine 10/30/20 documented as of this encounter
--- OUTSIDE RECORDS SUMMARY | 2023-12-23 21:06 | External Medical Summary | Summary of Care ---
Author Name Unknown Organization [facility] Address [address] [place] [address] Phone [phone] Care Team Providers Care Right Of Way Worker Name Role Phone Evangelist Parada Primary Care Provider Reason for Visit * Reason Comments eRx-Medication Refill Encounter Details Date Type Department Care Team ([facility] Contact Info) Description 09/26/2023 Refill Cardiology, [facility] [address] [facility] [place] [address] Bo Bro MD [address] [place] [address] Paroxysmal atrial fibrillation (HCC) Allergies Active Allergy Reactions Criticality Noted Date Comments Adhesive Tape 10/24/2002 band-aid type-blisters Anesthetics, Chata Itching 02/26/2015 Allergy to novocaine Codeine Hives 03/20/1998 SOB Fentanyl 12/08/2020 vomiting Phenothiazines Hives 10/24/2002 Phenergan makes pt itch documented as of this encounter (statuses as of 09/27/2023) Medications Medication Sig Dispensed Refills Start Date [...] the morning. 90 Tablet 3 3 Active Rosuvastatin Calcium 20 MG Oral Tablet (Crestor)Indicat ions:Dyslipidemi a, goal to be determined Take 1 Tablet by mouth in the morning. 90 Tablet 0 3 Active amLODIPine Besylate 2.5 MG Oral [...] before bedtime. 10 Tablet 0 3 Active Sotalol HCl 120 MG Oral TabletIndication s:Paroxysmal atrial fibrillation (HCC) TAKE 1 TABLET BY MOUTH IN THE MORNING AND 1 TAB BEFORE BEDTIME 180 Tablet 0 4 Active Sotalol HCl 120 MG Oral TabletIndication s:Paroxysmal atrial fibrillation (HCC) Take by mouth 1 Tablet in the morning AND 1 Tablet before bedtime. 135 Tablet 3 2 024 Discontinued documented as of this encounter (statuses as of 09/27/2023) Active Problems Problem Noted Date Diagnosed Date [...] as of this encounter (statuses as of 09/27/2023) Resolved Problems Problem Noted Date Diagnosed Date [...] as of this encounter (statuses as of 09/27/2023) Immunizations Name Administration Dates Next Due COVID-19 [...] Telephone Encounter - Vicki Barry COT - 09/26/2023 2:11 PM ESTPending Prescriptions: Disp Refills Sotalol HCl 120 MG Oral Tablet 180 Ta*0 Sig: TAKE 1 TABLET BY MOUTH IN THE MORNING AND 1 TAB BEFORE BEDTIME * Telephone Encounter - Vicki Barry COT - 09/26/2023 2:11 PM EST Scheduling -- please contact pt for follow up. * Telephone Encounter - Vicki Barry COT - 09/26/2023 2:11 PM EST Did you pend patient's preferred pharmacy and medication before forwarding?yes Pharmacy: [facility] [address] [place] [address] RAFI NATALEE [facility] Pending Prescriptions: Disp Refills Sotalol HCl 120 MG Oral Tablet 180 Ta*0 Sig: TAKE 1 TABLET BY MOUTH IN THE MORNING AND 1 TAB BEFORE BEDTIME Last Visit: 03/10/2022 (in office), Visit date not found (telemedicine) Next Visit: Visit date not found If no future appointments scheduled, and last appointment is greater than a year ago, please schedule patient for a follow-up appointment Last date the medication was ordered: 12-25-2021 Is this request for a controlled substance?No [...] found in Results Review. Patient Phone Numbers mobile [phone] Labs: Lab Results Component Value Date/Time CREAT [...] 10/03/2023 11:50 AM EST Laboratory Laboratory Scenery [facility] [address] [place] [address] Tesha, Lab Scenery [address] [place] [address] 10/04/2023 6:15 AM EST Anticoagulation Pharmacy Call Center [address] [place] [address] [facility] [address] 60 [place] [address] 11/10/2023 1:00 PM EST Office Visit Family Practice [facility] [address] [place] [address] Evangelist Parada DO [address] [place] [address] 11/28/2023 3:45 PM EDT Office Visit Urology, [facility] [address] [place] [address] Cale Mosley MD [address] [place] [address] [place] [address] 02/15/2024 10:45 AM EDT Imaging Radiology [address] 132 [facility] [place] [address] Scheduled Procedures Name Priority Associated Diagnoses Date/Ti [...] this encounter Medical Devices Implanted Type Area Weaver Wire Loom Device Identifier Shelf Expiration Date Model / Serial / Lot Endotine Forehead 3.5mm - [id number] Implanted:Qty: 1 on 02/10/2021 by Charlee Rincon MD at [place] [facility] [employer] [id number] 08/02/2022 [id number] / / [id number] documented as of this encounter Visit Diagnoses [...] and were consensually agreed upon. Care Teams Right Of Way Worker Relationship Specialty Start Date End Date Evangelist Parada DO [address] [place] [address] PCP - General Family Medicine 10/30/20 documented as of this encounter
--- OUTSIDE RECORDS SUMMARY | 2023-12-23 21:06 | External Medical Summary | Summary of Care ---
Author Name Unknown Organization [facility] Address [address] [place] [address] Phone [phone] Care Team Providers Care Steam Roller Operator Name Role Phone Yulissa Paradar Balta Primary Care Provider Reason for Visit * Reason Comments Outpatient Testing Encounter Details Date Type Department Care Team (Late st Contact Info) Description 10/04/2023 11:30 AM EST Laboratory Laboratory Scenery [facility] [address] [place] [phone] [facility] Lab Scenery [address] [place] [facility] [place] [address] PAF (paroxysmal atrial fibrillation) ([facility]); 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; FPC current use of anticoagulant therapy Allergies Active Allergy Reactions Criticality Noted Date Comments Adhesive Tape 10/24/2002 band-aid type-blisters Anesthetics, Chata Itching 02/26/2015 Allergy to novocaine Codeine Hives 03/20/1998 SOB Fentanyl 12/08/2020 vomiting Phenothiazines Hives 10/24/2002 Phenergan makes pt itch documented as of this encounter (statuses as of 10/04/2023) Medications Medication Sig Dispensed Refills Start Date [...] as of this encounter (statuses as of 10/04/2023) Active Problems Problem Noted Date Diagnosed Date [...] as of this encounter (statuses as of 10/04/2023) Resolved Problems Problem Noted Date Diagnosed Date [...] as of this encounter (statuses as of 10/04/2023) Immunizations Name Administration Dates Next Due COVID-19 mRNA, LNP-s, No Pre serve, 2-Dose Series (Cartilix) 06/27/2021,06/06/2021 Seasonal Influenza, PF, 6 M & [...] Care Team (Late st Contact Info) Description 10/05/2023 6:15 AM EST Anticoagulation Pharmacy Call Center [address] [facility] [place] [address] [facility] 58 60 [facility] [place] [address] 11/28/2023 3:45 PM EDT Office Visit Urology, [facility] [address] [place] [address] Cale Mosley MD [address] [place] [address] [place] [address] 02/15/2024 10:45 AM EDT Imaging Radiology [address] 132 [place] [address] 07/05/2024 6:00 PM EDT Office Visit Family Practice [facility] [address] [place] [address] Evangelist Parada DO 132 [place] [address] Pending Results Name Type Priority Associated Diagnoses Date /Time PT INR Lab Routine PAF (paroxysmal atrial fibrillation) (HCC) 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 FPC current use of anticoagulant therapy 10/04/2023 2:30 PM EST Scheduled Procedures Name Priority Associated [...] this encounter Medical Devices Implanted Type Area New Car Inspector Device Identifier Shelf Expiration Date Model / Serial / Lot Endotine Forehead 3.5mm - [id number] Implanted:Qty: 1 on 02/10/2021 by Charlee Rincon MD [place] [facility] [employer] [id number] 08/02/2022 [id number] / / [id number] documented as of this encounter Visit Diagnoses Diagnosis PAF (paroxysmal atrial fibrillation) (HCC) Atrial fibrillation 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 Encounter for therapeutic drug monitoring FPC current use of anticoagulant therapy documented in [...] and were consensually agreed upon. Care Teams Steam Roller Operator Relationship Specialty Start Date End Date Evangelist Parada DO [address] [place] [address] [place] [address] PCP - General Family Medicine 10/30/20 documented as of this encounter
--- OUTSIDE RECORDS SUMMARY | 2023-12-23 21:06 | External Medical Summary ---
Author Name Unknown Address Unknown Organization [id number]:[facility] [address] Laboratory Report Ordering Provider Test Date Status SEBASTIAN SANTACRUZ V 09/26/2023 13:42:42 Final Warfarin Therapy
INR: 2 .0-3.0 conventional anticoagulation
INR: 2.5- 3.5 high intensity anticoagulation Observation Date Value Abnormality Reference (Units ) Status PT 09/26/2023 13:42:42 12.1 11.6-15.2 (seconds) Final INR 09/26/2023 13:42:42 0.9 0.8-1.2 Final Performing Location [facility] [place] [address]
--- OUTSIDE RECORDS SUMMARY | 2023-12-23 21:06 | External Medical Summary | Summary of Care ---
Author Name Unknown Organization [facility] Address [address] [place] [address] Phone [phone] Care Team Providers Care Calcine Furnace Tender Name Role Phone Tal Evangelist Tateallan Primary Care Provider Reason for Visit * Reason Comments Dosage Adjustment Via Phone (anticoag Cl inic) Encounter Details Date Type Department Care Team (Latest Contact Info) Description 09/26/2023 6:00 PM EST Anticoagulation Pharmacy Call Center WB [address] [place] [address] [facility] [address] [place] [address] PAF (paroxysmal atrial fibrillation) ([facility])* Allergies Active Allergy Reactions Criticality Noted Date [...] mRNA, LNP-s, No Pre serve, 2-Dose Series (Anaergia) 06/27/2021,06/06/2021 Seasonal Influenza, PF, 6 M & [...] as of this encounter Progress Notes * Gillian Hannon RPh - 09/26/2023 4:17 PM EST Noted Gillian Hannon Rph, Pharm.D. Clinical Pharmacist Centralized Clinical Pharmacy Services (CCPS) (formerly Telepharmacy) [phone] 09/26/2023,4:17 PM * Indiana Batista PHARM Tech - 09/26/2023 3:31 PM EST Contacts Type Contact Phone/Fax 09/26/2023 03:21 PM EST Phone (Outgoing) Jennifer Howard (Self) [phone] (M) Spoke to Patient Subjective Patient Findings Positives: Missed doses (Missed all doses last week. Informed [facility], she advised same plan.) Negatives: Signs/symptoms of bleeding, Change in health, Change in activity, Upcoming invasive procedure, Extra doses, Change in medications, Change in diet/appetite, Bruising Comments: Pt stopped coumadin due to dental procedure, advised to call clinic going forward to makeRPh aware of procedure. Advised patient to contact Anticoagulation Clinic if any unusual bruising or bleeding, recent illness, changes in medication, or questions/concerns. PT/INR results, Coumadin dose instructions, and next PT/INR date communicated as noted by Pharmacist: Yes RAJESH BOSTON 09/26/2023, 3:31 PM * Gillian Hannon [facility] - 09/26/2023 3:16 PM EST Coumadin Clinic (region specific) Objective Current Warfarin Dose As of 09/26/2023 Warfarin maintenance plan: 5 mg (5 mg x 1) every Mon, Fri; 10 mg (5 mg x 2) all other days INR Result As of 09/26/2023 INR goal: 2.0-3.0 INR used for dosin.9 (09/26/2023) Assessment & Plan Warfarin Plan As of 09/26/2023 Full warfarin instructions: 09/26: 10 mg; 09/27: 15 mg; Otherwise 5 mg every Mon, Fri; 10 mg all other days Next INR check: 10/03/2023 Repeat PT/INR in 1 week(s) Weekly dose: not changed Additional Dosing Information: Description [place] 12/23/22: Xarelto & Eliquis too expensive- pt looking into senior financial consultant options but will continue Coumadin for now Tech to contact patient with dose instructions as noted. Gillian Hannon luciana 09/26/2023, 3:18 PM documented in this encounter Plan of Treatment Upcoming Encounters Date Type Department Care Team (Late st Contact Info) Description 09/27/2023 11:50 AM EST Laboratory Laboratory [place] [address] [place] [phone] Estefanía Parkinson [address] [facility] [place] [address] 10/03/2023 11:50 AM EST Laboratory Laboratory [place] [address] [place] [phone] Estefanía Parkinson [address] [facility] [place] [address] 10/04/2023 6:15 AM EST Anticoagulation Pharmacy Call Center [address] [facility] [place] [address] [facility] [address] [facility] [place] [address] 11/10/2023 1:00 PM EST Office Visit Family Practice [facility] 132 [facility] [address] Evangelist Parada, 132 [facility] [place] [address] 11/28/2023 3:45 PM EDT Office Visit Urology, [facility] 132 [facility] [place] [address] Cale Mosley MD [address] 270 [place] [address] 02/15/2024 10:45 AM EDT Imaging Radiology [facility] 1st Floor, [place] 132 [place] [address] Scheduled Procedures Name Priority Associated Diagnoses Date/Ti [...] Screening 03/27/2022 03/27/2021 COVID-19 Vaccine (3 - 2022-24 season) 2023 06/27/2021, 06/06/2021 Influenza Vaccine (FLU [...] this encounter Medical Devices Implanted Type Area Director Health Device Identifier Shelf Expiration Date Model / Serial / Lot Endotine Forehead 3.5mm - [id number] Implanted:Qty: 1 on 02/10/2021 by Charlee Rincon MD at OR [facility] [employer] [id number] 08/02/2022 [id number] / / [id number] documented as of this encounter Visit Diagnoses [...] and were consensually agreed upon. Care Teams Calcine Furnace Tender Relationship Specialty Start Date End Date Evangelist Parada DO 132 [place] [address] PCP - General Family Medicine 10/30/20 documented as of this encounter
--- OUTSIDE RECORDS SUMMARY | 2023-12-23 21:07 | External Medical Summary ---
Author Name Unknown Address Unknown Organization [id number]:[facility] [place] [address] [facility] [address] [facility] [address] Laboratory Report Ordering Provider Test Date Status LALI MAGALLANES 08/15/2023 12:09:00 Final Observation Date Value Abnormality Reference (Units ) Status CEA, Body fluid 08/15/2023 12:09:00 6.5 (ng/ mL) Final The reference interval(s) an d other method performance specifications may not be available for this body fluid. Comparison of this result with the concentration in the blood, serum, or plasma is recommended. The test result must be integrated into the clinical context for interpretation.

Please refer to test catalog ([email or web address]_[email or web address]) for additional interpretive information.

This test was developed and its performance characteristics determined by [employer] [employer]. It has not been cleared or approved by the US Food and Drug Administration. Performing Location [facility] - [address] [facility] [address]
--- OUTSIDE RECORDS SUMMARY | 2023-12-23 21:07 | External Medical Summary | Summary of Care ---
Author Name Unknown Organization [facility] Address [address] [place] [address] Phone [phone] Care Team Providers Care Manager Field Name Role Phone Hernan Paradatad Tateallan Primary Care Provider Reason for Visit * Reason Comments Outpatient Testing Encounter Details Date Type Department Care Team ([facility] st Contact Info) Description 08/30/2023 11:50 AM EST Laboratory Laboratory [facility] [address] [place] [phone] [facility] 200 [place] [address] PAF (paroxysmal atrial fibrillation) ([facility]); 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; halfway current use of anticoagulant therapy; Dyslipidemia, goal to be determined; Encounter for long-term (current) use of medications Allergies Active Allergy Reactions Criticality Noted Date Comments Adhesive Tape 10/24/2002 band-aid type-blisters Anesthetics, Chata Itching 02/26/2015 Allergy to novocaine Codeine Hives 03/20/1998 SOB Fentanyl 12/08/2020 vomiting Phenothiazines Hives 10/24/2002 Phenergan makes pt itch documented as of this encounter (statuses as of 08/30/2023) Medications Medication Sig Dispensed Refills Start Date [...] as of this encounter (statuses as of 08/30/2023) Active Problems Problem Noted Date Diagnosed Date [...] as of this encounter (statuses as of 08/30/2023) Resolved Problems Problem Noted Date Diagnosed Date [...] as of this encounter (statuses as of 08/30/2023) Immunizations Name Administration Dates Next Due COVID-19 mRNA, LNP-s, No Pre serve, 2-Dose Series ([employer]) 06/27/2021,06/06/2021 Seasonal Influenza, PF, 6 M & [...] Care Team (Late st Contact Info) Description 08/31/2023 6:15 AM EST Anticoagulation Pharmacy Call Center [address] [facility] [place] [address] [facility] 58 60 [facility] [place] [address] 11/10/2023 1:00 PM EST Office Visit Family Practice [facility] 132 [facility] [place] [address] Evangelist Parada DO 132 [facility] [place] [address] 11/28/2023 3:45 PM EDT Office Visit Urology, [facility] 132 [facility] [place] [address] Cale Mosley MD 27 [facility] 270 [place] [address] 02/15/2024 10:45 AM EDT Imaging Radiology [facility]st [facility] 132 [facility] [place] [address] Pending Results Name Type Priority Associated Diagnoses Date /Time PT INR Lab Routine PAF (paroxysmal atrial fibrillation) (HCC) 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 roasterman current use of anticoagulant therapy 08/30/2023 11:37 AM EST Scheduled Procedures Name Priority Associated Diagnoses [...] this encounter Medical Devices Implanted Type Area Research Methods Instructor Device Identifier Shelf Expiration Date Model / Serial / Lot Endotine Forehead 3.5mm - [id number] Implanted:Qty: 1 on 02/10/2021 by Charlee Rincon MD at OR [facility] [employer] [id number] 08/02/2022 [id number] / / [id number] documented as of this encounter Visit Diagnoses Diagnosis PAF (paroxysmal atrial fibrillation) (HCC) Atrial fibrillation 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 Encounter for therapeutic drug monitoring roasterman current use of anticoagulant therapy Dyslipidemia, goal to be determined Other and unspecified hyperlipidemia Encounter for long-term (current) use of medications Encounter for long-term (current) use of other medications documented in this encounter Advance Directives Latest [...] and were consensually agreed upon. Care Teams Manager Field Relationship Specialty Start Date End Date Evangelist Parada DO 132 [place] [address] PCP - General Family Medicine 10/30/20 documented as of this encounter
--- OUTSIDE RECORDS SUMMARY | 2023-12-23 21:07 | External Medical Summary ---
Author Name Unknown Address Unknown Organization K01:[facility] - [facility] [address] Laboratory Report Ordering Provider Test Date Status LALI MAGALLANES 08/15/2023 12:09:00 Final Pancreatic cyst Observation Date Value Abnormality Reference (Units ) Status Amylase, Body Fluid 08/15/2023 12:09:00 >7500 (U/L) Final The reference interval(s) an d other method performance specifications may not be available for this body fluid. Comparison of this result with the concentration in the blood, serum, or plasma is recommended. The test result must be integrated into the clinical context for interpretation.

Please refer to test catalog ([email or web address]_fluids.cfm) for additional interpretive information.

This test was developed and its performance characteristics determined by [employer] [facility]. It has not been cleared or approved by the US Food and Drug Administration. Performing Location LABORATORY [facility] - [address] [facility] [address]
--- OUTSIDE RECORDS SUMMARY | 2023-12-23 21:07 | External Medical Summary | Summary of Care ---
Author Name Unknown Organization [facility] Address [address] [place] [address] Phone [phone] Care Team Providers Care Staple Processing Machine Operator Name Role Phone Hernan Paradatad Tateallan Primary Care Provider Reason for Visit * Reason Comments Dosage Adjustment Via Phone (anticoag Cl inic) Procedure Encounter Details Date Type Department Care Team (Latest Contact Info) Description 08/03/2023 6:15 AM EST Anticoagulation Pharmacy Call Center [address] [place] [address] [facility] [address] [place] [address] PAF (paroxysmal atrial fibrillation) ([facility])* Allergies Active Allergy Reactions Criticality Noted Date Comments Adhesive Tape 10/24/2002 band-aid type-blisters Anesthetics, Chata Itching 02/26/2015 Allergy to novocaine Codeine Hives 03/20/1998 SOB Fentanyl 12/08/2020 vomiting Phenothiazines Hives 10/24/2002 Phenergan makes pt itch documented as of this encounter (statuses as of 08/03/2023) Medications Medication Sig Dispensed Refills Start Date [...] Active Additional Information Patient not taking.Reported on 03/10/2022 Vitamin B-12 1000 MCG Oral TabletIndications: B12 deficiency Take by mouth 1 Tablet in the morning. 90 Tablet 3 02/16/2022 Active metFORMIN HCl ER 500 MG Oral Tablet Extended Release 24 Hour (Glucophage XR) Take by mouth 1 Tablet in the morning. 90 Tablet 3 03/02/2022 Active Clotrimazole-Betam ethasone 1-0.05 % External Cream (Lotrisone)Indicat ions:Rash and nonspecific skin eruption APPLY TO AFFECTED AREA TWICE DAILY UNTIL HEALED. USE NO LONGER THAN 28 DAYS 45 g 1 09/03/2022 Active Methocarbamol 500 MG Oral Tablet (Robamol) Take 1 Tablet by mouth in the morning and 1 Tablet at noon and 1 Tablet before bedtime. 90 Tablet 5 09/23/2022 Active predniSONE 5 MG (21) Oral Tablet Therapy Pack Take 3 tablets for 3 days, 2 tablets for 4 days and 1 tablet for 4 days as needed for pain 1 Each 2 10/05/2022 Active Warfarin Sodium 5 MG Oral Tablet [...] THE MORNING 90 Tablet 3 07/25/2023 Active documented as of this encounter (statuses as of 08/03/2023) Active Problems Problem Noted Date Diagnosed Date [...] as of this encounter (statuses as of 08/03/2023) Resolved Problems Problem Noted Date Diagnosed Date [...] as of this encounter (statuses as of 08/03/2023) Immunizations Name Administration Dates Next Due COVID-19 mRNA, LNP-s, No Pre serve, 2-Dose Series (Pfizer) 06/27/2021,06/06/2021 SEASONAL INFLUENZA, PF, 6 M & Above, IM , (FLULAVAL or FLUZONE) 05/23/2020 Seasonal Influenza, Split, IIV3, With Preserve, [...] as of this encounter Progress Notes * Lucero Ortiz RPh - 08/03/2023 1:46 PM EST Pt has upcoming EGD 08/15/23. Pt is anticoagulated for afib with [id number] = 2 (age, female). Noapparent hx of stroke/TIA or DVT/PE. Pt may hold warfarin for upcoming procedure without the use ofa lovenox bridge. Warfarin dosing schedule as follows: 08/03: HOLD 08/04 - 08/09: Take weekly dose of 5 mg Mon, Fri and 10 mg all other days (dose decreased today within this encounter 08/10 - 08/14 : SKIP warfarin in preparation of procedure 08/15 08/15 - 08/17 : 15 mg daily 08/18: Resume usual weekly dose of 5 mg Mon, Fri and 10 mg all other days Next INR due 08/30/23 (2 wk post-procedure). Spoke with patient -- relayed dosing instructions for procedure and updated INR date. Pt expressed understanding and no further questions/concerns at this time. Lucero Ramirez PharmD Clinical Pharmacist Centralized Clinical Pharmacy Services (CCPS) (Formerly Telepharmacy) [phone] 08/03/2023 2:19 PM * Anne Marie Foster PHARM Tech - 08/03/2023 1:12 PM EST Contacts Type Contact Phone/Fax 08/03/2023 11:04 AM EST Phone (Outgoing) Jennifer Howard (Self) [phone] (M) No Answer/Busy - VM is not set up yet 08/03/2023 01:10 PM EST Phone (Outgoing) Jennifer Howard (Self) [phone] (M) Spoke to Patient Subjective Patient Findings Positives: Upcoming invasive procedure (Having a biopsy and scope done at 08/15/23 at [facility]. Cardio advised her that she was to stop coumadin 5days prior to surgery) Negatives: Signs/symptoms of bleeding, Change in health, Change in activity, Missed doses, Extra doses, Change in medications, Change in diet/appetite, Bruising Advised patient to contact Anticoagulation Clinic if any unusual bruising or bleeding, recent illness, changes in medication, or questions/concerns. PT/INR results, Coumadin dose instructions, and next PT/INR date communicated as noted by Pharmacist: Yes RAJESH TEAGUE 08/03/2023, 1:12 PM * Lucero Ortiz RPh - 08/03/2023 9:04 AM EST Images from the original note were not included. Coumadin Clinic (region specific) Objective Current Warfarin Dose As of 08/03/2023 Warfarin maintenance plan: 5 mg (5 mg x 1) every Mon; 10 mg (5 mg x 2) all other days INR Result As of 08/03/2023 INR goal: 2.0-3.0 INR used for dosin.9 (08/02/2023) Assessment & Plan Warfarin Plan As of 08/03/2023 Full warfarin instructions: 08/03: Hold; Otherwise 5 mg every Mon, Fri; 10 mg all other days Next INR check: 09/13/2023 Repeat PT/INR in 6 week(s) Weekly dose: decreased Additional Dosing Information: Description Charlotte Parkinson 12/23/22: Xarelto & Eliquis too expensive- pt looking into financial aid coordinator options but will continue Coumadin for now Tech to contact patient with dose instructions as noted. Lucero Ortiz RPh 08/03/2023, 9:04 AM documented in this encounter Plan of Treatment Upcoming Encounters Date Type Department Care Team (Latest Contact Info) Description 12/11/202 3 12:45 PM EST Hospital Encounter ENDO [facility], Endoscopy Room [facility] [address] [place] [phone] Deepthi Pineda, DO [address] [place] [address] 3 12:45 PM EST - 3 1:45 PM EST Surgery ENDO [facility], Endoscopy Room [facility] [address] [place] [phone] Deepthi Pineda, DO [address] [place] [address] ESOPHAGOGASTRODUODENOSCOPY (EGD), FLEXIBLE, TRANSORAL, ENDOSCOPIC ULTRASOUND 3 11:50 AM EST Laboratory Laboratory Scenery [facility] [address] [place] [phone] [facility] Scenery [address] [place] [address] 3 6:15 AM EST [facility] Pharmacy Call Center [address] [facility] [place] [address] [facility] 58 60 [facility] [place] [address] 4 1:00 PM EST Office Visit Family Practice [facility] [address] [place] [address] Evangelist Parada, DO [address] [place] [address] 4 3:45 PM EDT Office Visit Urology, [facility] [address] [place] [address] Cale Mosley MD [address] [facility] 270 [place] [address] 10:45 AM EDT Imaging Radiology [facility] 1st [facility], [address] [place] [address] Scheduled Procedures Name Priority Associated Diagnoses Date/Ti me ESOPHAGOGASTRODUODENOSCOPY ( EGD), FLEXIBLE, TRANSORAL, ENDOSCOPIC ULTRASOUND Pancreatic cyst 08/15/2023 12:45 PM EST COLONOSCOPY FLEXIBLE PROXIMA L DIAGNOSTIC Recall History of colon polyps Familial [...] 01/19/2022, Additional history exists HbA1c 02/22/2024 02/21/2023, 2 09/2021, 12/01/2020, Additional history exists Lipid Panel 02/23/2027 [...] this encounter Medical Devices Implanted Type Area Resident Advisor Device Identifier Shelf Expiration Date Model / Serial / Lot Endotine Forehead 3.5mm - [id number] Implanted:Qty: 1 on 02/10/2021 by Charlee Rincon MD at [place] [facility] [employer] [id number] 08/02/2022 [id number] / / [id number] documented as of this encounter Visit Diagnoses Diagnosis PAF (paroxysmal atrial fibrillation) (HCC)- Primary Atrial fibrillation Pancreatic cyst Cyst and pseudocyst of pancreas documented in this encounter Advance Directives Latest [...] and were consensually agreed upon. Care Teams Staple Processing Machine Operator Relationship Specialty Start Date End Date Evangelist Parada DO [address] [place] [address] PCP - General Family Medicine 10/30/20 documented as of this encounter
--- OUTSIDE RECORDS SUMMARY | 2023-12-23 21:07 | External Medical Summary | Summary of Care ---
Author Name Unknown Organization [facility] Address [address] [place] [address] Phone [phone] Care Team Providers Care Contribution Solicitor Name Role Phone Evangelist Parada Primary Care Provider Reason for Visit * Auth/Cert Specialty Diagnoses / Procedures Referred By Edwina dwyer Referred To Contact Diagnoses Pancreatic cyst Pancreatic cyst [K86.2] Procedures EGD, W/ENDOSCOPIC US ESOPHAGOGASTRODUODENOSCOPY (EGD), FLEXIBLE, TRANSORAL, ENDOSCOPIC ULTRASOUND Referral ID Status Reason Start Date Expiration Date Visits Re quested Visits Authorized [id number] Encounter Details Date Type Department Care Team (Latest Contact Info) Description 08/15/2023 10:33 AM EST - 08/15/2023 1:16 PM [facility], Endoscopy Room [facility] [address] [place] [id number] Deepthi Pineda DO [address] [place] [address] Various: UGI,UEUS Discharge Disposition: Home - Self Care Allergies Active Allergy Reactions Criticality Noted Date Comments Adhesive Tape 10/24/2002 band-aid type-blisters Anesthetics, Chata Itching 02/26/2015 Allergy to novocaine Codeine Hives 03/20/1998 SOB Fentanyl 12/08/2020 vomiting Phenothiazines Hives 10/24/2002 Phenergan makes pt itch documented as of this encounter (statuses as of 08/16/2023) Medications Medication Sig Dispensed Refills Start Date [...] other day 60 Tab 11 1 Active Sotalol HCl 120 MG Oral TabletIndication s:Paroxysmal atrial fibrillation (HCC) Take by mouth 1 Tablet in the morning AND 1 Tablet before bedtime. 135 Tablet 3 2 Active Alendronate Sodium 70 MG Oral Tablet [...] before bedtime. 10 Tablet 0 3 Active predniSONE 5 MG (21) Oral Tablet Therapy Pack Take 3 tablets for 3 days, 2 tablets for 4 days and 1 tablet for 4 days as needed for pain 1 Each 2 3 023 Discontinued documented as of this encounter (statuses as of 08/16/2023) Active Problems Problem Noted Date Diagnosed Date [...] as of this encounter (statuses as of 08/16/2023) Resolved Problems Problem Noted Date Diagnosed Date [...] as of this encounter (statuses as of 08/16/2023) Immunizations Name Administration Dates Next Due COVID-19 mRNA, LNP-s, No Pre serve, 2-Dose Series ([email or web address]) 06/27/2021,06/06/2021 SEASONAL INFLUENZA, PF, 6 M & [...] on file documented as of this encounter Last Filed Vital Signs Vital Sign Reading Time Taken Comments Blood Pressure 132/59 08/15/2023 1:16 PM EST Pulse 66 08/15/2023 1:16 PM EST Temperature 36.2 C (97.1 F) 08/15/2023 1:16 PM ES T Respiratory Rate 18 08/15/2023 1:16 PM EST Oxygen Saturation 94% 08/15/2023 1:16 PM EST Inhaled Oxygen Concentration - - Weight 79.4 kg (175 lb) 08/15/2023 10:58 AM EST Height 160 cm (5' 2.99") 08/15/2023 10:58 AM EST Body Mass Index 31.01 08/15/2023 10:58 AM EST documented in this encounter H&P Notes * Deepthi Pineda, - 08/15/2023 11:43 AM EST Endoscopy Pre-Procedure Assessment Name: Jennifer Howard Date: 08/15/2023 Time: 11:43 AM Procedure(s): Upper GI Endoscopy; with Indication(s) of upper abdominal symptoms that persist despite an appropriate trial of therapy Endoscopic Ultrasound; with Indication(s) of pancreatic cancer screening Endoscopy Pre-Procedure Assessment: Prior to the procedure, the patient is identified. The patient's history, medications and allergieshave been reviewed. The patient is competent. The risks and benefits of the proposed procedure and the planned sedation have been discussed with the patient. All questions have been answered and informed consent for the procedure has been obtained. Prior to Admission medications Medication Sig Last Dose Discont. Excedrin Extra Strength 250-250-65 MG Oral Tablet (Ordyuyg-Efhphczlvntsn-Umahxvjw 250-250-65 mg pertab) Take 1 Tablet by mouth every 6 hours as needed for Migraine. Past Week Lisinopril 5 MG Oral Tablet (Prinivil) TAKE 1 TABLET BY MOUTH IN THE MORNING 08/14/2023 Gabapentin 800 MG Oral Tablet (Neurontin) TAKE 1 TABLET BY MOUTH IN THE MORNING, 1 TABLET AT NOON AND 1 TABLET BEFORE BEDTIME 08/14/2023 amLODIPine Besylate 2.5 MG Oral Tablet (Norvasc) TAKE 1 TABLET BY MOUTH ONCE DAILY AT BEDTIME 08/14/2023 Ezetimibe 10 MG Oral Tablet (Zetia) Take 1 Tablet by mouth in the morning. 08/14/2023 Rosuvastatin Calcium 20 MG Oral Tablet (Crestor) Take 1 Tablet by mouth in the morning. 08/14/2023 Warfarin Sodium 5 MG Oral Tablet (Coumadin) 15 mg every Tuesday; 10 mg all other days or as directedby anticoagulation clinic 08/09/2023 Vitamin B-12 1000 MCG Oral Tablet Take by mouth 1 Tablet in the morning. Past Week Sotalol HCl 120 MG Oral Tablet Take by mouth 1 Tablet in the morning AND 1 Tablet before bedtime. 08/14/2023 Ferrous Sulfate 325 (65 Fe) MG Oral Tablet (Feosol) 1 tab every other day 08/07/2023 Methocarbamol 500 MG Oral Tablet (Robamol) Take 1 Tablet by mouth in the morning and 1 Tablet at noon and 1 Tablet before bedtime. Over 30 Days Clotrimazole-Betamethasone 1-0.05 % External Cream (Lotrisone) APPLY TO AFFECTED AREA TWICE DAILY UNTIL HEALED. USE NO LONGER THAN 28 DAYS Over 30 Days metFORMIN HCl ER 500 MG Oral Tablet Extended Release 24 Hour (Glucophage XR) Take by mouth 1 Tabletin the morning. Patient not taking: Reported on 08/15/2023 Not Taking Alendronate Sodium 70 MG Oral Tablet (Fosamax) Take by mouth 1 Tablet once a week . with 8 oz. water 30 minutes before first meal of the day. Remain upright for 30 min after taking tablet. Patient not taking: Reported on 03/10/2022 Not Taking Albuterol Sulfate HFA 108 (90 Base) MCG/ACT Inhalation Aerosol Solution Inhale 2 Puffs by mouth every 6 hours as needed (anal pain). Over 30 Days Furosemide 20 MG Oral Tablet (Lasix) Take 2-3 days per week as needed for edema Over 30 Days Review of patient's allergies indicates: Allergen Reactions Adhesive Tape band-aid type-blisters Anesthetics, Chata Itching Allergy to novocaine Codeine Hives SOB Fentanyl vomiting Phenothiazines Hives Phenergan makes pt itch BP 151/56 | Pulse 71 | Temp 36.3 C (97.4 F) (Tympanic) | Resp 16 | Ht 1.6 m (5' 2.99") | Wt 79.4 kg (175 lb) | LMP 04/19/2003 | SpO2 98% | BMI 31.01 kg/m | BSA 1.88 m Physical Exam: Mental Status Examination: alert and oriented. Airway Examination: normal oropharyngeal airway and neck mobility. Respiratory Examination: clear to auscultation. CV Examination: systolic murmur. ASA Grade: III - A patient with severe systemic disease. Abdomen: soft 11/23/20 Latest Reference Range & Units 11/24/20 08:34 Amylase, Body Fluid U/L 344 CEA, Body Fluid ng/mL 42.0 EUS Cytology 2020 A. Cyst, uncinate process: Category: Cyst contents only. Final Interpretation: Histiocytes and debris compatible with cyst contents. See comment. Cellblock: The cellblock preparation is hypocellular. Comment: Rare group of cytologically bland glandular cells/gastrointestinal contamination is present in the cell block. No thick mucin or high-grade dysplasia seen. EGD pathology 2020 A. Duodenum, biopsy: Benign duodenal mucosa, no significant pathologic findings B. Stomach, biopsy: Benign gastric mucosa, no significant pathologic findings Negative for intestinal metaplasia or dysplasia C. Esophagus, biopsy: Squamocolumnar mucosa with intestinal metaplasia, chronic inflammation, and reactive changes Negative for dysplasia This patient has undergone a preprocedural evaluation. A determination has been made to proceed with the planned procedure under [facility] procedural guidelines and the [facility] Non-Emergent, Elective Medical Services and Treatment Recommendations (published on 12-11-19). The community and hospital prevalence of COVID-19 has been discussed as well as this patient's specific risks associated with SARS-CoV-19 infection. Based upon the clinical acuity and patient-specific care considerations, this procedure is deemed a Tier II - Intermediate acuity treatment or service with either progression or the threat of progressive disease related to the delay in treatment. Not providing the service has the potential for increasing morbidity or mortality. After reviewing the risks and benefits, the patient is deemed in satisfactory condition to undergo the procedure. The anesthesia plan is to use general anesthesia. We have discussed the risks and benefits of upper endoscopy to include bleeding, infection, perforation, discomfort, aspiration and need for follow-up studies. I have discussed the risks and benefits of EUS to include (not limited to) bleeding, infection, perforation, pain, aspiration, cardiac complications, pancreatitis and insufficient cellularity. Deepthi Pineda DO 08/15/2023 documented in this encounter Procedure Notes * Evangelist Parada DO - 08/15/2023 11:47 AM ESTAssociated Order(s): UPPER ENDOSCOPIC U/S [facility] Patient Name: Jennifer Howard Procedure Date: 08/15/2023 11:47 AM Date of : 1955 Admit Type: Outpatient Note Status: Finalized Date of : 1955 Admit Type: Outpatient Age: 67 Room: Advanced Endo Gender: Female Note Status: Finalized Procedure: Upper EUS Indications: Screening for pancreatic neoplasm (Peutz-Jeghers Syndrome) Providers: Deepthi Pineda DO (Doctor) Referring MD: Evangelist Parada (Referring MD) Medicines: General Anesthesia Complications: No immediate complications. Estimated blood loss: Minimal. Procedure: Pre-Anesthesia Assessment: - Prior to the procedure, a History and Physical was performed, and patient medications, allergies and sensitivities were reviewed. The patient's tolerance of previous anesthesia was reviewed. - The risks and benefits of the procedure and the sedation options and risks were discussed with the patient. All questions were answered and informed consent was obtained. - Patient identification and proposed procedure were verified prior to the procedure by the physician, the nurse and the consolidation accountant. The procedure was verified in the procedure room. - Pre-procedure physical examination revealed no contraindications to sedation. - ASA Grade Assessment: III - A patient with severe systemic disease. - After reviewing the risks and benefits, the patient was deemed in satisfactory condition to undergo the procedure. - The anesthesia plan was to use general anesthesia. - Immediately prior to administration of medications, the patient was re- assessed for adequacy to receive sedatives. - The heart rate, respiratory rate, oxygen saturations, blood pressure, adequacy of pulmonary ventilation, and response to care were monitored throughout the procedure. - The physical status of the patient was re-assessed after the procedure. After obtaining informed consent, the endoscope was passed under direct vision. All instruments were visually inspected immediately before and after removal from the patient to ensure they are fully intact. Throughout the procedure, the patient's blood pressure, pulse, and oxygen saturations were monitored continuously. The GF-UE160 Endoscope ([id number]) was introduced through the mouth, and advanced to the third part of duodenum. The upper EUS was accomplished without difficulty. The patient tolerated the procedure well. Findings & Specimens: ENDOSONOGRAPHIC FINDING: : There was no sign of significant endosonographic abnormality in the ampulla. No pathologic lymphadenopathy and no masses were identified. There was dilation in the common bile duct which measured up to 10 mm. Evidence of a previous cholecystectomy was identified endosonographically. A cyst was found in the left lobe of the liver and measured 38 mm by 30 mm in maximal cross-sectional diameter. The cyst was hypoechoic. It was without septae. The outer wall of the lesion was not seen. No lymphadenopathy seen. There was no sign of significant endosonographic abnormality in the left adrenal gland. No adrenal gland enlargement was identified. There was no sign of significant endosonographic abnormality in the pancreatic body, pancreatic tail, pancreatic neck and main pancreatic duct. The pancreatic duct measured up to 2 mm in diameter. A hypoechoic lesion suggestive of a cyst was identified in the uncinate process of the pancreas. Itis not in obvious communication with the pancreatic duct. The lesion measured 18 mm by 13 mm in maximal cross-sectional diameter. There were a few compartments without septae. The outer wall of the lesion was not seen. There was no associated mass. There was no internal debris within the fluid-filled cavity. Diagnostic needle aspiration for fluid was performed. Color Doppler imaging was utilized prior to needle puncture to confirm a lack of significant vascular structures within the needle path. One pass was made with the 22 gauge needle using a transduodenal approach. A stylet was used. The amount of fluid collected was 2 mL. The fluid was clear, serous and watery. Sample(s) were sent for amylase concentration, cytology and CEA. Estimated blood loss was minimal. Impression: - There was no sign of significant pathology in the ampulla. - There was dilation in the common bile duct which measured up to 10 mm. - Evidence of a cholecystectomy. - A cyst was found in the left lobe of the liver and measured 38 mm by 30 mm. - Endosonographic images of the left adrenal gland were unremarkable. - There was no sign of significant pathology in the pancreatic body, pancreatic tail, pancreatic neck and main pancreatic duct. - A cystic lesion was seen in the uncinate process of the pancreas. Fine needle aspiration for fluid performed. Recommendation: - The patient will be observed post-procedure, until all discharge criteria are met. - Advance diet as tolerated today. - Use broad spectrum antibiotics for 5 days. - May restart coumadin in 72 hours. Deepthi Pineda DO 08/15/2023 12:19:54 PM This report has been signed electronically. * Evangelist Parada DO - 08/15/2023 11:46 AM ESTAssociated Order(s): UPPER GI ENDOSCOPY [facility] Patient Name: Jennifer Howard Procedure Date: 08/15/2023 11:46 AM Date of : 1955 Admit Type: Outpatient Note Status: Finalized Date of : 1955 Admit Type: Outpatient Age: 67 Room: Advanced Endo Gender: Female Note Status: Finalized Procedure: Upper GI endoscopy Indications: Epigastric abdominal pain, Follow-up of Mercer's esophagus Providers: Deepthi Pineda DO (Doctor) Referring MD: Evangelist Parada (Referring MD) Medicines: General Anesthesia Complications: No immediate complications. Estimated blood loss: Minimal. Procedure: Pre-Anesthesia Assessment: - Prior to the procedure, a History and Physical was performed, and patient medications, allergies and sensitivities were reviewed. The patient's tolerance of previous anesthesia was reviewed. - The risks and benefits of the procedure and the sedation options and risks were discussed with the patient. All questions were answered and informed consent was obtained. - Patient identification and proposed procedure were verified prior to the procedure by the physician, the nurse and the consolidation accountant. The procedure was verified in the procedure room. - Pre-procedure physical examination revealed no contraindications to sedation. - ASA Grade Assessment: III - A patient with severe systemic disease. - After reviewing the risks and benefits, the patient was deemed in satisfactory condition to undergo the procedure. - The anesthesia plan was to use general anesthesia. - Immediately prior to administration of medications, the patient was re- assessed for adequacy to receive sedatives. - The heart rate, respiratory rate, oxygen saturations, blood pressure, adequacy of pulmonary ventilation, and response to care were monitored throughout the procedure. - The physical status of the patient was re-assessed after the procedure. After obtaining informed consent, the endoscope was passed under direct vision. All instruments were visually inspected immediately before and after removal from the patient to ensure they are fully intact. Throughout the procedure, the patient's blood pressure, pulse, and oxygen saturations were monitored continuously. The GIF-H180 Endoscope ([id number]) was introduced through the mouth, and advanced to the third part of duodenum. The upper GI endoscopy was accomplished without difficulty. The patient tolerated the procedure well. Findings & Specimens: The examined esophagus was normal. The Z-line was irregular and was found 40 cm from the incisors. Biopsies were taken with a cold forceps for histology. The pathology specimen was placed into Bottle Number 2. Estimated blood loss was minimal. Diffuse mild inflammation characterized by congestion (edema), erythema and granularity was found in the entire examined stomach. Biopsies were taken with a cold forceps for histology. The pathology specimen was placed into Bottle Number 1. Estimated blood loss was minimal. The examined duodenum was normal. Impression: - Normal esophagus. - Z-line irregular, 40 cm from the incisors. Biopsied. - Gastritis. Biopsied. - Normal examined duodenum. Recommendation: - Perform an upper endoscopic ultrasound (UEUS) today. - Await pathology results. - Repeat upper endoscopy for surveillance based on pathology results. Deepthi Pineda DO 08/15/2023 11:57:29 AM This report has been signed electronically. documented in this encounter Nursing Notes * Arie Ayers RN - 08/15/2023 12:55 PM EST HOB upright. Aleah liquids w/o problems. * Arie Ayers RN - 08/15/2023 12:46 PM EST Assisted patient going to restroom to void * Cydney Edwards RN - 08/15/2023 12:31 PM EST Patient transferred to post endo s/p eus. Patient asleep, easily aroused Respirations are even and unlabored on room air. NSR in the 60s on the monitor. Abdomen soft and non distended. Oxygen 87% on room air, 02 stable at 92% on 2L * Kam Alexander RN - 08/15/2023 12:11 PM EST See anesthesia record for medication administered during procedure. Kam Alexander RN Specimen(s) and location(s) verified with physician post procedure 12:11 PM Kam Alexander RN Pre cleaning of scope at the bedside started by computer technology trainer. FNA performed on pancreatic cyst by Dr Pineda using a [employer] 22 gauge needle. One pass made specimen collected for CEA, amylase, and cytology per order. Pt tolerated well. * Susan Leal RN - 08/15/2023 11:29 AM EST The following pt discharge instructions reviewed with pt prior to prodedure: No driving today. No alcohol today. No signing of legal documents. Rest as much as possible today and can return to normal activities tomorrow. No operating any heavy equipment today. Diet as tolerated. Pt verbalized understanding. documented in this encounter Plan of Treatment Upcoming Encounters Date Type Department Care Team (Late st Contact Info) Description 08/30/2023 11:50 AM EST Laboratory Laboratory [facility] [address] [place] [id number] [place], [facility] [address] [place] [address] 08/31/2023 6:15 AM EST [facility] Call Center [address] [place] [address] [facility], [facility] [address] [place] [address] 11/10/2023 1:00 PM EST Office Visit Family Practice [facility] [address] [facility] [place] [address] Evangelist Parada DO [address] [facility] [place] [address] 11/28/2023 3:45 PM EDT Office Visit Urology, [facility] [address] [facility] [place] [address] Cale Mosley MD [address] [address] [place] [address] 02/15/2024 10:45 AM EDT Imaging Radiology [address] [place] [address] Pending Results Name Type Priority Associated Diagnoses Date /Time SURGICAL PATHOLOGY Pathology Routine Pancreatic cyst 08/15/2023 11:59 AM EST CYTOLOGY Pathology Routine 08/15/2023 12: 01 AM EST Scheduled Orders Name Type Priority Associated Diagnoses Order Schedule GLUCOSE METER, POINT OF CARE (COMMUNICATION ORDER) Point of Care Testing Routine Perform Now for 1 Occurrences starting 08/15/2023 until 08/15/2023 SURGICAL PATHOLOGY Pathology Routine Pancreatic cyst Release Upon Ordering for 1 Occurrences starting 08/15/2023, 1 completed CYTOLOGY Pathology Routine One Time for 1 Occurrences starting 08/15/2023 until 08/15/2023, 1 completed GLUCOSE, BODY FLUID Lab Routine One T owen for 1 Occurrences starting 08/15/2023 until 08/15/2023 Scheduled Procedures Name Priority Associated Diagnoses Date/Ti me COLONOSCOPY FLEXIBLE PROXIMA L DIAGNOSTIC Recall History [...] this encounter Medical Devices Implanted Type Area Spacer Type Bar And Segment Device Identifier Shelf Expiration Date Model / Serial / Lot Endotine Forehead 3.5mm - [id number] Implanted:Qty: 1 on 02/10/2021 by Charlee Rincon MD at [facility] [employer] [id number] 08/02/2022 [id number] / / [id number] documented as of this encounter Procedures Procedure Name Priority Date/Time Associated Diagnosis Comments CEA, BODY FLUID Routine 08/15/2023 12:09 PM EST AMYLASE, BODY FLUID Routine 08/15/2023 1 2:09 PM EST UPPER ENDOSCOPIC U/S 08/15/2023 11:47 AM EST UPPER GI ENDOSCOPY 08/15/2023 11 :46 AM EST documented in this encounter Results * AMYLASE, BODY FLUID (08/15/2023 12:09 PM EST) Amylase, Body Fluid >7,500 U/L 08/15 9:25 PM EST LABORATORY [facility] Comment: The reference interval(s) and other method performance specifications may not be available for this body fluid. Comparison of this result with the concentration in the blood, serum, or plasma is recommended. The test result must be integrated into the clinical context for interpretation. Please refer to test catalog ([email or web address]/catalog/body_fluids.cfm) for additional interpretive information. This test was developed and its performance characteristics determined by [employer]. It has not been cleared or approved by the [place] Food and Drug Administration. Body Fluid Fluid specimen / Unknown Non-blood Collection / Unknown 08/15/2023 12:09 PM EST 08/15/2023 1:41 PM EST Deepthi Pineda DO LAB FLUID AND STOOL ORDERABLES Performing Organization Address [facility] Co de Phone Number LABORATORY [place] [address] [place] [address] * CEA, BODY FLUID (08/15/2023 12:09 PM EST) CEA, Body Fluid 6.5 ng/mL 9:25 PM EST LABORATORY [facility] Comment: The reference interval(s) and other method performance specifications may not be available for this body fluid. Comparison of this result with the concentration in the blood, serum, or plasma is recommended. The test result must be integrated into the clinical context for interpretation. Please refer to test catalog ([email or web address]/body_fluids.cfm) for additional interpretive information. This test was developed and its performance characteristics determined by [employer]. It has not been cleared or approved by the [place] Food and Drug Administration. Body Fluid (Pancreatic cyst) Non-blood Collection / Unknown 08/15/2023 12:09 PM EST 08/15/2023 1:41 PM EST Deepthi Pineda DO LAB FLUID AND STOOL ORDERABLES Performing Organization Address [facility] Co de Phone Number LABORATORY [address] [address] * UPPER ENDOSCOPIC U/S (08/15/2023 11:47 AM EST) 08/15/2023 11:4 7 AM EST Narrative Procedure Note Evangelist Parada, - 08/15/2023 11:47 AM [facility] Procedure Date: 08/15/2023 11:47 AM Date of : 1955 Admit Type: Outpatient Note Status:Finalized Date of : 1955 Admit Type: Outpatient Age: 67 Room: Advanced Endo Gender: Female Note Status: Finalized Procedure: Upper EUS Indications: Screening for pancreatic neoplasm (Peutz-JeghersSyndrome) Providers: Deepthi Pineda DO (Doctor) Referring MD: Evangelist Parada (Referring MD) Medicines: General Anesthesia Complications: No immediate complications. Estimated blood loss:Minimal. Procedure: Pre-Anesthesia Assessment: - Prior to the procedure, a History and Physicalwas performed, and patient medications, allergies and sensitivities werereviewed. The patient's tolerance of previous anesthesia was reviewed. - The risks and benefits of the procedure and thesedation options and risks were discussed with the patient. All questions wereanswered and informed consent was obtained. - Patient identification and proposed procedurewere verified prior to the procedure by the physician, the nurse and the consolidation accountant.The procedure was verified in the procedure room. - Pre-procedure physical examination revealed nocontraindications to sedation. - ASA Grade Assessment: III - A patient with severesystemic disease. - After reviewing the risks and benefits, thepatient was deemed in satisfactory condition to undergo the procedure. - The anesthesia plan was to use generalanesthesia. - Immediately prior to administration ofmedications, the patient was re-assessed for adequacy to receive sedatives. - The heart rate, respiratory rate, oxygensaturations, blood pressure, adequacy of pulmonary ventilation, and response to care weremonitored throughout the procedure. - The physical status of the patient wasre-assessed after the procedure. After obtaining informed consent, the endoscope waspassed under direct vision. All instruments were visually inspected immediatelybefore and after removal from the patient to ensure they are fully intact. Throughout the procedure, the patient's bloodpressure, pulse, and oxygen saturations were monitored continuously. The [id number] Endoscope([id number]) was introduced through the mouth, and advanced to the third part ofduodenum. The upper EUS was accomplished without difficulty. The patient tolerated theprocedure well. Findings & Specimens: ENDOSONOGRAPHIC FINDING: : There was no sign of significant endosonographic abnormality in theampulla. No pathologic lymphadenopathy and no masses were identified. There was dilation in the common bile duct which measured up to 10mm. Evidence of a previous cholecystectomy was identifiedendosonographically. A cyst was found in the left lobe of the liver and measured 38 mm by30 mm in maximal cross-sectional diameter. The cyst was hypoechoic. It was without septae. The outerwall of the lesion was not seen. No lymphadenopathy seen. There was no sign of significant endosonographic abnormality in theleft adrenal gland. No adrenal gland enlargement was identified. There was no sign of significant endosonographic abnormality in thepancreatic body, pancreatic tail, pancreatic neck and main pancreatic duct. The pancreatic ductmeasured up to 2 mm in diameter. A hypoechoic lesion suggestive of a cyst was identified in theuncinate process of the pancreas. It is not in obvious communication with the pancreatic duct. The lesionmeasured 18 mm by 13 mm in maximal cross-sectional diameter. There were a few compartments withoutseptae. The outer wall of the lesion was not seen. There was no associated mass. There was no internaldebris within the fluid-filled cavity. Diagnostic needle aspiration for fluid was performed. ColorDoppler imaging was utilized prior to needle puncture to confirm a lack of significant vascularstructures within the needle path. One pass was made with the 22 gauge needle using a transduodenalapproach. A stylet was used. The amount of fluid collected was 2 mL. The fluid was clear, serous and watery.Sample(s) were sent for amylase concentration, cytology and CEA. Estimated blood loss was minimal. Impression: - There was no sign of significant pathology in theampulla. - There was dilation in the common bile duct whichmeasured up to 10 mm. - Evidence of a cholecystectomy. - A cyst was found in the left lobe of the liverand measured 38 mm by 30 mm. - Endosonographic images of the left adrenal glandwere unremarkable. - There was no sign of significant pathology in thepancreatic body, pancreatic tail, pancreatic neck and main pancreatic duct. - A cystic lesion was seen in the uncinate processof the pancreas. Fine needle aspiration for fluid performed. Recommendation: - The patient will be observed post-procedure,until all discharge criteria are met. - Advance diet as tolerated today. - Use broad spectrum antibiotics for 5 days. - May restart coumadin in 72 hours. Deepthi Pineda DO 08/15/2023 12:19:54 PM This report has been signed electronically. Evangelist Parada DO GASTRO UPPER * UPPER GI ENDOSCOPY (08/15/2023 11:46 AM EST) 08/15/2023 11:4 6 AM EST Narrative Procedure Note Parada Evangelisttad Gifford - 08/15/2023 11:[address] [facility] Patient Name: Jennifer Howard Procedure Date: 08/15/2023 11:46 AM Date of : 1955 Admit Type: Outpatient Note Status:Finalized Date of : 1955 Admit Type: Outpatient Age: 67 Room: Advanced Endo Gender: Female Note Status: Finalized Procedure: Upper GI endoscopy Indications: Epigastric abdominal pain, Follow-up of Mercer'sesophagus Providers: Deepthi Pineda DO (Doctor) Referring MD: Evangelist Parada (Referring MD) Medicines: General Anesthesia Complications: No immediate complications. Estimated blood loss:Minimal. Procedure: Pre-Anesthesia Assessment: - Prior to the procedure, a History and Physicalwas performed, and patient medications, allergies and sensitivities werereviewed. The patient's tolerance of previous anesthesia was reviewed. - The risks and benefits of the procedure and thesedation options and risks were discussed with the patient. All questions wereanswered and informed consent was obtained. - Patient identification and proposed procedurewere verified prior to the procedure by the physician, the nurse and the consolidation accountant.The procedure was verified in the procedure room. - Pre-procedure physical examination revealed nocontraindications to sedation. - ASA Grade Assessment: III - A patient with severesystemic disease. - After reviewing the risks and benefits, thepatient was deemed in satisfactory condition to undergo the procedure. - The anesthesia plan was to use generalanesthesia. - Immediately prior to administration ofmedications, the patient was re-assessed for adequacy to receive sedatives. - The heart rate, respiratory rate, oxygensaturations, blood pressure, adequacy of pulmonary ventilation, and response to care weremonitored throughout the procedure. - The physical status of the patient wasre-assessed after the procedure. After obtaining informed consent, the endoscope waspassed under direct vision. All instruments were visually inspected immediatelybefore and after removal from the patient to ensure they are fully intact. Throughout the procedure, the patient's bloodpressure, pulse, and oxygen saturations were monitored continuously. The GIF-H180 Endoscope([id number]) was introduced through the mouth, and advanced to the third part ofduodenum. The upper GI endoscopy was accomplished without difficulty. The patienttolerated the procedure well. Findings & Specimens: The examined esophagus was normal. The Z-line was irregular and was found 40 cm from the incisors.Biopsies were taken with a cold forceps for histology. The pathology specimen was placed into Bottle Number2. Estimated blood loss was minimal. Diffuse mild inflammation characterized by congestion (edema),erythema and granularity was found in the entire examined stomach. Biopsies were taken with a cold forcepsfor histology. The pathology specimen was placed into Bottle Number 1. Estimated blood loss wasminimal. The examined duodenum was normal. Impression: - Normal esophagus. - Z-line irregular, 40 cm from the incisors.Biopsied. - Gastritis. Biopsied. - Normal examined duodenum. Recommendation: - Perform an upper endoscopic ultrasound (UEUS)today. - Await pathology results. - Repeat upper endoscopy for surveillance based onpathology results. Deepthi Pineda DO 08/15/2023 11:57:29 AM This report has been signed electronically. Evangelist Parada DO GASTRO UPPER documented in this encounter Visit Diagnoses Diagnosis Pancreatic cyst Cyst and pseudocyst of pancreas documented in this encounter Administered Medications Inactive Administered Medications - up to 3 most recent administrations Medication Order MAR Action Action Date Dose Rate Site isolyte-S pH 7.4 infusion Intravenous, at 100 mL/hr, Plasma-LYTE 148, isolyte-S, and isolyte-S pH 7.4 are considered equivalent - including for MAR barcode scanning., CONTINUOUS, Starting on Tue08/15/23 at 1115, Until Tue08/15/23 at 1718, Pre-Op Continue from Pre-Op 08/15/2023 11:48 AM EST 100 mL/hr New Bag 08/15/2023 11:15 AM EST 100 mL/hr documented in this encounter Active and Recently Administered Medications Times are shown in EST. Continuous Medication Order 08/13/2023 08/14/202308/1508/15/2023 isolyte-S pH 7.4 infusion Intravenous, at 100 mL/hr, Plasma-LYTE 148, isolyte-S, and isolyte-S pH 7.4 are considered equivalent - including for MAR barcode scanning., CONTINUOUS, Starting on Tue08/15/23 at 1115, Until Tue08/15/23 at 1718, Pre-Op 1115 (New Bag - Prov ider: Arie Ayers RN)1148 (Continue from Pre-Op - Provider: Marixa Carmichael CRNA)1218 (Anes Intra-Op Fluid - Provider: Marixa Carmichael CRNA) documented in this encounter Advance Directives Latest [...] and were consensually agreed upon. Care Teams Contribution Solicitor Relationship Specialty Start Date End Date Evangelist Parada DO [address] [place] [address] PCP - General Family Medicine 10/30/20 documented as of this encounter
--- OUTSIDE RECORDS SUMMARY | 2023-12-23 21:07 | External Medical Summary ---
Author Name Unknown Address Unknown Organization [id number]:[facility] [address] Laboratory Report Ordering Provider Test Date Status SEBASTIAN SANTACRUZ V 08/30/2023 11:37:30 Final Warfarin Therapy
INR: 2 .0-3.0 conventional anticoagulation
INR: 2.5- 3.5 high intensity anticoagulation Observation Date Value Abnormality Reference (Units ) Status PT 08/30/2023 11:37:30 22.8 Above high normal 11 .6-15.2 (seconds) Final INR 08/30/2023 11:37:30 2.0 Above high normal 0. 8-1.2 Final Performing Location [facility] [address] [place] [address]
--- OUTSIDE RECORDS SUMMARY | 2023-12-23 21:07 | External Medical Summary | Summary of Care ---
Author Name Unknown Organization [facility] Address [address] [place] [address] Phone [phone] Care Team Providers Care Talent Acquisition Project Manager Name Role Phone Hernan Paradatad Tateallan Primary Care Provider Reason for Visit * Reason Comments Dosage Adjustment Via Phone (anticoag Cl inic) Encounter Details Date Type Department Care Team (Latest Contact Info) Description 08/31/2023 6:15 AM EST Anticoagulation Pharmacy Call Center [phone] [place] [address] [facility] [address] [place] [address] PAF (paroxysmal atrial fibrillation) ([facility])* Allergies Active Allergy Reactions Criticality Noted Date Comments Adhesive Tape 10/24/2002 band-aid type-blisters Anesthetics, Chata Itching 02/26/2015 Allergy to novocaine Codeine Hives 03/20/1998 SOB Fentanyl 12/08/2020 vomiting Phenothiazines Hives 10/24/2002 Phenergan makes pt itch documented as of this encounter (statuses as of 08/31/2023) Medications Medication Sig Dispensed Refills Start Date [...] as of this encounter (statuses as of 08/31/2023) Active Problems Problem Noted Date Diagnosed Date [...] as of this encounter (statuses as of 08/31/2023) Resolved Problems Problem Noted Date Diagnosed Date [...] as of this encounter (statuses as of 08/31/2023) Immunizations Name Administration Dates Next Due COVID-19 mRNA, LNP-s, No Pre serve, 2-Dose Series (AMT) 06/27/2021,06/06/2021 Seasonal Influenza, PF, 6 M & [...] as of this encounter Progress Notes * Jenelle Awan PHARM Tech - 08/31/2023 4:04 PM EST Contacts Type Contact Phone/Fax 08/31/2023 11:01 AM EST Phone (Outgoing) Jennifer Howard (Self) [phone] (M) No Answer/Busy - VM is not set up 08/31/2023 03:58 PM EST Phone (Outgoing) Jennifer Howard (Self) [phone] (M) Subjective Patient Findings Negatives: Signs/symptoms of thrombosis, Signs/symptoms of bleeding, Change in health, Change in alcohol use, Change in activity, Upcoming invasive procedure, Missed doses, Extra doses, Change in medications, Change in diet/appetite, Bruising Advised patient to contact Anticoagulation Clinic if any unusual bruising or bleeding, recent illness, changes in medication, or questions/concerns. PT/INR results, Coumadin dose instructions, and next PT/INR date communicated as noted by Pharmacist: Yes RAJESH TRAN 08/31/2023, 4:04 PM * Lucero Ortiz RPh - 08/31/2023 8:53 AM EST Coumadin Clinic (region specific) Objective Current Warfarin Dose As of 08/31/2023 Warfarin maintenance plan: 5 mg (5 mg x 1) every Mon, Fri; 10 mg (5 mg x 2) all other days INR Result As of 08/31/2023 INR goal: 2.0-3.0 INR used for dosin.0 (08/30/2023) Assessment & Plan Warfarin Plan As of 08/31/2023 Full warfarin instructions: 5 mg every Mon, Fri; 10 mg all other days No change documented: Lucero Ortiz RPh Next INR check: 09/27/2023 Repeat PT/INR in 4 week(s) Weekly dose: not changed Additional Dosing Information: Description Rufinogeremias Tesha 12/23/22: Xarelto & Eliquis too expensive- 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 Lucero Ortiz RPh 08/31/2023, 8:53 AM documented in this encounter Plan of Treatment Upcoming Encounters Date Type Department Care Team (Late st Contact Info) Description 11/10/2023 1:00 PM EST Office Visit Family Practice [facility] [address] [facility] [place] [address] Evangelist Parada DO [address] [place] [address] 11/28/2023 3:45 PM EDT Office Visit Urology, [facility] [address] [place] [address] [facility]ley [facility] [address] [place] [address] 02/15/2024 10:45 AM EDT Imaging Radiology [facility] [address] [place] [address] Scheduled Procedures Name Priority Associated Diagnoses Date/Ti tn ESOPHAGOGASTRODUODENOSCOPY ( EGD), FLEXIBLE, TRANSORAL, DIAGNOSTIC Recall [...] 09/04/2019, Additional history exists Mammogram 02/10/2024 02/09/2023, 03/2023, 01/19/2022, Additional history exists HbA1c 02/22/2024 [...] this encounter Medical Devices Implanted Type Area Retail Banker Device Identifier Shelf Expiration Date Model / Serial / Lot Endotine Forehead 3.5mm - [id number] Implanted:Qty: 1 on 02/10/2021 by Charlee Rincon MD at OR [facility] [place] [employer] [id number] 08/02/2022 [id number] / / [id number] documented as of this encounter Visit Diagnoses [...] and were consensually agreed upon. Care Teams Talent Acquisition Project Manager Relationship Specialty Start Date End Date Evangelist Parada DO [address] [place] [address] PCP - General Family Medicine 10/30/20 documented as of this encounter
--- OUTSIDE RECORDS SUMMARY | 2023-12-23 21:07 | External Medical Summary ---
Author Name Unknown Address Unknown Organization K09:[facility] [place] [address] Laboratory Report Ordering Provider Test Date Status SEBASTIAN SANTACRUZ V 08/02/2023 12:57:06 Final Warfarin Therapy
INR: 2 .0-3.0 conventional anticoagulation
INR: 2.5- 3.5 high intensity anticoagulation Observation Date Value Abnormality Reference (Units ) Status PT 08/02/2023 12:57:06 38.8 Above high normal 11 .6-15.2 (seconds) Final INR 08/02/2023 12:57:06 3.9 Above high normal 0. 8-1.2 Final Performing Location [facility] [address] [place] [address]
--- OUTSIDE RECORDS SUMMARY | 2023-12-23 21:07 | External Medical Summary | Summary of Care ---
Author Name Unknown Organization [facility] Address [address] [place] [address] Phone [phone] Care Team Providers Care Notch Machine Operator Name Role Phone Yulissa Paradar Balta Primary Care Provider Reason for Visit * Reason Comments Outpatient Testing Encounter Details Date Type Department Care Team (Late st Contact Info) Description 08/02/2023 12:50 PM EST Laboratory Laboratory [facility] [address] [place] [id number] [facility] [address] [facility] [place] [address] PAF (paroxysmal atrial fibrillation) ([facility]); 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; correction current use of anticoagulant therapy Allergies Active Allergy Reactions Criticality Noted Date Comments Adhesive Tape 10/24/2002 band-aid type-blisters Anesthetics, Chata Itching 02/26/2015 Allergy to novocaine Codeine Hives 03/20/1998 SOB Fentanyl 12/08/2020 vomiting Phenothiazines Hives 10/24/2002 Phenergan makes pt itch documented as of this encounter (statuses as of 08/02/2023) Medications Medication Sig Dispensed Refills Start Date [...] as of this encounter (statuses as of 08/02/2023) Active Problems Problem Noted Date Diagnosed Date [...] as of this encounter (statuses as of 08/02/2023) Resolved Problems Problem Noted Date Diagnosed Date [...] as of this encounter (statuses as of 08/02/2023) Immunizations Name Administration Dates Next Due COVID-19 [...] Department Care Team (Latest Contact Info) Description 3 6:15 AM EST Anticoagulation Pharmacy Call Center [facility] [phone] [facility] [place] [address] [facility] [address] [facility] [place] [address] 3 12:45 PM EST Hospital Encounter ENDO OSS, Endoscopy Room [facility] [address] [place] [phone] Deepthi Pineda, DO [address] [place] [address] 3 12:45 PM EST - 3 1:45 PM EST Surgery ENDO OSS, Endoscopy Room [facility] [address] [place] [phone] Deephti Pineda, DO [address] [place] [address] ESOPHAGOGASTRODUODENOSCOPY (EGD), FLEXIBLE, TRANSORAL, ENDOSCOPIC ULTRASOUND 4 1:00 PM EST Office Visit Family Practice [facility] [address] [place] [address] Evangelist Parada, DO [address] [place] [address] 4 3:45 PM EDT Office Visit Urology, [facility] [address] [place] [address] Cale Mosley MD [address] [facility] [place] [address] [place] [address] 4 10:45 AM EDT Imaging Radiology [address], [place] [address] [place] [address] Pending Results Name Type Priority Associated Diagnoses Date /Time PT INR Lab Routine PAF (paroxysmal atrial fibrillation) (HCC) 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 08/02/2023 12:57 PM EST Scheduled Procedures Name Priority Associated [...] this encounter Medical Devices Implanted Type Area K9 Handler Device Identifier Shelf Expiration Date Model / Serial / Lot Endotine Forehead 3.5mm - [id number] Implanted:Qty: 1 on 02/10/2021 by Charlee Rincon [place] [facility] [place] [employer] [id number] 08/02/2022 [id number] / / [id number] documented as of this encounter Visit Diagnoses Diagnosis PAF (paroxysmal atrial fibrillation) (HCC) Atrial fibrillation 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 Encounter for therapeutic drug monitoring 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 Care Teams Notch Machine Operator Relationship Specialty Start Date End Date Evangelist Parada DO [facility] [place] [address] PCP - General Family Medicine 10/30/20 documented as of this encounter
--- OUTSIDE RECORDS SUMMARY | 2023-12-23 21:08 | External Medical Summary | Summary of Care ---
Author Name Unknown Organization [facility] Address [address] [place] [address] Phone [phone] Care Team Providers Care Contract Mail Carrier Name Role Phone Vicente Parada DO Primary Care Provider Reason for Visit * Reason Comments eRx-Medication Refill Encounter Details Date Type Department Care Team ([facility] Contact Info) Description 07/21/2023 Refill Family Practice [facility] [address] [place] [address] Vicente Parada DO [address] [facility] [address] Allergies Active Allergy Reactions Criticality Noted Date Comments Adhesive Tape 10/24/2002 band-aid type-blisters Anesthetics, Chata Itching 02/26/2015 Allergy to novocaine Codeine Hives 03/20/1998 SOB Fentanyl 12/08/2020 vomiting Phenothiazines Hives 10/24/2002 Phenergan makes pt itch documented as of this encounter (statuses as of 07/22/2023) Medications Medication Sig Dispensed Refills Start Date [...] on 03/10/2022 Vitamin B-12 1000 MCG Oral TabletIndication s:B12 deficiency Take by mouth 1 Tablet in the morning. 90 Tablet 3 2 Active metFORMIN HCl ER 500 MG Oral Tablet Extended Release 24 Hour (Glucophage XR) Take by mouth 1 Tablet in the morning. 90 Tablet 3 2 Active Lisinopril 5 MG Oral Tablet (Prinivil) Take by mouth 1 Tablet in the morning. 90 Tablet 5 2 Active Clotrimazole-Bet amethasone 1-0.05 % External Cream (Lotrisone)Indic ations:Rash and nonspecific skin eruption APPLY TO AFFECTED AREA TWICE DAILY UNTIL HEALED. USE NO LONGER THAN 28 DAYS 45 g 1 2 Active Methocarbamol 500 MG Oral Tablet (Robamol) Take 1 Tablet by mouth in the morning and 1 Tablet at noon and 1 Tablet before bedtime. 90 Tablet 5 3 Active predniSONE 5 MG (21) Oral Tablet Therapy Pack Take 3 tablets for 3 days, 2 tablets for 4 days and 1 tablet for 4 days as needed for pain 1 Each 2 3 Active Warfarin Sodium 5 MG Oral [...] BEFORE BEDTIME 270 Tablet 3 3 Active Gabapentin 800 MG Oral Tablet (Neurontin) TAKE 1 TABLET BY MOUTH IN THE MORNING AND 1 TABLET AT NOON AND 1 TABLET BEFORE BEDTIME 270 Tablet 0 3 023 Discontinued documented as of this encounter (statuses as of 07/22/2023) Active Problems Problem Noted Date Diagnosed Date [...] as of this encounter (statuses as of 07/22/2023) Resolved Problems Problem Noted Date Diagnosed Date [...] as of this encounter (statuses as of 07/22/2023) Immunizations Name Administration Dates Next Due COVID-19 mRNA, LNP-s, No Pre serve, 2-Dose Series ([facility]) 06/27/2021,06/06/2021 SEASONAL INFLUENZA, PF, 6 M & [...] Telephone Encounter - Vicente Parada DO - 07/22/2023 11:45 AM EST Signed Prescriptions: Disp Refills Gabapentin 800 MG Oral Tablet (Neurontin) 270 Ta*3 Sig: TAKE 1 TABLET BY MOUTH IN THE MORNING, 1 TABLET AT NOON AND 1 TABLET BEFORE BEDTIME Authorizing Provider: VICENTE PARADA * Telephone Encounter - Catrachito [facility] - 07/22/2023 8:29 AM EST Pending Prescriptions: Disp Refills Gabapentin 800 MG Oral Tablet (Neurontin) 270 Ta*3 Sig: TAKE 1 TABLET BY MOUTH IN THE MORNING, 1 TABLET AT NOON AND 1 TABLET BEFORE BEDTIME documented in this encounter Plan of Treatment Upcoming Encounters Date Type Department Care Team (Latest Contact Info) Description 08/15/2023 12:45 PM EST Hospital Encounter ENDO [facility], Endoscopy Room [facility] [address] [place] [address] Deepthi Pineda, DO [address] [place] [address] 08/15/2023 12:45 PM EST - 08/15/2023 1:45 PM EST Surgery ENDO [facility], Endoscopy Room [facility] [address] [place] [address] Deepthi Pineda, DO [address] [place] [address] ESOPHAGOGASTRODUODENOSCOPY (EGD), FLEXIBLE, TRANSORAL, ENDOSCOPIC ULTRASOUND 11/10/2023 1:00 PM EST Office Visit Family Practice [facility] [address] [place] [address] Vicente Parada, DO [address] [place] [address] 11/28/2023 3:45 PM EDT Office Visit Urology, [facility] 132 [facility] [place] [address] Cale Mosley MD [address] [place] [address] [place] [address] 02/15/2024 10:45 AM EDT Imaging Radiology [facility] 1st [facility] 132 [facility] [place] [address] Scheduled Procedures Name Priority Associated Diagnoses Date/Ti [...] this encounter Medical Devices Implanted Type Area Weblogic Administrator Device Identifier Shelf Expiration Date Model / Serial / Lot Endotine Forehead 3.5mm - [id number] Implanted:Qty: 1 on 02/10/2021 [place] Charlee Rincon [place] [facility] [place] [employer] [id number] 08/02/2022 [id number] / / [id number] documented as of this encounter Advance Directives Latest Code Status [...] and were consensually agreed upon. Care Teams Contract Mail Carrier Relationship Specialty Start Date End Date Vicente Parada DO [address] [place] [address] PCP - General Family Medicine 10/30/20 documented as of this encounter
--- OUTSIDE RECORDS SUMMARY | 2023-12-23 21:08 | External Medical Summary | Summary of Care ---
Author Name Unknown Organization [facility] Address [address] [place] [address] Phone [phone] Care Team Providers Care Piping Supervisor Name Role Phone Evangelist Parada Primary Care Provider Reason for Visit * Reason Comments eRx-Medication Refill Encounter Details Date Type Department Care Team ([facility] Contact Info) Description 07/21/2023 Refill Card[facility] [address] [facility] [address] Brittany Bro MD [address] [facility] [place] [address] HTN, goal below 140/90* Allergies Active Allergy Reactions Criticality Noted Date Comments Adhesive Tape 10/24/2002 band-aid type-blisters Anesthetics, Chata Itching 02/26/2015 Allergy to novocaine Codeine Hives 03/20/1998 SOB Fentanyl 12/08/2020 vomiting Phenothiazines Hives 10/24/2002 Phenergan makes pt itch documented as of this encounter (statuses as of 07/25/2023) Medications Medication Sig Dispensed Refills Start Date [...] the morning. 90 Tablet 3 2 Active Clotrimazole-Bet amethasone 1-0.05 % External [...] AT BEDTIME 90 Tablet 3 3 Active Lisinopril 5 MG Oral Tablet (Prinivil)Indica tions:HTN, goal below 140/90 TAKE 1 TABLET BY MOUTH IN THE MORNING 90 Tablet 3 3 Active Lisinopril 5 MG Oral Tablet (Prinivil) Take by mouth 1 Tablet in the morning. 90 Tablet 5 2 023 Discontinued Gabapentin 800 MG Oral Tablet (Neurontin) TAKE 1 TABLET BY MOUTH IN THE MORNING AND 1 TABLET AT NOON AND 1 TABLET BEFORE BEDTIME 270 Tablet 0 3 023 Discontinued documented as of this encounter (statuses as of 07/25/2023) Active Problems Problem Noted Date Diagnosed Date [...] as of this encounter (statuses as of 07/25/2023) Resolved Problems Problem Noted Date Diagnosed Date [...] as of this encounter (statuses as of 07/25/2023) Immunizations Name Administration Dates Next Due COVID-19 mRNA, LNP-s, No Pre serve, 2-Dose Series ([employer]) 06/27/2021,06/06/2021 SEASONAL INFLUENZA, PF, 6 M & [...] encounter Miscellaneous Notes * Telephone Encounter - Brittany Bro MD - 07/25/2023 1:54 PM ESTSigned Prescriptions: Disp Refills Lisinopril 5 MG Oral Tablet (Prinivil) 90 Tab*3 Sig: TAKE 1 TABLET BY MOUTH IN THE MORNING Authorizing Provider: BRITTANY BRO * Telephone Encounter - Vicki Barry COT - 07/22/2023 8:05 AM ESTPending Prescriptions: Disp Refills Lisinopril 5 MG Oral Tablet (Prinivil) 90 Tab*3 Sig: TAKE 1 TABLET BY MOUTH IN THE MORNING * Telephone Encounter - Vicki Barry COT - 07/22/2023 8:04 AM EST Did you pend patient's preferred pharmacy and medication before forwarding?yes Pharmacy: [facility] [address] [address] [address] Pending Prescriptions: Disp Refills Lisinopril 5 MG Oral Tablet (Prinivil) [P*90 Tab*3 Sig: TAKE 1 TABLET BY MOUTH IN THE MORNING Last Visit: 03/10/2022 (in office), Visit date not found (telemedicine) Next Visit: Visit date not found If no future appointments scheduled, and last appointment is greater than a year ago, please schedule patient for a follow-up appointment Last date the medication was ordered: 03-10-2022 Is this request for a controlled substance?No Urine Drug Screen: Results for orders placed or performed in visit on 05/04/22 PAIN MANAGEMENT DRUG PANEL, URINE W/ INTERPRETATION Result Value Compliance Interpretation Based on the medication information provided: The presence of hydrocodone, dihydrocodeine and hydromorphone is CONSISTENT with hydrocodone use. Amphetamine Negative Benzodiazepines Negative Cannabinoids Negative Cocaine Metabolite Negative Fentanyl Negative Hydrocodone / Hydromorphone Refer to confirmation results (A) Methadone Metabolite Negative Morphine / Codeine Refer to confirmation results (A) Oxycodone / Oxymorphone Refer to confirmation results (A) Valid Interpretation Normal Creatinine LUIS 112 Narrative Cutoff Concentrations: Drug Level Amphetamines [...] in Results Review. Patient Phone Numbers mobile [phone] Labs: Lab Results Component Value Date/Time CREAT [...] EST Hospital Encounter ENDO [facility], Endoscopy Room [facility] [address] [place] [phone] Deepthi Pineda, [address] [place] [address] 08/15/2023 12:45 PM EST - 08/15/2023 1:45 PM EST Surgery ENDO [facility], Endoscopy Room [facility] [address] [place] [phone] Deepthi Pineda, [address] [place] [address] ESOPHAGOGASTRODUODENOSCOPY (EGD), FLEXIBLE, TRANSORAL, ENDOSCOPIC ULTRASOUND 11/10/2023 1:00 PM EST Office Visit [facility] [address] [place] [address] Evangelist Parada, [address] [place] [address] 11/28/2023 3:45 PM EDT Office Visit Urology, [facility] 132 [facility] [place] [address] Cale Mosley MD 27 [facility] [place] [address] [place] [address] 02/15/2024 10:45 AM EDT Imaging Radiology [facility] 1st [facility] 132 [facility] [place] [address] Scheduled Procedures Name Priority Associated Diagnoses Date/Ti [...] this encounter Medical Devices Implanted Type Area Chief Digital Officer Device Identifier Shelf Expiration Date Model / Serial / Lot Endotine Forehead 3.5mm - [id number] Implanted:Qty: 1 on 02/10/2021 by Charlee Rincon MD at [place] [facility] [place] [employer] [id number] 08/02/2022 [id number] / / [id number] documented as of this encounter Visit Diagnoses Diagnosis HTN, goal below 140/90- Primary Unspecified essential hypertension Pancreatic cyst Cyst and pseudocyst of pancreas [...] and were consensually agreed upon. Care Teams Piping Supervisor Relationship Specialty Start Date End Date Evangelist Parada DO [address] [place] [address] PCP - General Family Medicine 10/30/20 documented as of this encounter
--- OUTSIDE RECORDS SUMMARY | 2023-12-23 21:08 | External Medical Summary | Summary of Care ---
Author Name Unknown Organization [facility] Address [address] [place] [address] Phone [phone] Care Team Providers Care Enterprise Systems Manager Name Role Phone Evangelist Parada DO Primary Care Provider Reason for Visit * Reason Onset Date Comments Referral 07/13/2023 Encounter Details Date Type Department Care Team ([facility] Contact Info) Description 07/13/2023 Telephone Family Practice [facility] [address] [place] [address] Evangelist Parada DO [address] [facility] [place] [address] Referral Allergies Active Allergy Reactions Criticality Noted Date Comments Adhesive Tape 10/24/2002 band-aid type-blisters Anesthetics, Chata Itching 02/26/2015 Allergy to novocaine Codeine Hives 03/20/1998 SOB Fentanyl 12/08/2020 vomiting Phenothiazines Hives 10/24/2002 Phenergan makes pt itch documented as of this encounter (statuses as of 07/13/2023) Medications Medication Sig Dispensed Refills Start Date [...] the morning. 90 Tablet 3 03/02/2022 Active Lisinopril 5 MG Oral Tablet (Prinivil) Take by mouth 1 Tablet in the morning. 90 Tablet 5 03/10/2022 Active Clotrimazole-Betam ethasone 1-0.05 % External Cream [...] 1 TABLET BEFORE BEDTIME 270 Tablet 0 03/03/2023 Active documented as of this encounter (statuses as of 07/13/2023) Active Problems Problem Noted Date Diagnosed Date [...] as of this encounter (statuses as of 07/13/2023) Resolved Problems Problem Noted Date Diagnosed Date [...] as of this encounter (statuses as of 07/13/2023) Immunizations Name Administration Dates Next Due COVID-19 [...] encounter Miscellaneous Notes * Telephone Encounter - Kaleigh Barrera RN - 07/13/2023 11:30 AM EST Pt has PT referral for vertigo. * Telephone Encounter - Yi Feliz OSA - 07/13/2023 8:37 AM EST Has the patient been seen for this problem? (Y/N)?: Y If No, an appt needs to be scheduled before a referral will be placed (exception: proceed with referral request if referral request is for a yearly routine appointment with speciality) Patient Name: Jennifer Howard Patient Primary care provider: Evangelist Parada, DO Does this need to be an insurance referral (Y/N)?: N If Yes, does the insurance referral need to be placed into the [employer] system? Name of preferred specialist: [facility] Type of specialist: Physical Therapist Location of specialist: [place] Specialist's Phone #: [phone] Specialist's Fax #: [phone] Reason for visit: bad vertigo Date of visit: today, 07/13/23 at 2:30pm Pt is calling to obtain referral to see her Physical therapist today because she woke up with very bad vertigo. Pt states that she needs the referral prior her appt. today at 2:30pm. documented in this encounter Plan of Treatment Upcoming Encounters Date Type Department Care Team (Latest Contact Info) Description 3:10 PM EST Laboratory Laboratory State Olivia Go [address] [place] [address] [place] [address] Estefan[address] [place] [address] 3 6:15 AM EST Anticoagulation Pharmacy Call Center [phone] [place] [address] [facility] 58 60 [facility] [place] [address] 3 12:45 PM EST Hospital Encounter ENDO [facility], Endoscopy Room [facility] [address] [place] [address] Deepthi Pineda, DO [address] [place] [address] 3 12:45 PM EST - 3 1:45 PM EST Surgery ENDO [facility], Endoscopy Room [facility] [address] [place] [phone] Deepthi Pineda, DO [address] [place] [address] ESOPHAGOGASTRODUODENOSCOPY (EGD), FLEXIBLE, TRANSORAL, ENDOSCOPIC ULTRASOUND 4 1:00 PM EST Office Visit Family Practice [facility] [address] [place] [address] Evangelist Parada, DO [address] [place] [address] 4 3:45 PM EDT Office Visit Urology, [facility] [address] [place] [address] Clae Mosley MD [address] [place] [address] [place] [address] 4 10:45 AM EDT Imaging Radiology [address] [place] [address] Scheduled Procedures Name Priority Associated Diagnoses Date/Ti [...] 09/04/2019, Additional history exists Mammogram 02/10/2024 02/09/2023, 01/03, 11/22/2019, Additional history exists HbA1c 02/22/2024 02/21/2023, 02/04, 12/01/2020, Additional history exists Lipid Panel 02/23/2027 02/23/2022, 11/04, 11/23/2019, Additional history exists DXA Scan 01/12/2029 01/12/2022 DTaP,Tdap,and Td Vaccines (3 - Td [...] this encounter Medical Devices Implanted Type Area Splitter Operator Device Identifier Shelf Expiration Date Model / Serial / Lot Endotine Forehead 3.5mm - [id number] Implanted:Qty: 1 on 02/10/2021 by Charlee Rincon MD at OR [facility] [place] [place] [employer] [id number] 08/02/2022 [id number] / / [id number] documented as of this encounter Advance Directives [...] and were consensually agreed upon. Care Teams Enterprise Systems Manager Relationship Specialty Start Date End Date Evangelist Parada DO [address] [place] [address] PCP - General Family Medicine 10/30/20 documented as of this encounter
--- OUTSIDE RECORDS SUMMARY | 2023-12-23 21:08 | External Medical Summary | Summary of Care ---
Author Name Unknown Organization [facility] Address [address] [place] [address] Phone [phone] Care Team Providers Care Automobile Rental Clerk Name Role Phone Evangelist Parada DO Primary Care Provider Reason for Visit * Reason Onset Date Comments Order Request 07/18/2023 Encounter Details Date Type Department Care Team ([facility] Contact Info) Description 07/18/2023 Telephone Family Practice [facility] [address] [place] [address] Evangelist Parada DO [address] [place] [address] Order Request Allergies Active Allergy Reactions Criticality Noted Date Comments Adhesive Tape 10/24/2002 band-aid type-blisters Anesthetics, Chata Itching 02/26/2015 Allergy to novocaine Codeine Hives 03/20/1998 SOB Fentanyl 12/08/2020 vomiting Phenothiazines Hives 10/24/2002 Phenergan makes pt itch documented as of this encounter (statuses as of 07/18/2023) Medications Medication Sig Dispensed Refills Start Date [...] as of this encounter (statuses as of 07/18/2023) Active Problems Problem Noted Date Diagnosed Date [...] as of this encounter (statuses as of 07/18/2023) Resolved Problems Problem Noted Date Diagnosed Date [...] as of this encounter (statuses as of 07/18/2023) Immunizations Name Administration Dates Next Due COVID-19 [...] encounter Miscellaneous Notes * Telephone Encounter - Leticia Chi - 07/18/2023 12:48 PM EST Patient is scheduled for a EGD/EUS on 08/15 w/ Dr. Pineda Dx: Pancreatic cyst [K86.2] Please place order in chart for upcoming procedure Thank you documented in this encounter Plan of Treatment Upcoming Encounters Date Type Department Care Team (Latest Contact Info) Description 3 3:10 PM EST Laboratory Laboratory Scenery [place] [place] [address] [place] [address] [facility] [address] [facility] [place] [address] 3 6:15 AM EST [facility] Pharm[facility] Call Center [phone] [facility] [place] [address] [facility] [address] [facility] [place] [address] 3 12:45 PM EST Hospital Encounter ENDO [facility], Endoscopy Room [facility] [address] [place] [phone] Deepthi Pineda, DO [address] [place] [address] 3 12:45 PM EST - 3 1:45 PM EST Surgery ENDO [facility], Endoscopy Room [facility] [address] [place] [phone] Deepthi Pineda, DO [address] [place] [address] ESOPHAGOGASTRODUODENOSCOPY (EGD), FLEXIBLE, TRANSORAL, ENDOSCOPIC ULTRASOUND 4 1:00 PM EST Office Visit Family Practice [facility] 132 [facility] [place] [address] Evangelist Parada, 132 [facility] [place] [address] 4 3:45 PM EDT Office Visit Urology, [facility] 132 [facility] [place] [address] Cale Mosley MD [address] [place] [address] [place] [address] 4 10:45 AM EDT Imaging Radiology [facility] 1st Floor, [place] 132 [facility] [place] [address] Scheduled Orders Name Type Priority Associated Diagnoses Orde r Schedule US ENDOSCOPIC Medical Imaging Routine Pancreatic cyst Expected: 07/18/2023, Expires: 08/17/2024 Scheduled Procedures Name Priority Associated Diagnoses Date/Ti [...] this encounter Medical Devices Implanted Type Area Warehouse Packaging Supervisor Device Identifier Shelf Expiration Date Model / Serial / Lot Endotine Forehead 3.5mm - [id number] Implanted:Qty: 1 on 02/10/2021 by Charlee Rincon MD at [place] [facility] [place] [employer] [id number] 08/02/2022 [id number] / / [id number] documented as of this encounter Visit Diagnoses Diagnosis Pancreatic cyst- Primary Cyst and pseudocyst of pancreas Pancreatic cyst Cyst and pseudocyst of pancreas [...] and were consensually agreed upon. Care Teams Automobile Rental Clerk Relationship Specialty Start Date End Date Evangelist Parada DO [address] [place] [address] [place] [address] PCP - General Family Medicine 10/30/20 documented as of this encounter
--- OUTSIDE RECORDS SUMMARY | 2023-12-23 21:08 | External Medical Summary | Summary of Care ---
Author Name Unknown Organization [facility] Address [address] [place] [address] Phone [phone] Care Team Providers Care Apron Operator Name Role Phone Evangelist Parada DO Primary Care Provider Reason for Visit * Reason Onset Date Comments Medication Refill 07/21/2023 Encounter Details Date Type Department Care Team ([facility] Contact Info) Description 07/21/2023 Refill Family Practice [facility] [address] [place], [place] [phone] Evangelist Parada DO [address] [place] [address] Allergies Active Allergy Reactions Criticality Noted Date [...] [facility], Endoscopy Room [facility] [address] [place] [address] Deepthi Pineda, DO [address] [place] [address] 08/15/2023 12:45 PM EST - 08/15/2023 1:45 PM EST Surgery ENDO [facility], Endoscopy Room [facility] [address] [place] [phone] Deepthi Pineda, DO [address] [place] [address] ESOPHAGOGASTRODUODENOSCOPY (EGD), FLEXIBLE, TRANSORAL, ENDOSCOPIC ULTRASOUND 11/10/2023 1:00 PM EST Office Visit Family Practice [facility] [address] [place] [address] Evangelist Parada, DO [address] [place] [address] 11/28/2023 3:45 PM EDT Office Visit Urology, [facility] [address] [place] [address] Cale Mosley MD [address] [place] [address] [address] [place] [address] 02/15/2024 10:45 AM EDT Imaging Radiology [facility] 1st [facility] [address] [place] [address] Scheduled Procedures Name Priority Associated Diagnoses Date/Ti [...] this encounter Medical Devices Implanted Type Area Hand Tier Device Identifier Shelf Expiration Date Model / Serial / Lot Endotine Forehead 3.5mm - [id number] Implanted:Qty: 1 on 02/10/2021 by Charlee Rincon MD at OR [facility] [place] [employer] [id number] 08/02/2022 [id number] / / [id number] documented as of this encounter Advance Directives [...] and were consensually agreed upon. Care Teams Apron Operator Relationship Specialty Start Date End Date Evangelist Parada DO [address] [place] [address] PCP - General Family Medicine 10/30/20 documented as of this encounter
[2023-12-23 23:06] LABS: Hematocrit (blood only) 26.3 % (37.0-47.0); Hemoglobin 8.2 g/dl (12.0-16.0)
[2023-12-24 03:59] LABS: Appearance Urine Cloudy (Clear); Bacteria Urine Automated None Seen (None Seen); Bilirubin Urine Negative (Negative); Blood Urine Negative (Negative); Color Urine Yellow; Glucose Urine UA Negative (Negative); Ketones Urine Negative (Negative); Leukocyte Esterase Urine Negative (Negative); Nitrite Urine Negative (Negative); Protein Urine Negative (Negative); RBC Urine Automated 0-2 /hpf (0-2); Specific Gravity Urine 1.013 (1.000-1.030); Urobilinogen Urine Negative (Negative)
--- NOTE | 2023-12-24 05:54 | Electrocardiogram Report ---
Test Reason : Blood Pressure : / mmHG Vent. Rate : 090 BPM Atrial Rate : 090 BPM P-R Int : 174 ms QRS Dur : 096 ms QT Int : 400 ms P-R-T Axes : 072 -22 079 degrees QTc Int : 489 ms Normal sinus rhythm Left ventricular hypertrophy with repolarization abnormality Abnormal ECG When compared with ECG of 12-FEB-2018 16:20, T wave inversion no longer evident in Anterior leads QT has lengthened Confirmed by Dano Rangel ([id number]) on 12/24/2023 5:53:33 AM Referred By: REFERRED SELF Confirmed By:Julius Rangel
[2023-12-24 06:18] LABS: BUN Creatinine Ratio 11.5 (10-20); Calcium 8.6 mg/dl (8.6-10.3); Creatinine Clr Calc Pharmacy 114.8 ml/min; Est GFR (African American) 114.6 ml/min; Est GFR (Non-African American) 98.9 ml/min; Magnesium 1.9 mg/dl (1.7-2.4); Phosphorus 3.9 mg/dl (2.5-4.9); Potassium 3.5 mmol/L (3.5-5.1)
[2023-12-24 06:29] LABS: Hematocrit (blood only) 25.4 % (37.0-47.0); Hemoglobin 7.9 g/dl (12.0-16.0); Mean Corpuscular Hemoglobin 25.9 pg (25.0-34.0); Mean Corpuscular Hgb Conc 31.1 g/dL (32.0-36.0); Mean Corpuscular Volume 83.3 fL (80.0-100.0); Platelet Count 181 K/uL (130-400); RDW Coefficient of Variation 20.9 % (11.5-14.5); RDW Standard Deviation 62.2 fL (36.4-46.3); Red Blood Count 3.05 M/uL (4.20-5.40); White Blood Count 5.85 K/ul (4.8-10.8)
[2023-12-24 06:31] LABS: Prothrombin Time 10.5 Seconds (9.0-12.0)
[2023-12-24 10:24] LABS: Hematocrit (blood only) 27.1 % (37.0-47.0); Hemoglobin 8.2 g/dl (12.0-16.0)
--- NOTE | 2023-12-24 11:26 | Gastroenterology Progress Note ---
Date of Service December 24, 2023 Assessment & Plan (1) Gastritis: (2) Melena: Plan: Await biopsies from EGD Most likely cause of GI bleeding was erosive gastritis in setting of supratherapeutic INR Continue current therapy and supportive care Advance diet as tolerated Admission and Anticipated Discharge Date Admission Date: December 22, 2023 Subjective Feeling much better today. No further melena or overt GI bleeding. She denies any abdominal pain, fevers, chills, nausea, or vomiting. She denies any further complaints. Review of Systems Review of Systems: All systems reviewed & are unremarkable except as noted in Subjective Physical Exam Constitutional: WD/WN, vitals as above Respiratory: normal respiratory effort, lungs clear to auscultation Cardiovascular: RRR, no murmur, no edema Gastrointestinal (Abdomen): normal bowel sounds, soft, nontender, no hepatosplenomegaly Psychiatric: A+Ox3, euthymic affect Results & Data Results & Data Vital Signs (Past 12 Hours) Vital Signs Temp Pulse Resp BP Pulse Ox O2 Del Method O2 Del Method 12/24/23 08:19 36.8 C 60 16 138/78 94 Room Air 12/24/23 03:33 36.7 C 59 L 18 119/70 93 Room Air 12/24/23 00:00 Room Air 12/23/23 23:42 36.5 C 63 16 116/70 98 Room Air PG Care Time/CCT Total # of Minutes Spent Total Time Spent with Patient: Total time spent is greater than 50% in coordination of care (as documented) at patient's floor/unit and/or counseling patient: Coding Level of Care Code 37219 SUB INP/OBS CARE 3/50MIN Diagnoses Gastritis K29.70 Melena K92.1
[2023-12-24] MEDS: Heparin IV Adult Wt-Based Low-Dose *NO* INITIAL Bolus Protocol IV STA (15:08)
[2023-12-24] MEDS: HEPARIN SODIUM/DEXTROSE 25,000 UNITS/500 ML BAG IV SCH (15:08)
[2023-12-24] MEDS: WARFARIN SOD 5 MG TAB PO SCH (16:08)
--- NOTE | 2023-12-24 16:30 | Hospitalist Progress Note ---
Date of Service December 24, 2023 Assessment & Plan (1) UGIB (upper gastrointestinal bleed): Plan: 67-year-old lady with PMH of PAF s/p ablation/ on Coumadin, HTN, HLD, prediabetes, trigeminal neuralgia, migraine, fibromyalgia, IBS, gastritis, diverticulosis, polyps, colonic angiodysplasia, Peutz Jegers syndrome, past tobacco abuse presented with complaint of shortness of breath with exertion going on for about a week, she also noted epigastric discomfort with melanotic stool a few days ago prior to arrival. Patient admits to taking 2 tablets of Excedrin daily on an empty stomach for some time now. 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 No unusual weight loss. No changes in Coumadin regimen. She is being managed for the following: Upper GI bleed ISO Coumadin coagulopathy and Excedrin treatment for migraine History of gastritis: Per EGD 2021. Coumadin coagulopathy Acute blood loss anemia, symptomatic anemia Patient reports taking Excedrin x 2 tablets on empty stomach, denies any Coumadin changes recently Patient coming in with progressive shortness of breath and epigastric pain associated with melanotic stool. Admitting hemoglobin of 4.9, admitting INR greater than 9.5. Admitting CXR with no acute finding, admitting CTAP with no acute finding/there is left-sided nephrolithiasis. GI on board, status post EGD scope 12/22, gastritis noted with normal esophagus and normal duodenum. Biopsies taken -follow biopsy results. Status post 3 unit PRBC, H&H stable around 8. Repeat labs in AM. Transfuse PRBC for less than 7 or symptomatic anemia. Patient counseled to avoid Excedrin and NSAIDs in future. Continue PPI IV, continue to monitor PT/INR. To p.o. PPI in next 1 to 2 days Discussed with GI, resuming anticoagulation. Low-dose aspirin for [place] Coumadin. 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 Follow-up with your PCP office for long-term monitoring. Will likely benefit from outpatient GI evaluation. Fall: Per patient about 3 weeks ago, has hurt her back. Will get an LS x-ray - no acute finding.. Patient declined any Voltaren gel or lidocaine patch. Reports pain under control. Other chronic medical conditions: Continue with/resume home meds as and when able PAF status post ablation on Coumadin. EKG with NSR. Patient takes Coumadin 5 mg Tuesday and Tuesday and 10 mg daily rest of the days. Will continue 5 mg daily for now, patient has been made aware to closely follow-up with Coumadin clinic upon discharge. Within 2 days upon discharge. hypertension, BP stable. Continue home medications hyperlipidemia, on statin Rx. Continue. 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 Anticoagulation resumed. Full code Text document was generated using [employer] voice recognition software. It may contain grammatical or spelling errors. Kindly contact undersigned for clarification of any documentation item in question. Admission and Anticipated Discharge Date Admission Date: December 22, 2023 Subjective Patient was seen and examined at bedside. Patient was sitting up in bed, on room air, NAD. Patient's at bedside who was also updated on plan of care. Patient denies abdominal pain, denies any further bowel movement. Patient denies lightheadedness or dizziness or chest pain or palpitation. Patient reports low back pain under control, x-ray lumbar spine with no acute fracture. Physical Exam Physical Exam: GENERAL: Comfortable, pleasant, obese class II, no respiratory distress SKIN: Pallor, warm HEENT: Pale palpebral conjunctivae, no ptosis, moist buccal mucosa NECK : Supple, no tenderness CHEST : CTA, no tenderness HEART : RRR, no obvious murmurs ABDOMEN: Some distention, epigastric tenderness EXTREMITIES : No LE swelling/tenderness, no other conspicuous deformities noted NEUROLOGIC : Coherent, no facial asymmetry, no other gross focality Results & Data Results & Data Vital Signs (Past 12 Hours) Vital Signs Temp Pulse Pulse Resp BP Pulse Ox O2 Del Method 12/24/23 12:02 36.5 C 61 16 113/69 91 Room Air 12/24/23 08:19 36.8 C 60 16 138/78 94 Room Air 12/24/23 07:30 58 L
[2023-12-24 21:46] LABS: Hematocrit (blood only) 25.2 % (37.0-47.0); Hemoglobin 7.7 g/dl (12.0-16.0)
[2023-12-24 22:08] LABS: ANTI-Xa, UFH(UnfractionatedHep 0.57 IU/ml (0.3-0.7)
[2023-12-25] MEDS: METOCLOPRAMIDE HCL INJ 5 MG/ML 2 ML VIAL IV PRN (00:26)
[2023-12-25 06:51] LABS: Hematocrit (blood only) 25.9 % (37.0-47.0); Hemoglobin 7.8 g/dl (12.0-16.0); Mean Corpuscular Hemoglobin 25.7 pg (25.0-34.0); Mean Corpuscular Hgb Conc 30.1 g/dL (32.0-36.0); Mean Corpuscular Volume 85.2 fL (80.0-100.0); Mean Platelet Volume 10.6 fL (9.4-12.4); Platelet Count 187 K/uL (130-400); Red Blood Count 3.04 M/uL (4.20-5.40); White Blood Count 4.33 K/ul (4.8-10.8)
[2023-12-25 07:05] LABS: Calcium 8.8 mg/dl (8.6-10.3); Creatinine Clr Calc Pharmacy 120.9 ml/min; Est GFR (African American) 116.1 ml/min; Est GFR (Non-African American) 100.2 ml/min; Magnesium 1.9 mg/dl (1.7-2.4); Phosphorus 4.5 mg/dl (2.5-4.9)
[2023-12-25 07:16] LABS: Prothrombin Time 10.9 Seconds (9.0-12.0)
[2023-12-25 07:26] LABS: ANTI-Xa, UFH(UnfractionatedHep 0.79 IU/ml (0.3-0.7)
[2023-12-25 14:39] LABS: Hemoglobin 8.2 g/dl (12.0-16.0)
--- NOTE | 2023-12-25 14:42 | Hospitalist Progress Note ---
Date of Service December 25, 2023 Assessment & Plan (1) UGIB (upper gastrointestinal bleed): Plan: 67-year-old lady with PMH of PAF s/p ablation/ on Coumadin, HTN, HLD, prediabetes, trigeminal neuralgia, migraine, fibromyalgia, IBS, gastritis, diverticulosis, polyps, colonic angiodysplasia, Peutz Jegers syndrome, past tobacco abuse presented with complaint of shortness of breath with exertion going on for about a week, she also noted epigastric discomfort with melanotic stool a few days ago prior to arrival. Patient admits to taking 2 tablets of Excedrin daily on an empty stomach for some time now. 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 No unusual weight loss. No changes in Coumadin regimen. She is being managed for the following: Upper GI bleed ISO Coumadin coagulopathy and Excedrin treatment for migraine History of gastritis: Per EGD 2021. Coumadin coagulopathy Acute blood loss anemia, symptomatic anemia Patient reports taking Excedrin x 2 tablets on empty stomach, denies any Coumadin changes recently Patient coming in with progressive shortness of breath and epigastric pain associated with melanotic stool. Admitting hemoglobin of 4.9, admitting INR greater than 9.5. Admitting CXR with no acute finding, admitting CTAP with no acute finding/there is left-sided nephrolithiasis. GI on board, status post EGD scope 12/22, gastritis noted with normal esophagus and normal duodenum. Biopsies taken -follow biopsy results. Status post 3 unit PRBC, H&H stable around 8. Repeat labs in AM. Transfuse PRBC for less than 7 or symptomatic anemia. Patient counseled to avoid Excedrin and NSAIDs in future. Pt states understanding. Continue PPI IV, continue to monitor PT/INR. To p.o. PPI inessa. Discussed with GI 12/23, resumed anticoagulation. Low-dose hep for bridge, started Coumadin. 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 Follow-up with your PCP office for long-term monitoring. Will likely benefit from outpatient GI evaluation. Fall: Per patient about 3 weeks ago, has hurt her back. Will get an LS x-ray - no acute finding.. Patient declined any Voltaren gel or lidocaine patch. Reports pain under control. Other chronic medical conditions: Continue with/resume home meds as and when able PAF status post ablation on Coumadin. EKG with NSR. Patient takes Coumadin 5 mg Tuesday and Tuesday and 10 mg daily rest of the days. Will continue 5 mg daily for now, patient has been made aware to closely follow-up with Coumadin clinic upon discharge. Within 2 days upon discharge. hypertension, BP stable. Continue home medications hyperlipidemia, on statin Rx. Continue. 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 Anticoagulation as above Full code Text document was generated using [employer] voice recognition software. It may contain grammatical or spelling errors. Kindly contact undersigned for clarification of any documentation item in question. Admission and Anticipated Discharge Date Admission Date: December 22, 2023 Subjective Patient was seen and examined at bedside. Patient was lying in bed, on room air, NAD. Patient's at bedside who was also updated on plan of care. Patient denies abdominal pain, denies any further bowel movement in hospital. Pt encouraged to ambulate in the hallways. Patient denies lightheadedness or dizziness or chest pain or palpitation. Patient reports low back pain under control, x-ray lumbar spine with no acute fracture. Physical Exam Physical Exam: GENERAL: Comfortable, pleasant, obese class II, no respiratory distress SKIN: Pallor, warm HEENT: Pale palpebral conjunctivae, no ptosis, moist buccal mucosa NECK : Supple, no tenderness CHEST : CTA, no tenderness HEART : RRR, no obvious murmurs ABDOMEN: Some distention, epigastric tenderness EXTREMITIES : No LE swelling/tenderness, no other conspicuous deformities noted NEUROLOGIC : Coherent, no facial asymmetry, no other gross focality Results & Data Results & Data Vital Signs (Past 12 Hours) Vital Signs Temp Pulse Pulse Resp BP Pulse Ox O2 Del Method 12/25/23 12:11 36.6 C 66 16 167/84 H 94 Room Air 12/25/23 07:53 36.6 C 59 L 16 159/85 H 93 Room Air 12/25/23 07:20 58 L 12/25/23 03:25 36.4 C L 60 18 138/77 95 Room Air
--- NOTE | 2023-12-25 15:40 | Gastroenterology Progress Note ---
Date of Service December 25, 2023 Assessment & Plan (1) Gastritis: (2) Melena: Plan: Await biopsies from EGD Most likely cause of GI bleeding was erosive gastritis in setting of supratherapeutic INR Stop Protonix gtt and give Protonix 40 mg by mouth twice daily prior to breakfast and dinner. Advance diet as tolerated Admission and Anticipated Discharge Date Admission Date: December 22, 2023 Subjective Feeling better today. Denies any abdominal pain, fevers, chills, nausea, vomiting, diarrhea, hematemesis, melena or hematochezia. She states she was restarted on her Coumadin yesterday. She has no further complaints. Review of Systems Review of Systems: All systems reviewed & are unremarkable except as noted in Subjective Physical Exam Constitutional: WD/WN, vitals as above Respiratory: normal respiratory effort, lungs clear to auscultation Cardiovascular: RRR, no murmur, no edema Gastrointestinal (Abdomen): normal bowel sounds, soft, nontender, no hepatosplenomegaly Psychiatric: A+Ox3, euthymic affect Results & Data Results & Data Vital Signs (Past 12 Hours) Vital Signs Temp Pulse Pulse Resp BP Pulse Ox O2 Del Method 12/25/23 15:35 64 12/25/23 12:11 36.6 C 66 16 167/84 H 94 Room Air 12/25/23 07:53 36.6 C 59 L 16 159/85 H 93 Room Air 12/25/23 07:20 58 L PG Care Time/CCT Total # of Minutes Spent Total Time Spent with Patient: Total time spent is greater than 50% in coordination of care (as documented) at patient's floor/unit and/or counseling patient: Coding Level of Care Code 51831 SUB INP/OBS CARE 3/50MIN Diagnoses Gastritis K29.70 Melena K92.1
[2023-12-25] MEDS: PANTOprazole 40 MG TAB PO SCH (19:54)
[2023-12-26 06:50] LABS: Hematocrit (blood only) 27.4 % (37.0-47.0); Hemoglobin 8.1 g/dl (12.0-16.0); Mean Corpuscular Hemoglobin 24.8 pg (25.0-34.0); Mean Corpuscular Hgb Conc 29.6 g/dL (32.0-36.0); Mean Platelet Volume 10.4 fL (9.4-12.4); Platelet Count 196 K/uL (130-400); RDW Coefficient of Variation 20.7 % (11.5-14.5); RDW Standard Deviation 63.6 fL (36.4-46.3); Red Blood Count 3.26 M/uL (4.20-5.40); White Blood Count 4.62 K/ul (4.8-10.8)
[2023-12-26 07:25] LABS: ANTI-Xa, UFH(UnfractionatedHep 0.53 IU/ml (0.3-0.7); INR 1.1 (0.9-1.1); Prothrombin Time 11.7 Seconds (9.0-12.0)
[2023-12-26] MEDS: WARFARIN SOD 3 MG TAB PO STA (09:29)
--- NOTE | 2023-12-26 15:23 | Hospitalist Progress Note ---
Date of Service December 26, 2023 Assessment & Plan (1) UGIB (upper gastrointestinal bleed): Plan: 67-year-old lady with PMH of PAF s/p ablation/ on Coumadin, HTN, HLD, prediabetes, trigeminal neuralgia, migraine, fibromyalgia, IBS, gastritis, diverticulosis, polyps, colonic angiodysplasia, Peutz Jegers syndrome, past tobacco abuse presented with complaint of shortness of breath with exertion going on for about a week, she also noted epigastric discomfort with melanotic stool a few days ago prior to arrival. Patient admits to taking 2 tablets of Excedrin daily on an empty stomach for some time now. 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 No changes in Coumadin regimen. She is being managed for the following: Upper GI bleed ISO Coumadin coagulopathy and Excedrin treatment for migraine History of gastritis: Per EGD 2021. Coumadin coagulopathy Acute blood loss anemia, symptomatic anemia Patient reports taking Excedrin x 2 tablets on empty stomach, denies any Coumadin changes recently Patient coming in with progressive shortness of breath and epigastric pain associated with melanotic stool. Admitting hemoglobin of 4.9, admitting INR greater than 9.5. Admitting CXR with no acute finding, admitting CTAP with no acute finding/there is left-sided nephrolithiasis. GI on board, status post EGD scope 12/22, gastritis noted with normal esophagus and normal duodenum. Biopsies taken --->>no diagnostic abnormality, negative for H. pylori. Status post 3 unit PRBC, H&H stable around 8. Repeat labs in AM. Transfuse PRBC for less than 7 or symptomatic anemia. Patient counseled to avoid Excedrin and NSAIDs in future. Pt states understanding. Continue p.o. PPI, continue to monitor PT/INR. Discussed with GI 12/23, resumed anticoagulation. Low-dose hep for bridge, continue with Coumadin. Additional dose of 3 mg Coumadin given today. Follow PT/INR in AM. 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 Follow-up with your PCP office for long-term monitoring. Will likely benefit from outpatient GI evaluation. Fall: Per patient about 3 weeks ago, has hurt her back. Will get an LS x-ray - no acute finding.. Patient declined any Voltaren gel or lidocaine patch. Reports pain under control. Other chronic medical conditions: Continue with/resume home meds as and when able PAF status post ablation on Coumadin. EKG with NSR. Patient takes Coumadin 5 mg Tuesday and Tuesday and 10 mg daily rest of the days. Will continue 5 mg daily for now, patient has been made aware to closely follow-up with Coumadin clinic upon discharge. Within 2 days upon discharge. hypertension, BP stable. Continue home medications hyperlipidemia, on statin Rx. Continue. 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 Anticoagulation as above Full code Text document was generated using [employer] voice recognition software. It may contain grammatical or spelling errors. Kindly contact undersigned for clarification of any documentation item in question. Admission and Anticipated Discharge Date Admission Date: December 22, 2023 Subjective Patient was seen and examined at bedside. Patient was lying in bed, on room air, NAD. Patient reports not feeling well and discomfort in the upper abdominal area but nowhere similar to presenting symptoms. Patient finally did move bowels today, no black or blood in the stool. Otherwise patient reports no complaints. Has been able to eat okay. Physical Exam Physical Exam: GENERAL: Comfortable, pleasant, obese class II, no respiratory distress SKIN: Pallor, warm HEENT: Pale palpebral conjunctivae, no ptosis, moist buccal mucosa NECK : Supple, no tenderness CHEST : CTA, no tenderness HEART : RRR, no obvious murmurs ABDOMEN: Some distention, epigastric tenderness EXTREMITIES : No LE swelling/tenderness, no other conspicuous deformities noted NEUROLOGIC : Coherent, no facial asymmetry, no other gross focality Results & Data Results & Data Vital Signs (Past 12 Hours) Vital Signs Temp Pulse Pulse Resp BP BP Pulse Ox 12/26/23 14:48 61 12/26/23 10:52 36.9 C 59 L 16 171/83 H 96 12/26/23 07:28 12/26/23 07:18 36.8 C 60 14 155/87 H 96 12/26/23 07:05 58 L 12/26/23 03:34 36.4 C L 60 18 152/79 H 93 O2 Del Method 12/26/23 14:48 12/26/23 10:52 Room Air 12/26/23 07:28 Room Air 12/26/23 07:18 Room Air 12/26/23 07:05 12/26/23 03:34 Room Air
[2023-12-27 06:29] LABS: Hematocrit (blood only) 25.3 % (37.0-47.0); Hemoglobin 7.6 g/dl (12.0-16.0); Mean Corpuscular Hemoglobin 25.3 pg (25.0-34.0); Mean Corpuscular Volume 84.3 fL (80.0-100.0); Mean Platelet Volume 10.4 fL (9.4-12.4); Platelet Count 191 K/uL (130-400); RDW Standard Deviation 61.7 fL (36.4-46.3); White Blood Count 4.05 K/ul (4.8-10.8)
[2023-12-27 06:46] LABS: Calcium 8.6 mg/dl (8.6-10.3); Creatinine Clr Calc Pharmacy 120.6 ml/min; Est GFR (African American) 116.1 ml/min; Est GFR (Non-African American) 100.2 ml/min; Magnesium 2.1 mg/dl (1.7-2.4)
[2023-12-27 07:26] LABS: INR 1.2 (0.9-1.1); Prothrombin Time 13.1 Seconds (9.0-12.0)
[2023-12-27] MEDS: WARFARIN SOD 3 MG TAB PO ONE (12:31)
--- NOTE | 2023-12-27 14:07 | Hospitalist Progress Note ---
Date of Service December 27, 2023 Assessment & Plan (1) UGIB (upper gastrointestinal bleed): Plan: 67-year-old lady with PMH of PAF s/p ablation/ on Coumadin, HTN, HLD, prediabetes, trigeminal neuralgia, migraine, fibromyalgia, IBS, gastritis, diverticulosis, polyps, colonic angiodysplasia, Peutz Jegers syndrome, past tobacco abuse presented with complaint of shortness of breath with exertion going on for about a week, she also noted epigastric discomfort with melanotic stool a few days ago prior to arrival. Patient admits to taking 2 tablets of Excedrin daily on an empty stomach for some time now. 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 No changes in Coumadin regimen. She is being managed for the following: Upper GI bleed ISO Coumadin coagulopathy and Excedrin treatment for migraine History of gastritis: Per EGD 2021. Coumadin coagulopathy Acute blood loss anemia, symptomatic anemia Patient reports taking Excedrin x 2 tablets on empty stomach, denies any Coumadin changes recently Patient coming in with progressive shortness of breath and epigastric pain associated with melanotic stool. Admitting hemoglobin of 4.9, admitting INR greater than 9.5. Admitting CXR with no acute finding, admitting CTAP with no acute finding/there is left-sided nephrolithiasis. GI on board, status post EGD scope 12/22, gastritis noted with normal esophagus and normal duodenum. Biopsies taken --->>no diagnostic abnormality, negative for H. pylori. Status post 3 unit PRBC, H&H slight drop today, follow closely in the afternoon and tomorrow. Follow-up bowel movement. Repeat labs in AM. Transfuse PRBC for less than 7 or symptomatic anemia. Patient advised to avoid Excedrin and NSAIDs in future. Pt states understanding. Continue p.o. PPI, continue to monitor PT/INR. Discussed with GI 12/23, resumed anticoagulation. Low-dose hep for bridge, continue with Coumadin. Additional dose of 3 mg Coumadin given 12/25 and 12/26. Follow PT/INR in AM. 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 Follow-up with your PCP office for long-term monitoring. Will likely benefit from outpatient GI evaluation. Fall: Per patient about 3 weeks ago, has hurt her back. Will get an LS x-ray - no acute finding.. Patient declined any Voltaren gel or lidocaine patch. Reports pain under control. Other chronic medical conditions: Continue with/resume home meds as and when able PAF status post ablation on Coumadin. EKG with NSR. Patient takes Coumadin 5 mg Tuesday and Tuesday and 10 mg daily rest of the days. Will continue 5 mg sahil ly for now, patient has been made aware to closely follow-up with Coumadin clinic upon discharge. Within 2 days upon discharge. hypertension, BP stable. Continue home medications hyperlipidemia, on statin Rx. Continue. 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 Anticoagulation as above Full code Text document was generated using [employer] voice recognition software. It may contain grammatical or spelling errors. Kindly contact undersigned for clarification of any documentation item in question. Admission and Anticipated Discharge Date Admission Date: December 22, 2023 Subjective Patient was seen and examined at bedside. Patient was lying in bed, on room air, NAD. Patient reports feeling better today but is tired. Last bowel movement was yesterday, no black stool or blood in stool. No further bowel movement. Hemoglobin slightly down, will repeat H&H in the evening and in the morning. Otherwise patient reports no complaints. Has been able to eat okay. Physical Exam Physical Exam: GENERAL: Comfortable, pleasant, obese class II, no respiratory distress SKIN: Pallor, warm HEENT: Pale palpebral conjunctivae, no ptosis, moist buccal mucosa NECK : Supple, no tenderness CHEST : CTA, no tenderness HEART : RRR, no obvious murmurs ABDOMEN: No distention, no tenderness EXTREMITIES : No LE swelling/tenderness, no other conspicuous deformities noted NEUROLOGIC : Coherent, no facial asymmetry, no other gross focality Results & Data Results & Data Vital Signs (Past 12 Hours) Vital Signs Temp Pulse Pulse Resp BP BP Pulse Ox 12/27/23 11:08 36.6 C 61 14 156/82 H 97 12/27/23 08:00 12/27/23 07:28 36.6 C 58 L 14 164/78 H 95 12/27/23 07:00 55 L 12/27/23 03:33 36.9 C 64 18 148/79 H 93 O2 Del Method 12/27/23 11:08 Room Air 12/27/23 08:00 Room Air 12/27/23 07:28 Room Air 12/27/23 07:00 12/27/23 03:33 Room Air
[2023-12-27 16:17] LABS: Hematocrit (blood only) 28.5 % (37.0-47.0); Hemoglobin 8.3 g/dl (12.0-16.0)
[2023-12-28 08:36] LABS: Hematocrit (blood only) 28.8 % (37.0-47.0); Hemoglobin 8.6 g/dl (12.0-16.0); Mean Corpuscular Hemoglobin 24.9 pg (25.0-34.0); Mean Corpuscular Hgb Conc 29.9 g/dL (32.0-36.0); Mean Corpuscular Volume 83.2 fL (80.0-100.0); Mean Platelet Volume 10.2 fL (9.4-12.4); Platelet Count 217 K/uL (130-400); RDW Coefficient of Variation 19.9 % (11.5-14.5); RDW Standard Deviation 60.4 fL (36.4-46.3); Red Blood Count 3.46 M/uL (4.20-5.40); White Blood Count 4.36 K/ul (4.8-10.8)
[2023-12-28 09:03] LABS: ANTI-Xa, UFH(UnfractionatedHep 0.24 IU/ml (0.3-0.7); INR 1.4 (0.9-1.1); Prothrombin Time 15.3 Seconds (9.0-12.0)
[2023-12-28 09:12] LABS: Calcium 9.2 mg/dl (8.6-10.3); Potassium 4.4 mmol/L (3.5-5.1)
[2023-12-28 09:18] LABS: BUN Creatinine Ratio 25.6 (10-20); Creatinine Clr Calc Pharmacy 140.8 ml/min; Est GFR (Non-African American) 105.2 ml/min
--- NOTE | 2023-12-28 12:23 | Discharge Summary ---
Date of Service December 28, 2023 Admission HPI Per Admitting Provider History obtained from patient and records. 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 Last confinement 2016 for A-fib with RVR. 3 weeks ago, patient fell down after her dog jumped on her. Achy pain in her bottom. No head trauma or LOC. Last week, patient noted shortness of breath worse on exertion. Few days ago, patient noted epigastric discomfort followed by melanotic stools 2 days ago. Bilious emesis. Migraine attack somewhat more intense. Transient chest pressure and dizziness symptoms. Patient admits to taking 2 tablets of Excedrin daily on an empty stomach for some time now. No recent changes in Coumadin regimen. Last outpatient INR from 2 weeks ago was 3.1. No unusual weight loss. Patient consulted ER for evaluation. IV Protonix and Pepcid, Kcentra, vitamin K, 2 units PRBC transfused at the ER for UGIB. 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 Admission Exam Per Admitting Provider GENERAL: Comfortable, pleasant, obese, no respiratory distress SKIN: Pallor, warm HEENT: Pale palpebral conjunctivae, no ptosis, dry buccal mucosa NECK : Supple, no tenderness CHEST : CTA, no tenderness HEART : RRR, no obvious murmurs ABDOMEN: Some distention, epigastric tenderness EXTREMITIES : No LE swelling/tenderness, no other conspicuous deformities noted NEUROLOGIC : Coherent, no facial asymmetry, no other gross focality Principal Diagnosis UGI bleed ISO Coumadin coagulopathy and Excedrin treatment for migraine History of gastritis Coumadin coagulopathy Acute blood loss anemia, symptomatic anemia Abnormal CTAP, cystic lesion in the pancreatic head Fall Discharge Exam GENERAL: Comfortable, pleasant, obese class II, no respiratory distress SKIN: Pallor, warm HEENT: Pale palpebral conjunctivae, no ptosis, moist buccal mucosa NECK : Supple, no tenderness CHEST : CTA, no tenderness HEART : RRR, no obvious murmurs ABDOMEN: No distention, no tenderness EXTREMITIES : No LE swelling/tenderness, no other conspicuous deformities noted NEUROLOGIC : Coherent, no facial asymmetry, no other gross focality Discharge Data Allergies Allergy/AdvReac Type Severity Reaction Status Date / Time adhesive Allergy Mild RASH Verified 12/23/23 10:53 promethazine Allergy Mild ITCHING Verified 12/23/23 10:53 codeine Allergy Unknown CAN'T Verified 12/23/23 10:53 REMEMBER fentanyl AdvReac Nausea Verified 12/23/23 10:53 ANESTHESIA Allergy Intermediate VOMITING, Uncoded 12/23/23 10:53 NEASUA Consultations 12/22/23 20:00 ED Decision to Admit Stat 12/22/23 23:34 Consult Gastroenterology Routine Procedures Performed Operation Date: 12/23/23 16:30 Actual Procedures p EGD Biopsy Cytology - Gavino Jean Case, DO Ordered Studies 12/22/23 20:55 CT Abd and Pelvis [CT abd pelvis IV con only] Stat CT head/brain wo con Stat Hospital Course (1) UGIB (upper gastrointestinal bleed): 67-year-old lady with PMH of PAF s/p ablation/ on Coumadin, HTN, HLD, prediabetes, trigeminal neuralgia, migraine, fibromyalgia, IBS, gastritis, diverticulosis, polyps, colonic angiodysplasia, Peutz Jegers syndrome, past tobacco abuse presented with complaint of shortness of breath with exertion going on for about a week, she also noted epigastric discomfort with melanotic stool a few days ago prior to arrival. Patient admits to taking 2 tablets of Excedrin daily on an empty stomach for some time now. 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 No unusual weight loss. No changes in Coumadin regimen. She was managed for the following: Upper GI bleed ISO Coumadin coagulopathy and Excedrin treatment for migraine History of gastritis: Per EGD 2021. Coumadin coagulopathy Acute blood loss anemia, symptomatic anemia Patient reports taking Excedrin x 2 tablets on empty stomach, denies any Coumadin changes recently Patient coming in with progressive shortness of breath and epigastric pain associated with melanotic stool. Admitting hemoglobin of 4.9, admitting INR greater than 9.5. Admitting CXR with no acute finding, admitting CTAP with no acute finding/there is left-sided nephrolithiasis. GI evaluated, status post EGD scope 12/22, gastritis noted with normal esophagus and normal duodenum. Biopsies taken --->>no diagnostic abnormality, negative for H. pylori. Status post 3 unit PRBC, H&H better today, no black stool or blood in stool while in the hospital. Repeat labs in a week time with the PCP visit. Patient has been made aware. Patient has been made aware to return to the hospital if having darker stool or blood in the stool associated with dizziness/chest pain/palpitation. Patient advised to avoid Excedrin and NSAIDs in future. Pt states understanding. Continue p.o. PPI, continue to monitor PT/INR. Patient to follow-up with GI as an outpatient. Discussed with GI 12/23, resumed anticoagulation. Low-dose hep for bridge, continue with Coumadin. Additional dose of 3 mg Coumadin given 12/25 and 12/26. Patient will be discharged on Coumadin 7.5 mg daily and Lovenox bridge. Patient has been made aware to follow-up with Coumadin clinic and 2 days time and further recommendation on anticoagulation from Coumadin clinic. Patient voiced understanding. 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 Follow-up with your PCP office for long-term monitoring. Will likely benefit from outpatient GI evaluation. Fall: Per patient about 3 weeks ago, has hurt her back. Will get an LS x-ray - no acute finding.. Patient declined any Voltaren gel or lidocaine patch. Reports pain under control. Other chronic medical conditions: Continue with/resume home meds as and when able PAF status post ablation on Coumadin. EKG with NSR. Patient takes Coumadin 5 mg Tuesday and Tuesday and 10 mg daily rest of the days. Will continue 7.5 mg daily for now, patient has been made aware to closely follow-up with Coumadin clinic upon discharge. Within 2 days upon discharge. hypertension, BP stable. Continue home medications hyperlipidemia, on statin Rx. Continue. 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 Anticoagulation as above Full code Patient is being discharged to home with following instruction at the point of discharge: Follow-up with your primary care physician within a week time and likely you will need labs CBC/CMP/magnesium/phosphorus. You were admitted with GI bleeding, you underwent EGD scope and noted to have erosive gastritis in the setting of supratherapeutic INR. You will continue pantoprazole 40 mg daily twice a day, follow-up with GI in 1 to 2 months time. Avoid Excedrin and NSAIDs as discussed at the bedside. Your blood thinner was held initially at presentation due to GI bleed, now that we have resumed your Coumadin at 7.5 mg daily and your Coumadin number is 1.4 today. You will be discharged on subcutaneous Lovenox for next 2 to 3 days, you will need to visit Coumadin clinic on 12/30/2023 to repeat your PT/INR and further recommendation from the Coumadin clinic at that point. This is very important. If you have darker stool or blood in the stool, you need to report to emergency immediately. As discussed at the bedside, your amlodipine has been increased from 2.5 mg at bedtime to 5 mg at bedtime and lisinopril increased from 5 mg daily to 10 mg daily as your blood pressure has been higher while in hospital. Measure your blood pressure twice a day, maintain a log to take to your primary care physician visit for long-term monitoring/management of your blood pressure. During inpatient abdominal imaging, there was a cystic lesion noted in the pancreatic head concerning for IPMN versus mucinous cystic neoplasm. You will benefit from outpatient GI evaluation, coordinate with your PCP office to set up the referral. You will be on heparin drip until 4:30 PM today, start your first dose of Lovenox from 6:30 to 7 PM today. Take your medications as prescribed. Please make sure that you are able to get your medications today by calling your pharmacy before you leave the hospital so that your treatment continuity is not broken. Text document was generated using [employer] voice recognition software. It may contain grammatical or spelling errors. Kindly contact undersigned for clarification of any documentation item in question. Home Health Attestation I certify that this patient is under my care and that I, or a physicians temporary administrative assistant working with me, had a face to-face encounter that meets the home health [id number] encounter requirements with this patient. The encounter with the patient was in whole, or in part, for the following medical condition, which is the primary reason for home health care (list me dical condition): I certify that, based on my findings, the following services are medically necessary home health services: My clinical findings support the need for the above services because: Further, I certify that my clinical findings support that this patient is homebound (i.e. absences from home require considerable and taxing effort and are for medical reasons or spiritism services or infrequently or of short duration when for other reasons) because: Certification for Home Health Services: Based on the above findings, I certify that this patient is confined to the home and needs intermittent shelter care, physical therapy and/or speech th erapy or continues to need occupational therapy. The patient is under my care, and I have initiated the establishment of the plan of care. This patient will be followed by a physician who will periodically review the plan of care. Total Time Total Time Spent Total Time Spent (In Minutes): 45 Discharge Plan Discharge Items Patient Disposition: Home - Self-Care Reason For Visit: ANEMIA; GI BLEED Discharge Diagnosis: UGI bleed ISO Coumadin coagulopathy and Excedrin treatment for migraine History of gastritis Coumadin coagulopathy Acute blood loss anemia, symptomatic anemia Abnormal CTAP, cystic lesion in the pancreatic head Fall Condition on Discharge: Serious Activity: Resume your previous activity Non-emergency contact: Primary Care Provider Call non-emergency contact if: you have any medication questions, your symptoms worsen and your temperature is above 101.5 Follow-up/Referrals: Evangelist Parada DO [Primary Care Provider] - (Date & Time 01/04/2024 11:20 AM Provider Evangelist Parada DO Department [facility] ) Diet: Heart Healthy and Low Sodium (2gm) Addtl Attending Provider Instructions: Follow-up with your primary care physician within a week time and likely you will need labs CBC/CMP/magnesium/phosphorus. You were admitted with GI bleeding, you underwent EGD scope and noted to have erosive gastritis in the setting of supratherapeutic INR. You will continue pantoprazole 40 mg daily twice a day, follow-up with GI in 1 to 2 months time. Avoid Excedrin and NSAIDs as discussed at the bedside. Your blood thinner was held initially at presentation due to GI bleed, now that we have resumed your Coumadin at 7.5 mg daily and your Coumadin number is 1.4 today. You will be discharged on subcutaneous Lovenox for next 2 to 3 days, you will need to visit Coumadin clinic on 12/30/2023 to repeat your PT/INR and further recommendation from the Coumadin clinic at that point. This is very important. If you have darker stool or blood in the stool, you need to report to emergency immediately. As discussed at the bedside, your amlodipine has been increased from 2.5 mg at bedtime to 5 mg at bedtime and lisinopril increased from 5 mg daily to 10 mg daily as your blood pressure has been higher while in hospital. Measure your blood pressure twice a day, maintain a log to take to your primary care physician visit for long-term monitoring/management of your blood pressure. During inpatient abdominal imaging, there was a cystic lesion noted in the pancreatic head concerning for IPMN versus mucinous cystic neoplasm. You will benefit from outpatient GI evaluation, coordinate with your PCP office to set up the referral. You will be on heparin drip until 4:30 PM today, start your first dose of Lovenox from 6:30 to 7 PM today. Take your medications as prescribed. Please make sure that you are able to get your medications today by calling your pharmacy before you leave the hospital so that your treatment continuity is not broken. Pending Studies at Discharge: No Stand-Alone Forms: My [facility], Smoking Cessation Medications and DC Order Prescriptions: New warfarin 7.5 mg tablet 7.5 mg PO DAILY Qty: 30 0RF amlodipine [Norvasc] 5 mg Tablet 5 mg PO HS Qty: 30 0RF lisinopril 10 mg Tablet 10 mg PO QAM Qty: 30 0RF pantoprazole 40 mg Tablet,Delayed Release (Dr/Ec) 40 mg PO BID Qty: 60 0RF enoxaparin 100 mg/mL syringe 100 mg subcut Q12H 3 Days Qty: 10 0RF Continued sotalol 120 mg tablet 120 mg PO AMHS gabapentin 800 mg tablet 800 mg PO TID clotrimazole-betamethasone 1-0.05 % Cream 1 applic TOPICAL BID PRN (Reason: flare ups) furosemide [Lasix] 20 mg Tablet 20 mg PO DIRECTED PRN (Reason: Edema) albuterol sulfate 90 mcg/actuation Hfa Aerosol Inhaler 1 puff INHALATION QID PRN (Reason: Shortness Of Breath Or Wheezing) ezetimibe 10 mg tablet 10 mg PO QAM rosuvastatin 20 mg tablet 20 mg PO QAM Discontinued amlodipine 2.5 mg tablet 2.5 mg PO HS warfarin 5 mg tablet 5 - 10 mg PO DIRECTED Rx Instructions: as directed by anti-coagulation clinic. lisinopril 5 mg tablet 5 mg PO QAM Excedrin Extra Strength 250-250-65 mg Tablet 1 tab PO Q6H PRN (Reason: Migraine Headache) Discharge Orders: Discharge Order (Routine); Ordered 12/28/23 Ordered By: Jerry Salinas Admission Data Admit Date/Time: 12/22/23 23:02 Attending Provider: Jerry Salinas Admit Provider: Ashish Alaniz Primary Care Provider: Evangelist Parada Other Providers: Ashish Alaniz; Devin Blanton; Gavino Aguila; Elina Corral; Yi Lazo; Kenya Holt; Chaparrita Westfall; Lani De Leon; Mario Nance; Elier Mast; Deepthi Pineda; Zulema Buchanan; Ge Napier; Chela Ruelas; Annia Pace; Perla Cervantes; Elsie Hylton; Archana Aranda; Willi Gagnon; Arnie Campos; Cecilia Stoddard; Malachi Kay Jr
[2023-12-28] MEDS: lisinopril 5 MG TAB PO ONE (12:33)
[2023-12-28] MEDS: ACETAMINOPHEN 325 MG TAB PO PRN (12:35)
[2023-12-28 16:49] LABS: ANTI-Xa, UFH(UnfractionatedHep 0.28 IU/ml (0.3-0.7)
[2023-12-28] MEDS ORDERED: amLODIPine BESYLATE 5 MG TAB PO SCH (21:00)
[2023-12-29] MEDS ORDERED: lisinopril 10 MG TAB PO SCH (09:00)
== END 2023-12-28 17:29 | disposition home or self-care (01) | DRG 813 ==
LOC: ED 18:33 → EDINP 23:02 → 2N 23:34

== ENCOUNTER 2024-04-13 08:32 | Inpatient (IN) ==
--- NOTE | 2024-03-28 13:03 | PAT Medication Instructions ---
Medication Instructions Date of Service March 28, 2024 Home Medications Medication Instructions Recorded amlodipine 5 mg tablet (Norvasc) 5 mg PO HS #30 tabs 12/28/23 lisinopril 10 mg tablet 10 mg PO QAM #30 tabs 12/28/23 warfarin 7.5 mg tablet 7.5 mg PO DAILY #30 tabs 12/28/23 albuterol sulfate 90 mcg/actuation aerosol inhaler 1 puff inhalation QID PRN clotrimazole-betamethasone 1 %-0.05 % topical cream 1 applic topical BID PRN ezetimibe 10 mg tablet 10 mg PO QAM furosemide 20 mg tablet (Lasix) 20 mg PO DIRECTED PRN gabapentin 800 mg tablet 800 mg PO TID rosuvastatin 20 mg tablet 20 mg PO QAM sotalol 120 mg tablet 120 mg PO AMHS amlodipine 5 mg tablet (Norvasc) 5 mg PO HS lisinopril 10 mg tablet 10 mg PO QAM warfarin 7.5 mg tablet 7.5 mg PO DAILY ASK your prescriber and surgeon warfarin 7.5 mg tablet 7.5 mg PO DAILY STOP taking 24 hours before surgery clotrimazole-betamethasone 1 %-0.05 % topical cream 1 applic topical BID PRN DO NOT take the morning of surgery furosemide 20 mg tablet (Lasix) 20 mg PO DIRECTED PRN lisinopril 10 mg tablet 10 mg PO QAM Take morning of surgery With a small sip of water, OTHERWISE NOTHING TO EAT OR DRINK AFTER MIDNIGHT: albuterol sulfate 90 mcg/actuation aerosol inhaler 1 puff inhalation QID PRN(use if needed; please bring with you to hospital day of surgery if possible) ezetimibe 10 mg tablet 10 mg PO QAM gabapentin 800 mg tablet 800 mg PO TID rosuvastatin 20 mg tablet 20 mg PO QAM sotalol 120 mg tablet 120 mg PO AMHS Take evening before surgery albuterol sulfate 90 mcg/actuation aerosol inhaler 1 puff inhalation QID PRN(if needed) gabapentin 800 mg tablet 800 mg PO TID sotalol 120 mg tablet 120 mg PO AMHS amlodipine 5 mg tablet (Norvasc) 5 mg PO HS Other Notes If you have any questions please call us at [phone] or [phone] or [phone] or [phone]
--- NOTE | 2024-04-04 09:24 | Anesthesiology Consultation ---
Date of Service April 04, 2024 Assessment & Plan (1) Encounter for pre-operative examination: - Check coags AM DOS (warfarin instructions per surgeon/prescriber) - Infectious disease screening: Per assessment on 03/28/24: No known recent infectious disease contacts or current infectious disease symptoms. - PCP visit (02/21/24): "Patient presents today for pre-operative evaluation. She is a new patient to me.. Patient is acceptable medical risk for the listed procedure. Recommend following up with cardiology as scheduled." - Cardiology visit (02/27/24): "Pre-operative cardiovascular examination.. Patient is doing well from a cardiac perspective. EKG today demonstrates NSR with possible LVH, septal infarct (cited previously) Rate 69bpm.. Nuclear stress testing dated 2021 is negative for ischemia.. will obtain echocardiogram to assess overall structure and function as part of pre-operative exam. Last known to date 2017.. Pending echo results will provide risk assessment for surgery.. Wafarin hold instruction to be provided by [facility] coag.. Addendum: Echocardiogram completed as part of pre-op clearance. LVEF normal. No significant valvular disease.. per Gamal Criteria, patient was counseled that shewould be placed at a low-intermediaterisk for any adverse perioperative cardiovascular events associated withspine surgery. Patient is on a good medication regimen and no other cardiac testing or interventions would further lower that risk.Patient statesheunderstands and is accepting ofthat risk and wishes to proceed with surgery.. S/P ablation of atrial fibrillation- Asymptomatic.. discussed risk vs benefit of anticoagulation therapy. If patient wants to pursue discontinuation of anticoagulation, would recommended having a ZIO monitor to assess for A-fib burden. Patient wishes to hold off at this time." - Patient concern: Patient notes she is a natural red head- wanted to make anesthesia team aware. - Patient acceptable risk for surgery pending preop UA (unable to void at PAT, taking to [place] lab "in near future"). Chart Review Chart Review: Patient seen in Pre Admission Testing Teaching & Discussion Pre-Anesthesia Teaching/Discussion Notes: Instructed NPO after midnight before surgery,except medications with 15 cc of water. Medication instructions provided according to the PAT guidelines. History Surgery Operation Date: 04/13/24 07:45 Proposed Procedures p L4-S1 Decompression and Fusion - Luis Fernando Santana, Height/Weight Height: 5 ft 3 in Weight: 87.5 kg Allergies Allergy/AdvReac Type Severity Reaction Status Date / Time adhesive Allergy Mild Rash Verified 04/02/24 10:22 codeine Allergy Mild Nausea Verified 03/28/24 11:56 promethazine Allergy Mild Hives, Verified 04/04/24 09:44 itching fentanyl AdvReac Mild Nausea Verified 03/28/24 11:56 Medications Home Medications Medication Instructions Recorded Confirmed Last Taken albuterol sulfate 90 mcg/actuation 1 puff inhalation QID PRN colon 12/22/23 03/28/24 Unknown aerosol inhaler cramps clotrimazole-betamethasone 1 1 applic topical BID PRN hand rash 12/22/23 03/28/24 Unknown %-0.05 % topical cream ezetimibe 10 mg tablet 10 mg PO QAM 12/22/23 03/28/24 12/22/23 06:00 furosemide 20 mg tablet (Lasix) 20 mg PO DIRECTED PRN Edema 12/22/23 03/28/24 Unknown gabapentin 800 mg tablet 800 mg PO TID 12/22/23 03/28/24 12/22/23 12:00 rosuvastatin 20 mg tablet 20 mg PO QAM 12/22/23 03/28/24 12/22/23 06:00 sotalol 120 mg tablet 120 mg PO AMHS 12/22/23 03/28/24 12/22/23 06:00 amlodipine 5 mg tablet (Norvasc) 5 mg PO HS #30 tabs 12/28/23 03/28/24 Unknown lisinopril 10 mg tablet 10 mg PO QAM #30 tabs 12/28/23 03/28/24 Unknown warfarin 7.5 mg tablet 7.5 mg PO DAILY #30 tabs 12/28/23 03/28/24 Unknown Past Medical History Medical History Ankylosing spondylitis Arthritis DDD (degenerative disc disease), lumbosacral Dyslipidemia Fibromyalgia Gastritis GERD (gastroesophageal reflux disease) H/O cold sores History of adenomatous polyp of colon History of kidney stones (2021) History of melena (12/2023) UGI bleed/[facility] admission Hx of gastric ulcer Hx of irritable bowel syndrome Hx of tinnitus Hypertension Paroxysmal atrial fibrillation Follows with Dr. Bro Taking coumadin Peutz-Jeghers syndrome Trigeminal neuralgia Exercise / Class Metabolic Activity III < 4 Walking/Shop/Light housework Past Family History Family History Other Breast cancer Colorectal cancer Diabetes Past Surgical History Surgical History H/O breast surgery (1985) x2 1985 breast augmentation with silicone implants, both replaced 2000 with saline H/O rotator cuff surgery left H/O: hysterectomy and BSO History of cardiac radiofrequency ablation History of esophagogastroduodenoscopy (EGD) 12/23/23, MAC at [facility] History of hip surgery (2015) left side "cleaned out" History of postoperative nausea and vomiting Hx of cholecystectomy Hx of colonoscopy with polypectomy Hx of cystoscopy (2021) Hx of oral surgery dental implants Past Anesthesia History No Hx of Anesthesia Complications and No Family Hx of Anesthesia Complications History of PONV No Hx of Motion Sickness and History of PONV Social History Smoking Status: Former smoker Do You Dip or Chew Tobacco: No Smoking End Date: Quit Hx Alcohol Use: No Hx Substance Use: No substance use type: does not use Review of Systems Patient denies chest pain, shortness of breath, fever, chills, cough, wheezing, palpitations. Physical Exam Vital Signs BP 123/77 P 83 TEMP 98.1 SP02 95%RA RESP 16 Physical Full cervical extension range of motion. Full TMJ range of motion. TMD >3.5 finger breaths Mallampati Score III Dentition: missing side/molar, + implants (molars) Lungs: clear throughout to auscultation Cardiac: regular rate and rhythm, no murmurs noted Spine: normal Carotid arteries: negative bruit Extremities: no LE edema Lab Results Anesthesia Preop Results Results Anesthesia Widget: PTT 48 Seconds (21-31) H 04/04/24 Blood Type A Positive 04/04/24 Antibody Screen NEGATIVE 04/04/24 Testing Laboratory Results 04/03/24 WBC 4.92 H/H 12.6/40.4 PLATELETS 270 03/22/24 PT 21.9 INR 1.9 03/07/24 SODIUM 141 POTASSIUM 4.3 CHLORIDE 106 CO2 23 BUN 12 CREATININE 0.6 GLUCOSE 100 HGBA1C 5.3% Electrocardiogram Date: 02/27/24 NSR at 69bpm. High QRS voltage may be normal variant or due to LVE. Septal infarct (cited on or before 02/06/2018 per processing spec comparison). Chest X-Ray Date: 12/22/23 FINDINGS: An AP, portable, upright chest radiograph is compared to study dated 09/04/2017. The heart is enlarged noting atherosclerotic calcification of the thoracic aorta. The pulmonary vasculature is noncongested. Linear scarring/atelectasis is seen in the left mid lung. No airspace consolidation or large pleural effusion is identified. No pneumothorax is seen. The skeletal structures are osteopenic. The bony thorax is grossly intact. A surgical anchor is noted in the left humeral head. IMPRESSION: Cardiomegaly with no active disease in the chest. Echocardiogram Date: 02/27/24 LVEF 60-64%. LV wall motion is normal. Grade II DD. Moderately increased LV wall thickness increased. Mild AV sclerosis. No significant valvular disease. Stress Test Date: 02/23/22 Type: nuclear Gated SPECT imaging reveals normal myocardial thickening and wall mtion. LVEF > 65%. Lexiscan nuclear cardiac stress test negative for ischemia.
[2024-04-13] MEDS ORDERED: ONDANSETRON INJ 2 MG/ML 2 ML VIAL ONE (09:24)
[2024-04-13] MEDS ORDERED: LIDOCAINE 2% 2 ML VIAL/AMP(20MG/ML) INFIL ONE (09:24)
[2024-04-13] MEDS ORDERED: MIDAZOLAM HCL 1 MG/ML 2ML VIAL ONE (09:24)
[2024-04-13] MEDS: CeleBREX 200 MG CAP PO SCH (09:24)
[2024-04-13] MEDS ORDERED: fentaNYL citrate PF 100 MCG/2 ML VIAL ONE (09:24)
[2024-04-13] MEDS ORDERED: DEXAMETHASONE SOD INJ 4 MG/ML VIAL ONE (09:24)
[2024-04-13] MEDS: GABAPENTIN 300 MG CAP PO SCH (09:24)
[2024-04-13] MEDS: LR 60ML/HR IV SCH (09:24)
[2024-04-13] MEDS ORDERED: PROPOFOL IV EMULSION 10 MG/ML 20 ML VIAL IV ONE ×2 (09:24→12:48)
[2024-04-13] MEDS ORDERED: HYDROmorphone INJ 2 MG/ML SYR/VIAL ONE (09:26)
[2024-04-13] MEDS ORDERED: ROCURONIUM BROMIDE 10 MG/ML 5 ML VIAL IV ONE ×2 (09:26→12:48)
[2024-04-13] MEDS ORDERED: DROPERIDOL 5 MG/2 ML VIAL ONE (09:26)
[2024-04-13] MEDS ORDERED: LARYING-O-JET KIT (LTA) ONE (09:26)
[2024-04-13] MEDS: LR 15ML/HR IV SCH (09:42)
[2024-04-13 09:44] LABS: INR 0.9 (0.9-1.1); Partial Thromboplastin Time 26 Seconds (21-31); Prothrombin Time 10.2 Seconds (9.0-12.0)
[2024-04-13] MEDS ORDERED: HYDROmorphone INJ 2 MG/ML SYR/VIAL IV PRN (10:23)
[2024-04-13] MEDS ORDERED: ATROPINE SULFATE 0.1 MG/ML 10ML SYR IV PRN (10:23)
[2024-04-13] MEDS ORDERED: ONDANSETRON INJ 2 MG/ML 2 ML VIAL IV PRN ×2 (10:23→14:56)
[2024-04-13] MEDS ORDERED: ePHEDrine sulfate 50 MG/ML AMP IV PRN (10:23)
--- NOTE | 2024-04-13 10:41 | History & Physical Bridge Note ---
Date of Service April 13, 2024 History & Physical Bridge Note I have examined the patient, reviewed the History & Physical and in the interval since the performance of the History & Physical I have noted the following changes of clinical significance: no changes noted
--- NOTE | 2024-04-13 10:42 | History & Physical Report ---
Date of Service April 13, 2024 Assessment & Plan (1) Neurogenic claudication due to lumbar spinal stenosis: Plan: L4-S1 decompression and fusion History of Present Illness Chief Complaint: Back and bilateral leg pain Primary Care Provider: Francia Polo MD This is a 68-year-old female presents for chronic persistent back and leg pain after failing course of nonoperative care she is here for surgical invention. Allergies Allergy/AdvReac Type Severity Reaction Status Date / Time adhesive Allergy Mild Rash Verified 04/13/24 09:03 codeine Allergy Mild Nausea Verified 04/13/24 09:03 promethazine Allergy Mild Hives, Verified 04/13/24 09:03 itching fentanyl AdvReac Mild Nausea Verified 04/13/24 09:03 Home Medications Medication Instructions Recorded Confirmed Type albuterol sulfate 90 mcg/actuation 1 puff inhalation QID PRN colon 12/22/23 04/13/24 History aerosol inhaler cramps clotrimazole-betamethasone 1 1 applic topical BID PRN hand rash 12/22/23 04/13/24 History %-0.05 % topical cream ezetimibe 10 mg tablet 10 mg PO QAM 12/22/23 04/13/24 History furosemide 20 mg tablet (Lasix) 20 mg PO DIRECTED PRN Edema 12/22/23 04/13/24 History gabapentin 800 mg tablet 800 mg PO TID 12/22/23 04/13/24 History rosuvastatin 20 mg tablet 20 mg PO QAM 12/22/23 04/13/24 History sotalol 120 mg tablet 120 mg PO AMHS 12/22/23 04/13/24 History amlodipine 5 mg tablet (Norvasc) 5 mg PO HS #30 tabs 12/28/23 04/13/24 Rx lisinopril 10 mg tablet 10 mg PO QAM #30 tabs 12/28/23 04/13/24 Rx warfarin 7.5 mg tablet 7.5 mg PO DAILY #30 tabs 12/28/23 04/13/24 Rx Past Med/Surg History Problem List (Updated 04/13/24 @ 10:42 by Luis Fernando Santana DO) Neurogenic claudication due to lumbar spinal stenosis Encounter for pre-operative examination Anemia (Acute) Sciatica Arthritis (Acute) Degenerative disc disease (Acute) Paroxysmal atrial fibrillation (Chronic) Hypertension (Chronic) Irritable bowel syndrome (Chronic) Dyslipidemia (Chronic) Medical History Ankylosing spondylitis Arthritis DDD (degenerative disc disease), lumbosacral Dyslipidemia Fibromyalgia Gastritis GERD (gastroesophageal reflux disease) H/O cold sores History of adenomatous polyp of colon History of kidney stones (2021) History of melena (12/2023) UGI bleed/[facility] admission Hx of gastric ulcer Hx of irritable bowel syndrome Hx of tinnitus Hypertension Paroxysmal atrial fibrillation Follows with Dr. Bro Taking coumadin Peutz-Jeghers syndrome Trigeminal neuralgia Surgical History H/O breast surgery (1985) x2 1985 breast augmentation with silicone implants, both replaced 2000 with saline H/O rotator cuff surgery left H/O: hysterectomy and BSO History of cardiac radiofrequency ablation History of esophagogastroduodenoscopy (EGD) 12/23/23, MAC at [facility] History of hip surgery (2015) left side "cleaned out" History of postoperative nausea and vomiting Hx of cholecystectomy Hx of colonoscopy with polypectomy Hx of cystoscopy (2021) Hx of oral surgery dental implants Family History Other Breast cancer Colorectal cancer Diabetes Social History Smoking Status: Former smoker Tobacco Type: Cigarettes Smoking End Date: Quit ; Second Hand Exposure: No; Do You Dip or Chew Tobacco: No; Tobacco Cessation Education Requested by Patient: No Hx Alcohol Use: No Hx Substance Use: No Preferred Language: Chinese Communication Ability: Effective Traffic Control Signaler Required: No Beliefs That Will Affect Care: None Current Living Situation: Spouse Other Information That Helps Us Care for You: No Feels Safe at Home: Yes Safety Concerns: Feels Safe At This Time Assistive Devices: Glasses and Walker Assistive Devices Comment: dental implants, missing 2 currently - will have replaced may/jun Physical Exam Physical Exam: Patient is alert and oriented Heart regular in rhythm Lungs clear Results & Data Results & Data Vital Signs (Past 12 Hours) Vital Signs Temp Pulse Resp BP Pulse Ox O2 Del Method 04/13/24 09:08 36.7 C 62 16 139/83 94 Room Air
[2024-04-13] MEDS ORDERED: SCOPOLAMINE 1 MG/72 HR TDSY PATCH TD ONE (11:07)
[2024-04-13] MEDS: ceFAZolin 2000MG 2,000 MG/15 ML SYR IV SCH ×2 (11:12→18:26)
[2024-04-13] MEDS ORDERED: ePHEDrine sulfate 50 MG/5 ML SYR ONE (11:55)
[2024-04-13] MEDS: BUPIVACAINE/EPINEPHRINE 0.25% 1:200,000 30 ML VIAL ONE (11:57)
[2024-04-13] MEDS: ceFAZolin 330 MG/ML 1 GM VIAL ONE (11:57)
[2024-04-13] MEDS ORDERED: SUGAMMADEX SODIUM 200 MG/2 ML VIAL IV ONE (12:01)
[2024-04-13] MEDS: FLOSEAL HEMOSTATIC MATRIX 10ML TOP ONE (12:42)
--- NOTE | 2024-04-13 12:55 | Operative Report ---
Post Operative Report Pre & Post Diagnosis Operation Date: 04/13/24 09:55 Pre-Op Diagnosis: Spondylolisthesis Lumbar Region Neurogenic claudication Post-Op Diagnosis: Same I identified the patient and participated in the time-out.: Yes Procedure Operation Date: 04/13/24 09:55 Actual Procedures #1 lumbar decompression bilateral medial facetectomies and foraminotomies L3-L4 L4-5. #2 posterior spinal fusion L4-L5. #3 placed posterior instrumentation L4-L5. #4 interbody fusion L4-L5 #5 placement of Spira 13 x 26 mm x 2 at L4-5. #6 placement locally harvested morselized autograft and posterior gutters. #7 placement is collagen sponge combined with Koros in the posterior lateral gutters and Morpheus bone graft in the body space. #8 placement of versa wrap on the exposed dura. Surgeon Luis Fernando Santana, DO Maintenance Worker Swimming Pool Rolf Chaudhary Estimated Blood Loss 100 Findings See Below The patient is 5 foot 3 weighing over 84 kg with a BMI in excess of 33. Patient's body habitus did contribute to significant technical difficulties with positioning exposure and the procedure itself. This had at least 50% increased operative time. Specimens None Indications This is a 60-year-old female presents problems diagnosis of failed course of nonoperative care she is here for surgical invention. Description of Procedure Patient was met with identified informed consent obtained. Patient was then taken to the operative suite underwent ablation placed in a prone position on the Grzegorz table on top of the Anurag frame. All bony promises well-padded eyes inspected to ensure no external pressure placed upon them. This point lumbar spine was prepped and draped in normal sterile fashion. Sharp dissection with the assistance of Bovie cautery from down to and exposing the lamina and transverse processes of L4-L5. L5-S1 facets were stable I chose not to extend the fusion beyond the L4-5 level. A complete laminectomy of L4 was then performed including bilateral medial facetectomies and foraminotomies addressing severe subarticular and foraminal stenosis. Then performed a partial laminectomy of L3 with bilateral medial facetectomies. Pedicle screws were then placed in L4-L5 bilaterally with assistance of fluoroscopy and appropriate mandeep placed. By way of transforaminal approach on the right discectomy of L4-L5 was performed endplates guided to subcortical bleeding bone and a 13 x 26 mm Spira cage filled with Morpheus bone graft tapped in position. Then proceeded to the left transforaminal region at L4-5. Again discectomy performed endplates guided to subcortical bleeding bone and a 13 x 26 mm Spira cage filled with Morpheus bone graft tapped in position. The rods were then compressed locked into final position bilaterally. The transverse processes of L4-5 burred to subcortical bleeding bone. Infuse collagen sponge, with Koros and local autograft placed in the posterior lateral gutters. 15 round LORENA drain inserted. The incision was then closed with 1 Vicryl the fascia 2-0 Vicryl subcutaneously and 4 Monocryl for final skin closure. Steri-Strips sterile dressing placed. Patient waken taken PACU stable condition. Please note spinal cord monitoring was utilized at the procedure and no changes noted. Rolf Chaudhary was present out the entire procedure and on the patient positioning complex portions of the surgery and fascial closure. Im ordering 20 grams of Triple Graham Collagen Powder ([id number]) to treat an incision wound that was caused by a spine procedure. The incision is approximately 2 cm(W) x 4 cm(L) into the joint (D) in size and is a full thickness wound. Triple Graham collagen comes in 1 gram packets so 20 packets were ordered. Given the size of the wound, with light to moderate exudate I chose to order a 20 day supply. The patient will be provided instructions for proper application of the collagen wound kit. The patient will be asked to apply the collagen powder daily and then cover it with sterile dressings dispensed. Collagen was selected as I expect the collagen to attract monocytes and fibroblasts, act as a sacrificial substrate for MMPs, and ultimately proved a matrix for tissue and vessel growth. The collagen will act as a primary dressing in this scenario. It is medically necessary for proper healing of these wounds to improve bioavailability and contact with each wound surface, this is also to help prevent infection of wounds and promote healing ultimately leading to a better healing outcome and limit the risk of infection. I attest to the content of the Intraoperative Record and any orders documented therein. Any exceptions are noted below.
--- NOTE | 2024-04-13 13:25 | Fluoroscopy Report ---
INTRAOPERATIVE RADIOGRAPHS CLINICAL HISTORY: L4-L5 spinal fusion. Fluoro time: 25 seconds Ka,r: 28.50 mGy FINDINGS: 2 spot fluoroscopic views of the lumbar spine are presented. There has been discectomy at L 4-L5 with laminectomy and posterior fusion at this level. Interpedicular screws are in place. The ort hopedic hardware appears intact. IMPRESSION: Intraoperative images from lumbar spinal fusion surgery as above. Electronically signed by: Kelvin Danielle M.D. 04/13/2024 1:24 PM
--- NOTE | 2024-04-13 14:55 | Anesthesiology Progress Note ---
Date of Service April 13, 2024 Anesthesia Post Procedure Vital Signs Vital Signs: Temp Pulse Pulse Resp BP BP Pulse Ox 04/13/24 14:00 64 15 148/70 H 92 04/13/24 13:50 36.5 C 62 15 140/73 92 04/13/24 13:40 62 12 144/69 H 94 04/13/24 13:30 63 16 133/76 97 04/13/24 13:20 62 18 144/75 H 95 04/13/24 13:14 36.1 C L 63 15 177/90 H 97 04/13/24 09:08 36.7 C 62 16 139/83 94 O2 Del Method O2 Flow Rate 04/13/24 14:00 Oxymask 2 04/13/24 13:50 Oxymask 2 04/13/24 13:40 Oxymask 2 04/13/24 13:30 Oxymask 3 04/13/24 13:20 Oxymask 6 04/13/24 13:14 Oxymask 6 04/13/24 09:08 Room Air Pain Intensity Bilateral Lower Back: Pain Intensity: 7 Transfer of Care Handoff Completed per policy Notes Mental Status: alert / awake / arousable and participated in evaluation Nausea / Vomiting: adequately controlled Pain: adequately controlled Airway Patency, RR, SpO2: stable & adequate BP & HR: stable & adequate Hydration State: stable & adequate Anesthetic Complications: no major complications apparent and Pt Satisfied with anesthetic care
[2024-04-13] MEDS ORDERED: NALOXONE HCL 0.4 MG/1 ML VIAL/CARP IV PRN (14:56)
[2024-04-13] MEDS ORDERED: METOCLOPRAMIDE HCL INJ 5 MG/ML 2 ML VIAL IV PRN (14:56)
[2024-04-13] MEDS ORDERED: MAGNESIUM HYDROXIDE SUSP 30 ML UDC PO PRN (14:56)
[2024-04-13] MEDS ORDERED: SOD PHOSPHATE/SOD BIPHOSPHATE ENEMA 132 ML BTL PR PRN (14:56)
[2024-04-13] MEDS ORDERED: LORazepam 0.5 MG in SYRINGE 0.25 ML IV PRN (14:56)
[2024-04-13] MEDS ORDERED: diphenhydrAMINE Capsule 25 MG CAP PO PRN (14:56)
[2024-04-13] MEDS ORDERED: ALUMINUM/MAGNESIUM SUSP 30 ML UDC PO PRN (14:56)
[2024-04-13] MEDS ORDERED: FUROSEMIDE 20 MG TAB PO PRN (14:56)
[2024-04-13] MEDS ORDERED: ACETAMINOPHEN 1,000 MG/100 ML VIAL IV PRN (14:56)
[2024-04-13] MEDS ORDERED: ACETAMINOPHEN 500 MG TAB PO PRN (14:56)
[2024-04-13] MEDS ORDERED: bisacodyL 10 MG SUPP PR PRN (14:56)
[2024-04-13] MEDS ORDERED: ALBUTEROL HFA 8 GM INHALER INH PRN (14:56)
[2024-04-13] MEDS ORDERED: DO NOT ADMINISTER FLU VACCINE PRN (14:56)
[2024-04-13] MEDS ORDERED: DO NOT ADMINISTER PNEUMOCOCCAL VACCINE PRN (14:56)
[2024-04-13] MEDS ORDERED: ONDANSETRON 4 MG OD TAB PO PRN (14:56)
[2024-04-13] MEDS ORDERED: FAMOTIDINE 20 MG TAB PO PRN (14:56)
[2024-04-13] MEDS ORDERED: hydrOXYzine HCl 25 MG TAB PO PRN (14:56)
[2024-04-13] MEDS: HYDROmorphone INJ 1 MG/ML SYRINGE ONE (15:02)
[2024-04-13] MEDS: HYDROmorphone INJ 1 MG/ML SYRINGE IV PRN (15:16)
[2024-04-13] MEDS: LACTATED RINGER'S 1,000 ML IV SCH (15:17)
[2024-04-13] MEDS: GABAPENTIN 800 MG TAB PO SCH (15:29)
[2024-04-13] MEDS: traMADol HCL 50 MG TABLET PO PRN (15:36)
--- NOTE | 2024-04-13 15:51 | Consultation ---
Date of Consultation April 13, 2024 Assessment & Plan (1) Status post surgery: (2) Atrial fibrillation, currently in sinus rhythm: Patient is a very pleasant 68-year-old female with history of paroxysmal atrial fibrillation on Coumadin, hypertension, irritable bowel syndrome, fibromyalgia, migraine, etc. presenting status post lumbar spine surgery. Status post L3-5 decompression fusion procedure Patient doing well overall Normotensive, heart rate regular, 67/min Continue to monitor closely Labs tomorrow Paroxysmal atrial fibrillation Currently in sinus rhythm, rate controlled Continue usual sotalol Also on Coumadin 50 mg every Tuesday, 10 mg other days Resume Coumadin once hemostasis stable per Dr. Santana Hypertension At goal Continue amlodipine, lisinopril Chronic medical conditions: IBS Peutz Jegher syndrome Fibromyalgia Migraine Thank you for this consultation. We will follow the patient with you during their hospital stay. You can reach a member of the [facility] Hospitalist Team 28/03 via pager @ [phone]. History of Present Illness Reason for Consultation: Postop medical management Attending Physician: Luis Fernando Santana, DO History of Present Illness Patient is a very pleasant 68-year-old female with history of paroxysmal atrial fibrillation on Coumadin, hypertension, irritable bowel syndrome, fibromyalgia, migraine, etc. presenting status post lumbar spine surgery. Patient underwent L3-[address] Santana today. Procedure went well, patient transferred to medical floor. On exam patient seen resting in bed, somewhat drowsy but oriented x 3, comfortable, not in distress. Reports incisional pain over the lower back. Denies headache, dizziness, shortness of breath, chest pain, abdominal pain, nausea or vomiting or any other symptoms. Allergies Allergy/AdvReac Type Severity Reaction Status Date / Time adhesive Allergy Mild Rash Verified 04/13/24 09:03 codeine Allergy Mild Nausea Verified 04/13/24 09:03 promethazine Allergy Mild Hives, Verified 04/13/24 09:03 itching fentanyl AdvReac Mild Nausea Verified 04/13/24 09:03 Home Medications Medication Instructions Recorded Confirmed Type albuterol sulfate 90 mcg/actuation 1 puff inhalation QID PRN colon 12/22/23 04/13/24 History aerosol inhaler cramps clotrimazole-betamethasone 1 1 applic topical BID PRN hand rash 12/22/23 04/13/24 History %-0.05 % topical cream ezetimibe 10 mg tablet 10 mg PO QAM 12/22/23 04/13/24 History furosemide 20 mg tablet (Lasix) 20 mg PO DIRECTED PRN Edema 12/22/23 04/13/24 History gabapentin 800 mg tablet 800 mg PO TID 12/22/23 04/13/24 History rosuvastatin 20 mg tablet 20 mg PO QAM 12/22/23 04/13/24 History sotalol 120 mg tablet 120 mg PO AMHS 12/22/23 04/13/24 History amlodipine 5 mg tablet (Norvasc) 5 mg PO HS #30 tabs 12/28/23 04/13/24 Rx lisinopril 10 mg tablet 10 mg PO QAM #30 tabs 12/28/23 04/13/24 Rx warfarin 7.5 mg tablet 7.5 mg PO DAILY #30 tabs 12/28/23 04/13/24 Rx Patient History Medical History Ankylosing spondylitis Arthritis DDD (degenerative disc disease), lumbosacral Dyslipidemia Fibromyalgia Gastritis GERD (gastroesophageal reflux disease) H/O cold sores History of adenomatous polyp of colon History of kidney stones (2021) History of melena (12/2023) UGI bleed/[facility] admission Hx of gastric ulcer Hx of irritable bowel syndrome Hx of tinnitus Hypertension Paroxysmal atrial fibrillation Follows with Dr. Bro Taking coumadin Peutz-Jeghers syndrome Trigeminal neuralgia Surgical History H/O breast surgery (1985) x2 1985 breast augmentation with silicone implants, both replaced 2000 with saline H/O rotator cuff surgery left H/O: hysterectomy and BSO History of cardiac radiofrequency ablation History of esophagogastroduodenoscopy (EGD) 12/23/23, MAC at [facility] History of hip surgery (2015) left side "cleaned out" History of postoperative nausea and vomiting Hx of cholecystectomy Hx of colonoscopy with polypectomy Hx of cystoscopy (2021) Hx of oral surgery dental implants Family History Other Breast cancer Colorectal cancer Diabetes Social History Smoking Status: Former smoker Tobacco Type: Cigarettes Smoking End Date: Quit ; Second Hand Exposure: No; Do You Dip or Chew Tobacco: No; Tobacco Cessation Education Requested by Patient: No Hx Alcohol Use: No Hx Substance Use: No Preferred Language: Pashto Communication Ability: Effective Vaccine Specialist Required: No Beliefs That Will Affect Care: None Current Living Situation: Spouse Other Information That Helps Us Care for You: No Feels Safe at Home: Yes Safety Concerns: Feels Safe At This Time Assistive Devices: Glasses and Walker Assistive Devices Comment: dental implants, missing 2 currently - will have replaced may/jun Review of Systems Review of Systems: all noted and negative except for above Physical Exam Physical Exam: General- oriented x 3, not in distress, speaks in sentences with no effort or accessory muscle use Eyes- anicteric Neck- no JVD Lungs- clear breath sounds bilaterally, no rales/wheezes Heart- normal rate, regular rhythm; no murmurs Abdomen- normal bowel sounds, nondistended, soft, nontender Extremities- no pretibial edema, no calf tenderness Neuro- alert, oriented x 3; no gross focal neurologic deficits Skin- warm & dry Results & Data Vital Signs (Past 12 Hours) Vital Signs Temp Pulse Pulse Resp BP BP Pulse Ox 04/13/24 14:56 36.4 C L 64 14 132/73 93 04/13/24 14:54 36.6 C 63 16 134/80 93 04/13/24 14:00 64 15 148/70 H 92 04/13/24 13:50 36.5 C 62 15 140/73 92 04/13/24 13:40 62 12 144/69 H 94 04/13/24 13:30 63 16 133/76 97 04/13/24 13:20 62 18 144/75 H 95 04/13/24 13:14 36.1 C L 63 15 177/90 H 97 04/13/24 09:08 36.7 C 62 16 139/83 94 O2 Del Method O2 Flow Rate 04/13/24 14:56 Nasal Cannula 2 04/13/24 14:54 Nasal Cannula 3 04/13/24 14:00 Oxymask 2 04/13/24 13:50 Oxymask 2 04/13/24 13:40 Oxymask 2 04/13/24 13:30 Oxymask 3 04/13/24 13:20 Oxymask 6 04/13/24 13:14 Oxymask 6 04/13/24 09:08 Room Air all noted and reviewed including below
[2024-04-13] MEDS: oxyCODONE HCL IR 5 MG TAB (IMMEDIATE RELEASE) PO PRN (16:49)
[2024-04-13] MEDS: amLODIPine BESYLATE 5 MG TAB PO SCH (20:52)
[2024-04-13] MEDS: SOTALOL HCL 80 MG TAB PO SCH (20:52)
[2024-04-13] MEDS: DOCUSATE SODIUM/SENNA 50/8.6MG TAB PO SCH (20:56)
[2024-04-14] MEDS: POLYETHYLENE (MIRALAX) 17 GM PACK PO SCH (05:35)
[2024-04-14 06:40] LABS: Basophils # (auto) 0.02 K/uL (0.00-0.20); Basophils % (auto) 0.2 %; Hematocrit (blood only) 34.1 % (37.0-47.0); Hemoglobin 10.6 g/dl (12.0-16.0); Immature Granulocytes # (auto) 0.03 K/uL (0.01-0.20); Immature Granulocytes % (auto) 0.3 %; Lymphocytes # (auto) 0.98 K/uL (1.20-3.40); Mean Corpuscular Hemoglobin 27.5 pg (25.0-34.0); Mean Corpuscular Hgb Conc 31.1 g/dL (32.0-36.0); Mean Corpuscular Volume 88.3 fL (80.0-100.0); Mean Platelet Volume 9.3 fL (9.4-12.4); Monocytes # (auto) 0.75 K/uL (0.11-0.59); Monocytes % (auto) 7.6 %; Neutrophils # (auto) 8.05 K/uL (1.40-6.50); Neutrophils % (auto) 81.9 %; Platelet Count 238 K/uL (130-400); RDW Coefficient of Variation 18.8 % (11.5-14.5); RDW Standard Deviation 61.1 fL (36.4-46.3); Red Blood Count 3.86 M/uL (4.20-5.40); White Blood Count 9.83 K/ul (4.8-10.8)
[2024-04-14 07:00] LABS: BUN Creatinine Ratio 21.6 (10-20); Calcium 8.7 mg/dl (8.6-10.3); Creatinine Clr Calc Pharmacy 108.9 ml/min; Est GFR (African American) 114.5 ml/min; Est GFR (Non-African American) 98.8 ml/min; Potassium 4.5 mmol/L (3.5-5.1)
[2024-04-14] MEDS: lisinopril 10 MG TAB PO SCH (08:16)
[2024-04-14] MEDS: ROSUVASTATIN CALCIUM 20 MG TAB PO SCH (08:21)
[2024-04-14] MEDS: dexAMETHasone 6 MG in SYRINGE 0 ML IV SCH (08:21)
[2024-04-14] MEDS: EZETIMIBE 10 MG TAB PO SCH (08:21)
--- NOTE | 2024-04-14 09:36 | Orthopedic Progress Note ---
Date of Service April 14, 2024 Assessment & Plan (1) Neurogenic claudication due to lumbar spinal stenosis: Plan: At this time we will initiate physical therapy today. Discontinue her Ann today. Consider discharge home the next few days. Admission and Anticipated Discharge Date Admission Date: April 13, 2024 Subjective Patient's back pain is controlled leg pain improved Physical Exam Physical Exam: Patient is currently in bed. She had been ambulating earlier. She is good strength testing. Peers comfortable. Results & Data Vital Signs (Past 12 Hours) Vital Signs Temp Pulse Pulse Resp BP Pulse Ox O2 Del Method 04/14/24 08:24 64 94 Room Air 04/14/24 06:55 36.5 C 59 L 16 122/69 95 Room Air 04/14/24 03:40 36.7 C 64 16 119/72 94 Room Air 04/14/24 00:12 36.5 C 77 18 115/74 Queries Orthopedic Spine Acute Posthemorrhagic Anemia: Yes Obesity: Yes
--- NOTE | 2024-04-14 13:27 | Hospitalist Progress Note ---
Date of Service April 14, 2024 Assessment & Plan (1) Status post surgery: (2) Atrial fibrillation, currently in sinus rhythm: Plan: Patient is a very pleasant 68-year-old female with history of paroxysmal atrial fibrillation on Coumadin, hypertension, irritable bowel syndrome, fibromyalgia, migraine, etc. presenting status post lumbar spine surgery. Spondylolisthesis Lumbar Region Neurogenic claudication S/P L3-5 decompression fusion procedure by Dr. Santana on 04/13/2024 Monitor for postop anemia Bowel regimen to prevent constipation Pain control, activity, and wound care per primary team Appreciate orthopedics input PT OT as able Urinary tract infection--POA H/O recurrent UTI Urine culture from 04/07/2024 grew E. coli: Not treated at the time per patient Started on IV Rocephin based on sensitivities Paroxysmal atrial fibrillation Continue sotalol Restarted Coumadin for anticoagulation: Okay with surgery (discussed on 04/14/2024) Monitor INR Hypertension Continue amlodipine, lisinopril, sotalol Monitor BP Other chronic medical conditions: IBS Peutz Jegher syndrome Fibromyalgia Migraine Continue home medications as able DVT prophylaxis Coumadin CODE STATUS Full code Thank you for this consultation. We will follow the patient with you during their hospital stay. You [facility] via pager @ [phone]. Admission and Anticipated Discharge Date Admission Date: April 13, 2024 Subjective Patient is seen and examined at bedside Back pain at surgical site is controlled Reports having some dysuria Denies any chest pain, dyspnea, nausea, vomiting, abdominal pain No other complaints Review of Systems Review of Systems: All systems reviewed & are unremarkable except as noted in Subjective Physical Exam Physical Exam: Physical Exam: Vitals signs as noted above General Appearance:Moderately built and nourished, no apparent distress Head: normocephalic, Atraumatic Eyes: normal inspection, EOMI Neck: supple, Trachea midline Respiratory/Chest: Normal breath sounds, CTA, No accessory muscle use Cardiovascular: S1, S2, No murmur Abdomen/GI:Soft, Non tender, Bowel sounds present Back: Surgical site in dressing Extremities/Musculoskeletal:normal inspection, no edema Neurologic/Psych:AAOX3, grossly no focal neurological deficits Skin: normal color, warm Results & Data Results & Data Vital Signs (Past 12 Hours) Vital Signs Temp Pulse Pulse Resp BP Pulse Ox O2 Del Method 08/10/24 12:00 36.4 C L 63 18 145/67 H 93 Room Air 04/14/24 08:24 64 94 Room Air 04/14/24 06:55 36.5 C 59 L 16 122/69 95 Room Air 04/14/24 03:40 36.7 C 64 16 119/72 94 Room Air Laboratory Results Short CBC 04/14/24 Range/Units 06:20 WBC 9.83 (4.8-10.8) K/ul Hgb 10.6 L (12.0-16.0) g/dl Hct 34.1 L (37.0-47.0) % Plt Count 238 (130-400) K/uL BMP 04/14/24 06:20 Sodium 133 L Potassium 4.5 Chloride 102 Carbon Dioxide 28 BUN 11 Creatinine 0.51 L Glucose 137 H Calcium 8.7
[2024-04-14] MEDS: cefTRIAXone SODIUM 2,000 MG/50 ML BAG IV SCH (15:13)
[2024-04-14] MEDS: HYDROmorphone INJ 0.5 MG/0.5 ML SYR IV PRN (15:17)
[2024-04-14] MEDS: WARFARIN SOD 3 MG TAB PO SCH (17:16)
[2024-04-15 06:42] LABS: Hematocrit (blood only) 34.6 % (37.0-47.0); Hemoglobin 10.8 g/dl (12.0-16.0); Mean Corpuscular Hgb Conc 31.2 g/dL (32.0-36.0); Mean Corpuscular Volume 89.6 fL (80.0-100.0); Mean Platelet Volume 9.8 fL (9.4-12.4); Platelet Count 244 K/uL (130-400); RDW Coefficient of Variation 19.2 % (11.5-14.5); RDW Standard Deviation 64.3 fL (36.4-46.3); Red Blood Count 3.86 M/uL (4.20-5.40); White Blood Count 9.52 K/ul (4.8-10.8)
[2024-04-15 07:03] LABS: INR 0.9 (0.9-1.1); Prothrombin Time 9.5 Seconds (9.0-12.0)
[2024-04-15 07:04] LABS: BUN Creatinine Ratio 26.8 (10-20); Calcium 8.9 mg/dl (8.6-10.3); Creatinine Clr Calc Pharmacy 135.4 ml/min; Est GFR (Non-African American) 106.2 ml/min; Potassium 3.7 mmol/L (3.5-5.1)
--- NOTE | 2024-04-15 11:35 | Orthopedic Progress Note ---
Date of Service April 15, 2024 Assessment & Plan (1) Neurogenic claudication due to lumbar spinal stenosis: Plan: At this time we will continue PT OT. Monitor his LORENA output. Consider rehab. Admission and Anticipated Discharge Date Admission Date: April 13, 2024 Subjective Back pain is controlled leg symptoms are improving Physical Exam Physical Exam: Patient is in the chair at the bedside. Is concerned to testing. Results & Data Vital Signs (Past 12 Hours) Vital Signs Temp Pulse Resp BP Pulse Ox O2 Del Method 04/15/24 08:23 36.5 C 56 L 16 144/70 H 96 Room Air Queries Orthopedic Spine Acute Posthemorrhagic Anemia: Yes Obesity: Yes
--- NOTE | 2024-04-15 15:07 | Hospitalist Progress Note ---
Date of Service April 15, 2024 Assessment & Plan (1) Status post surgery: (2) Atrial fibrillation, currently in sinus rhythm: Plan: Patient is a very pleasant 68-year-old female with history of paroxysmal atrial fibrillation on Coumadin, hypertension, irritable bowel syndrome, fibromyalgia, migraine, etc. presenting status post lumbar spine surgery. Spondylolisthesis Lumbar Region Neurogenic claudication S/P L3-5 decompression fusion procedure by Dr. Santana on 04/13/2024 Monitor for postop anemia Bowel regimen to prevent constipation Pain control, activity, and wound care per primary team Appreciate orthopedics input Continue PT OT Likely discharge home tomorrow per Ortho Urinary tract infection--POA H/O recurrent UTI Urine culture from 04/07/2024 grew E. coli: Not treated at the time per patient Started on IV Rocephin based on sensitivities Day #2 Paroxysmal atrial fibrillation Continue sotalol Continue Coumadin Monitor INR Hypertension Continue amlodipine, lisinopril, sotalol Monitor BP Other chronic medical conditions: IBS Peutz Jegher syndrome Fibromyalgia Migraine Continue home medications as able DVT prophylaxis Coumadin CODE STATUS Full code Thank you for this consultation. We will follow the patient with you during their hospital stay. You can reach a member of the [place] Hospitalist Team 28/03 via pager @ [phone]. Admission and Anticipated Discharge Date Admission Date: April 13, 2024 Subjective Patient is seen and examined at bedside Admits to have some pain at surgical site Dysuria resolved No other complaints Denies any chest pain, dyspnea, nausea, vomiting, abdominal pain Review of Systems Review of Systems: All systems reviewed & are unremarkable except as noted in Subjective Physical Exam Physical Exam: Physical Exam: Vitals signs as noted above General Appearance:Moderately built and nourished, no apparent distress Head: normocephalic, Atraumatic Eyes: normal inspection, EOMI Neck: supple, Trachea midline Respiratory/Chest: Normal breath sounds, CTA, No accessory muscle use Cardiovascular: S1, S2, No murmur Abdomen/GI:Soft, Non tender, Bowel sounds present Back: Surgical site in dressing Extremities/Musculoskeletal:normal inspection, no edema Neurologic/Psych:AAOX3, grossly no focal neurological deficits Skin: normal color, warm Results & Data Results & Data Vital Signs (Past 12 Hours) Vital Signs Temp Pulse Resp BP Pulse Ox O2 Del Method 04/15/24 08:23 36.5 C 56 L 16 144/70 H 96 Room Air Laboratory Results Short CBC 04/15/24 Range/Units 05:43 WBC 9.52 (4.8-10.8) K/ul Hgb 10.8 L (12.0-16.0) g/dl Hct 34.6 L (37.0-47.0) % Plt Count 244 (130-400) K/uL BMP 04/15/24 05:43 Sodium 138 Potassium 3.7 Chloride 102 Carbon Dioxide 30 BUN 11 Creatinine 0.41 L Glucose 91 Calcium 8.9
[2024-04-15] MEDS: WARFARIN SOD 5 MG TAB PO SCH (15:15)
[2024-04-15 16:09] VITALS: TEMP 97.9
[2024-04-16] MEDS: LORazepam 0.5 MG TAB PO PRN (04:57)
[2024-04-16 06:36] LABS: Hematocrit (blood only) 31.1 % (37.0-47.0); Hemoglobin 9.7 g/dl (12.0-16.0); Mean Corpuscular Hemoglobin 27.6 pg (25.0-34.0); Mean Corpuscular Hgb Conc 31.2 g/dL (32.0-36.0); Mean Corpuscular Volume 88.4 fL (80.0-100.0); Mean Platelet Volume 9.5 fL (9.4-12.4); Platelet Count 211 K/uL (130-400); RDW Standard Deviation 61.8 fL (36.4-46.3); Red Blood Count 3.52 M/uL (4.20-5.40); White Blood Count 7.89 K/ul (4.8-10.8)
[2024-04-16 06:56] LABS: INR 0.9 (0.9-1.1); Prothrombin Time 10.2 Seconds (9.0-12.0)
[2024-04-16 07:00] LABS: BUN Creatinine Ratio 18.2 (10-20); Calcium 8.8 mg/dl (8.6-10.3); Creatinine Clr Calc Pharmacy 126.2 ml/min; Est GFR (African American) 120.2 ml/min; Est GFR (Non-African American) 103.7 ml/min; Potassium 3.9 mmol/L (3.5-5.1)
[2024-04-16 08:21] VITALS: BP 164/83; PULSE 53; RESP 20; O2SAT 93
--- NOTE | 2024-04-16 10:25 | Discharge Summary ---
Date of Service April 16, 2024 Admission HPI Per Admitting Provider This is a 68-year-old female presents for chronic persistent back and leg pain after failing course of nonoperative care she is here for surgical invention. Principal Diagnosis Lumbar spinal stenosis with neurogenic claudication Discharge Data Allergies Allergy/AdvReac Type Severity Reaction Status Date / Time adhesive Allergy Mild Rash Verified 04/13/24 09:03 codeine Allergy Mild Nausea Verified 04/13/24 09:03 promethazine Allergy Mild Hives, Verified 04/13/24 09:03 itching fentanyl AdvReac Mild Nausea Verified 04/13/24 09:03 Consultations 04/13/24 14:56 Consult Hospitalist Routine Procedures Performed Operation Date: 04/13/24 09:55 Actual Procedures p L4-L5 Decompression and Fusion, Spinal Cord Monitoring(Not Applicable) - Luis Fernando Santana DO Ordered Studies 04/13/24 09:55 FL lumbar spine 2-3V Routine Hospital Course (1) Neurogenic claudication due to lumbar spinal stenosis: Patient underwent lumbar decompression fusion tolerated as well as taken orthopedic for postoperative. Postop patient progressed well. LORENA drain decreased appropriate. Good strength testing. Subsequent discharge home. Discharge orders instructions from the chart for further review. Total Time Total Time Spent Total Time Spent (In Minutes): 20 minutes Discharge Plan Discharge Items Patient Disposition: Home - Self-Care Reason For Visit: Spondylolisthesis Lumbar Region, Lumbar Spine Pain Discharge Diagnosis: Lumbar spinal stenosis with spondylolisthesis Activity: As commented below Non-emergency contact: Primary Care Provider Call non-emergency contact if: you have any medication questions Follow-up/Referrals: Francia Polo MD [Primary Care Provider] - Diet: Regular Addtl Attending Provider Instructions: ACTIVITY RECOMMENDATIONS: SELF CARE INSTRUCTIONS AFTER THORACIC/LUMBAR FUSIONS 1. You may walk to your tolerance. It is good exercise for your legs and back. Expect some back and intermittent leg aches and pains. 2. You may perform "counter-top" level activities (make a sandwich, parker with a project, etc.). 3. No bending or lifting of more than 10 pounds or back twisting of any nature (roll like a log when turning in bed). 4. You may ride in a car for 20-30 minutes at a time. No driving until after your first visit with your doctor. 5. Frequent changes of position and restricting sitting to 30 minutes at a time will help limit the amount of back spasms and stiffness you may experience. 6. You may discontinue the use of ambulatory aids (cane, crutches, etc.) once your strength and confidence allow. 7. You may licensing worker the shower and let water strike your incision when you arrive home at least once daily. Do not take a tub bath, sit in a hot tub or go into a swimming pool until after your first recheck in the office. SPECIAL CARE INSTRUCTIONS: VERY IMPORTANT TO READ AND REVIEW A. Your surgical incision has been closed with a cosmetic suture under the skin that will dissolve in about 6 weeks. In 14 days, you can use a pair of clean scissors and cut the suture that is left outside of the skin at the ends of your incision. 1. The small skin tapes can be removed 7 days after surgery if they have not fallen off by that point. 2. You may keep the wound open to air as much as possible to promote healing after post-op day number 5 unless told otherwise by your doctor. 3. If you think the wound looks like it is becoming infected (redness or worsening drainage) and/or you are experiencing fever, chill or worsening back pain and muscle spasms, contact the office so that we may evaluate you as soon as possible. B. Complications are uncommon, but please contact us if you have any signs or symptoms of: 1. wound infection (fever higher than 102.5 degrees F, redness, separation of wound, drainage, or increasing pain from the incision) 2. blood clots in legs (pain, swelling, redness and warmth in legs) 3. urinary tract infection (fever higher than 102.5 degrees F, burning upon urination or increased frequency of urination) 4. nerve problems (inability to walk on your toes or heels, numbness, loss of bowel or bladder control) 5. any other symptoms that concern you C. Please call the office at if you have any concerns or questions about your operation or recovery. D. No smoking! Smoking drastically decreases the chance of a solid fusion. E. Do not take any anti-inflammatory medications (Indocin, Advil, Motrin, Aspirin, Naprosyn, etc.) as these may inhibit the chance of a solid fusion. Tylenol is okay to take for pain. MANAGING PAIN AFTER SPINAL SURGERY 1. Narcotic medication is intended for short-term use and will be provided for surgical pain. Surgical pain usually lasts for a period of 4-6 weeks. Narcotic medication includes Percocet, Vicodin, Darvocet, Tylenol #3 or Lortab. 2. Longer-term pain is more appropriately treated with non-narcotic medication such as Tylenol ES. 3. Muscle spasm is not appropriately treated with narcotics. Muscle relaxers such as Soma, Flexeril or Skelaxin can be used along with Tylenol ES. 4. Remember that we all live with some "aches and pains". This is not unusual or uncommon after an injury or as we get older. a. Back pain is expected and may include muscle spasms for 4 to 6 weeks after surgery. The pain should gradually improve. If the pain worsens for no apparent reason, please contact the office. b. Intermittent leg pain may also be experienced and should not be concerned about unless it worsens for no apparent reason. If so, please contact the office. 5. We will provide appropriate medication within the normal guidelines of their prescribed use. We will also be very cautious and aware of potential abuse and extended duration of patients' medication needs. a. Pain medications are for your comfort and to assist with sleep and rest so that the tissue can heal. They are not provided in order to return to normal activity and should not be used through the day. To do so or worsening pain at night can result from ongoing tissue damage and development of tolerance to the prescribed medicine. 6. Please allow 2-3 days to process refills. Prescriptions will not be mailed but must be picked up at the office. FOLLOW UP VISIT: Keep your scheduled follow-up appointment. Any questions, please call the office at . Pending Studies at Discharge: No Stand-Alone Forms: [employer], Smoking Cessation Medications and DC Order Prescriptions: New tramadol 50 mg tablet 50 mg PO Q6H PRN (Reason: pain, moderate) Qty: 30 0RF oxycodone 5 mg tablet 5 mg PO Q6H PRN (Reason: pain) Qty: 30 0RF Continued sotalol 120 mg tablet 120 mg PO AMHS gabapentin 800 mg tablet 800 mg PO TID clotrimazole-betamethasone 1-0.05 % Cream 1 applic TOPICAL BID PRN (Reason: hand rash) furosemide [Lasix] 20 mg Tablet 20 mg PO DIRECTED PRN (Reason: Edema) albuterol sulfate 90 mcg/actuation Hfa Aerosol Inhaler 1 puff INHALATION QID PRN (Reason: colon cramps) ezetimibe 10 mg tablet 10 mg PO QAM rosuvastatin 20 mg tablet 20 mg PO QAM amlodipine [Norvasc] 5 mg Tablet 5 mg PO HS Qty: 30 0RF lisinopril 10 mg Tablet 10 mg PO QAM Qty: 30 0RF warfarin 5 mg tablet 5 mg PO MOFR warfarin 5 mg tablet 10 mg PO SUTUWETHSA Discharge Orders: Discharge Order (Routine); Ordered 04/16/24 Ordered By: Luis Fernando Santana Admission Data Admit Date/Time: 04/13/24 13:00 Attending Provider: Luis Fernando Santana Admit Provider: Luis Fernando Santana Primary Care Provider: Francia Ploo Other Providers: Beatriz Corral
--- NOTE | 2024-04-16 10:36 | Hospitalist Progress Note ---
Date of Service April 16, 2024 Assessment & Plan (1) Status post surgery: (2) Atrial fibrillation, currently in sinus rhythm: Plan: Patient is a very pleasant 68-year-old female with history of paroxysmal atrial fibrillation on Coumadin, hypertension, irritable bowel syndrome, fibromyalgia, migraine, etc. presenting status post lumbar spine surgery. Spondylolisthesis Lumbar Region Neurogenic claudication S/P L3-5 decompression fusion procedure by Dr. Santana on 04/13/2024 Monitor for postop anemia Bowel regimen to prevent constipation Pain control, activity, and wound care per primary team Appreciate orthopedics input Continue PT OT Plan to be discharged home today by primary team Urinary tract infection--POA H/O recurrent UTI Urine culture from 04/07/2024 grew E. coli: Not treated at the time per patient Started on IV Rocephin based on sensitivities Day #2>> transition to p.o. antibiotics to complete the course Paroxysmal atrial fibrillation Continue sotalol Continue Coumadin Monitor INR 0.9 Advised to follow-up with Coumadin clinic on discharge Hypertension Continue amlodipine, lisinopril, sotalol Monitor BP Other chronic medical conditions: IBS Peutz Jegher syndrome Fibromyalgia Migraine Continue home medications as able DVT prophylaxis Coumadin CODE STATUS Full code Thank you for this consultation. We will follow the patient with you during their hospital stay. You can reach a member of the [facility] Hospitalist Team 28/03 via pager @ [phone]. Admission and Anticipated Discharge Date Admission Date: April 13, 2024 Subjective Patient is seen and examined at bedside Still has back pain at surgical site No other complaints today Denies any chest pain, dyspnea, nausea, vomiting, abdominal pain Review of Systems Review of Systems: All systems reviewed & are unremarkable except as noted in Subjective Physical Exam Physical Exam: Physical Exam: Vitals signs as noted above General Appearance:Moderately built and nourished, no apparent distress Head: normocephalic, Atraumatic Eyes: normal inspection, EOMI Neck: supple, Trachea midline Respiratory/Chest: Normal breath sounds, CTA, No accessory muscle use Cardiovascular: S1, S2, No murmur Abdomen/GI:Soft, Non tender, Bowel sounds present Back: Surgical site in dressing Extremities/Musculoskeletal:normal inspection, no edema Neurologic/Psych:AAOX3, grossly no focal neurological deficits Skin: normal color, warm Results & Data Results & Data Vital Signs (Past 12 Hours) Vital Signs Temp Pulse Resp BP Pulse Ox O2 Del Method 04/16/24 08:16 36.6 C 53 L 20 164/83 H 93 Room Air Laboratory Results Short CBC 04/16/24 Range/Units 05:39 WBC 7.89 (4.8-10.8) K/ul Hgb 9.7 L (12.0-16.0) g/dl Hct 31.1 L (37.0-47.0) % Plt Count 211 (130-400) K/uL BMP 04/16/24 05:39 Sodium 136 Potassium 3.9 Chloride 101 Carbon Dioxide 31 BUN 8 Creatinine 0.44 L Glucose 99 Calcium 8.8
[2024-04-16] MEDS: CEFDINIR 300 MG CAP PO STA (11:19)
[2024-04-16] MEDS: dexAMETHasone 8 MG in SYRINGE 0 ML IV STA (12:09)
== END 2024-04-16 14:11 | disposition home or self-care (01) | DRG 454 ==
LOC: ASU 08:32 → 3E 13:00

== ENCOUNTER 2024-04-18 04:36 | Inpatient (IN) ==
[2024-04-18] MEDS: MoRPHine SULFATE 4 MG/ML 1 ML CARP\\VIAL IV STA ×3 (05:09→09:58)
[2024-04-18] MEDS: SODIUM CHLORIDE 0.9% 500 ML IV ONE (05:09)
--- NOTE | 2024-04-18 05:29 | Emergency Department Note ---
Impression & Plan Lumbar back pain ED Provider Note Provider: Wilman Rowell MD DATE OF SERVICE: 04/17/2024 CHIEF COMPLAINT: Back pain, leg weakness, recent surgery HISTORY OF PRESENT ILLNESS: Patient is a 68-year-old female history of atrial fibrillation, IBS, hypertension, and back surgery by Dr. Santana on April 13 with a lumbar decompression and fasciotomy/for neurotomies with fusion. Patient discharged just under 2 days ago on Tuesday and was walking and doing okay Tuesday into Tuesday at home. Throughout the day on Tuesday evening and night worsening pain and states weakness and difficulty moving legs due to pain rating from legs to low back. Denies any significant falls that did fall back of the bed at least once. Denies any abdominal pain or fevers. Is completing course of antibiotics for UTI. Back wound with a little bit of redness at the bottom but no drainage and LORENA drain was pulled on Tuesday. Denies any significant urinary issues. Does report that her legs with had some numbness due to her back previously are improving just a little bit in regards to sensation. Using tramadol and hydrocodone at home not that helpful with the pain and cannot really ambulate due to the pain. Given this came here via ambulance tonight. Anticoagulation was held for the procedure just restarted earlier on Tuesday. No chest pain, shortness of breath, or cough or cold symptoms. PAST MEDICAL HISTORY: As noted above MEDICATIONS: Reviewed home medications SOCIAL HISTORY: PHYSICAL EXAM: GENERAL: alert and oriented in no acute distress on stretcher Head: normocephalic and atraumatic EYES: No injection, discharge or icterus. NECK: Trachea midline. ENT: Mucous membranes pink and moist. LUNGS: Airway patent. No retractions or tachypnea HEART: Regular bradycardic rate and rhythm. ABDOMEN: Soft and non-tender, without guarding or rebound. No masses BACK: Midline lumbar incision with Steri-Strips in place. Slight 2 cm red area at the base of the incision. No significant drainage. SKIN: Acyanotic, warm, dry, without rashes EXTREMITIES: Without swelling, tenderness or deformity NEUROLOGICAL: No aphasia. No facial droop or slurred speech. Moving upper extremities normally. Gross sensation of the lower extremities intact to touch. Difficulty with straight leg raise bilaterally limited secondary to pain by her report. Even passive movement of the legs causes discomfort shooting from her legs into the low back. 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 Patient's laboratory studies and imaging reviewed. Differential includes Musculoskeletal, disc herniation, fracture, metastatic disease, cord compression, discitis, sciatica, cauda equina, infection, aortic disease, renal colic, gastrointestinal, as well as other pathologies. IMPRESSION/MEDICAL DECISION MAKING: Patient recently postop of back surgery. No fevers or significant trauma reported. Will obtain a KUB and basic blood work. Has been on antibiotics relation to UTI and I doubt this is infectious. 1 picture shown by do not show any significant dehiscence or drainage but a little bit of redness at the bottom of the wound. Question if she could be suffering from possible hematoma although she has not resumed anticoagulation till just today or postoperative seroma or inflammation causing symptoms with worsening pain limiting motion of the legs. Significant ambulatory dysfunction and will try some morphine to see if this helps with pain. States sensations actually improved some in regards to the lower extremities to lower suspicion for acute cauda equina. Will plan to order MRI of the lumbar spine with without contrast to evaluate for postoperative changes or fluid collections that could be possible here in addition to lumbar x-rays. Patient with some difficulty to obtain blood work slight delay here. Slightly improved anemia 11.2 hemoglobin today. Normal white blood cell count of 8. No significant electrolyte abnormality signs of renal dysfunction. INR normal at 1.0. Morphine did help with her pain. Lumbar x-ray and MRI of the spine again ordered for further evaluation. Send out to Dr. Delatorre pending results would likely need for admission given her pain and ambulatory dysfunction. Ann catheter ordered as the patient's having difficulty using pure wick and has the ambulatory dysfunction. DIAGNOSIS: Lumbar back pain with sciatica postop, ambulatory dysfunction DISPOSITION: Signed out to Dr. Delatorre awaiting imaging. Past Med/Surg History Problem List (Updated 04/18/24 @ 06:51 by Wilman Rowell M.D.) Lumbar back pain (Acute) Atrial fibrillation, currently in sinus rhythm Status post surgery Neurogenic claudication due to lumbar spinal stenosis Encounter for pre-operative examination Anemia (Acute) Sciatica Arthritis (Acute) Degenerative disc disease (Acute) Paroxysmal atrial fibrillation (Chronic) Hypertension (Chronic) Irritable bowel syndrome (Chronic) Dyslipidemia (Chronic) Medical History Ankylosing spondylitis Arthritis DDD (degenerative disc disease), lumbosacral Dyslipidemia Fibromyalgia Gastritis GERD (gastroesophageal reflux disease) H/O cold sores History of adenomatous polyp of colon History of kidney stones (2021) History of melena (12/2023) UGI bleed/[facility] admission Hx of gastric ulcer Hx of irritable bowel syndrome Hx of tinnitus Hypertension Paroxysmal atrial fibrillation Follows with Dr. Bro Taking coumadin Peutz-Jeghers syndrome Trigeminal neuralgia Surgical History H/O breast surgery (1985) x2 1985 breast augmentation with silicone implants, both replaced 2000 with saline H/O rotator cuff surgery left H/O: hysterectomy and BSO History of cardiac radiofrequency ablation History of esophagogastroduodenoscopy (EGD) 12/23/23, MAC at [facility] History of hip surgery (2015) left side "cleaned out" History of postoperative nausea and vomiting Hx of cholecystectomy Hx of colonoscopy with polypectomy Hx of cystoscopy (2021) Hx of oral surgery dental implants Family History Other Breast cancer Colorectal cancer Diabetes Social History Smoking Status: Never smoker Tobacco Type: Cigarettes Second Hand Exposure: No; Do You Dip or Chew Tobacco: No; Hx Alcohol Use: No Hx Substance Use: No Preferred Language: Mosotho Communication Ability: Effective 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 Beliefs That Will Affect Care: None Current Living Situation: Spouse Feels Safe at Home: Yes Assistive Devices: Cane and Walker Allergies Allergies Allergy/AdvReac Type Severity Reaction Status Date / Time adhesive Allergy Mild Rash Verified 04/13/24 09:03 codeine Allergy Mild Nausea Verified 04/13/24 09:03 promethazine Allergy Mild Hives, Verified 04/13/24 09:03 itching fentanyl AdvReac Mild Nausea Verified 04/13/24 09:03 Home Meds Home Medications Medication Instructions Recorded Confirmed albuterol sulfate 90 mcg/actuation 1 puff inhalation QID PRN colon 12/22/23 04/13/24 aerosol inhaler cramps clotrimazole-betamethasone 1 1 applic topical BID PRN hand rash 12/22/23 04/13/24 %-0.05 % topical cream ezetimibe 10 mg tablet 10 mg PO QAM 12/22/23 04/13/24 furosemide 20 mg tablet (Lasix) 20 mg PO DIRECTED PRN Edema 12/22/23 04/13/24 gabapentin 800 mg tablet 800 mg PO TID 12/22/23 04/13/24 rosuvastatin 20 mg tablet 20 mg PO QAM 12/22/23 04/13/24 sotalol 120 mg tablet 120 mg PO AMHS 12/22/23 04/13/24 warfarin 5 mg tablet 5 mg PO MOFR 04/13/24 04/13/24 warfarin 5 mg tablet 10 mg PO SUTUWETHSA 04/13/24 04/13/24 Previous Rx's Medication Instructions Recorded amlodipine 5 mg tablet (Norvasc) 5 mg PO HS #30 tabs 12/28/23 lisinopril 10 mg tablet 10 mg PO QAM #30 tabs 12/28/23 oxycodone 5 mg tablet 5 mg PO Q6H PRN pain #30 tabs 04/14/24 tramadol 50 mg tablet 50 mg PO Q6H PRN pain, moderate 04/14/24 #30 tabs cefdinir 300 mg capsule 300 mg PO BID #9 caps 04/16/24 docusate sodium 100 mg capsule 100 mg PO BID PRN constipation #60 04/16/24 (Colace) caps polyethylene glycol 3350 17 gram 17 g PO DAILY PRN constipation #30 04/16/24 oral powder packet (Miralax) ea Results & Data (ED) Vital Signs Vital Signs - 24 hr 04/18/24 04:41 04/18/24 04:56 Temperature 37.2 C Temperature Source Oral Pulse Rate 59 L 58 L Pulse Rhythm Regular Pulse Strength Normal Respiratory Rate 18 Respiratory Depth Normal Blood Pressure 176/71 H Blood Pressure Mean 106 Blood Pressure Position Lying Pulse Oximetry 94 Oxygen Delivery Method Room Air Sepsis Recent Fever Within 48 Hours No Sepsis New/Unexplained Change in Mental Status No Sepsis Action Taken by Nursing No Action Required Laboratory Data 04/18/24 05:24 04/18/24 05:24 Lab Results 04/18/24 Range/Units 05:24 WBC 8.06 (4.8-10.8) K/ul RBC 4.05 L (4.20-5.40) M/uL Hgb 11.2 L (12.0-16.0) g/dl Hct 35.8 L (37.0-47.0) % MCV 88.4 (80.0-100.0) fL MCH 27.7 (25.0-34.0) pg MCHC 31.3 L (32.0-36.0) g/dL RDW Std Deviation 61.7 H (36.4-46.3) fL RDW Coeff of Ana Cristina 18.8 H (11.5-14.5) % Plt Count 265 (130-400) K/uL MPV 8.9 L (9.4-12.4) fL Immature Gran % (Auto) 0.4 % Neut % (Auto) 63.8 % Lymph % (Auto) 26.1 % [place] % (Auto) 8.6 % Eos % (Auto) 0.7 % Baso % (Auto) 0.4 % Neut # (Auto) 5.15 (1.40-6.50) K/uL Lymph # (Auto) 2.10 (1.20-3.40) K/uL [place] # (Auto) 0.69 H (0.11-0.59) K/uL Eos # (Auto) 0.06 (0.00-0.50) K/uL Baso # (Auto) 0.03 (0.00-0.20) K/uL Immature Gran # (Auto) 0.03 (0.01-0.20) K/uL Sodium 137 (136-145) mmol/L Potassium 3.9 (3.5-5.1) mmol/L Chloride 104 (98-107) mmol/L Carbon Dioxide 26 (21-32) mmol/L Anion Gap 7 (3-11) BUN 14 (6-23) mg/dl Creatinine 0.50 L (0.6-1.2) mg/dl Est Cr Clr Drug Dosing 116.4 ml/min Est GFR ( Amer) 115.3 ml/min Est GFR (Non-Af Amer) 99.4 ml/min BUN/Creatinine Ratio 28.0 H (10-20) Glucose 89 (70-99(Fasting)) mg/dl Calcium 8.6 (8.6-10.3) mg/dl Total Bilirubin 0.3 (0.2-1.0) mg/dl AST 13 (13-39) U/L ALT 11 (7-52) U/L Alkaline Phosphatase 58 (34-104) U/L Total Protein 5.9 L (6.0-8.3) gm/dl Albumin 3.4 (3.4-5.0) gm/dl Globulin 2.5 (2.5-4.0) gm/dl Albumin/Globulin Ratio 1.4 (0.9-2) Administered Medications Discontinued Medications Sodium Chloride (Nss) 500 mls @ 999 mls/hr IV .Q31M ONE Stop: 04/18/24 05:24 Last Admin: 04/18/24 05:09 Dose: 999 mls/hr Documented By: AURA Morphine Sulfate (Morphine Sulfate 4 Mg/Ml 1 Ml Carp\\Vial) 4 mg IV NOW STA Stop: 04/18/24 04:55 Last Admin: 04/18/24 05:09 Dose: 4 mg Documented By: AURA Discharge Plan Visit Data Chief Complaint: Back Injury/Pain Stated Complaint: LEG WEAKNESS, UNABLE TO WALK, RECENT BACK SURGERY ED Provider: Sylvain Delatorre Discharge Problem: Lumbar back pain Patient Disposition: Being Evaluated by Hospitalist Forms Stand Alone Forms: [facility] Prescriptions Prescriptions: No Action sotalol 120 mg tablet 120 mg PO AMHS gabapentin 800 mg tablet 800 mg PO TID clotrimazole-betamethasone 1-0.05 % Cream 1 applic TOPICAL BID PRN (Reason: hand rash) furosemide [Lasix] 20 mg Tablet 20 mg PO DIRECTED PRN (Reason: Edema) albuterol sulfate 90 mcg/actuation Hfa Aerosol Inhaler 1 puff INHALATION QID PRN (Reason: colon cramps) ezetimibe 10 mg tablet 10 mg PO QAM rosuvastatin 20 mg tablet 20 mg PO QAM amlodipine [Norvasc] 5 mg Tablet 5 mg PO HS Qty: 30 0RF lisinopril 10 mg Tablet 10 mg PO QAM Qty: 30 0RF warfarin 5 mg tablet 5 mg PO MOFR warfarin 5 mg tablet 10 mg PO SUTUWETHSA tramadol 50 mg tablet 50 mg PO Q6H PRN (Reason: pain, moderate) Qty: 30 0RF oxycodone 5 mg tablet 5 mg PO Q6H PRN (Reason: pain) Qty: 30 0RF cefdinir 300 mg capsule 300 mg PO BID Qty: 9 0RF polyethylene glycol 3350 [Miralax] 17 gram Powder In Packet 17 g PO DAILY PRN (Reason: constipation) Qty: 30 0RF docusate sodium [Colace] 100 mg capsule 100 mg PO BID PRN (Reason: constipation) Qty: 60 0RF Referrals Referrals: Francia Polo MD [Primary Care Provider] -
--- OUTSIDE RECORDS SUMMARY | 2024-04-18 05:44 | External Medical Summary | Summary of Care ---
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 Name Role Phone Francia Polo MD Primary Care Provider [phone] Reason for Visit * Reason Comments Dosage Adjustment Via Phone (anticoag Cl inic) Encounter Details Date Type Department Care Team ([facility] Contact Info) Description 04/16/2024 6:45 AM EDT Anticoagulation [facility], German Pichardo [address] [place] [address] [place] [address] [facility], [address] [place] [address] PAF (paroxysmal atrial fibrillation) ([facility])* Allergies Active Allergy Reactions Criticality Noted Date Comments Adhesive Tape 10/24/2002 band-aid type-blisters Anesthetics, Chata Itching 02/26/2015 Allergy to novocaine Codeine Hives 03/20/1998 SOB Fentanyl 12/08/2020 vomiting Phenothiazines Hives 10/24/2002 Phenergan makes pt itch documented as of this encounter (statuses as of 04/16/2024) Medications Medication Sig Dispensed Refills Start Date End Date Status Albuterol Sulfate HFA 108 (90 Base) MCG/ACT Inhalation Aerosol Solution Inhale 2 Puffs by mouth every 6 hours as needed (anal pain). 18 g 1 04/09/2021 Active Ferrous Sulfate 325 (65 Fe) MG Oral Tablet (Feosol) 1 tab every other day 60 Tab 11 07/06/2021 Active Vitamin B-12 1000 MCG Oral TabletIndications: B12 deficiency Take by mouth 1 Tablet in the morning. 90 Tablet 3 02/16/2022 Active Additional Information Patient not taking.Reported on 04/02/2024 Clotrimazole-Betam ethasone 1-0.05 % External Cream (Lotrisone)Indicat ions:Rash and nonspecific skin eruption APPLY TO AFFECTED AREA TWICE DAILY UNTIL HEALED. USE NO LONGER THAN 28 DAYS 45 g 1 09/03/2022 Active Additional Information Patient not taking.Reported on 02/27/2024 Gabapentin 800 MG Oral Tablet (Neurontin) TAKE 1 TABLET BY MOUTH IN THE MORNING, 1 TABLET AT NOON AND 1 TABLET BEFORE BEDTIME 270 Tablet 3 07/22/2023 Active Rosuvastatin Calcium 20 MG Oral Tablet (Crestor)Indicatio ns:Dyslipidemia, goal to be determined TAKE 1 TABLET BY MOUTH ONCE DAILY IN THE MORNING 90 Tablet 3 09/28/2023 Active Lisinopril 10 MG Oral Tablet (Prinivil) Take 1 Tablet by mouth in the morning. 12/28/2023 Active Warfarin Sodium 5 MG Oral Tablet (Coumadin)Indicati ons:Paroxysmal atrial fibrillation (HCC) 15 mg every Tuesday; 10 mg all other days or as directed by anticoagulation clinic 200 Tablet 5 03/07/2024 Active Ezetimibe 10 MG Oral Tablet (Zetia)Indications :Dyslipidemia, goal to be determined Take 1 Tablet by mouth in the morning. 90 Tablet 3 03/07/2024 Active amLODIPine Besylate 2.5 MG Oral Tablet (Norvasc)Indicatio ns:HTN, goal below 140/90 Take 1 Tablet by mouth every night at bedtime. 90 Tablet 3 03/07/2024 Active Sotalol HCl 120 MG Oral TabletIndications: Paroxysmal atrial fibrillation (HCC) Take 1 Tablet by mouth in the morning and 1 Tablet before bedtime. 180 Tablet 3 03/07/2024 Active documented as of this encounter (statuses as of 04/16/2024) Active Problems Problem Noted Date Diagnosed Date Hypertension goal BP (blood pressure) < 140/90 0 02/24/2024 Prediabetes 03/15/2022 Overview: Per Prediabetes protocol Peutz-Jeghers syndrome 02/11/2022 S/P ablation of atrial fibrillation 12/24/2017 PAF (paroxysmal atrial fibrillation) 10/20/2017 Chronic left-sided low back pain with left-sided sciatica 06/24/2016 Degeneration of cervical intervertebral disc Degeneration of lumbosacral intervertebral disc 04/18/2014 IBS (irritable bowel syndrome) 07/24/2012 Migraine with aura 12/30/2010 Mixed dyslipidemia 08/14/2009 Overview: Per Lipid Taxonomy. Fibromyalgia 02/22/2003 Trigeminal neuralgia 01/17/2003 documented as of this encounter (statuses as of 04/16/2024) Resolved Problems Problem Noted Date Diagnosed Date Resolved Date Peutz-Jeghers syndrome 02/11/202201/03 Peutz-Jeghers syndrome 02/11/202201/03 Prediabetes 06/16/2020 04/21/2021 Overview: Per Prediabetes protocol [...] as of this encounter (statuses as of 04/16/2024) Immunizations Name Administration Dates Next Due COVID-19 mRNA, LNP-s, No Pre serve, 2-Dose Series (Pfizer) 06/27/2021,06/06/2021 Seasonal Influenza, PF, 6 M & above, IM , (FluLaval or Fluzone) 05/23/2020 Seasonal Influenza, Split, IIV3, With Preserve, Inj 08/05/2016 TDAP (age 10 and older)(Boostrix) 01/25/2020 TDAP, Age 7 and older, IM (Adacel) 08/28/2009 documented as of this encounter Social History Tobacco Use Types Packs/Day Years Used Date Smoking Tobacco: Former Cigarettes 0.5 10 0 03/05/1998 - 03/05/2008 Smokeless Tobacco: Never Comments:no passive smoke ex posures Alcohol Use Standard Drinks/Week Comments No 0 (1 standard drink = 0.6 oz pur e alcohol) PHQ-2 Answer Date Recorded PHQ Adult Total Score 0 01/04/2024 Hunger Vital Sign Answer Date Recorded Within the past 12 months, y ou worried that your food would run out before you got the money to buy more. Never true 01/04/20 24 Within the past 12 months, t he food you bought just didn't last and you didn't have money to get more. Never true 01/04/2024 Childcare Answer Date Recorded Do you feel overwhelmed with taking care of a child, family member or friend? Yes 01/04/2024 Does your family need help f inding childcare? (Household - for ages 0-17 years) Not on file 01/04/2024 Clothing Answer Date Recorded Have you been unable to get clothing when it was really needed? No 01/04/2024 Is your family able to get c lothes or diapers when needed? (Household - for ages 0-17 years) Not on file 01/04/2024 Personal Safety Answer Date Recorded Do you feel unsafe or have concerns for your saf ety? No 01/04/2024 Do you have concerns for you r family's safety? (Household - for ages 0-17 years) Not on file 01/04/2024 Utilities Answer Date Recorded Do you have trouble paying y our heating, water, or electric bill? No 01/04/2024 Is your family able to pay t he heat, water, or electric bill? (Household - for ages 0-17 years) Not on file 01/04/2024 Does your family have access to good internet? (Household - for ages 0-17 years) Not on file 01/04/2024 Employment Status Answer Date Recorded Are you unemployed or without regular income? No 01/04/2024 Does the household have a re gular source of income? (Household - for ages 0-17 years) Not on file 01/04/2024 Social Connections Answer Date Recorded How often do you feel lonely or isolated from th ose around you? Rarely 01/04/2024 Financial Resource Strain Answer Date R ecorded Do you have any trouble payi ng for your medications, or do you think you might in the future? Yes 01/04/2024 Does your family have troubl e paying for medicine? (Household - for ages 0-17 years) Not on file 01/04/2024 Transportation Needs Answer Date Record ed READ ONLY Do you have troubl e getting a ride to medical visits or work? Sometimes True 01/04/2024 Does your family have a hard time getting a ride to doctors visits? (Household - for ages 0-17 years) Not on file 01/04/2024 Has lack of transportation k ept you from medical appointments, meetings, work, or from getting things needed for daily living? Check all that apply. (Adult - for ages 18 years and over) Not on file 01/04/2024 Do you (or your family) have trouble finding or paying for a ride (transportation)? (Household - for ages 0-17 years) Not on file 01/04/2024 Housing Stability Answer Date Recorded Do you currently live in a s helter or have no steady place to sleep at night? No 01/04/2024 READ ONLY Do you think you a re at risk of becoming homeless? No 01/04/2024 Does your family worry about paying for your home or becoming homeless? (Household - for ages 0-17 years) Not on file 0 01/04/2024 Are you homeless or worried that you might be in the future? (Adult - for ages 18 years and over) Not on file Are you (or your family) eddie eless or worried that you might be in the future? (Household - for ages 0-17 years) Not on file Food Insecurity Answer Date Recorded Do you need food for this week? No 01/04/2024 Are you able to get enough f ood for your family? (Household - for ages 0-17 years) Not on file 01/04/2024 Does your family need food t his week? (Household - for ages 0-17 years) Not on file 01/04/2024 Do you always have enough fo od for your family? (Household - for ages 0-17 years) Not on file 01/04/2024 Sex and Gender Information Value Date Recorded Sex Assigned at Female 06/26/2021 8:41 AM EDT Gender Identity Female 06/26/2021 8:41 AM EDT Sexual Orientation Straight 06/26/2021 8: 41 AM EDT Job Start Date Occupation Industry Not on file Not on file Not on file documented as of this encounter Progress Notes * Gillian Hannon RPh - 04/16/2024 11:49 AM EDT Pt remains admitted to [facility]. [facility] will follow up for discharge plans. Gillian Hannon Rph, Pharm.D. Clinical Pharmacist [facility] ([facility]) [phone] 04/16/2024,11:50 AM documented in this encounter Plan of Treatment Upcoming Encounters Date Type Department Care Team (Late st Contact Info) Description 06/06/2024 8:45 AM EDT Office Visit Urology, [facility] [address] [place] [address] Cale Mosley MD [address] [place] [address] 10/03/2024 4:00 PM EST Office Visit Gastroenterology, [facility] [address] [place] [address] Zulema Buchanan MD [address] [place] [address] 02/27/2025 10:00 AM EDT Office Visit Cardiology, [facility] [address] [facility] [place] [address] Judy Benedict CRNP [address] [place] [address] Scheduled Procedures Name Priority Associated Diagnoses Date/Ti me ESOPHAGOGASTRODUODENOSCOPY ( EGD), FLEXIBLE, TRANSORAL, DIAGNOSTIC Recall Mercer's esophagus with esophagitis Pancreatic cyst ESOPHAGOGASTRODUODENOSCOPY ( EGD), FLEXIBLE, TRANSORAL, ENDOSCOPIC ULTRASOUND Recall Mercer's esophagus with esophagitis Pancreatic cyst COLONOSCOPY FLEXIBLE PROXIMAL DIAGNOSTIC Recall History of colon polyps Familial polyposis Health Maintenance Due Date Last Done Comments Pneumococcal Vaccine: 65+ Years (1 of 2 - PCV) 12/28/1961 Cologuard 12/28/2000 Fecal Occult Blood Test 12/28/2000 Sigmoidoscopy 12/28/2000 Zoster Vaccines (1 of 2) 12/28/2005 Adult Wellness Visit 12/28/2021 COVID-19 Vaccine (3 - season) 2023 06/27/2021, 06/06/2021 Colonoscopy 10/28/2023 10/28/2020, 10/07, 09/04/2019, Additional history exists Colorectal Cancer Screening 10/28/2023 *NEPHROLOGY REFERRAL DUE TO RESISTANT HTN 04/05/2024 Influenza Vaccine (FLU shot) (#1) 2024 05/23/2020, 08/05/2016 Depression Screening 01/03/2025 01/04/2024 Mammogram 03/01/2025 03/01/2024, 06/0 03/2023, 02/09/2023, Additional history exists GFR 03/07/2025 03/07/2024, 02/03, 02/23/2022, Additional history exists HbA1c 03/07/2025 03/07/2024, 02/03, 02/23/2022, Additional history exists Albumin/Creatinine Ratio 03/10/2026 03/10/2023 Lipid Panel 01/03/2029 01/04/2024, 02/04, 12/01/2020, Additional history exists DXA Scan 01/12/2029 01/12/2022, 01/12/2022 DTaP,Tdap,and Td Vaccines (3 - Td or Tdap) 01/24/2030 01/25/2020, 08/28/2009 RETIRED - COLONOSCOPY-ANNUAL AGES 18-100 Discontinued 10/28/2020, 10/28/2020, 09/04/2019, Additional history exists HPV (Gardasil) Vaccine Aged Out No lo nger eligible based on patient's age to complete this topic Hepatitis B Vaccine Aged Out No longe r eligible based on patient's age to complete this topic MENINGOCOCCAL (MENACTRA/MENVEO) Aged Out No longer eligible based on patient's age to complete this topic documented as of this encounter Medical Devices Implanted Type Area Director Case Device Identifier Shelf Expiration Date Model / Serial / Lot Endotine Forehead 3.5mm - [id number] Implanted:Qty: 1 on 02/10/2021 by Charlee Rincon MD at [facility] [employer] [id number] 08/02/2022 [id number] / / [id number] documented as of this encounter Visit Diagnoses Diagnosis PAF (paroxysmal atrial fibrillation) (HCC)- Primary Atrial fibrillation documented in this encounter Advance Directives * Full Code (Latest Code Status on File) Date Activated Date Inactivated Comments 02/06/2018 2:41 PM 02/07/2018 1:28 PM This order ref lects the patients wishes and were consensually agreed upon. * Full Code Date Activated Date Inactivated Comments 12/19/2017 1:21 PM 12/20/2017 12:45 PM This order reflects the patients wishes and were consensually agreed upon. Care Teams Rail Express Clerk Relationship Specialty Start Date End Date Francia Polo MD [address] [place] [address] PCP - General Family Medicine 02/24/24 documented as of this encounter
[2024-04-18 05:50] LABS: Basophils # (auto) 0.03 K/uL (0.00-0.20); Basophils % (auto) 0.4 %; Eosinophils # (auto) 0.06 K/uL (0.00-0.50); Eosinophils % (auto) 0.7 %; Hematocrit (blood only) 35.8 % (37.0-47.0); Hemoglobin 11.2 g/dl (12.0-16.0); Immature Granulocytes # (auto) 0.03 K/uL (0.01-0.20); Immature Granulocytes % (auto) 0.4 %; Lymphocytes % (auto) 26.1 %; Mean Corpuscular Hemoglobin 27.7 pg (25.0-34.0); Mean Corpuscular Hgb Conc 31.3 g/dL (32.0-36.0); Mean Corpuscular Volume 88.4 fL (80.0-100.0); Mean Platelet Volume 8.9 fL (9.4-12.4); Monocytes # (auto) 0.69 K/uL (0.11-0.59); Monocytes % (auto) 8.6 %; Neutrophils # (auto) 5.15 K/uL (1.40-6.50); Neutrophils % (auto) 63.8 %; Platelet Count 265 K/uL (130-400); RDW Coefficient of Variation 18.8 % (11.5-14.5); RDW Standard Deviation 61.7 fL (36.4-46.3); Red Blood Count 4.05 M/uL (4.20-5.40); White Blood Count 8.06 K/ul (4.8-10.8)
[2024-04-18 06:04] LABS: Albumin Globulin Ratio 1.4 (0.9-2); Albumin Level 3.4 gm/dl (3.4-5.0); Bilirubin,Total 0.3 mg/dl (0.2-1.0); Calcium 8.6 mg/dl (8.6-10.3); Creatinine Clr Calc Pharmacy 116.4 ml/min; Est GFR (African American) 115.3 ml/min; Est GFR (Non-African American) 99.4 ml/min; Globulin 2.5 gm/dl (2.5-4.0); Potassium 3.9 mmol/L (3.5-5.1); Total Protein 5.9 gm/dl (6.0-8.3)
[2024-04-18 06:20] LABS: Partial Thromboplastin Ratio 0.9; Partial Thromboplastin Time 25 Seconds (21-31); Prothrombin Time 10.7 Seconds (9.0-12.0)
--- NOTE | 2024-04-18 06:50 | Emergency Department Note ---
ED Visit Note Patient is a 68-year-old female who presents ER status post lumbar decompression performed by Dr. Santana this past who presents to the ER for worsening back pain and inability to ambulate. X-rays and MRI were ordered. Patient was initially seen and evaluated by Dr. Rowell. Labs show no significant leukocytosis. Mild anemia. INR is normal at 1. BMP along LFTs, bilirubin, is unremarkable. Patient is currently on antibiotic for UTI. Has received doses of morphine. Current plan is x-ray admission and MRI from inpatient with ev aluation by orthopedics. X-ray was obtained and was unremarkable. I discussed with Dr. Santana who operated on the procedure and just discharged the patient. He admitted the patient. Please see his note for further details. .
--- NOTE | 2024-04-18 07:49 | XRay Report ---
XR lumbar spine 2-3V CLINICAL HISTORY: s/p surgery pain, weak COMPARISON STUDY: Lumbar spine MRI February 22, 2015. Lumbar spine radiographs December 23, 2023. FINDINGS: There are postoperative findings consistent with L4-L5 discectomy, decompression and fusion . The hardware is intact. There are no lumbar spine fractures. There are no unexpected radiopaque for eign bodies. Status post cholecystectomy. Minimal rightward curvature of the lumbar spine. IMPRESSION: 1. Status post L4-L5 decompression and fusion. Hardware intact. 2. No lumbar spine fractures. ACT 112: Negative or not required by law. Electronically signed by: Andre Mayer M.D. 04/18/2024 7:47 AM
[2024-04-18 09:26] LABS: Appearance Urine Clear (Clear); Bilirubin Urine Negative (Negative); Blood Urine Negative (Negative); Color Urine Yellow; Glucose Urine UA Negative (Negative); Ketones Urine Negative (Negative); Leukocyte Esterase Urine Negative (Negative); Nitrite Urine Negative (Negative); Protein Urine Negative (Negative); Urobilinogen Urine Negative (Negative); pH Urine 7.5 (4.5-7.5)
--- NOTE | 2024-04-18 10:54 | History & Physical Report ---
Date of Service April 18, 2024 Assessment & Plan (1) Lumbar back pain: Plan: MRI lumbar spine available today demonstrates massive hematoma at the operative bed at L4-L5. In light of her presentation and recommending emergent irrigation and debridement of the lumbar spine. This was reviewed in detail with the patient and her understand agree. She is n.p.o. we will plan for surgery soon as possible. History of Present Illness Chief Complaint: Worsening back and right leg pain with inability to ambulate Primary Care Provider: Francia Polo MD This is a 68-year-old female status post lumbar decompression fusion the presents the emergency room today with worsening back and leg pain. She is unable to ambulate. Has had been progressive for the past several days. Allergies Allergy/AdvReac Type Severity Reaction Status Date / Time adhesive Allergy Mild Rash Verified 04/13/24 09:03 codeine Allergy Mild Nausea Verified 04/13/24 09:03 promethazine Allergy Mild Hives, Verified 04/13/24 09:03 itching fentanyl AdvReac Mild Nausea Verified 04/13/24 09:03 Home Medications Medication Instructions Recorded Confirmed Type albuterol sulfate 90 mcg/actuation 1 puff inhalation QID PRN colon 12/22/23 04/18/24 History aerosol inhaler cramps clotrimazole-betamethasone 1 1 applic topical BID PRN hand rash 12/22/23 04/18/24 History %-0.05 % topical cream ezetimibe 10 mg tablet 10 mg PO QAM 12/22/23 04/18/24 History furosemide 20 mg tablet (Lasix) 20 mg PO DIRECTED PRN Edema 12/22/23 04/18/24 History gabapentin 800 mg tablet 800 mg PO TID 12/22/23 04/18/24 History rosuvastatin 20 mg tablet 20 mg PO QAM 12/22/23 04/18/24 History sotalol 120 mg tablet 120 mg PO AMHS 12/22/23 04/18/24 History amlodipine 5 mg tablet (Norvasc) 5 mg PO HS #30 tabs 12/28/23 04/18/24 Rx lisinopril 10 mg tablet 10 mg PO QAM #30 tabs 12/28/23 04/18/24 Rx warfarin 5 mg tablet 5 mg PO MOFR 04/13/24 04/18/24 History warfarin 5 mg tablet 10 mg PO SUTUWETHSA 04/13/24 04/18/24 History oxycodone 5 mg tablet 5 mg PO Q6H PRN pain #30 tabs 04/14/24 04/18/24 Rx tramadol 50 mg tablet 50 mg PO Q6H PRN pain, moderate 04/14/24 04/18/24 Rx #30 tabs cefdinir 300 mg capsule 300 mg PO BID #9 caps 04/16/24 04/18/24 Rx docusate sodium 100 mg capsule 100 mg PO BID PRN constipation #60 04/16/24 04/18/24 Rx (Colace) caps polyethylene glycol 3350 17 gram 17 g PO DAILY PRN constipation #30 04/16/24 04/18/24 Rx oral powder packet (Miralax) ea Past Med/Surg History Problem List (Updated 04/18/24 @ 06:51 by Wilman Rowell M.D.) Lumbar back pain (Acute) Atrial fibrillation, currently in sinus rhythm Status post surgery Neurogenic claudication due to lumbar spinal stenosis Encounter for pre-operative examination Anemia (Acute) Sciatica Arthritis (Acute) Degenerative disc disease (Acute) Paroxysmal atrial fibrillation (Chronic) Hypertension (Chronic) Irritable bowel syndrome (Chronic) Dyslipidemia (Chronic) Medical History Ankylosing spondylitis Arthritis DDD (degenerative disc disease), lumbosacral Dyslipidemia Fibromyalgia Gastritis GERD (gastroesophageal reflux disease) H/O cold sores History of adenomatous polyp of colon History of kidney stones (2021) History of melena (12/2023) UGI bleed/[facility] admission Hx of gastric ulcer Hx of irritable bowel syndrome Hx of tinnitus Hypertension Paroxysmal atrial fibrillation Follows with Dr. Bro Taking coumadin Peutz-Jeghers syndrome Trigeminal neuralgia Surgical History H/O breast surgery (1985) x2 1985 breast augmentation with silicone implants, both replaced 2000 with saline H/O rotator cuff surgery left H/O: hysterectomy and BSO History of cardiac radiofrequency ablation History of esophagogastroduodenoscopy (EGD) 12/23/23, MAC at [facility] History of hip surgery (2015) left side "cleaned out" History of postoperative nausea and vomiting Hx of cholecystectomy Hx of colonoscopy with polypectomy Hx of cystoscopy (2021) Hx of oral surgery dental implants Family History Other Breast cancer Colorectal cancer Diabetes Social History Smoking Status: Never smoker Tobacco Type: Cigarettes Second Hand Exposure: No; Do You Dip or Chew Tobacco: No; Hx Alcohol Use: No Hx Substance Use: No Preferred Language: Cymraes Communication Ability: Effective 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 The incision is clean dry and intact. She is neurologically intact but unable to stand without severe pain. Results & Data Results & Data Vital Signs (Past 12 Hours) Vital Signs Temp Pulse Pulse Resp BP BP Pulse Ox 04/18/24 10:00 66 20 203/87 H 93 04/18/24 07:39 59 L 20 179/78 H 92 04/18/24 04:56 37.2 C 58 L 18 176/71 H 94 04/18/24 04:41 59 L O2 Del Method 04/18/24 10:00 Room Air 04/18/24 07:39 Room Air 04/18/24 04:56 Room Air 04/18/24 04:41 Code Status & VTE Plan VTE Prophylaxis Plan VTE Prophylaxis will be ordered: Yes
--- NOTE | 2024-04-18 11:14 | Magnetic Resonance Report ---
LUMBAR SPINE MRI WITH AND WITHOUT CONTRAST HISTORY: s/p surgery worse pain, weakness TECHNIQUE: Multiplanar multisequence MRI of the lumbar spine was performed both before and after the intravenous administration of contrast. COMPARISON: Lumbar spine radiograph 04/18/2024. FINDINGS: For the purpose of the report the L5-S1 disc space will be located on axial image 27 of 32. No fracture or subluxation within the lumbar spine. Interval posterior decompression fusion at L4-5 w ith pedicle screws and rods. A disc spacer is in place. The conus terminates at the L1-L2 disc space level. Mild disc space narrowing within the lower thoracic spine and at the L1-L2 level. The remainin g disc spaces are preserved. Subcutaneous trace edema within the lumbar region with an 8 x 3 cm subcu taneous fluid collection deep to the incision site. This favors a postoperative seroma. Mild enhancem ent the laminectomy site consistent with expected postoperative change. There is a large posterior ep idural/extradural T2 hyperintense, T1 hypointense collection at the laminectomy site which measures a pproximately 5.0 x 2.6 x 2.5 cm. This contains a few thin septations and favors a postoperative serom a. A pseudomeningocele also remains in the differential diagnosis. This results in severe mass effect of the posterior thecal sac with severe central canal narrowing centered at the L4 level. The thecal sac measures 2 mm in diameter at this area of severe stenosis. There is mass effect along the [place] sing cauda equina at this level. This large fluid collection extends from the levels of the inferior endplate of L3 through the superior endplate of L5. There is also a smaller fluid collection posterio r to the cauda equina from the L1-L4 levels which measures up to 4 mm in thickness. This is also T2 h yperintense, T1 hypointense and favors a small subdural fluid collection. This favors a postoperative seroma. Secondary infection would be difficult to exclude by imaging. This results in mild mass effe ct along the posterior aspect of the cauda equina. No evidence for an epidural hematoma. L1-L2: Small broad-based posterior disc bulge without significant central canal or neural foraminal n arrowing. L2-L3: No significant central canal or neural foraminal narrowing. L3-L4: Small broad-based posterior disc bulge without significant neural foraminal narrowing. There i s severe central canal narrowing due to the posterior epidural fluid collection. L4-L5: No significant right-sided neural foraminal narrowing. There are severe central canal narrowin g due to the large posterior epidural fluid collection. There is moderate right-sided neural foramina l narrowing. L5-S1: No significant central canal or neural foraminal narrowing. IMPRESSION: 1. Interval posterior decompression and fusion at L4-5 with pedicle screws and rods. 2. There is a large T2 hyperintense, T1 hypointense fluid collection at the laminectomy site within t he posterior epidural space centered at the L4 level which measures 5.0 x 2.6 x 2.5 cm. This favors a postoperative seroma. A pseudomeningocele also remains in the differential diagnosis. Secondary infe ction would be difficult to exclude by imaging. This fluid collection results in severe central canal narrowing at this level with mass effect along the traversing cauda equina. 3. There is also a smaller fluid collection posterior to the cauda equina from the L1-L4 levels which measures up to 4 mm in thickness. This is also T2 hyperintense, T1 hypointense and is consistent wit h a small subdural fluid collection. This likely connect to the larger fluid collection at the roland ctomy site. This favors a postoperative seroma. Secondary infection would be difficult to exclude by imaging. This results in mild mass effect along the posterior aspect of the cauda equina. 4. Additional findings as described above. ACT 112: Negative or not required by law. Electronically signed by: Erlin Oleary M.D. 04/18/2024 11:12 AM
[2024-04-18] MEDS ORDERED: PROPOFOL IV EMULSION 10 MG/ML 20 ML VIAL IV ONE (11:24)
[2024-04-18] MEDS ORDERED: DEXAMETHASONE SOD INJ 4 MG/ML VIAL ONE (11:24)
[2024-04-18] MEDS ORDERED: MIDAZOLAM HCL 1 MG/ML 2ML VIAL ONE (11:24)
[2024-04-18] MEDS ORDERED: LIDOCAINE 2% 2 ML VIAL/AMP(20MG/ML) INFIL ONE (11:24)
[2024-04-18] MEDS ORDERED: SUGAMMADEX SODIUM 200 MG/2 ML VIAL IV ONE (11:24)
[2024-04-18] MEDS ORDERED: ONDANSETRON INJ 2 MG/ML 2 ML VIAL ONE (11:24)
[2024-04-18] MEDS ORDERED: ROCURONIUM BROMIDE 10 MG/ML 5 ML VIAL IV ONE (11:24)
[2024-04-18] MEDS ORDERED: HYDROmorphone INJ 2 MG/ML SYR/VIAL ONE (11:24)
[2024-04-18] MEDS ORDERED: GLYCOPYRROLATE 0.2 MG/ML VIAL ONE (11:24)
[2024-04-18] MEDS: LACTATED RINGER'S 1,000 ML IV SCH ×2 (11:31→16:43)
--- NOTE | 2024-04-18 12:04 | Anesthesiology Consultation ---
Date of Service April 18, 2024 Assessment & Plan Chart Review Chart Review: Acceptable Risk for Surgery and Patient NOT seen in Pre Admission Testing Consults Requested none ASA [id number] Proposed Anesthesia Anesthesia Type: General Risk / Benefits Reviewed With: PT / POA / Parent / Guardian, Accepts Plan and Informed Consent Obtained History Surgery Operation Date: 04/18/24 08:00 Proposed Procedures p Incision and Drainage Lumbar Spine - Luis Fernando Santana, DO Height/Weight Height: 5 ft 2 in Weight: 96 kg Allergies Allergy/AdvReac Type Severity Reaction Status Date / Time adhesive Allergy Mild Rash Verified 04/18/24 11:40 codeine Allergy Mild Nausea Verified 04/18/24 11:40 promethazine Allergy Mild Hives, Verified 04/18/24 11:40 itching fentanyl AdvReac Mild Nausea Verified 04/18/24 11:40 Medications Home Medications Medication Instructions Recorded Confirmed Last Taken albuterol sulfate 90 mcg/actuation 1 puff inhalation QID PRN colon 12/22/23 04/18/24 Unknown aerosol inhaler cramps clotrimazole-betamethasone 1 1 applic topical BID PRN hand rash 12/22/23 04/18/24 Unknown %-0.05 % topical cream ezetimibe 10 mg tablet 10 mg PO QAM 12/22/23 04/18/24 04/18/24 furosemide 20 mg tablet (Lasix) 20 mg PO DIRECTED PRN Edema 12/22/23 04/18/24 04/11/24 08:00 gabapentin 800 mg tablet 800 mg PO TID 12/22/23 04/18/24 04/18/24 rosuvastatin 20 mg tablet 20 mg PO QAM 12/22/23 04/18/24 04/18/24 sotalol 120 mg tablet 120 mg PO AMHS 12/22/23 04/18/24 04/18/24 amlodipine 5 mg tablet (Norvasc) 5 mg PO HS #30 tabs 12/28/23 04/18/24 04/07/24 lisinopril 10 mg tablet 10 mg PO QAM #30 tabs 12/28/23 04/18/24 04/18/24 warfarin 5 mg tablet 5 mg PO MOFR 04/13/24 04/18/24 Unknown warfarin 5 mg tablet 10 mg PO SUTUWETHSA 04/13/24 04/18/24 Unknown oxycodone 5 mg tablet 5 mg PO Q6H PRN pain #30 tabs 04/14/24 04/18/24 Unknown tramadol 50 mg tablet 50 mg PO Q6H PRN pain, moderate 04/14/24 04/18/24 Unknown #30 tabs cefdinir 300 mg capsule 300 mg PO BID #9 caps 04/16/24 04/18/24 04/18/24 docusate sodium 100 mg capsule 100 mg PO BID PRN constipation #60 04/16/24 04/18/24 Unknown (Colace) caps polyethylene glycol 3350 17 gram 17 g PO DAILY PRN constipation #30 04/16/24 04/18/24 Unknown oral powder packet (Miralax) ea Active Medications Generic Name Dose Route Start Last Admin Trade Name Freq PRN Reason Stop Dose Admin Lactated Ringer's 1,000 mls @ 15 mls/hr 04/18/24 11:30 04/18/24 11:31 Lr IV 05/18/24 11:29 15 mls/hr .Q24H TARA Administration NPO Date Last Intake of Fluids: 04/18/24 Time Last Intake of Fluids: 05:30 Last Intake of Fluids Comment: sip of water 0530 w/med Date Last Intake of Solids: 04/18/24 Time Last Intake of Solids: 17:30 Past Medical History Medical History Peutz-Jeghers syndrome History of melena (12/2023) UGI bleed/[facility] admission Dyslipidemia DDD (degenerative disc disease), lumbosacral Hx of tinnitus Arthritis Hx of irritable bowel syndrome Hypertension GERD (gastroesophageal reflux disease) Hx of gastric ulcer Gastritis Paroxysmal atrial fibrillation Follows with Dr. Bro Taking coumadin History of kidney stones (2021) H/O cold sores History of adenomatous polyp of colon Ankylosing spondylitis Trigeminal neuralgia Fibromyalgia Exercise / Class Metabolic Activity IV < 2 Limit ADL/Bedbound Past Family History Family History Other Breast cancer Colorectal cancer Diabetes Past Surgical History Surgical History History of postoperative nausea and vomiting Hx of colonoscopy with polypectomy History of esophagogastroduodenoscopy (EGD) 12/23/23, MAC at [facility] History of cardiac radiofrequency ablation Hx of cystoscopy (2021) Hx of oral surgery dental implants History of hip surgery (2015) left side "cleaned out" Hx of cholecystectomy H/O: hysterectomy and BSO H/O rotator cuff surgery left H/O breast surgery (1985) x2 1985 breast augmentation with silicone implants, both replaced 2000 with saline Past Anesthesia History No Hx of Anesthesia Complications and No Family Hx of Anesthesia Complications History of PONV No Hx of PONV and No Hx of Motion Sickness Social History Smoking Status: Never smoker Do You Dip or Chew Tobacco: No Hx Alcohol Use: No Hx Substance Use: No substance use type: does not use Physical Exam Vital Signs Last Vital Signs Temp 37.1 C 04/18/24 11:18 Pulse 58 L 04/18/24 11:18 Resp 18 04/18/24 11:18 BP 190/64 H 04/18/24 11:18 Pulse Ox 93 04/18/24 11:18 O2 Del Method Room Air 04/18/24 11:18 Constitutional + acute distress (pt. in pain) and + morbidly obese ENMT Mouth: no dentition abnormality Thyromental Distance: < 3.5 Finger Breadths Mallampati Class: II Neck normal visual inspection and trachea midline; neck extension not limited Respiratory normal respiratory effort Auscultation: lungs clear to auscultation bilaterally and + diminished lung sounds Cardiovascular Rate/Rhythm: regular rate and regular rhythm Heart Sounds: no murmur Vessels: no carotid bruit Musculoskeletal Spine: + lumbar spinal tenderness; normal cervical ROM, no pain with cervical ROM and + lumbar spine abnormal to inspection Extremities: extremities normal to inspection; full ROM of extremities Neurologic moves all extremities Motor/Sensory: + sensory deficit Psychiatric Orientation: alert and oriented x 3 Testing Laboratory Results 04/18/24 05:24 04/18/24 05:24 PT 10.7 Seconds (9.0-12.0) 04/18/24 05:24 INR 1.0 (0.9-1.1) 04/18/24 05:24 APTT 25 Seconds (21-31) 04/18/24 05:24 Urine Color Yellow 04/18/24 09:00 Urine Appearance Clear (Clear) 04/18/24 09:00 Urine pH 7.5 (4.5-7.5) 04/18/24 09:00 Ur Specific [place] 1.010 (1.000-1.030) 04/18/24 09:00 Urine Protein Negative (Negative) 04/18/24 09:00 Urine Glucose (UA) Negative (Negative) 04/18/24 09:00 Urine Ketones Negative (Negative) 04/18/24 09:00 Urine Nitrite Negative (Negative) 04/18/24 09:00 Ur Leukocyte Esterase Negative (Negative) 04/18/24 09:00 Electrocardiogram Date: 12/22/23 Findings: + NSR @ (@ 90) and + LVH
[2024-04-18] MEDS ORDERED: ePHEDrine sulfate 50 MG/ML AMP IV PRN (12:07)
[2024-04-18] MEDS ORDERED: NALOXONE HCL 0.4 MG/1 ML VIAL/CARP IV PRN ×2 (12:07→15:31)
[2024-04-18] MEDS ORDERED: FLUMAZENIL 0.1 MG/1 ML 10 ML VIAL IV PRN (12:07)
[2024-04-18] MEDS ORDERED: ATROPINE SULFATE 0.1 MG/ML 10ML SYR IV PRN (12:07)
[2024-04-18] MEDS ORDERED: HYDROmorphone INJ 1 MG/ML SYRINGE IV PRN (12:07)
[2024-04-18] MEDS ORDERED: ONDANSETRON INJ 2 MG/ML 2 ML VIAL IV PRN ×2 (12:07→15:31)
[2024-04-18] MEDS: SCOPOLAMINE 1 MG/72 HR TDSY PATCH TD ONE (12:12)
[2024-04-18] MEDS ORDERED: ceFAZolin 330 MG/ML 1 GM VIAL ONE (13:37)
[2024-04-18] MEDS: ceFAZolin 330 MG/ML 1 GM VIAL ONE (13:48)
[2024-04-18] MEDS: BUPIVACAINE/EPINEPHRINE 0.25% 1:200,000 30 ML VIAL ONE (14:00)
--- NOTE | 2024-04-18 14:08 | Operative Report ---
Post Operative Report Pre & Post Diagnosis Operation Date: 04/18/24 08:00 Pre-Op Diagnosis: Lumbar hematoma Post-Op Diagnosis: Same I identified the patient and participated in the time-out.: Yes Procedure Operation Date: 04/18/24 08:00 Actual Procedures Evacuation of lumbar hematoma Surgeon Luis Fernando Santana DO Storm Door [employer] None Estimated Blood Loss 10 Findings Consistent with Post-Op Diagnosis Specimens None Indications This is a 60-year-old female well-known to me the presents emergency room last evening. She was having marked decline in status inability to ambulate. An MRI was obtained demonstrating significant hematoma in the perioperative bed at the L4-5 region. Subsequently recommended emergent evacuation of hematoma. Description of Procedure Patient was met with identified informed was obtained. Patient was then taken to the operative suite underwent ablation placed in a prone position on the OR table top the Anurag frame. All bony promises well-padded eyes inspected to ensure no external pressure placed upon the. This point the lumbar spine was prepped and draped in the normal sterile fashion. Utilizing the previous incision site dissection was performed down to the fascial layer. The fascia was released and significant amount of serosanguineous fluid identified and evacuated. The dura was explored demonstrating no external compression. Several liters of saline were then irrigated throughout the incision. 15 round LORENA drain inserted. The incision was then closed with 1 Vicryl to fascia 2-0 Vicryl subcutaneously and 4 Monocryl for fascial closure. Steri-Strips sterile dressing placed. Patient was awakened taken to PACU stable condition. I attest to the content of the Intraoperative Record and any orders documented therein. Any exceptions are noted below.
[2024-04-18] MEDS: LABETALOL HCL IV 5 MG/ML 20ML IV PRN (14:31)
--- NOTE | 2024-04-18 15:01 | Anesthesiology Progress Note ---
Date of Service April 18, 2024 Anesthesia Post Procedure Vital Signs Vital Signs: Temp Pulse Pulse Pulse Resp BP BP 04/18/24 14:50 72 18 150/88 H 04/18/24 14:46 65 172/92 H 04/18/24 14:40 72 15 179/99 H 04/18/24 14:31 70 175/103 H 04/18/24 14:30 70 19 175/103 H 04/18/24 14:20 36.2 C L 77 22 189/77 H 04/18/24 11:18 37.1 C 58 L 18 190/64 H 04/18/24 11:00 58 L 18 155/74 H 04/18/24 10:00 66 20 203/87 H 04/18/24 07:39 59 L 20 179/78 H 04/18/24 04:56 37.2 C 58 L 18 176/71 H 04/18/24 04:41 59 L Pulse Ox O2 Del Method O2 Flow Rate 04/18/24 14:50 95 Room Air 0 04/18/24 14:46 04/18/24 14:40 96 Nasal Cannula 2 04/18/24 14:31 04/18/24 14:30 98 Nasal Cannula 2 04/18/24 14:20 94 Nasal Cannula 4 04/18/24 11:18 93 Room Air 04/18/24 11:00 93 Room Air 04/18/24 10:00 93 Room Air 04/18/24 07:39 92 Room Air 04/18/24 04:56 94 Room Air 04/18/24 04:41 Pain Intensity Back: Pain Intensity: 10 Transfer of Care Handoff Completed per policy Notes Mental Status: alert / awake / arousable and participated in evaluation Nausea / Vomiting: adequately controlled Pain: adequately controlled Airway Patency, RR, SpO2: stable & adequate BP & HR: stable & adequate Hydration State: stable & adequate Anesthetic Complications: no major complications apparent and Pt Satisfied with anesthetic care
[2024-04-18] MEDS ORDERED: ONDANSETRON 4 MG OD TAB PO PRN (15:31)
[2024-04-18] MEDS ORDERED: ACETAMINOPHEN 500 MG TAB PO PRN (15:31)
[2024-04-18] MEDS ORDERED: HYDROmorphone INJ 0.5 MG/0.5 ML SYR IV PRN (15:31)
[2024-04-18] MEDS ORDERED: METOCLOPRAMIDE HCL INJ 5 MG/ML 2 ML VIAL IV PRN (15:31)
[2024-04-18] MEDS ORDERED: MAGNESIUM HYDROXIDE SUSP 30 ML UDC PO PRN (15:31)
[2024-04-18] MEDS ORDERED: ACETAMINOPHEN 1,000 MG/100 ML VIAL IV PRN (15:31)
[2024-04-18] MEDS ORDERED: PROMETHAZINE 12.5 MG/50.5 ML BAG IV PRN (15:31)
[2024-04-18] MEDS ORDERED: LORazepam 0.5 MG in SYRINGE 0.25 ML IV PRN (15:31)
[2024-04-18] MEDS ORDERED: LORazepam 0.5 MG TAB PO PRN (15:31)
[2024-04-18] MEDS: HYDROmorphone INJ 1 MG/ML SYRINGE IV PRN (16:37)
[2024-04-18] MEDS: CHECK SCOPOLAMINE PATCH PLACEMENT SCH (16:43)
[2024-04-18] MEDS: EZETIMIBE 10 MG TAB PO SCH (16:44)
[2024-04-18] MEDS: GABAPENTIN 800 MG TAB PO SCH (16:44)
[2024-04-18] MEDS: lisinopril 10 MG TAB PO SCH (16:45)
[2024-04-18] MEDS: ROSUVASTATIN CALCIUM 20 MG TAB PO SCH (16:45)
--- NOTE | 2024-04-18 16:52 | Consultation ---
<Statement entered by Guanako Treadwell DO - 04/18/24 18:54> I have seen and examined the patient and have discussed the case with the provider above. I have reviewed the advanced practitioner's documentation, and I agree with, and take responsibility for that plan of care. 10 minutes spent in coordination of care with XENIA Patient seen and evaluated at bedside. Patient's pain and pressure in the spine and lower extremity improved after decompression. LORENA drain with serosanguineous fluid from lumbar spine Plan of care as outlined below Date of Consultation April 18, 2024 Assessment & Plan (1) Lumbar back pain: (2) S/P evacuation of hematoma: Post op day# 0 S/P lumbar hematoma evacuation by Dr Santana EBL#10ml Pain management per ortho Wound management per ortho PT/OT as appropriate DVT prophylaxis per ortho Incentive spirometry Monitor H&H for acute blood loss anemia; pre-op Hgb: 11.2 (3) Paroxysmal atrial fibrillation: Current sinus rhythm Anticoagulated on Coumadin INR: 1.0 Hold Coumadin Continue Sotalol (4) Urinary tract infection: Currently being treated for UTI Finish cefdinir (5 doses remaining) (5) Hypertension: Stable Continue amlodipine, lisinopril (6) Dyslipidemia: Continue rosuvastatin, ezetimibe (7) Irritable bowel syndrome: (8) Fibromyalgia: IBS-D. reports chronic loose stools. Monitor BM's and plan to use bowel regimen on prn basis Continue home medications DVT Prophylaxis SCDs Disposition per primary team Follows with Dr Francia Ritchie for routine care Pt was seen and care coordinated with Dr Treadwell. See addendum History of Present Illness Requesting Physician: Dr Santana Reason for Consultation: Post op medical management Attending Physician: Luis Fernando Santana DO History of Present Illness Patient is 68 year old female with PMH HTN, HLD, PAF s/p ablation, anticoagulated on Coumadin, IBS, fibromyalgia, migraine, Peutz Jeghers syndrome and others listed below seen in medical consultation s/p lumbar hematoma evacuation today by Dr. Santana. Inpatient chart reviewed and recent hospitalization 04/13/2024-04/16/2024 s/p L3-L5 decompression and fusion by Dr. Santana on 04/13/2024. Coumadin was restarted 04/14/24 and patient states resumed her home dosing upon discharge. Last dose Coumadin yesterday. Patient reports was having worsening back and leg pain and presented to [facility] ER today. MRI lumbar spine showed fluid collection at the laminectomy site within the posterior epidural space centered at the L4 level which measures 5.0 x 2.6 x 2.5 cm. with severe central canal narrowing at this level with mass effect along the traversing cauda equina and smaller fluid collection posterior to the cauda equina from the L1-L4 levels which measures up to 4 mm in thickness. consistent with a small subdural fluid collection. This likely connect to the larger fluid collection at the laminectomy site, favors a postoperative seroma and results in mild mass effect along the posterior aspect of the cauda equina. Patient reports low back pain post op but is decreasing after recently dosed pain med. Has Ann cath in place. States last BM this morning. Patient reports chronic diarrhea 5- 15 episodes daily. She reports last time postop was given stool softeners and laxatives which worsened her diarrhea and she request that this is just on an as-needed basis if she would develop constipation. Denies fever/chills, diaphoresis, N/V, VALENTE, dizziness, neck pain, CP, SOB, palpitations, cough, sore throat, rhinorrhea, abdominal pain, extremity edema, rashes, urinary symptoms. Allergies Allergy/AdvReac Type Severity Reaction Status Date / Time adhesive Allergy Mild Rash Verified 04/18/24 11:40 codeine Allergy Mild Nausea Verified 04/18/24 11:40 promethazine Allergy Mild Hives, Verified 04/18/24 11:40 itching fentanyl AdvReac Mild Nausea Verified 04/18/24 11:40 Home Medications Medication Instructions Recorded Confirmed Type albuterol sulfate 90 mcg/actuation 1 puff inhalation QID PRN colon 12/22/23 04/18/24 History aerosol inhaler cramps clotrimazole-betamethasone 1 1 applic topical BID PRN hand rash 12/22/23 04/18/24 History %-0.05 % topical cream ezetimibe 10 mg tablet 10 mg PO QAM 12/22/23 04/18/24 History gabapentin 800 mg tablet 800 mg PO TID 12/22/23 04/18/24 History rosuvastatin 20 mg tablet 20 mg PO QAM 12/22/23 04/18/24 History sotalol 120 mg tablet 120 mg PO AMHS 12/22/23 04/18/24 History lisinopril 10 mg tablet 10 mg PO QAM #30 tabs 12/28/23 04/18/24 Rx warfarin 5 mg tablet 5 mg PO MOFR 04/13/24 04/18/24 History warfarin 5 mg tablet 10 mg PO SUTUWETHSA 04/13/24 04/18/24 History oxycodone 5 mg tablet 5 mg PO Q6H PRN pain #30 tabs 04/14/24 04/18/24 Rx tramadol 50 mg tablet 50 mg PO Q6H PRN pain, moderate 04/14/24 04/18/24 Rx #30 tabs cefdinir 300 mg capsule 300 mg PO BID #9 caps 04/16/24 04/18/24 Rx docusate sodium 100 mg capsule 100 mg PO BID PRN constipation #60 04/16/24 04/18/24 Rx (Colace) caps polyethylene glycol 3350 17 gram 17 g PO DAILY PRN constipation #30 04/16/24 04/18/24 Rx oral powder packet (Miralax) ea amlodipine 2.5 mg tablet 2.5 mg PO HS 04/18/24 04/18/24 History Patient History Medical History Peutz-Jeghers syndrome History of melena (12/2023) UGI bleed/[facility] admission Dyslipidemia DDD (degenerative disc disease), lumbosacral Hx of tinnitus Arthritis Hx of irritable bowel syndrome Hypertension GERD (gastroesophageal reflux disease) Hx of gastric ulcer Gastritis Paroxysmal atrial fibrillation Follows with Dr. Bro Taking coumadin History of kidney stones (2021) H/O cold sores History of adenomatous polyp of colon Ankylosing spondylitis Trigeminal neuralgia Fibromyalgia Surgical History History of postoperative nausea and vomiting Hx of colonoscopy with polypectomy History of esophagogastroduodenoscopy (EGD) 12/23/23, MAC at [facility] History of cardiac radiofrequency ablation Hx of cystoscopy (2021) Hx of oral surgery dental implants History of hip surgery (2015) left side "cleaned out" Hx of cholecystectomy H/O: hysterectomy and BSO H/O rotator cuff surgery left H/O breast surgery (1985) x2 1986 breast augmentation with silicone implants, both replaced 2000 with saline Family History Other Breast cancer Colorectal cancer Diabetes Social History Smoking Status: Former smoker Tobacco Type: Cigarettes Second Hand Exposure: No; Do You Dip or Chew Tobacco: No; Tobacco Cessation Education Requested by Patient: No Hx Alcohol Use: No Hx Substance Use: No Preferred Language: Cypriot Communication Ability: Effective 1St Grade Teacher Required: No Beliefs That Will Affect Care: None Current Living Situation: Spouse Feels Safe at Home: Yes Safety Concerns: Feels Safe At This Time Assistive Devices: Glasses and Walker Assistive Devices Comment: DENTAL IMPLANTS Review of Systems Review of Systems: All systems reviewed & are unremarkable except as noted in HPI & below Physical Exam Physical Exam: General: no distress, WDWN Head: normocephalic, atraumatic Eyes: conjunctiva non-injected, anicteric ENT: normal inspection external ears, nose, mucous membranes moist Neck: supple, trachea midline Lungs: clear, no respiratory distress, no wheezing/rhonchi/rales CV: RRR, no pretibial edema Abd: normal BS, soft, non-tender Back: surgical dressing in place. LORENA drain in place with serosanguineous drainage Ext: no cyanosis, no calf tenderness, bilateral pedal pushes and pulls intact, sensation to light touch intact Neuro: A&O x 3, no focal deficits noted, normal affect Skin: warm, dry Results & Data Vital Signs (Past 12 Hours) Vital Signs Temp Pulse Pulse Pulse Resp BP BP 04/18/24 16:03 36.7 C 65 18 04/18/24 15:45 67 20 177/106 H 04/18/24 15:41 04/18/24 15:41 36.6 C 63 18 04/18/24 15:32 36.6 C 70 18 04/18/24 15:00 36.4 C L 67 12 04/18/24 14:50 72 18 04/18/24 14:46 65 172/92 H 04/18/24 14:40 72 15 04/18/24 14:31 70 175/103 H 04/18/24 14:30 70 19 04/18/24 14:20 36.2 C L 77 22 04/18/24 11:18 37.1 C 58 L 18 04/18/24 11:00 58 L 18 04/18/24 10:00 66 20 04/18/24 07:39 59 L 20 04/18/24 04:56 37.2 C 58 L 18 176/71 H BP Pulse Ox O2 Del Method O2 Flow Rate 04/18/24 16:03 138/85 94 Nasal Cannula 3 04/18/24 15:45 92 Nasal Cannula 04/18/24 15:41 Nasal Cannula 3 04/18/24 15:41 152/72 H 95 Nasal Cannula 3 04/18/24 15:32 152/72 H 95 Nasal Cannula 3 04/18/24 15:00 157/72 H 95 Room Air 0 04/18/24 14:50 150/88 H 95 Room Air 0 04/18/24 14:46 04/18/24 14:40 179/99 H 96 Nasal Cannula 2 04/18/24 14:31 04/18/24 14:30 175/103 H 98 Nasal Cannula 2 04/18/24 14:20 189/77 H 94 Nasal Cannula 4 04/18/24 11:18 190/64 H 93 Room Air 04/18/24 11:00 155/74 H 93 Room Air 04/18/24 10:00 203/87 H 93 Room Air 04/18/24 07:39 179/78 H 92 Room Air 04/18/24 04:56 94 Room Air Laboratory Results Short CBC 04/18/24 Range/Units 05:24 WBC 8.06 (4.8-10.8) K/ul Hgb 11.2 L (12.0-16.0) g/dl Hct 35.8 L (37.0-47.0) % Plt Count 265 (130-400) K/uL BMP 04/18/24 05:24 Sodium 137 Potassium 3.9 Chloride 104 Carbon Dioxide 26 BUN 14 Creatinine 0.50 L Glucose 89 Calcium 8.6 Liver Function 04/18/24 Range/Units 05:24 Total Bilirubin 0.3 (0.2-1.0) mg/dl AST 13 (13-39) U/L ALT 11 (7-52) U/L Alkaline Phosphatase 58 (34-104) U/L Albumin 3.4 (3.4-5.0) gm/dl Urine 04/18/24 Range/Units 09:00 Urine Color Yellow Urine Appearance Clear (Clear) Urine pH 7.5 (4.5-7.5) Ur Specific [place] 1.010 (1.000-1.030) Urine Protein Negative (Negative) Urine Glucose (UA) Negative (Negative)
[2024-04-18] MEDS: dexAMETHasone 8 MG in SYRINGE 0 ML IV SCH (17:34)
[2024-04-18] MEDS: amLODIPine BESYLATE 5 MG TAB PO SCH (20:32)
[2024-04-18] MEDS: CEFDINIR 300 MG CAP PO SCH (20:33)
[2024-04-18] MEDS: DOCUSATE SODIUM/SENNA 50/8.6MG TAB PO SCH (20:34)
[2024-04-18] MEDS: SOTALOL HCL 80 MG TAB PO SCH (20:34)
[2024-04-18] MEDS ORDERED: amLODIPine BESYLATE 5 MG TAB PO SCH (21:00)
[2024-04-19] MEDS: oxyCODONE HCL IR 5 MG TAB (IMMEDIATE RELEASE) PO PRN (00:17)
[2024-04-19 06:54] LABS: Hemoglobin 11.3 g/dl (12.0-16.0); Mean Corpuscular Hemoglobin 27.4 pg (25.0-34.0); Mean Corpuscular Hgb Conc 30.5 g/dL (32.0-36.0); Mean Corpuscular Volume 89.8 fL (80.0-100.0); Mean Platelet Volume 9.1 fL (9.4-12.4); Platelet Count 289 K/uL (130-400); RDW Coefficient of Variation 18.2 % (11.5-14.5); RDW Standard Deviation 59.5 fL (36.4-46.3); Red Blood Count 4.12 M/uL (4.20-5.40)
[2024-04-19 07:17] LABS: BUN Creatinine Ratio 30.2 (10-20); Calcium 9.1 mg/dl (8.6-10.3); Creatinine Clr Calc Pharmacy 125.8 ml/min; Est GFR (African American) 121.1 ml/min; Est GFR (Non-African American) 104.5 ml/min; Potassium 4.3 mmol/L (3.5-5.1)
[2024-04-19 07:19] LABS: INR 1.1 (0.9-1.1); Prothrombin Time 11.9 Seconds (9.0-12.0)
--- NOTE | 2024-04-19 08:27 | Orthopedic Progress Note ---
Date of Service April 19, 2024 Assessment & Plan (1) S/P evacuation of hematoma: Plan: At this time initiate physical therapy monitor LORENA output. I will start Coumadin today. Plan for discharge home next few days. Admission and Anticipated Discharge Date Admission Date: April 18, 2024 Subjective Back and leg pain markedly improved Physical Exam Physical Exam: Patient is currently in bed. She is comfortable. Distracted testing. Results & Data Vital Signs (Past 12 Hours) Vital Signs Temp Pulse Resp BP Pulse Ox O2 Del Method O2 Flow Rate 04/19/24 07:34 36.8 C 71 20 119/70 95 Room Air 04/19/24 03:30 36.8 C 64 16 128/76 92 Nasal Cannula 3 04/18/24 23:14 Nasal Cannula 2 04/18/24 22:15 36.4 C L 66 16 110/68 94 Room Air
[2024-04-19] MEDS: WARFARIN SOD 5 MG TAB PO ONE (09:21)
--- NOTE | 2024-04-19 13:17 | Hospitalist Progress Note ---
Date of Service April 19, 2024 Assessment & Plan (1) Lumbar back pain: (2) S/P evacuation of hematoma: Plan: Post op 04/18/2024 S/P lumbar hematoma evacuation by Dr Esther PENA#10ml Pain management per ortho Wound management per ortho DVT prophylaxis per ortho Incentive spirometry Monitor H&H for acute blood loss anemia; pre-op Hgb: 11.2 Remains medically stable with minimal back pain PT will be initiated and Coumadin will be started from today there is 04/19/2024 CBC and electrolytes are unremarkable-will monitor (3) Paroxysmal atrial fibrillation: Plan: Current sinus rhythm Anticoagulated on Coumadin INR: 1.0 Hold Coumadin Continue Sotalol Rate is controlled at around 71 without any cardiac symptoms of palpitation or chest pain Coumadin will be started by the primary from today (4) Urinary tract infection: Plan: Currently being treated for UTI Finish cefdinir (5 doses remaining) Denies any urinary symptoms (5) Hypertension: Plan: Stable Continue amlodipine, lisinopril (6) Dyslipidemia: Plan: Continue rosuvastatin, ezetimibe (7) Irritable bowel syndrome: (8) Fibromyalgia: Plan: IBS-D. reports chronic loose stools. Monitor BM's and plan to use bowel regimen on prn basis Continue home medications DVT Prophylaxis SCDs Coumadin has been restarted from today Disposition per primary team Follows with Dr Francia Ritchie for routine care Admission and Anticipated Discharge Date Admission Date: April 18, 2024 Subjective 04/19/2024 The patient was seen and examined in medical floor She is a status post lumbar surgery and has been stable with minimal pain at the back Denies any chest pain, palpitation or shortness of breath No abdominal pain, nausea and/or vomiting Review of Systems Review of Systems: All systems reviewed and are unremarkable except as noted below Physical Exam Physical Exam: Lying in bed with minimal discomfort due to back pain Constitutional: well developed, well nourished and + ill appearing Eyes: PERRL, conjunctivae normal, anicteric sclerae ENMT: external ear and nose normal, oropharynx normal Neck: trachea midline, no thyromegaly Respiratory: no respiratory distress Auscultation: lungs clear to auscultation bilaterally Cardiovascular: Rate/Rhythm: regular rate and regular rhythm; not tachycardic Heart Sounds: normal S1 and normal S2; no murmur Extremities: no edema Gastrointestinal (Abdomen): Inspection/Auscultation: normal bowel sounds; abdomen not distended Percussion/Palpation: abdomen soft; abdomen nontender Musculoskeletal: No acute arthritis in any of the joints Neurologic: normal touch/pain/proprioception and moves all extremities; no focal motor deficits Lymphatic: no cervical or axillary lymphadenopathy Results & Data Results & Data Vital Signs (Past 12 Hours) Vital Signs Temp Pulse Resp BP Pulse Ox O2 Del Method O2 Flow Rate 04/19/24 07:34 36.8 C 71 20 119/70 95 Room Air 04/19/24 03:30 36.8 C 64 16 128/76 92 Nasal Cannula 3 Laboratory Results Short CBC 04/19/24 Range/Units 06:14 WBC 8.30 (4.8-10.8) K/ul Hgb 11.3 L (12.0-16.0) g/dl Hct 37.0 (37.0-47.0) % Plt Count 289 (130-400) K/uL BMP 04/19/24 06:14 Sodium 137 Potassium 4.3 Chloride 102 Carbon Dioxide 28 BUN 13 Creatinine 0.43 L Glucose 146 H Calcium 9.1 Diagnostic Findings Current Inpatient Medications Acetaminophen (Acetaminophen 500 Mg Tab) 1,000 mg PO Q8H PRN PRN Reason: MILD Pain Scale 1,2,3 & Pre PT Stop: 05/18/24 15:30 Amlodipine Besylate (Amlodipine Besylate 5 Mg Tab) 2.5 mg PO HS [facility] Stop: 05/18/24 20:59 Last Admin: 04/18/24 20:32 Dose: 2.5 mg Cefdinir (Cefdinir 300 Mg Cap) 300 mg PO BID TARA; Protocol Stop: 04/20/24 21:01 Last Admin: 04/19/24 08:31 Dose: 300 mg Ezetimibe (Ezetimibe 10 Mg Tab) 10 mg PO QAM TARA Stop: 05/18/24 15:59 Last Admin: 04/19/24 08:32 Dose: 10 mg Gabapentin (Gabapentin 800 Mg Tab) 800 mg PO TID TARA Stop: 05/18/24 15:59 Last Admin: 04/19/24 08:29 Dose: 800 mg Hydromorphone HCl (Hydromorphone Inj 0.5 Mg/0.5 Ml Syr) 0.5 mg IV Q3H PRN PRN Reason: MOD pain (scale 4-6) & Pre PT Stop: 05/02/24 15:30 Hydromorphone HCl (Hydromorphone Inj 1 Mg/Ml Syringe) 1 mg IV Q3H PRN PRN Reason: severe pain (scale 7-10) Stop: 05/02/24 15:30 Last Admin: 04/19/24 13:08 Dose: 1 mg Dexamethasone 8 mg/ Syringe 2 mls @ 1 mls/min IV Q8 TARA Stop: 05/18/24 13:59 Last Admin: 04/19/24 05:29 Dose: 1 mls/min Acetaminophen (Ofirmev) 1,000 mg in 100 mls @ 400 mls/hr IV Q8H PRN PRN Reason: Pain Rating 1-3 & Pre PT Stop: 04/19/24 15:32 Lorazepam 0.5 mg/ Syringe 0.5 mls @ 2 mls/min IV Q8H PRN; Protocol PRN Reason: Sedation/Anxiety Stop: 05/18/24 15:30 Promethazine HCl (Phenergan) 12.5 mg in 50.5 mls @ 202 mls/hr IV Q6H PRN PRN Reason: Nausea And Vomiting Stop: 05/18/24 15:30 Lisinopril (Lisinopril 10 Mg Tab) 10 mg PO QAM TARA Stop: 05/18/24 15:59 Last Admin: 04/19/24 08:32 Dose: 10 mg Lorazepam (Lorazepam 0.5 Mg Tab) 0.5 mg PO Q8H PRN PRN Reason: sedation/anxiety Stop: 05/18/24 15:30 Magnesium Hydroxide (Magnesium Hydroxide Susp 30 Ml Udc) 30 ml PO Q24H PRN PRN Reason: Constipation Stop: 05/18/24 15:30 Metoclopramide HCl (Metoclopramide Hcl Inj 5 Mg/Ml 2 Ml Vial) 10 mg IV Q6H PRN PRN Reason: Nausea &/or Vomiting Stop: 05/18/24 15:30 Miscellaneous (Check Scopolamine Patch Placement) 1 each N/A QS TARA Stop: 05/18/24 15:59 Last Admin: 04/19/24 07:24 Dose: 1 each Naloxone HCl (Naloxone Hcl 0.4 Mg/1 Ml Vial/Carp) 0.1 mg IV Q5M PRN PRN Reason: Oversedation/respiratory dep Stop: 05/18/24 15:30 Ondansetron HCl (Ondansetron Inj 2 Mg/Ml 2 Ml Vial) 4 mg IV Q6H PRN PRN Reason: Nausea &/or Vomiting Stop: 05/18/24 15:30 Ondansetron HCl (Ondansetron 4 Mg Od Tab) 4 mg PO Q6H PRN PRN Reason: Nausea Stop: 05/18/24 15:30 Oxycodone HCl (Oxycodone Hcl Ir 5 Mg Tab (Immediate Release)) 5 - 10 mg PO Q4H PRN PRN Reason: mod to severe pain Stop: 05/02/24 15:30 Last Admin: 04/19/24 09:25 Dose: 10 mg Rosuvastatin Calcium (Rosuvastatin Calcium 20 Mg Tab) 20 mg PO QAM [facility] Stop: 05/18/24 15:59 Last Admin: 04/19/24 08:33 Dose: 20 mg Senna/Docusate Sodium (Docusate Sodium/Senna 50/8.6mg Tab) 2 tab PO HS [facility] Stop: 05/18/24 20:59 Last Admin: 04/18/24 20:34 Dose: 2 tab Sotalol HCl (Sotalol Hcl 80 Mg Tab) 120 mg PO [facility] TARA Stop: 05/18/24 20:59 Last Admin: 04/19/24 08:29 Dose: 120 mg Tramadol HCl (Tramadol Hcl 50 Mg Tablet) 50 - 100 mg PO Q4H PRN PRN Reason: Moderate-Severe pain & Pre PT Stop: 05/18/24 15:30
[2024-04-19 21:13] VITALS: O2SAT 93
[2024-04-20 06:29] LABS: Hematocrit (blood only) 34.1 % (37.0-47.0); Hemoglobin 10.7 g/dl (12.0-16.0); Mean Corpuscular Hemoglobin 27.9 pg (25.0-34.0); Mean Corpuscular Hgb Conc 31.4 g/dL (32.0-36.0); Mean Corpuscular Volume 88.8 fL (80.0-100.0); Mean Platelet Volume 9.2 fL (9.4-12.4); Platelet Count 276 K/uL (130-400); RDW Coefficient of Variation 18.3 % (11.5-14.5); RDW Standard Deviation 58.9 fL (36.4-46.3); Red Blood Count 3.84 M/uL (4.20-5.40)
[2024-04-20 06:36] LABS: INR 1.1 (0.9-1.1)
[2024-04-20 06:43] LABS: BUN Creatinine Ratio 31.7 (10-20); Calcium 8.7 mg/dl (8.6-10.3); Creatinine Clr Calc Pharmacy 131.9 ml/min; Est GFR (Non-African American) 106.2 ml/min; Magnesium 1.9 mg/dl (1.7-2.4); Potassium 4.1 mmol/L (3.5-5.1)
[2024-04-20 07:03] LABS: Basophils # (auto) 0.01 K/uL (0.00-0.20); Basophils % (auto) 0.1 %; Immature Granulocytes # (auto) 0.05 K/uL (0.01-0.20); Immature Granulocytes % (auto) 0.5 %; Lymphocytes # (auto) 0.51 K/uL (1.20-3.40); Lymphocytes % (auto) 4.7 %; Monocytes # (auto) 0.34 K/uL (0.11-0.59); Monocytes % (auto) 3.1 %; Neutrophils # (auto) 9.89 K/uL (1.40-6.50); Neutrophils % (auto) 91.6 %
[2024-04-20 08:25] VITALS: RESP 16; TEMP 98.2
[2024-04-20 08:37] VITALS: BP 112/63; PULSE 58
--- NOTE | 2024-04-20 09:47 | Discharge Summary ---
Date of Service April 20, 2024 Admission HPI Per Admitting Provider This is a 68-year-old female status post lumbar decompression fusion the presents the emergency room today with worsening back and leg pain. She is unable to ambulate. Has had been progressive for the past several days. Principal Diagnosis Lumbar hematoma Discharge Data Allergies Allergy/AdvReac Type Severity Reaction Status Date / Time adhesive Allergy Mild Rash Verified 04/18/24 11:40 codeine Allergy Mild Nausea Verified 04/18/24 11:40 promethazine Allergy Mild Hives, Verified 04/18/24 11:40 itching fentanyl AdvReac Mild Nausea Verified 04/18/24 11:40 Consultations 04/18/24 07:42 ED Decision to Admit Stat 04/18/24 15:31 Consult Internal Medicine Routine Procedures Performed Operation Date: 04/18/24 08:00 Actual Procedures p Incision and Drainage Lumbar Spine(Not Applicable) - Luis Fernando Santana DO Ordered Studies 04/18/24 04:55 MR lumbar spine wo/w con Stat Hospital Course (1) Neurogenic claudication due to lumbar spinal stenosis: Patient underwent evacuation of lumbar hematoma tolerated as well as taken to orthopedic for postoperative. Postoperatively she is ambulating well. Marked improvement of her symptom complex. Excellent strength testing. Subsequently discharged home. Patient will be discharged home with her drain and follow-up in the office on Tuesday for removal. Total Time Total Time Spent Total Time Spent (In Minutes): 20 minutes Discharge Plan Discharge Items Patient Disposition: Home - Self-Care Reason For Visit: POST OP Discharge Diagnosis: Lumbar hematoma Activity: As commented below Non-emergency contact: Primary Care Provider Call non-emergency contact if: you have any medication questions Follow-up/Referrals: Francia Polo MD [Primary Care Provider] - Diet: Regular Addtl Attending Provider Instructions: ACTIVITY RECOMMENDATIONS: SELF CARE INSTRUCTIONS AFTER THORACIC/LUMBAR FUSIONS 1. You may walk to your tolerance. It is good exercise for your legs and back. Expect some back and intermittent leg aches and pains. 2. You may perform "counter-top" level activities (make a sandwich, parker with a project, etc.). 3. No bending or lifting of more than 10 pounds or back twisting of any nature (roll like a log when turning in bed). 4. You may ride in a car for 20-30 minutes at a time. No driving until after your first visit with your doctor. 5. Frequent changes of position and restricting sitting to 30 minutes at a time will help limit the amount of back spasms and stiffness you may experience. 6. You may discontinue the use of ambulatory aids (cane, crutches, etc.) once your strength and confidence allow. 7. You may limousine and hearse upholsterer the shower and let water strike your incision when you arrive home at least once daily. Do not take a tub bath, sit in a hot tub or go into a swimming pool until after your first recheck in the office. SPECIAL CARE INSTRUCTIONS: VERY IMPORTANT TO READ AND REVIEW A. Your surgical incision has been closed with a cosmetic suture under the skin that will dissolve in about 6 weeks. In 14 days, you can use a pair of clean scissors and cut the suture that is left outside of the skin at the ends of your incision. 1. The small skin tapes can be removed 7 days after surgery if they have not fallen off by that point. 2. You may keep the wound open to air as much as possible to promote healing after post-op day number 5 unless told otherwise by your doctor. 3. If you think the wound looks like it is becoming infected (redness or worsening drainage) and/or you are experiencing fever, chill or worsening back pain and muscle spasms, contact the office so that we may evaluate you as soon as possible. B. Complications are uncommon, but please contact us if you have any signs or symptoms of: 1. wound infection (fever higher than 102.5 degrees F, redness, separation of wound, drainage, or increasing pain from the incision) 2. blood clots in legs (pain, swelling, redness and warmth in legs) 3. urinary tract infection (fever higher than 102.5 degrees F, burning upon urination or increased frequency of urination) 4. nerve problems (inability to walk on your toes or heels, numbness, loss of bowel or bladder control) 5. any other symptoms that concern you C. Please call the office at if you have any concerns or questions about your operation or recovery. D. No smoking! Smoking drastically decreases the chance of a solid fusion. E. Do not take any anti-inflammatory medications (Indocin, Advil, Motrin, Aspirin, Naprosyn, etc.) as these may inhibit the chance of a solid fusion. Tylenol is okay to take for pain. MANAGING PAIN AFTER SPINAL SURGERY 1. Narcotic medication is intended for short-term use and will be provided for surgical pain. Surgical pain usually lasts for a period of 4-6 weeks. Narcotic medication includes Percocet, Vicodin, Darvocet, Tylenol #3 or Lortab. 2. Longer-term pain is more appropriately treated with non-narcotic medication such as Tylenol ES. 3. Muscle spasm is not appropriately treated with narcotics. Muscle relaxers such as Soma, Flexeril or Skelaxin can be used along with Tylenol ES. 4. Remember that we all live with some "aches and pains". This is not unusual or uncommon after an injury or as we get older. a. Back pain is expected and may include muscle spasms for 4 to 6 weeks after surgery. The pain should gradually improve. If the pain worsens for no apparent reason, please contact the office. b. Intermittent leg pain may also be experienced and should not be concerned about unless it worsens for no apparent reason. If so, please contact the office. 5. We will provide appropriate medication within the normal guidelines of their prescribed use. We will also be very cautious and aware of potential abuse and extended duration of patients' medication needs. a. Pain medications are for your comfort and to assist with sleep and rest so that the tissue can heal. They are not provided in order to return to normal activity and should not be used through the day. To do so or worsening pain at night can result from ongoing tissue damage and development of tolerance to the prescribed medicine. 6. Please allow 2-3 days to process refills. Prescriptions will not be mailed but must be picked up at the office. FOLLOW UP VISIT: Keep your scheduled follow-up appointment. Any questions, please call the office at . Pending Studies at Discharge: No Stand-Alone Forms: My [employer], Smoking Cessation Medications and DC Order Prescriptions: New oxycodone 5 mg tablet 5 mg PO Q6H PRN (Reason: pain) Qty: 30 0RF Continued amlodipine 2.5 mg tablet 2.5 mg PO HS sotalol 120 mg tablet 120 mg PO [facility] gabapentin 800 mg tablet 800 mg PO TID clotrimazole-betamethasone 1-0.05 % Cream 1 applic TOPICAL BID PRN (Reason: hand rash) albuterol sulfate 90 mcg/actuation Hfa Aerosol Inhaler 1 puff INHALATION QID PRN (Reason: colon cramps) ezetimibe 10 mg tablet 10 mg PO QAM rosuvastatin 20 mg tablet 20 mg PO QAM lisinopril 10 mg Tablet 10 mg PO QAM Qty: 30 0RF warfarin 5 mg tablet 5 mg PO MOFR warfarin 5 mg tablet 10 mg PO SUTUWETHSA tramadol 50 mg tablet 50 mg PO Q6H PRN (Reason: pain, moderate) Qty: 30 0RF oxycodone 5 mg tablet 5 mg PO Q6H PRN (Reason: pain) Qty: 30 0RF cefdinir 300 mg capsule 300 mg PO BID Qty: 9 0RF polyethylene glycol 3350 [Miralax] 17 gram Powder In Packet 17 g PO DAILY PRN (Reason: constipation) Qty: 30 0RF docusate sodium [Colace] 100 mg capsule 100 mg PO BID PRN (Reason: constipation) Qty: 60 0RF Discharge Orders: Discharge Order (Routine); Ordered 04/20/24 Ordered By: Luis Fernando Santana Admission Data Admit Date/Time: 04/18/24 07:53 Attending Provider: Luis Fernando Santana Admit Provider: Luis Fernando Santana Primary Care Provider: Francia Polo Other Providers: Luis Fernando Santana; Beatriz Corral.
--- NOTE | 2024-04-20 10:38 | Hospitalist Progress Note ---
Date of Service April 20, 2024 Assessment & Plan (1) Lumbar back pain: (2) S/P evacuation of hematoma: Plan: Post op 04/18/2024 S/P lumbar hematoma evacuation by Dr Esther PENA#10ml Pain management per ortho Wound management per ortho DVT prophylaxis per ortho Incentive spirometry Monitor H&H for acute blood loss anemia Initiated and Coumadin will be started on 04/19/2024 Plan to be discharged home today per Ortho Advised to follow-up with PCP in 1 week upon discharge (3) Paroxysmal atrial fibrillation: Plan: Current sinus rhythm Anticoagulated on Coumadin INR: 1.1 Continue sotalol Coumadin resumed Advised to follow-up with Coumadin clinic on discharge (4) Urinary tract infection: Plan: Currently being treated for UTI Currently asymptomatic Continue cefdinir as previously prescribed to complete the course (5) Hypertension: Plan: Stable Continue amlodipine, lisinopril (6) Dyslipidemia: Plan: Continue rosuvastatin, ezetimibe (7) Irritable bowel syndrome: (8) Fibromyalgia: Plan: IBS-D. reports chronic loose stools. Monitor BM's and plan to use bowel regimen on prn basis Continue home medications DVT Prophylaxis SCDs Coumadin CODE STATUS Full code Disposition per primary team Admission and Anticipated Discharge Date Admission Date: April 18, 2024 Subjective Patient is seen and examined at bedside Back pain at surgical site is controlled Dysuria resolved States feeling well today Was able to ambulate in hallway with no issues Denies any chest pain, dyspnea, dizziness, nausea, vomiting, abdominal pain Plan to be discharged home today Review of Systems Review of Systems: All systems reviewed & are unremarkable except as noted in Subjective Physical Exam Physical Exam: Physical Exam: Vitals signs as noted above General Appearance:Moderately built and nourished, no apparent distress Head: normocephalic, Atraumatic Eyes: normal inspection, EOMI Neck: supple, Trachea midline Respiratory/Chest: Normal breath sounds, CTA, No accessory muscle use Cardiovascular: S1, S2, No murmur Abdomen/GI:Soft, Non tender, Bowel sounds present Back: Surgical site in dressing,+Drain Extremities/Musculoskeletal:normal inspection, no edema Neurologic/Psych:AAOX3, grossly no focal neurological deficits Skin: normal color, warm Results & Data Results & Data Vital Signs (Past 12 Hours) Vital Signs Temp Pulse Pulse Resp BP O2 Del Method 04/20/24 08:37 58 L 112/63 04/20/24 08:21 36.8 C 60 16 145/78 H Room Air Laboratory Results Short CBC 04/20/24 Range/Units 05:51 WBC 10.80 (4.8-10.8) K/ul Hgb 10.7 L (12.0-16.0) g/dl Hct 34.1 L (37.0-47.0) % Plt Count 276 (130-400) K/uL BMP 04/20/24 05:51 Sodium 136 Potassium 4.1 Chloride 103 Carbon Dioxide 26 BUN 13 Creatinine 0.41 L Glucose 165 H Calcium 8.7
[2024-04-20] MEDS: traMADol HCL 50 MG TABLET PO PRN (12:40)
--- NOTE | 2024-04-25 10:00 | Coding Query ---
CODING QUERY To promote full compliance with coding requirements relating to patient care, provider participation is requested in all cases of inpatient coder uncertainty. Please assist us with the question(s) below: Coding Question(s): The medical record reflects the following clinical evidence: Clinical Indicators: Pt with recent lumbar fusion on 04/13, presenting with worsening pain, weakness and difficulty moving legs and ambulating d/t pain. L spine MRI revealed a large hematoma at L4-L5. Treatment: Evacuation of lumbar hematoma Risk Factor(s): recent lumbar fusion Physician's Response(s): ___Postprocedural lumbar hematoma following lumbar spinal fusion ___Other explanation of clinical findings ___Unable to determine (no explanation for clinical findings) Thank you Rosa JACOB
== END 2024-04-20 13:20 | disposition home or self-care (01) | DRG 988 ==
LOC: ED 04:36 → 3W 07:53

== ENCOUNTER 2024-04-25 00:17 | Inpatient (IN) ==
[2024-04-25] MEDS: HYDROmorphone INJ 0.5 MG/0.5 ML SYR IV STA ×3 (01:45→04:47)
[2024-04-25] MEDS: ONDANSETRON INJ 2 MG/ML 2 ML VIAL IV STA (01:45)
--- NOTE | 2024-04-25 01:45 | Emergency Department Note ---
Impression & Plan Epidural hematoma admit to Dr. Santana ED Provider Note NAME: SEKOU VÁSQUEZ AGE: 68 SEX: Female INFORMANT: Patient ED PROVIDER(S): Tiana Juárez DO CHIEF COMPLAINT: Lumbar back pain and bilateral leg pain PLAN: Disposition: admit to Dr. Santana MEDICAL DECISION MAKING: this is a 68-year-old female patient who underwent lumbar decompression with Dr. Santana on 04/13/2024. She developed a postsurgical hematoma diagnosed on MRI and a drain was placed on 04/18. Patient had improvement of her symptoms following that drain placement. In fact, she had resolution of her back pain and had significant improvement in her ambulation. Patient had the drain removed yesterday in the office despite the fact that she was still having moderate amount of drainage from the drain and explained that she had had more drainage the day before it was removed that in previous days. Last evening and this morning, the patient had a significant increase to her lumbar back pain and pressure in her lower extremities to the point now that she is barely able to walk this evening. laboratory studies reveal no leukocytosis or significant anemia. Renal function and glucose were normal. Patient went for MRI of the lumbar spine which showed reaccumulation of the lumbar epidural hematoma at L4 in the surgical site. There is also evidence of an epidural fluid collection at L2-L3. patient was medicated with IV Dilaudid for pain management. I spoke with Dr. Santana about the case and he will evaluate for further inpatient care. Care/management discussed with: managing manager, Dr. Santana from orthopedic spine Triage Nursing notes: reviewed and agree With them. Vital Signs: reviewed and remarkable for no significant abnormalities Additional History obtained from: patient's Chronic Medical/Social Conditions affecting care: none Prior/ Outside/ External records reviewed: I reviewed both the patient's original operative note as well as the patient's return visit/ Admission where she had accumulation of lumbar hematoma and drain placed. Differential Diagnosis: lumbar radiculopathy; reaccumulation of lumbar epidural hematoma; cauda equina syndrome Diagnostics, independently interpreted by me: Imaging studies: MRI of the lumbar spine: As per stat rad HPI: 68 year old Female arrives for evaluation of low back pain and inability to walk. She developed a postsurgical hematoma diagnosed on MRI and a drain was placed on 04/18. Patient had improvement of her symptoms following that drain placement. In fact, she had resolution of her back pain and had significant improvement in her ambulation. Patient had the drain removed yesterday in the office despite the fact that she was still having moderate amount of drainage from the drain and explained that she had had more drainage the day before it was removed than in previous days. Last evening and this morning, the patient had a significant increase to her lumbar back pain and pressure in her lower extremities to the point now that she is barely able to walk this evening. Patient has been taking tramadol and oxycodone without relief. PAST MEDICAL HISTORY: See Below, PAST SURGICAL HISTORY: See Below, SOCIAL HISTORY: See Below, HOME MEDICATIONS: see list ALLERGIES: see list VITALS: See Below PHYSICAL EXAMINATION: HEENT: Head - normocephalic and atraumatic. Pupils are equal, round, and reactive to light. Extraocular eye muscles are intact and sclera are anicteric. Ears - bilaterally patent canals with noninjected tympanic membranes and no evidence of hemotympanum. Nose - moist nasal mucosa without discharge. Mouth - moist buccal mucosa. Oropharynx is nonerythematous and there is no tonsillar exudate or edema noted. Neck: Supple; no JVD, nuchal rigidity, cervical lymphadenopathy, or auscultated bruits. Heart: Regular rate and rhythm. There is a normal S1 and S2 with no murmurs, clicks, or gallops appreciated. Lungs: Clear to auscultation bilaterally with no wheezes, rales, or rhonchi. Abdomen: Soft, completely nontender, nondistended, with good bowel sounds. There are no palpable pulsatile masses or hepatosplenomegaly. There is no guarding, rigidity, or rebound noted. Extremities: No evidence of cyanosis, clubbing, or edema. There are easily palpable peripheral pulses. Neuro:The patient is awake and alert, oriented to day, time, and place. Muscle strength is 5/5 in all 4 extremities. The patient has equal ice sculptor strength and equal pedal push and pull. There are no cerebellar signs. Back: Surgical incision appears well-healing. Drain site is without any evidence of erythema or warmth. Drainage coming from the site at this time. Emergency department course: The patient was evaluated in room B-4. A complete history and physical was performed. Multiple previous medical records were reviewed. IV lock was initiated and labs were drawn as above. The patient was medicated with IV Dilaudid and IV Zofran. Patient went for MRI of the lumbar spine. Upon returning from radiology, she requested additional pain medication was given a second dose of IV Dilaudid. I reviewed the findings on MRI with the patient and discussed the case with Dr. Santana. He will admit the patient to the hospital for further care. Past Med/Surg History Problem List (Updated 04/25/24 @ 06:11 by Tiana Juárez DO) Epidural hematoma (Acute) Fibromyalgia S/P evacuation of hematoma Lumbar back pain (Acute) Atrial fibrillation, currently in sinus rhythm Status post surgery Neurogenic claudication due to lumbar spinal stenosis Encounter for pre-operative examination Anemia (Acute) Sciatica Arthritis (Acute) Degenerative disc disease (Acute) Paroxysmal atrial fibrillation (Chronic) Hypertension (Chronic) Irritable bowel syndrome (Chronic) Dyslipidemia (Chronic) Medical History Peutz-Jeghers syndrome History of melena (12/2023) UGI bleed/[facility] admission Dyslipidemia DDD (degenerative disc disease), lumbosacral Hx of tinnitus Arthritis Hx of irritable bowel syndrome Hypertension GERD (gastroesophageal reflux disease) Hx of gastric ulcer Gastritis Paroxysmal atrial fibrillation Follows with Dr. Bro Taking coumadin History of kidney stones (2021) H/O cold sores History of adenomatous polyp of colon Ankylosing spondylitis Trigeminal neuralgia Fibromyalgia Surgical History History of postoperative nausea and vomiting Hx of colonoscopy with polypectomy History of esophagogastroduodenoscopy (EGD) 12/23/23, MAC at [facility] History of cardiac radiofrequency ablation Hx of cystoscopy (2021) Hx of oral surgery dental implants History of hip surgery (2015) left side "cleaned out" Hx of cholecystectomy H/O: hysterectomy and BSO H/O rotator cuff surgery left H/O breast surgery (1985) x2 1985 breast augmentation with silicone implants, both replaced 2000 with saline Family History Other Breast cancer Colorectal cancer Diabetes Social History Smoking Status: Former smoker Tobacco Type: Cigarettes Second Hand Exposure: No; Do You Dip or Chew Tobacco: No; Hx Alcohol Use: No Hx Substance Use: No Preferred Language: Tajik Communication Ability: Effective 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 Beliefs That Will Affect Care: None Current Living Situation: Spouse Feels Safe at Home: Yes Assistive Devices: Cane and Walker Allergies Allergies Allergy/AdvReac Type Severity Reaction Status Date / Time adhesive Allergy Mild Rash Verified 04/25/24 02:24 codeine Allergy Mild Nausea Verified 04/25/24 02:24 promethazine Allergy Mild Hives, Verified 04/25/24 02:24 itching fentanyl AdvReac Mild Nausea Verified 04/25/24 02:24 Home Meds Home Medications Medication Instructions Recorded Confirmed albuterol sulfate 90 mcg/actuation 1 puff inhalation QID PRN colon 12/22/23 04/25/24 aerosol inhaler cramps clotrimazole-betamethasone 1 1 applic topical BID PRN hand rash 12/22/23 04/25/24 %-0.05 % topical cream ezetimibe 10 mg tablet 10 mg PO QAM 12/22/23 04/25/24 gabapentin 800 mg tablet 800 mg PO TID 12/22/23 04/25/24 rosuvastatin 20 mg tablet 20 mg PO QAM 12/22/23 04/25/24 sotalol 120 mg tablet 120 mg PO AMHS 12/22/23 04/25/24 warfarin 5 mg tablet 5 mg PO MOFR 04/13/24 04/25/24 warfarin 5 mg tablet 10 mg PO SUTUWETHSA 04/13/24 04/25/24 amlodipine 2.5 mg tablet 2.5 mg PO HS 04/18/24 04/25/24 Previous Rx's Medication Instructions Recorded lisinopril 10 mg tablet 10 mg PO QAM #30 tabs 12/28/23 tramadol 50 mg tablet 50 mg PO Q6H PRN pain, moderate 04/14/24 #30 tabs docusate sodium 100 mg capsule 100 mg PO BID PRN constipation #60 04/16/24 (Colace) caps polyethylene glycol 3350 17 gram 17 g PO DAILY PRN constipation #30 04/16/24 oral powder packet (Miralax) ea oxycodone 5 mg tablet 5 mg PO Q6H PRN pain #30 tabs 04/19/24 Results & Data (ED) Vital Signs Vital Signs - 24 hr 04/25/24 00:15 04/25/24 00:22 04/25/24 02:10 Temperature 37.2 C Temperature Source Oral Pulse Rate 70 69 Pulse Rate [Apical] 68 Pulse Rhythm Regular Pulse Rhythm [Apical] Regular Pulse Strength Normal Pulse Strength [Apical] Normal Respiratory Rate 18 18 Respiratory Effort / Characteristics Non-Labored Spontaneous Non-Labored Respiratory Depth Normal Normal Respiratory Pattern Regular Blood Pressure 176/85 H Blood Pressure [Right Arm] 112/50 L Blood Pressure Mean 115 Blood Pressure Mean [Right Arm] 70 Pulse Oximetry 95 92 Oxygen Delivery Method Room Air Room Air Oxygen Flow Rate Sepsis Recent Fever Within 48 Hours No Sepsis New/Unexplained Change in Mental Status No Sepsis Action Taken by Nursing No Action Required 04/25/24 03:00 04/25/24 03:01 04/25/24 04:55 Temperature Temperature Source Pulse Rate Pulse Rate [Apical] 72 63 Pulse Rhythm Pulse Rhythm [Apical] Pulse Strength Pulse Strength [Apical] Respiratory Rate 18 16 Respiratory Effort / Characteristics Respiratory Depth Respiratory Pattern Blood Pressure Blood Pressure [Right Arm] 123/72 Blood Pressure Mean Blood Pressure Mean [Right Arm] 89 Pulse Oximetry 87 L 96 95 Oxygen Delivery Method Room Air Nasal Cannula Nasal Cannula Oxygen Flow Rate 2 2 Sepsis Recent Fever Within 48 Hours Sepsis New/Unexplained Change in Mental Status Sepsis Action Taken by Nursing Laboratory Data 04/25/24 00:39 04/25/24 00:39 Lab Results 04/25/24 Range/Units 00:39 WBC 8.76 (4.8-10.8) K/ul RBC 3.98 L (4.20-5.40) M/uL Hgb 11.1 L (12.0-16.0) g/dl Hct 35.3 L (37.0-47.0) % MCV 88.7 (80.0-100.0) fL MCH 27.9 (25.0-34.0) pg MCHC 31.4 L (32.0-36.0) g/dL RDW Std Deviation 59.2 H (36.4-46.3) fL RDW Coeff of Ana Cristina 18.3 H (11.5-14.5) % Plt Count 424 H (130-400) K/uL MPV 9.2 L (9.4-12.4) fL Immature Gran % (Auto) 0.3 % Neut % (Auto) 72.4 % Lymph % (Auto) 15.5 % Conway % (Auto) 9.1 % Eos % (Auto) 2.4 % Baso % (Auto) 0.3 % Neut # (Auto) 6.33 (1.40-6.50) K/uL Lymph # (Auto) 1.36 (1.20-3.40) K/uL Conway # (Auto) 0.80 H (0.11-0.59) K/uL Eos # (Auto) 0.21 (0.00-0.50) K/uL Baso # (Auto) 0.03 (0.00-0.20) K/uL Immature Gran # (Auto) 0.03 (0.01-0.20) K/uL PT 31.1 H (9.0-12.0) Seconds INR 3.2 H (0.9-1.1) Sodium 135 L (136-145) mmol/L Potassium 4.4 (3.5-5.1) mmol/L Chloride 103 (98-107) mmol/L Carbon Dioxide 26 (21-32) mmol/L Anion Gap 6 (3-11) BUN 14 (6-23) mg/dl Creatinine 0.61 (0.6-1.2) mg/dl Est Cr Clr Drug Dosing 95.6 ml/min Est GFR ( Amer) 108.0 ml/min Est GFR (Non-Af Amer) 93.1 ml/min BUN/Creatinine Ratio 23.0 H (10-20) Glucose 125 H (70-99(Fasting)) mg/dl Calcium 9.5 (8.6-10.3) mg/dl Total Bilirubin 0.2 (0.2-1.0) mg/dl AST 12 L (13-39) U/L ALT 12 (7-52) U/L Alkaline Phosphatase 68 (34-104) U/L Total Protein 6.2 (6.0-8.3) gm/dl Albumin 3.5 (3.4-5.0) gm/dl Globulin 2.7 (2.5-4.0) gm/dl Albumin/Globulin Ratio 1.3 (0.9-2) Administered Medications Discontinued Medications Gadobutrol (Gadobutrol 65ml Vial) 9 ml IV ONCE ONE Stop: 04/25/24 02:49 Last Admin: 04/25/24 02:48 Dose: 9 ml Documented By: MEUHL Hydromorphone HCl (Hydromorphone Inj 0.5 Mg/0.5 Ml Syr) 0.5 mg IV NOW STA Stop: 04/25/24 01:33 Last Admin: 04/25/24 01:45 Dose: 0.5 mg Documented By: LEBRON Hydromorphone HCl (Hydromorphone Inj 0.5 Mg/0.5 Ml Syr) 0.5 mg IV NOW STA Stop: 04/25/24 03:04 Last Admin: 04/25/24 03:09 Dose: 0.5 mg Documented By: LEANA Hydromorphone HCl (Hydromorphone Inj 0.5 Mg/0.5 Ml Syr) 0.5 mg IV NOW STA Stop: 04/25/24 04:37 Last Admin: 04/25/24 04:47 Dose: 0.5 mg Documented By: LEANA Ondansetron HCl (Ondansetron Inj 2 Mg/Ml 2 Ml Vial) 4 mg IV NOW STA Stop: 04/25/24 01:33 Last Admin: 04/25/24 01:45 Dose: 4 mg Documented By: LEBRON Imaging Data Radiologist's Impression: Lumbar Spine MRI 04/25/24 01:35 Exam(s): MRI L SPINE W/WO Contrast IV Amt: 9cc gadavist EXAM: MR Lumbar Spine Without and With Intravenous Contrast CLINICAL HISTORY: Reason for exam: eval for post-surgical hematoma. TECHNIQUE: Magnetic resonance images of the lumbar spine without and with intravenous contrast in multiple planes. CONTRAST: Patient received 9cc gadavist of IV contrast COMPARISON: No relevant prior studies available. FINDINGS: Vertebrae: No fracture Epidural space: There is 3.8 cm x 2.1 cm diameter epidural fluid collection seen at the L4 laminectomy site, causing severe mass-effect over the cauda equina. There is loculated posterior epidural fluid collection L2 and L3 level which is causing more mass-effect on the cauda equina and measures approximately 4.9 cm x 8.4 mm. Interspaces: Degenerative disc desiccation seen throughout the lumbar spine. There is L4/5 posterior spinal fusion. There is suggestion of a L4/5 disc spacer. IMPRESSION: 1. Persistent loculated fluid collection at the L4 laminectomy site, indenting on the cauda equina. 2. Epidural fluid collection at L2 and L3 level which is causing more mass-effect on the cauda equina than the prior study from 04/18/24 Electronically signed by: Luis Alberto Alegria MD 04/25/24 03:36 AM Discharge Plan Visit Data Chief Complaint: Back Injury/Pain Stated Complaint: BACK PAIN ED Provider: Tiana Juárez Discharge Problem: Epidural hematoma Forms Stand Alone Forms: [facility] Prescriptions Prescriptions: No Action amlodipine 2.5 mg tablet 2.5 mg PO HS oxycodone 5 mg tablet 5 mg PO Q6H PRN (Reason: pain) Qty: 30 0RF sotalol 120 mg tablet 120 mg PO AMHS gabapentin 800 mg tablet 800 mg PO TID clotrimazole-betamethasone 1-0.05 % Cream 1 applic TOPICAL BID PRN (Reason: hand rash) albuterol sulfate 90 mcg/actuation Hfa Aerosol Inhaler 1 puff INHALATION QID PRN (Reason: colon cramps) ezetimibe 10 mg tablet 10 mg PO QAM rosuvastatin 20 mg tablet 20 mg PO QAM lisinopril 10 mg Tablet 10 mg PO QAM Qty: 30 0RF warfarin 5 mg tablet 5 mg PO MOFR warfarin 5 mg tablet 10 mg PO SUTUWETHSA tramadol 50 mg tablet 50 mg PO Q6H PRN (Reason: pain, moderate) Qty: 30 0RF polyethylene glycol 3350 [Miralax] 17 gram Powder In Packet 17 g PO DAILY PRN (Reason: constipation) Qty: 30 0RF docusate sodium [Colace] 100 mg capsule 100 mg PO BID PRN (Reason: constipation) Qty: 60 0RF Referrals Referrals: Francia Polo MD [Primary Care Provider] -
[2024-04-25] MEDS: GADOBUTROL 65ML VIAL IV ONE (02:48)
[2024-04-25 03:00] LABS: Albumin Globulin Ratio 1.3 (0.9-2); Albumin Level 3.5 gm/dl (3.4-5.0); Bilirubin,Total 0.2 mg/dl (0.2-1.0); Calcium 9.5 mg/dl (8.6-10.3); Creatinine Clr Calc Pharmacy 95.6 ml/min; Est GFR (Non-African American) 93.1 ml/min; Globulin 2.7 gm/dl (2.5-4.0); Potassium 4.4 mmol/L (3.5-5.1); Total Protein 6.2 gm/dl (6.0-8.3)
[2024-04-25 03:03] LABS: Basophils # (auto) 0.03 K/uL (0.00-0.20); Basophils % (auto) 0.3 %; Eosinophils # (auto) 0.21 K/uL (0.00-0.50); Eosinophils % (auto) 2.4 %; Hematocrit (blood only) 35.3 % (37.0-47.0); Hemoglobin 11.1 g/dl (12.0-16.0); Immature Granulocytes # (auto) 0.03 K/uL (0.01-0.20); Immature Granulocytes % (auto) 0.3 %; Lymphocytes # (auto) 1.36 K/uL (1.20-3.40); Lymphocytes % (auto) 15.5 %; Mean Corpuscular Hemoglobin 27.9 pg (25.0-34.0); Mean Corpuscular Hgb Conc 31.4 g/dL (32.0-36.0); Mean Corpuscular Volume 88.7 fL (80.0-100.0); Mean Platelet Volume 9.2 fL (9.4-12.4); Monocytes % (auto) 9.1 %; Neutrophils # (auto) 6.33 K/uL (1.40-6.50); Neutrophils % (auto) 72.4 %; Platelet Count 424 K/uL (130-400); RDW Coefficient of Variation 18.3 % (11.5-14.5); RDW Standard Deviation 59.2 fL (36.4-46.3); Red Blood Count 3.98 M/uL (4.20-5.40); White Blood Count 8.76 K/ul (4.8-10.8)
--- NOTE | 2024-04-25 03:37 | Magnetic Resonance Report ---
Exam(s): MRI L SPINE W/WO Contrast IV Amt: 9cc gadavist EXAM: MR Lumbar Spine Without and With Intravenous Contrast CLINICAL HISTORY: Reason for exam: eval for post-surgical hematoma. TECHNIQUE: Magnetic resonance images of the lumbar spine without and with intravenous contrast in multiple planes. CONTRAST: Patient received 9cc gadavist of IV contrast COMPARISON: No relevant prior studies available. FINDINGS: Vertebrae: No fracture Epidural space: There is 3.8 cm x 2.1 cm diameter epidural fluid collection seen at the L4 laminectomy site, causing severe mass-effect over the cauda equina. There is loculated posterior epidural fluid collection L2 and L3 level which is causing more mass-effect on the cauda equina and measures approximately 4.9 cm x 8.4 mm. Interspaces: Degenerative disc desiccation seen throughout the lumbar spine. There is L4/5 posterior spinal fusion. There is suggestion of a L4/5 disc spacer. IMPRESSION: 1. Persistent loculated fluid collection at the L4 laminectomy site, indenting on the cauda equina. 2. Epidural fluid collection at L2 and L3 level which is causing more mass-effect on the cauda equina than the prior study from 04/18/24 Electronically signed by: Luis Alberto Alegria MD 04/25/24 03:36 AM
[2024-04-25 06:02] LABS: INR 3.2 (0.9-1.1); Prothrombin Time 31.1 Seconds (9.0-12.0)
[2024-04-25] MEDS ORDERED: MIDAZOLAM HCL 1 MG/ML 2ML VIAL ONE (06:14)
[2024-04-25] MEDS ORDERED: HYDROmorphone INJ 2 MG/ML SYR/VIAL ONE (06:26)
[2024-04-25] MEDS ORDERED: LIDOCAINE 2% 2 ML VIAL/AMP(20MG/ML) INFIL ONE (06:28)
[2024-04-25] MEDS ORDERED: PROPOFOL IV EMULSION 10 MG/ML 20 ML VIAL IV ONE (06:28)
[2024-04-25] MEDS ORDERED: METOCLOPRAMIDE HCL INJ 5 MG/ML 2 ML VIAL ONE (06:29)
[2024-04-25] MEDS ORDERED: ROCURONIUM BROMIDE 10 MG/ML 5 ML VIAL IV ONE (06:29)
[2024-04-25] MEDS ORDERED: ONDANSETRON INJ 2 MG/ML 2 ML VIAL ONE (06:29)
[2024-04-25] MEDS ORDERED: DEXAMETHASONE SOD INJ 4 MG/ML VIAL ONE (06:29)
--- NOTE | 2024-04-25 06:37 | Anesthesiology Consultation ---
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 History Surgery Operation Date: 04/25/24 07:05 Proposed Procedures p Incision and Drainage Spine Evacuation Hematoma - Luis Fernando Santana DO Height/Weight Height: 5 ft 3 in Weight: 93 kg Allergies Allergy/AdvReac Type Severity Reaction Status Date / Time adhesive Allergy Mild Rash Verified 04/25/24 02:24 codeine Allergy Mild Nausea Verified 04/25/24 02:24 promethazine Allergy Mild Hives, Verified 04/25/24 02:24 itching fentanyl AdvReac Mild Nausea Verified 04/25/24 02:24 Medications Home Medications Medication Instructions Recorded Confirmed Last Taken albuterol sulfate 90 mcg/actuation 1 puff inhalation QID PRN colon 12/22/23 04/25/24 Unknown aerosol inhaler cramps clotrimazole-betamethasone 1 1 applic topical BID PRN hand rash 12/22/23 04/25/24 Unknown %-0.05 % topical cream ezetimibe 10 mg tablet 10 mg PO QAM 12/22/23 04/25/24 04/18/24 gabapentin 800 mg tablet 800 mg PO TID 12/22/23 04/25/24 04/18/24 rosuvastatin 20 mg tablet 20 mg PO QAM 12/22/23 04/25/24 04/18/24 sotalol 120 mg tablet 120 mg PO AMHS 12/22/23 04/25/24 04/18/24 lisinopril 10 mg tablet 10 mg PO QAM #30 tabs 12/28/23 04/25/24 04/18/24 warfarin 5 mg tablet 5 mg PO MOFR 04/13/24 04/25/24 Unknown warfarin 5 mg tablet 10 mg PO SUTUWETHSA 04/13/24 04/25/24 Unknown tramadol 50 mg tablet 50 mg PO Q6H PRN pain, moderate 04/14/24 04/25/24 Unknown #30 tabs docusate sodium 100 mg capsule 100 mg PO BID PRN constipation #60 04/16/24 04/25/24 Unknown (Colace) caps polyethylene glycol 3350 17 gram 17 g PO DAILY PRN constipation #30 04/16/24 04/25/24 Unknown oral powder packet (Miralax) ea amlodipine 2.5 mg tablet 2.5 mg PO HS 04/18/24 04/25/24 Unknown oxycodone 5 mg tablet 5 mg PO Q6H PRN pain #30 tabs 04/19/24 04/25/24 Unknown Past Medical History Medical History Peutz-Jeghers syndrome History of melena (12/2023) UGI bleed/[facility] admission Dyslipidemia DDD (degenerative disc disease), lumbosacral Hx of tinnitus Arthritis Hx of irritable bowel syndrome Hypertension GERD (gastroesophageal reflux disease) Hx of gastric ulcer Gastritis Paroxysmal atrial fibrillation Follows with Dr. Bro Taking coumadin History of kidney stones (2021) H/O cold sores History of adenomatous polyp of colon Ankylosing spondylitis Trigeminal neuralgia Past Family History Family History Other Breast cancer Colorectal cancer Diabetes Past Surgical History Surgical History History of postoperative nausea and vomiting Hx of colonoscopy with polypectomy History of esophagogastroduodenoscopy (EGD) 12/23/23, MAC at [facility] History of cardiac radiofrequency ablation Hx of cystoscopy (2021) Hx of oral surgery dental implants History of hip surgery (2015) left side "cleaned out" Hx of cholecystectomy H/O: hysterectomy and BSO H/O rotator cuff surgery left H/O breast surgery (1985) x2 1985 breast augmentation with silicone implants, both replaced 2000 with saline Social History Smoking Status: Former smoker Do You Dip or Chew Tobacco: No Hx Alcohol Use: No Hx Substance Use: No substance use type: does not use Last Used Substance Other:: QUIT IN THE 90'S\\ Physical Exam Vital Signs Last Vital Signs Temp 99.0 F 04/25/24 00:15 Pulse 67 04/25/24 06:32 Resp 16 04/25/24 06:32 BP 123/72 04/25/24 03:01 Pulse Ox 93 04/25/24 06:32 O2 Del Method Room Air 04/25/24 06:32 O2 Flow Rate 2 04/25/24 04:55 Testing Laboratory Results 04/25/24 00:39 04/25/24 00:39 PT 31.1 Seconds (9.0-12.0) H 04/25/24 00:39 INR 3.2 (0.9-1.1) H 04/25/24 00:39 Electrocardiogram Date: 04/22/24 NSR @ 90 bpm LVH with repolarization abnormality T wave inversion no longer evident in Anterior leads
[2024-04-25] MEDS ORDERED: ePHEDrine sulfate 50 MG/ML AMP IV PRN (06:57)
[2024-04-25] MEDS ORDERED: ONDANSETRON INJ 2 MG/ML 2 ML VIAL IV PRN ×2 (06:57→10:34)
[2024-04-25] MEDS ORDERED: ATROPINE SULFATE 0.1 MG/ML 10ML SYR IV PRN (06:57)
--- NOTE | 2024-04-25 06:59 | History & Physical Report ---
Date of Service April 25, 2024 Assessment & Plan (1) Epidural hematoma: Plan: Irrigation and debridement lumbar spine History of Present Illness Chief Complaint: Back and leg pain Primary Care Provider: Francia Polo MD This is a 60-year-old female well-known to me presents the emergency room with marked decline in status with worsening back and bilateral leg pain. Imaging demonstrates reaccumulation of loculated seroma in the lumbar spine. Subsequently she is here for emergent irrigation debridement. Allergies Allergy/AdvReac Type Severity Reaction Status Date / Time adhesive Allergy Mild Rash Verified 04/25/24 02:24 codeine Allergy Mild Nausea Verified 04/25/24 02:24 promethazine Allergy Mild Hives, Verified 04/25/24 02:24 itching fentanyl AdvReac Mild Nausea Verified 04/25/24 02:24 Home Medications Medication Instructions Recorded Confirmed Type albuterol sulfate 90 mcg/actuation 1 puff inhalation QID PRN colon 12/22/23 04/25/24 History aerosol inhaler cramps clotrimazole-betamethasone 1 1 applic topical BID PRN hand rash 12/22/23 04/25/24 History %-0.05 % topical cream ezetimibe 10 mg tablet 10 mg PO QAM 12/22/23 04/25/24 History gabapentin 800 mg tablet 800 mg PO TID 12/22/23 04/25/24 History rosuvastatin 20 mg tablet 20 mg PO QAM 12/22/23 04/25/24 History sotalol 120 mg tablet 120 mg PO AMHS 12/22/23 04/25/24 History lisinopril 10 mg tablet 10 mg PO QAM #30 tabs 12/28/23 04/25/24 Rx warfarin 5 mg tablet 5 mg PO MOFR 04/13/24 04/25/24 History warfarin 5 mg tablet 10 mg PO SUTUWETHSA 04/13/24 04/25/24 History tramadol 50 mg tablet 50 mg PO Q6H PRN pain, moderate 04/14/24 04/25/24 Rx #30 tabs docusate sodium 100 mg capsule 100 mg PO BID PRN constipation #60 04/16/24 04/25/24 Rx (Colace) caps polyethylene glycol 3350 17 gram 17 g PO DAILY PRN constipation #30 04/16/24 04/25/24 Rx oral powder packet (Miralax) ea amlodipine 2.5 mg tablet 2.5 mg PO HS 04/18/24 04/25/24 History oxycodone 5 mg tablet 5 mg PO Q6H PRN pain #30 tabs 04/19/24 04/25/24 Rx Past Med/Surg History Problem List Epidural hematoma (Acute) Fibromyalgia S/P evacuation of hematoma Lumbar back pain (Acute) Atrial fibrillation, currently in sinus rhythm Status post surgery Neurogenic claudication due to lumbar spinal stenosis Encounter for pre-operative examination Anemia (Acute) Sciatica Arthritis (Acute) Degenerative disc disease (Acute) Paroxysmal atrial fibrillation (Chronic) Hypertension (Chronic) Irritable bowel syndrome (Chronic) Dyslipidemia (Chronic) Medical History Peutz-Jeghers syndrome History of melena (12/2023) UGI bleed/[facility] admission Dyslipidemia DDD (degenerative disc disease), lumbosacral Hx of tinnitus Arthritis Hx of irritable bowel syndrome Hypertension GERD (gastroesophageal reflux disease) Hx of gastric ulcer Gastritis Paroxysmal atrial fibrillation Follows with Dr. Bro Taking coumadin History of kidney stones (2021) H/O cold sores History of adenomatous polyp of colon Ankylosing spondylitis Trigeminal neuralgia Surgical History History of postoperative nausea and vomiting Hx of colonoscopy with polypectomy History of esophagogastroduodenoscopy (EGD) 12/23/23, MAC at [facility] History of cardiac radiofrequency ablation Hx of cystoscopy (2021) Hx of oral surgery dental implants History of hip surgery (2015) left side "cleaned out" Hx of cholecystectomy H/O: hysterectomy and BSO H/O rotator cuff surgery left H/O breast surgery (1985) x2 1985 breast augmentation with silicone implants, both replaced 2000 with saline Family History Other Breast cancer Colorectal cancer Diabetes Social History Smoking Status: Former smoker Tobacco Type: Cigarettes Second Hand Exposure: No; Do You Dip or Chew Tobacco: No; Hx Alcohol Use: No Hx Substance Use: No Preferred Language: Persian Communication Ability: Effective Training Mgr Required: No Beliefs That Will Affect Care: None Current Living Situation: Spouse Feels Safe at Home: Yes Assistive Devices: Cane and Walker Physical Exam Physical Exam: Patient is alert and oriented Heart regular rhythm Lungs clear Results & Data Results & Data Vital Signs (Past 12 Hours) Vital Signs Temp Pulse Pulse Resp BP BP Pulse Ox 04/25/24 06:48 36.8 C 60 20 134/79 97 04/25/24 06:32 67 16 93 04/25/24 04:55 63 16 95 04/25/24 03:01 72 18 123/72 96 04/25/24 03:00 87 L 04/25/24 02:10 68 18 112/50 L 92 04/25/24 00:22 69 04/25/24 00:15 37.2 C 70 18 176/85 H 95 O2 Del Method O2 Flow Rate 04/25/24 06:48 Room Air 04/25/24 06:32 Room Air 04/25/24 04:55 Nasal Cannula 2 04/25/24 03:01 Nasal Cannula 2 04/25/24 03:00 Room Air 04/25/24 02:10 Room Air 04/25/24 00:22 04/25/24 00:15 Room Air Code Status & VTE Plan VTE Prophylaxis Plan VTE Prophylaxis will be ordered: Yes
[2024-04-25] MEDS ORDERED: SCOPOLAMINE 1 MG/72 HR TDSY PATCH TD ONE (07:00)
[2024-04-25] MEDS: LACTATED RINGER'S 1,000 ML IV SCH ×2 (07:00→12:13)
[2024-04-25] MEDS ORDERED: ceFAZolin 330 MG/ML 1 GM VIAL ONE (07:35)
[2024-04-25] MEDS ORDERED: ePHEDrine sulfate 50 MG/ML AMP ONE (07:37)
[2024-04-25] MEDS: ceFAZolin 2000MG 2,000 MG/15 ML SYR IV ONE (07:46)
[2024-04-25] MEDS ORDERED: SUGAMMADEX SODIUM 200 MG/2 ML VIAL IV ONE (07:55)
[2024-04-25] MEDS: VANCOMYCIN HCL 1000MG/20ML VIAL ONE (08:00)
[2024-04-25] MEDS: ceFAZolin 330 MG/ML 1 GM VIAL ONE (08:01)
[2024-04-25] MEDS: GENTAMICIN SULFATE 40 MG/ML 2 ML VIAL ONE (08:01)
--- NOTE | 2024-04-25 08:01 | Operative Report ---
Post Operative Report Pre & Post Diagnosis Operation Date: 04/25/24 07:05 Pre-Op Diagnosis: Postop hematoma lumbar spine Post-Op Diagnosis: same I identified the patient and participated in the time-out.: Yes Procedure Operation Date: 04/25/24 07:05 Actual Procedures #1 lumbar laminotomy L3. #2 evacuation of epidural hematoma extending from L to to L5. Surgeon Luis Fernando Santana, DO Smelter Operator Francia Prakash Estimated Blood Loss 50 Findings Consistent with Post-Op Diagnosis Specimens None Indications This is a 68-year-old female well-known to me presents the emergency room with marked decline in status and ability to ambulate and leg pain. MRI demonstrates reaccumulation of hematoma in the lumbar spine extending from L2-L5. Subsequently she is here for emergent I&D. Description of Procedure Patient was met with identified informed consent obtained. Patient was then ta nicole to the operative suite underwent ablation placed in a prone position on the Grzegorz table top the Anurag frame. All bony promises well-padded eyes inspected to ensure no external precipice upon them. This point the lumbar spine was prepped and draped in a sterile fashion. Utilizing the previous incision site sharp dissection performed down to the fascial layer. The fascia was released and obvious serosanguineous fluid under pressure was noted. It was evacuated in its entirety. I then performed a midline laminotomy of L3 creating enough space so I could pass instruments up to the L2-L3 level to evacuate any epidural fluid collection. After this complete several liters of fluid were then irrigated throughout the incision. Stimulan beads were placed throughout the layers. 2 LORENA drains were then inserted and the incision closed with subcutaneous Vicryl and 4 Monocryl for final closure. Steri-Strips sterile dressings placed. Patient waken taken to PACU stable condition. Please note Francia Prakash was present out the procedure and all the patient positioning complex course of the surgery and possible closure. I attest to the content of the Intraoperative Record and any orders documented therein. Any exceptions are noted below.
[2024-04-25] MEDS: BUPIVACAINE/EPINEPHRINE 0.25% 1:200,000 30 ML VIAL ONE (08:19)
[2024-04-25] MEDS: HYDROmorphone INJ 2 MG/ML SYR/VIAL IV PRN (08:49)
--- NOTE | 2024-04-25 09:17 | Anesthesiology Progress Note ---
Date of Service April 25, 2024 Anesthesia Post Procedure Vital Signs Vital Signs: Temp Pulse Pulse Resp BP BP BP 04/25/24 09:05 64 13 144/51 H 04/25/24 08:55 64 20 156/90 H 04/25/24 08:45 68 13 169/85 H 04/25/24 08:35 69 18 174/95 H 04/25/24 08:25 67 12 150/83 H 04/25/24 08:19 96.8 F L 67 16 171/67 H 04/25/24 06:48 98.2 F 60 20 134/79 04/25/24 06:32 67 16 04/25/24 04:55 63 16 04/25/24 03:01 72 18 123/72 04/25/24 03:00 04/25/24 02:10 68 18 112/50 L 04/25/24 00:22 69 04/25/24 00:15 99.0 F 70 18 176/85 H Pulse Ox O2 Del Method O2 Flow Rate 04/25/24 09:05 95 Nasal Cannula 3 04/25/24 08:55 98 Nasal Cannula 3 04/25/24 08:45 94 Oxymask 4 04/25/24 08:35 95 Oxymask 9 04/25/24 08:25 98 Oxymask 9 04/25/24 08:19 99 Oxymask 9 04/25/24 06:48 97 Room Air 04/25/24 06:32 93 Room Air 04/25/24 04:55 95 Nasal Cannula 2 04/25/24 03:01 96 Nasal Cannula 2 04/25/24 03:00 87 L Room Air 04/25/24 02:10 92 Room Air 04/25/24 00:22 04/25/24 00:15 95 Room Air Pain Intensity Lower Back: Pain Intensity: 8 Transfer of Care Handoff Completed per policy Notes Mental Status: alert / awake / arousable and participated in evaluation Patient Amnestic to Procedure: Yes Nausea / Vomiting: adequately controlled Pain: adequately controlled Airway Patency, RR, SpO2: stable & adequate BP & HR: stable & adequate Hydration State: stable & adequate Anesthetic Complications: no major complications apparent and Pt Satisfied with anesthetic care
[2024-04-25] MEDS ORDERED: PROMETHAZINE 12.5 MG/50.5 ML BAG IV PRN (10:34)
[2024-04-25] MEDS ORDERED: ACETAMINOPHEN 1,000 MG/100 ML VIAL IV PRN (10:34)
[2024-04-25] MEDS ORDERED: ONDANSETRON 4 MG OD TAB PO PRN (10:34)
[2024-04-25] MEDS ORDERED: METOCLOPRAMIDE HCL INJ 5 MG/ML 2 ML VIAL IV PRN (10:34)
[2024-04-25] MEDS ORDERED: ACETAMINOPHEN 500 MG TAB PO PRN (10:34)
[2024-04-25] MEDS ORDERED: ALBUTEROL HFA 8 GM INHALER INH PRN (10:34)
[2024-04-25] MEDS ORDERED: HYDROmorphone INJ 1 MG/ML SYRINGE IV PRN (10:34)
[2024-04-25] MEDS ORDERED: NALOXONE HCL 0.4 MG/1 ML VIAL/CARP IV PRN (10:34)
[2024-04-25] MEDS: FAMOTIDINE/PF 20 MG/2 ML VIAL IV ONE (11:09)
--- OUTSIDE RECORDS SUMMARY | 2024-04-25 11:48 | External Medical Summary | Summary of Care ---
Author Name Unknown Organization [facility] Address [address] [place] [address] Phone [phone] Care Team Providers Care Operation Shift Supervisor Name Role Phone Francia Polo MD Primary Care Provider [phone] Reason for Visit * Reason Comments Dosage Adjustment Via Phone (anticoag Cl inic) Encounter Details Date Type Department Care Team ([facility] Contact Info) Description 04/23/2024 6:00 PM EDT Anticoagulation Centralized Clinical Pharmacy Services, German Pichardo [address] [place] [address] [place] [address] [facility], [address] [place] [address] PAF (paroxysmal atrial fibrillation) ([facility])* Allergies Active Allergy Reactions Criticality Noted Date Comments Adhesive Tape 10/24/2002 band-aid type-blisters Anesthetics, Chata Itching 02/26/2015 Allergy to novocaine Codeine Hives 03/20/1998 SOB Fentanyl 12/08/2020 vomiting Phenothiazines Hives 10/24/2002 Phenergan makes pt itch documented as of this encounter (statuses as of 04/23/2024) Medications Medication Sig Dispensed Refills Start Date [...] as of this encounter (statuses as of 04/23/2024) Active Problems Problem Noted Date Diagnosed Date [...] as of this encounter (statuses as of 04/23/2024) Resolved Problems Problem Noted Date Diagnosed Date [...] as of this encounter (statuses as of 04/23/2024) Immunizations Name Administration Dates Next Due COVID-19 [...] as of this encounter Progress Notes * Ruthann Catalan PHARM Tech - 04/23/2024 4:00 PM EDT Contacts Type Contact Phone/Fax 04/23/2024 03:06 PM EDT Phone (Outgoing) Jennifer Vásquez (Self) [phone] (M) No Answer/Busy - VM not set up. 04/23/2024 03:07 PM EDT Phone (Outgoing) KATERIN VÁSQUEZ (Emergency Contact) [phone] (M) Pt son does not take info fo pt. Provided spouse cell #. 04/23/2024 03:10 PM EDT Phone (Outgoing) Spouse (Spouse) [phone] Left Message - Left vm to have pt call us back. 04/23/2024 03:58 PM EDT Phone (Outgoing) Jennifer Vásquez (Self) [phone] (M) Spoke to Patient Subjective Patient Findings [...] communicated as noted by Pharmacist: Yes RAJESH Hinson 04/23/2024, 4:00 PM * Gillian Hannon [facility] - 04/23/2024 3:00 PM EDT Coumadin Clinic (region specific) Objective Current Warfarin Dose As of 04/23/2024 Warfarin maintenance plan: 5 mg (5 mg x 1) every Mon, Fri; 10 mg (5 mg x 2) all other days INR Result As of 04/23/2024 INR goal: 2.0-3.0 INR used for dosin.8 (04/23/2024) Assessment & Plan Warfarin Plan As of 04/23/2024 Full warfarin instructions: 04/23: 7.5 mg; Otherwise 5 mg every Mon, Fri; 10 mg all other days Next INR check: 04/30/2024 Repeat PT/INR in 1 week(s) Weekly dose: not changed Additional Dosing Information: Description Charlotte Parkinson 12/23/22: Xarelto & Eliquis too expensive- pt looking into patient financial services manager options but will continue Coumadin for now 04/13/24 - lumbar spinal fusion with Dr. Santana at [facility] (P: [phone]) Tech to contact patient with dose instructions as noted. Gillian Hannon RPh 04/23/2024, 3:02 PM documented in this encounter Plan of Treatment Upcoming Encounters Date Type Department Care Team (Late st Contact Info) Description 04/30/2024 1:30 PM EDT Laboratory Laboratory [facility] [address] [place] [id number] Estefanía Parkinson [facility] [address] [facility] [place] [address] 05/01/2024 6:15 AM EDT Anticoagulation Centralized Clinical Pharmacy Services, German Pichardo [address] [place] [address] [place] [address] [place] [address] 05/05/2024 8:00 AM EDT Telemedicine Family [facility] [address] [place] [address] Francia Polo MD [address] [place] [address] 06/06/2024 8:45 AM EDT Office Visit Urology, [facility] [address] [place] [address] Cale Mosley MD [address] [place] [address] 10/03/2024 4:00 PM EST Office Visit Gastroenterology, [facility] [address] [facility] [place] [address] Zulema Buchanan MD [address] [place] [address] 02/13/2025 3:30 PM EDT Office Visit Cardiology, [facility] [address] [place] [address] Judy Benedict CRNP [address] [place] [address] Scheduled Procedures Name Priority Associated Diagnoses Date/Ti [...] 12/28/2005 Adult Wellness Visit 12/28/2021 COVID-19 Vaccine ( - 2022- season) 2023 06/27/2021, 06/06/2021 Colonoscopy 10/28/2023 10/28/2020, [...] this encounter Medical Devices Implanted Type Area Mis Manager Device Identifier Shelf Expiration Date Model / Serial / Lot Endotine Forehead 3.5mm - [id number] Implanted:Qty: 1 on 02/10/2021 by Charlee Rincon MD at OR [facility] [employer] [id number] 08/02/2022 [id number] / / [id number] documented as of this encounter Visit Diagnoses [...] and were consensually agreed upon. Care Teams Operation Shift Supervisor Relationship Specialty Start Date End Date Francia Polo MD [address] [place] [address] PCP - General Family Medicine 02/24/24 documented as of this encounter
--- OUTSIDE RECORDS SUMMARY | 2024-04-25 11:49 | External Medical Summary ---
Author Name Unknown Address Unknown Organization [id number]:[facility] [place] [address] Laboratory Report Ordering Provider Test Date Status MALATHIVICKABIODUN 04/23/2024 11:27:12 Final Standing order for pt/inr. < br/>Please draw pt/inr every 1 to 4 weeks as requested
Results to [facility]

Warfarin Therapy
INR: 2.0-3.0 conventional anticoagulation
INR: 2.5-3.5 high intensity anticoagulation Observation Date Value Abnormality Reference (Units ) Status PT 04/23/2024 11:27:12 21.0 Above high normal 11 .6-15.2 (seconds) Final INR 04/23/2024 11:27:12 1.8 Above high normal 0. 8-1.2 Final Performing Location [facility] [place] [address]
--- OUTSIDE RECORDS SUMMARY | 2024-04-25 11:49 | External Medical Summary | Summary of Care ---
Author Name Unknown Organization [facility] Address [address] [place] [address] Phone [phone] Care Team Providers Care Manager Parking Name Role Phone Francia Polo MD Primary Care Provider [phone] Reason for Visit * Reason Comments Dosage Adjustment Via Phone (anticoag Cl inic) Encounter Details Date Type Department Care Team ([facility] Contact Info) Description 04/18/2024 6:45 AM EDT Anticoagulation Centralized Clinical Pharmacy Services, German Pichardo [address] [place] [address] [place] [address] [facility], [address] [place] [address] PAF (paroxysmal atrial fibrillation) ([facility])* Allergies Active Allergy Reactions Criticality Noted Date Comments Adhesive Tape 10/24/2002 band-aid type-blisters Anesthetics, Chata Itching 02/26/2015 Allergy to novocaine Codeine Hives 03/20/1998 SOB Fentanyl 12/08/2020 vomiting Phenothiazines Hives 10/24/2002 Phenergan makes pt itch documented as of this encounter (statuses as of 04/18/2024) Medications Medication Sig Dispensed Refills Start Date [...] as of this encounter (statuses as of 04/18/2024) Active Problems Problem Noted Date Diagnosed Date [...] as of this encounter (statuses as of 04/18/2024) Resolved Problems Problem Noted Date Diagnosed Date [...] as of this encounter (statuses as of 04/18/2024) Immunizations Name Administration Dates Next Due COVID-19 [...] Progress Notes * Gillian Hannon RPh - 04/18/2024 12:42 PM EDT Pt briefly discharged from [facility] but now re-admitted for hematoma post procedure. Per notes, prepping for surgery. [facility] will follow up at discharge. Gillian Hannon Rph, Pharm.D. Clinical Pharmacist [facility] ([facility]) [phone] 04/18/2024,12:45 PM Electronically signed by Gillian Hannon [facility] at 04/18/2024 12:46 PM EDT documented in this encounter Plan of Treatment Upcoming Encounters Date Type Department Care Team (Late st Contact Info) Description 05/05/2024 8:00 AM EDT Telemedicine Family Practice [facility] [address] [place] [address] [facility]oo [facility] [address] 06/06/2024 8:45 AM EDT Office Visit Urology, [facility] [address] [place] [address] Cale Mosley MD [address] [place] [id number] 10/03/2024 4:00 PM EST Office Visit Gastroenterology, [facility] [address] [place] [address] Zulema Buchanan MD [address] [place] [address] 02/13/2025 3:30 PM EDT Office Visit Cardiology, [facility] [address] [place] [address] Judy Benedict CRNP [address] [place] [address] Scheduled Procedures Name Priority Associated Diagnoses Date/Ti [...] Adult Wellness Visit 12/28/2021 COVID-19 Vaccine ( season) 2023 06/27/2021, 06/06/2021 Colonoscopy 10/28/2023 10/28/2020, 10/07, 09/04/2019, Additional history exists Colorectal Cancer Screening 10/28/2023 *NEPHROLOGY REFERRAL DUE TO RESISTANT HTN 04/05/2024 Influenza Vaccine (FLU shot) (#1) 2024 05/23/2020, 08/05/2016 Depression Screening 01/03/2025 01/04/2024 Mammogram 03/01/2025 03/01/2024, 0603/2023, 02/09/2023, Additional history exists GFR 03/07/2025 03/07/2024, [...] this encounter Medical Devices Implanted Type Area Sand Temperer Device Identifier Shelf Expiration Date Model / Serial / Lot Endotine Forehead 3.5mm - [id number] Implanted:Qty: 1 on 02/10/2021 by Charlee Rincon MD at [place] [facility] [employer] [id number] 08/02/2022 [id number] / / [id number] documented as of this encounter Visit Diagnoses [...] were consensually agreed upon. Care Teams Manager Parking Relationship Specialty Start Date End Date Francia Polo MD [address] [place] [address] PCP - General Family Medicine 02/24/24 documented as of this encounter
--- OUTSIDE RECORDS SUMMARY | 2024-04-25 11:49 | External Medical Summary | Summary of Care ---
Author Name Unknown Organization [facility] Address [address] [place] [address] Phone [phone] Care Team Providers Care Director Equipment Name Role Phone Francia Polo MD Primary Care Provider [phone] Reason for Visit * Reason Comments Dosage Adjustment Via Phone (anticoag Cl inic) Encounter Details Date Type Department Care Team ([facility] Contact Info) Description 04/20/2024 6:45 AM EDT Anticoagulation Centralized Clinical Pharmacy Services, German Pichardo [address] [place] [address] [place] [address] [facility], [address] [place] [id number] PAF (paroxysmal atrial fibrillation) ([facility])* Allergies Active Allergy Reactions Criticality Noted Date Comments Adhesive Tape 10/24/2002 band-aid type-blisters Anesthetics, Chata Itching 02/26/2015 Allergy to novocaine Codeine Hives 03/20/1998 SOB Fentanyl 12/08/2020 vomiting Phenothiazines Hives 10/24/2002 Phenergan makes pt itch documented as of this encounter (statuses as of 04/20/2024) Medications Medication Sig Dispensed Refills Start Date [...] as of this encounter (statuses as of 04/20/2024) Active Problems Problem Noted Date Diagnosed Date [...] as of this encounter (statuses as of 04/20/2024) Resolved Problems Problem Noted Date Diagnosed Date [...] as of this encounter (statuses as of 04/20/2024) Immunizations Name Administration Dates Next Due COVID-19 [...] this encounter Progress Notes * Gillian Hannon [facility] - 04/20/2024 2:43 PM EDT Medication Therapy Disease Management - Anticoagulation Patient: Jennifer Brandona | : 1955 Subjective Contacts Type Contact Phone/Fax 04/20/2024 03:03 PM EDT Phone (Outgoing) Jennifer Howard (Self) [phone] (M) Spoke to Patient Patient-Reported Symptoms: Patient Findings Positives: Hospital admission Comments: PT discharged from [facility] to home. Pt admitted for lumbar hematoma. INR at discharge was 1.1. Warfarin resumed on 04/19, 5mg MF; 10mg all other days. Objective Current Warfarin Dose As of 04/20/2024 Warfarin maintenance plan: 5 mg (5 mg x 1) every Mon, Fri; 10 mg (5 mg x 2) all other days INR Result As of 04/20/2024 INR goal: 2.0-3.0 INR used for dosing: No new INR was available at the time of this encounter. Assessment & Plan Warfarin Plan As of 04/20/2024 Full warfarin instructions: 5 mg every Mon, Fri; 10 mg all other days Next INR check: 04/23/2024 Repeat PT/INR in 3 day(s) Weekly dose: not changed Additional Dosing Information: Description Charlotte Parkinson 12/23/22: Xarelto & Eliquis too expensive- pt looking into financial adviser options but will continue Coumadin for now 04/13/24 - lumbar spinal fusion with Dr. Santana at [facility] (P: [phone]) Gillian Hannon [facility] Clinical Pharmacist 04/20/2024, 2:54 PM documented in this encounter Plan of Treatment Upcoming Encounters Date Type Department Care Team (Late st Contact Info) Description 04/23/2024 1:30 PM EDT Laboratory Laboratory [facility] [place] [address] [place] [phone] [place], Lab [facility] [address] [place] [address] 04/23/2024 6:00 PM EDT Anticoagulation Centralized Clinical Pharmacy Services, German Pichardo [address] [place] [address] [place] [address] [facility], [address] [place] [address] 05/05/2024 8:00 AM EDT Telemedicine Family Practice [facility] [address] [place] [address] Francia Polo MD [address] [place] [id number] 06/06/2024 8:45 AM EDT Office Visit Urology, [facility] [address] [place] [address] Cale Mosley MD [address] [place] [address] 10/03/2024 4:00 PM EST Office Visit Gastroenterology, [facility] [address] [place] [address] Zulema Buchanan MD [address] [place] [id number] 02/13/2025 3:30 PM EDT Office Visit Cardiology, [facility] [address] [place] [address] Judy Benedict CRNP [address] [place] [address] Scheduled Procedures Name Priority Associated Diagnoses Date/Ti [...] this encounter Medical Devices Implanted Type Area Automotive Paint Technician Device Identifier Shelf Expiration Date Model / Serial / Lot Endotine Forehead 3.5mm - [id number] Implanted:Qty: 1 on 02/10/2021 by Charlee Rincon MD at [place] [facility] [employer] [id number] 08/02/2022 [id number] / / [id number] documented as of this encounter Visit Diagnoses [...] were consensually agreed upon. Care Teams Director Equipment Relationship Specialty Start Date End Date Francia Polo MD [address] [facility] [place] [address] PCP - General Family Medicine 02/24/24 documented as of this encounter"
--- OUTSIDE RECORDS SUMMARY | 2024-04-25 11:49 | External Medical Summary | Summary of Care ---
Author Name Unknown Organization [facility] Address [address] [place] [address] Phone [phone] Care Team Providers Care Packaging Materials Inspector Name Role Phone Francia Polo MD Primary Care Provider Reason for Visit * Reason Comments Outpatient Testing Encounter Details Date Type Department Care Team (Latest Contact Info) Description 04/23/2024 1:30 PM EDT Laboratory Laboratory [facility] [address] [place] [address] [facility] [address] [place] [address] 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 Allergies Active Allergy Reactions Criticality Noted Date [...] mRNA, LNP-s, No Pre serve, 2-Dose Series (Neema) 06/27/2021,06/06/2021 Seasonal Influenza, PF, 6 M & [...] Team (Late st Contact Info) Description 04/23/2024 6:00 PM EDT Anticoagulation Centralized Clinical Pharmacy Services, German Pichardo [address] [place] [address] [place] [address] [place] [address] 05/05/2024 8:00 AM EDT Telemedicine Family Practice [facility] [address] [place] [address] Francia Polo MD 200 [facility] [place] [address] 06/06/2024 8:45 AM EDT Office Visit Urology, [facility] [address] [place] [address] Cale Mosley MD [address] [place] [address] 10/03/2024 4:00 PM EST Office Visit Gastroenterology, [facility] [address] [place] [address] Zulema Buchanan MD [address] [place] [id number] 02/13/2025 3:30 PM EDT Office Visit Cardiology, [facility] [address] [place] [address] Judy Benedict CRNP [address] [place] [address] Pending Results Name Type Priority Associated Diagnoses Date /Time PT INR Lab Routine 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 04/23/2024 11:27 AM EDT Scheduled Procedures Name Priority Associated Diagnoses Date/Ti [...] this encounter Medical Devices Implanted Type Area Street Light Repairer Helper Device Identifier Shelf Expiration Date Model / Serial / Lot Endotine Forehead 3.5mm - [id number] Implanted:Qty: 1 on 02/10/2021 by Charlee Rincon MD at OR [facility] [employer] [id number] 08/02/2022 [id number] / / [id number] documented as of this encounter Visit Diagnoses Diagnosis 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 Encounter for therapeutic drug monitoring documented in this encounter Advance Directives * [...] and were consensually agreed upon. Care Teams Packaging Materials Inspector Relationship Specialty Start Date End Date Francia Polo MD [address] [place] [address] PCP - General Family Medicine 02/24/24 documented as of this encounter
[2024-04-25] MEDS: ceFAZolin 2000MG 2,000 MG/15 ML SYR IV SCH (12:07)
[2024-04-25] MEDS: lisinopril 10 MG TAB PO SCH (12:13)
[2024-04-25] MEDS: ROSUVASTATIN CALCIUM 20 MG TAB PO SCH (12:13)
[2024-04-25] MEDS: GABAPENTIN 800 MG TAB PO SCH (12:13)
[2024-04-25] MEDS: EZETIMIBE 10 MG TAB PO SCH (12:13)
--- NOTE | 2024-04-25 12:18 | History & Physical Report ---
Date of Service April 25, 2024 Assessment & Plan (1) Epidural hematoma: Plan Lumbar back pain: S/P evacuation of hematoma: Supratherapeutic INR s/p L3-L5 decompression and fusion on 04/13/2024 s/p 04/18/2024 S/P lumbar hematoma evacuation Postop 04/25 status post lumbar hematoma evacuation Patient reports improvement in her low back pain and BLE radicular symptoms. Pain management per ortho Wound management per ortho Incentive spirometry Monitor H&H for acute blood loss anemia Monitor PT/INR daily, IV vitamin K today. Cautious resuming of anticoagulation when bleeding risks deemed minimal per Sx. Paroxysmal atrial fibrillation: Continue with home sotalol, Coumadin on hold, vitamin K on 04/25, monitor PT/INR daily. Other chronic medical conditions: Continue with/resume home meds as and when able Hypertension, continue home amlodipine and lisinopril. Utilize holding parameters. Dyslipidemia: Continue home rosuvastatin, HCTZ. Irritable bowel syndrome/fibromyalgia: Patient reports chronic loose stools, as needed bowel regimen given patient is on opiate pain medication. Continue home medications. DVT prophylaxis: SCDs, chemoprophylaxis once cleared per orthospine. CODE STATUS: Full code Disposition: Per primary team Admission and Anticipated Discharge Date Admission Date: April 25, 2024 History of Present Illness Chief Complaint: low back pain, BLE pain Primary Care Provider: Francia Polo MD Patient is 68 year old female with PMH HTN, HLD, PAF s/p ablation, anticoagulated on Coumadin, IBS, fibromyalgia, migraine, Peutz Jeghers syndrome who was seen in medical consultation s/p lumbar hematoma evacuation today by Dr. Santana. Inpatient chart reviewed and recent hospitalization 04/13/2024-04/16/2024 s/p L3-L5 decompression and fusion on 04/13/2024, 04/18/24 - 04/20/24 s/p hematoma evacuation on 04/18/24. She presented again with worsening BLE pain and low back and is now s/p hematoma evacuation today (04/25/24). Pt reports improvement in back and BLE pain after evacuation. Patient reports no bowel or bladder incontinence. Patient denies fever/sore throat/cough/chest pain/belly pain/acute changes in bowel bladder and appetite habits. Patient is oriented though still drowsy from residual anesthesia. Patient reports her last dose of sotalol was last evening, will resume her sotalol. INR was 3.2, will give small dose of IV vitamin K. PT/INR daily. Allergies Allergy/AdvReac Type Severity Reaction Status Date / Time adhesive Allergy Mild Rash Verified 04/25/24 02:24 codeine Allergy Mild Nausea Verified 04/25/24 02:24 promethazine Allergy Mild Hives, Verified 04/25/24 02:24 itching fentanyl AdvReac Mild Nausea Verified 04/25/24 02:24 Home Medications Medication Instructions Recorded Confirmed Type albuterol sulfate 90 mcg/actuation 1 puff inhalation QID PRN colon 12/22/23 04/25/24 History aerosol inhaler cramps clotrimazole-betamethasone 1 1 applic topical BID PRN hand rash 12/22/23 04/25/24 History %-0.05 % topical cream ezetimibe 10 mg tablet 10 mg PO QAM 12/22/23 04/25/24 History gabapentin 800 mg tablet 800 mg PO TID 12/22/23 04/25/24 History rosuvastatin 20 mg tablet 20 mg PO QAM 12/22/23 04/25/24 History sotalol 120 mg tablet 120 mg PO AMHS 12/22/23 04/25/24 History lisinopril 10 mg tablet 10 mg PO QAM #30 tabs 12/28/23 04/25/24 Rx warfarin 5 mg tablet 5 mg PO MOFR 04/13/24 04/25/24 History warfarin 5 mg tablet 10 mg PO SUTUWETHSA 04/13/24 04/25/24 History tramadol 50 mg tablet 50 mg PO Q6H PRN pain, moderate 04/14/24 04/25/24 Rx #30 tabs docusate sodium 100 mg capsule 100 mg PO BID PRN constipation #60 04/16/24 04/25/24 Rx (Colace) caps polyethylene glycol 3350 17 gram 17 g PO DAILY PRN constipation #30 04/16/24 04/25/24 Rx oral powder packet (Miralax) ea amlodipine 2.5 mg tablet 2.5 mg PO HS 04/18/24 04/25/24 History oxycodone 5 mg tablet 5 mg PO Q6H PRN pain #30 tabs 04/19/24 04/25/24 Rx Past Med/Surg History Problem List Epidural hematoma (Acute) Fibromyalgia S/P evacuation of hematoma Lumbar back pain (Acute) Atrial fibrillation, currently in sinus rhythm Status post surgery Neurogenic claudication due to lumbar spinal stenosis Encounter for pre-operative examination Anemia (Acute) Sciatica Arthritis (Acute) Degenerative disc disease (Acute) Paroxysmal atrial fibrillation (Chronic) Hypertension (Chronic) Irritable bowel syndrome (Chronic) Dyslipidemia (Chronic) Medical History Peutz-Jeghers syndrome History of melena (12/2023) UGI bleed/[facility] admission Dyslipidemia DDD (degenerative disc disease), lumbosacral Hx of tinnitus Arthritis Hx of irritable bowel syndrome Hypertension GERD (gastroesophageal reflux disease) Hx of gastric ulcer Gastritis Paroxysmal atrial fibrillation Follows with Dr. Bro Taking coumadin History of kidney stones (2021) H/O cold sores History of adenomatous polyp of colon Ankylosing spondylitis Trigeminal neuralgia Surgical History History of postoperative nausea and vomiting Hx of colonoscopy with polypectomy History of esophagogastroduodenoscopy (EGD) 12/23/23, MAC at [facility] History of cardiac radiofrequency ablation Hx of cystoscopy (2021) Hx of oral surgery dental implants History of hip surgery (2015) left side "cleaned out" Hx of cholecystectomy H/O: hysterectomy and BSO H/O rotator cuff surgery left H/O breast surgery (1985) x2 1985 breast augmentation with silicone implants, both replaced 2000 with saline Family History Other Breast cancer Colorectal cancer Diabetes Social History Smoking Status: Former smoker Tobacco Type: Cigarettes Second Hand Exposure: No; Do You Dip or Chew Tobacco: No; Tobacco Cessation Education Requested by Patient: No Hx Alcohol Use: No Hx Substance Use: No Preferred Language: Romanian Communication Ability: Effective Nylon Hot Wire Cutter Required: No Beliefs That Will Affect Care: None Current Living Situation: Spouse Other Information That Helps Us Care for You: No Feels Safe at Home: Yes Safety Concerns: Feels Safe At This Time Assistive Devices: Cane and Walker Review of Systems Review of Systems: Negative otherwise mentioned in HPI. Physical Exam Physical Exam: GENERAL: Drowsy but oriented x3. NAD, on 2L NC O2 HEENT: No pallor, no icterus. Pupils equal, round and reactive to light. Oral mucosa moist. NECK: No JVD, no neck masses. HEART: S1 and S2 heard. Regular rate and rhythm. No murmur, no gallop. RESPIRATORY SYSTEM: Normal AP diameter. No accessory muscle use. No wheezing, no crackles. ABDOMEN: Soft, bowel sounds present, nontender, no distention. CENTRAL NERVOUS SYSTEM: No facial droop. Speech is clear. Obeys simple commands. Moves extremities. EXTREMITIES: No edema, no erythema seen. Distal neurovascular status WNL. Lower back dressing with no soakage. LORENA drain with minimal she is having a nice collection noted. Results & Data Results & Data Vital Signs (Past 12 Hours) Vital Signs Temp Pulse Pulse Pulse Resp BP BP 04/25/24 11:02 36.5 C 68 16 134/75 04/25/24 10:25 36.3 C L 64 14 146/75 H 04/25/24 10:01 36.5 C 64 16 134/68 04/25/24 09:40 62 14 132/66 04/25/24 09:25 36.5 C 63 15 157/74 H 04/25/24 09:15 67 12 131/57 L 04/25/24 09:05 64 13 144/51 H 04/25/24 08:55 64 20 156/90 H 04/25/24 08:45 68 13 169/85 H 04/25/24 08:35 69 18 174/95 H 04/25/24 08:25 67 12 150/83 H 04/25/24 08:19 36.0 C L 67 16 171/67 H 04/25/24 06:48 36.8 C 60 20 04/25/24 06:32 67 16 04/25/24 04:55 63 16 04/25/24 03:01 72 18 04/25/24 03:00 04/25/24 02:10 68 18 04/25/24 00:22 69 04/25/24 00:15 37.2 C 70 18 176/85 H BP Pulse Ox O2 Del Method O2 Flow Rate 04/25/24 11:02 95 Nasal Cannula 2 04/25/24 10:25 93 Nasal Cannula 2 04/25/24 10:01 93 Nasal Cannula 2 04/25/24 09:40 93 Nasal Cannula 3 04/25/24 09:25 95 Nasal Cannula 3 04/25/24 09:15 96 Nasal Cannula 3 04/25/24 09:05 95 Nasal Cannula 3 04/25/24 08:55 98 Nasal Cannula 3 04/25/24 08:45 94 Oxymask 4 04/25/24 08:35 95 Oxymask 9 04/25/24 08:25 98 Oxymask 9 04/25/24 08:19 99 Oxymask 9 04/25/24 06:48 134/79 97 Room Air 04/25/24 06:32 93 Room Air 04/25/24 04:55 95 Nasal Cannula 2 04/25/24 03:01 123/72 96 Nasal Cannula 2 04/25/24 03:00 87 L Room Air 04/25/24 02:10 112/50 L 92 Room Air 04/25/24 00:22 04/25/24 00:15 95 Room Air Code Status & VTE Plan VTE Prophylaxis Plan VTE Prophylaxis will be ordered: Yes
[2024-04-25] MEDS: SOTALOL HCL 80 MG TAB PO SCH (12:38)
[2024-04-25] MEDS: PHYTONADIONE 2.5 MG in DEXTROSE 5% 50 ML IV ONE (12:38)
[2024-04-25] MEDS: oxyCODONE HCL IR 5 MG TAB (IMMEDIATE RELEASE) PO PRN (12:54)
[2024-04-25] MEDS: HYDROmorphone INJ 0.5 MG/0.5 ML SYR IV PRN (14:22)
[2024-04-25] MEDS: amLODIPine BESYLATE 5 MG TAB PO SCH (20:31)
[2024-04-26 06:12] LABS: Hematocrit (blood only) 34.3 % (37.0-47.0); Hemoglobin 10.6 g/dl (12.0-16.0); Mean Corpuscular Hgb Conc 30.9 g/dL (32.0-36.0); Mean Corpuscular Volume 90.7 fL (80.0-100.0); Mean Platelet Volume 8.6 fL (9.4-12.4); Platelet Count 356 K/uL (130-400); RDW Coefficient of Variation 17.8 % (11.5-14.5); RDW Standard Deviation 59.1 fL (36.4-46.3); Red Blood Count 3.78 M/uL (4.20-5.40); White Blood Count 10.61 K/ul (4.8-10.8)
[2024-04-26 06:28] LABS: BUN Creatinine Ratio 16.1 (10-20); Creatinine Clr Calc Pharmacy 104.2 ml/min; Est GFR (Non-African American) 95.8 ml/min; Magnesium 1.9 mg/dl (1.7-2.4); Phosphorus 3.2 mg/dl (2.5-4.9); Potassium 4.1 mmol/L (3.5-5.1)
[2024-04-26 07:02] LABS: INR 1.1 (0.9-1.1); Prothrombin Time 11.9 Seconds (9.0-12.0)
[2024-04-26 07:35] VITALS: BP 133/70; PULSE 63; RESP 18; TEMP 99.1; O2SAT 93
--- NOTE | 2024-04-26 08:21 | Electrocardiogram Report ---
Test Reason : Blood Pressure : */* mmHG Vent. Rate : 68 BPM Atrial Rate : 68 BPM P-R Int : 196 ms QRS Dur : 116 ms QT Int : 422 ms P-R-T Axes : 67 -12 43 degrees QTcB Int : 448 ms Normal sinus rhythm Left ventricular hypertrophy with QRS widening Abnormal ECG When compared with ECG of 22-Dec-2023 18:59, No significant change was found Confirmed by Reinaldo Gomez ([id number]) on 04/26/2024 8:21:03 AM Referred By: REFERRED SELF Confirmed By: Reinaldo Gomez
--- NOTE | 2024-04-26 08:45 | Discharge Summary ---
Date of Service April 26, 2024 Admission HPI Per Admitting Provider Patient is 68 year old female with PMH HTN, HLD, PAF s/p ablation, anticoagulated on Coumadin, IBS, fibromyalgia, migraine, Peutz Jeghers syndrome who was seen in medical consultation s/p lumbar hematoma evacuation today by Dr. Santana. Inpatient chart reviewed and recent hospitalization 04/13/2024-04/16/2024 s/p L3-L5 decompression and fusion on 04/13/2024, 04/18/24 - 04/20/24 s/p hematoma evacuation on 04/18/24. She presented again with worsening BLE pain and low back and is now s/p hematoma evacuation today (04/25/24). Pt reports improvement in back and BLE pain after evacuation. Patient reports no bowel or bladder incontinence. Patient denies fever/sore throat/cough/chest pain/belly pain/acute changes in bowel bladder and appetite habits. Patient is oriented though still drowsy from residual anesthesia. Patient reports her last dose of sotalol was last evening, will resume her sotalol. INR was 3.2, will give small dose of IV vitamin K. PT/INR daily. Principal Diagnosis Lumbar hematoma Discharge Data Allergies Allergy/AdvReac Type Severity Reaction Status Date / Time adhesive Allergy Mild Rash Verified 04/25/24 02:24 codeine Allergy Mild Nausea Verified 04/25/24 02:24 promethazine Allergy Mild Hives, Verified 04/25/24 02:24 itching fentanyl AdvReac Mild Nausea Verified 04/25/24 02:24 Consultations 04/25/24 04:38 ED Decision to Admit Stat 04/25/24 10:34 Consult Hospitalist Routine Procedures Performed Operation Date: 04/25/24 07:05 Actual Procedures p Incision and Drainage Spine Evacuation Hematoma(Not Applicable) - Luis Fernando Santana, DO Ordered Studies 04/25/24 01:35 MRI Lumbar Spine [MR lumbar spine wo/w con] Stat Hospital Course (1) S/P evacuation of hematoma: Patient was admitted with return of back and bilateral leg symptoms diagnosed with an acute lumbar hematoma. She underwent emergent I&D. She tolerated this well. Postop day #1 drains are functioning pain markedly controlled ambulating well. Socially discharge home. Discharge orders instructions from the chart for further view. Total Time Total Time Spent Total Time Spent (In Minutes): 20 minutes Discharge Plan Discharge Items Reason For Visit: BACK PAIN Discharge Diagnosis: Lumbar hematoma Activity: As commented below Non-emergency contact: Primary Care Provider Call non-emergency contact if: you have any medication questions Follow-up/Referrals: Francia Polo MD [Primary Care Provider] - Diet: Regular Addtl Attending Provider Instructions: ACTIVITY RECOMMENDATIONS: SELF CARE INSTRUCTIONS AFTER THORACIC/LUMBAR FUSIONS 1. You may walk to your tolerance. It is good exercise for your legs and back. Expect some back and intermittent leg aches and pains. 2. You may perform "counter-top" level activities (make a sandwich, parker with a project, etc.). 3. No bending or lifting of more than 10 pounds or back twisting of any nature (roll like a log when turning in bed). 4. You may ride in a car for 20-30 minutes at a time. No driving until after your first visit with your doctor. 5. Frequent changes of position and restricting sitting to 30 minutes at a time will help limit the amount of back spasms and stiffness you may experience. 6. You may discontinue the use of ambulatory aids (cane, crutches, etc.) once your strength and confidence allow. 7. You may standards engineer the shower and let water strike your incision when you arrive home at least once daily. Do not take a tub bath, sit in a hot tub or go into a swimming pool until after your first recheck in the office. SPECIAL CARE INSTRUCTIONS: VERY IMPORTANT TO READ AND REVIEW A. Your surgical incision has been closed with a cosmetic suture under the skin that will dissolve in about 6 weeks. In 14 days, you can use a pair of clean scissors and cut the suture that is left outside of the skin at the ends of your incision. 1. The small skin tapes can be removed 7 days after surgery if they have not fallen off by that point. 2. You may keep the wound open to air as much as possible to promote healing after post-op day number 5 unless told otherwise by your doctor. 3. If you think the wound looks like it is becoming infected (redness or worsening drainage) and/or you are experiencing fever, chill or worsening back pain and muscle spasms, contact the office so that we may evaluate you as soon as possible. B. Complications are uncommon, but please contact us if you have any signs or symptoms of: 1. wound infection (fever higher than 102.5 degrees F, redness, separation of wound, drainage, or increasing pain from the incision) 2. blood clots in legs (pain, swelling, redness and warmth in legs) 3. urinary tract infection (fever higher than 102.5 degrees F, burning upon urination or increased frequency of urination) 4. nerve problems (inability to walk on your toes or heels, numbness, loss of bowel or bladder control) 5. any other symptoms that concern you C. Please call the office at if you have any concerns or questions about your operation or recovery. D. No smoking! Smoking drastically decreases the chance of a solid fusion. E. Do not take any anti-inflammatory medications (Indocin, Advil, Motrin, Aspirin, Naprosyn, etc.) as these may inhibit the chance of a solid fusion. Tylenol is okay to take for pain. MANAGING PAIN AFTER SPINAL SURGERY 1. Narcotic medication is intended for short-term use and will be provided for surgical pain. Surgical pain usually lasts for a period of 4-6 weeks. Narcotic medication includes Percocet, Vicodin, Darvocet, Tylenol #3 or Lortab. 2. Longer-term pain is more appropriately treated with non-narcotic medication such as Tylenol ES. 3. Muscle spasm is not appropriately treated with narcotics. Muscle relaxers such as Soma, Flexeril or Skelaxin can be used along with Tylenol ES. 4. Remember that we all live with some "aches and pains". This is not unusual or uncommon after an injury or as we get older. a. Back pain is expected and may include muscle spasms for 4 to 6 weeks after surgery. The pain should gradually improve. If the pain worsens for no apparent reason, please contact the office. b. Intermittent leg pain may also be experienced and should not be concerned about unless it worsens for no apparent reason. If so, please contact the office. 5. We will provide appropriate medication within the normal guidelines of their prescribed use. We will also be very cautious and aware of potential abuse and extended duration of patients' medication needs. a. Pain medications are for your comfort and to assist with sleep and rest so that the tissue can heal. They are not provided in order to return to normal activity and should not be used through the day. To do so or worsening pain at night can result from ongoing tissue damage and development of tolerance to the prescribed medicine. 6. Please allow 2-3 days to process refills. Prescriptions will not be mailed but must be picked up at the office. FOLLOW UP VISIT: Keep your scheduled follow-up appointment. Any questions, please call the office at . Pending Studies at Discharge: No Stand-Alone Forms: [facility], Smoking Cessation Medications and DC Order Prescriptions: Continued amlodipine 2.5 mg tablet 2.5 mg PO HS oxycodone 5 mg tablet 5 mg PO Q6H PRN (Reason: pain) Qty: 30 0RF sotalol 120 mg tablet 120 mg PO [facility]HS gabapentin 800 mg tablet 800 mg PO TID clotrimazole-betamethasone 1-0.05 % Cream 1 applic TOPICAL BID PRN (Reason: hand rash) albuterol sulfate 90 mcg/actuation Hfa Aerosol Inhaler 1 puff INHALATION QID PRN (Reason: colon cramps) ezetimibe 10 mg tablet 10 mg PO QAM rosuvastatin 20 mg tablet 20 mg PO QAM lisinopril 10 mg Tablet 10 mg PO QAM Qty: 30 0RF tramadol 50 mg tablet 50 mg PO Q6H PRN (Reason: pain, moderate) Qty: 30 0RF polyethylene glycol 3350 [Miralax] 17 gram Powder In Packet 17 g PO DAILY PRN (Reason: constipation) Qty: 30 0RF docusate sodium [Colace] 100 mg capsule 100 mg PO BID PRN (Reason: constipation) Qty: 60 0RF Discontinued warfarin 5 mg tablet 5 mg PO MOFR warfarin 5 mg tablet 10 mg PO SUTUWETHSA Admission Data Admit Date/Time: 04/25/24 05:15 Attending Provider: Luis Fernando Santana Admit Provider: Luis Fernando Santana Primary Care Provider: Francia Polo Other Providers: Luis Fernando Santana; Kavitha Tyler; Leslie Fitzpatrick I.; Clyde Cardona; Jean Gray; Eryn Casarez; Tyesha Hays; Indiana Mercer; Ashish Alaniz; Javon Boyer; Talha Evans; Rod Lucas; Beatriz Sanders; Hai Ortiz; Adilson Norton; Vania Coleman; Mini García; Cheryl Ozuna; Viviana Myles; Rosemarie Song; Asuncion Zamora I.; Ld Chavez; Liam Armstrong; Jerry Salinas; Javi Jurado; Rigoberto Valentine; Bogdan Romo; Gillian Rajput; Rae Blanca; Iris Faria; Guanako Treadwell; Cheng Joe S
--- NOTE | 2024-04-26 09:57 | Hospitalist Progress Note ---
Date of Service April 26, 2024 Assessment & Plan (1) Epidural hematoma: Plan Lumbar back pain: S/P evacuation of hematoma: Supratherapeutic INR s/p L3-L5 decompression and fusion on 04/13/2024 s/p 04/18/2024 S/P lumbar hematoma evacuation Postop 04/25 S/P Lumbar hematoma evacuation Received vitamin K INR 3.2>>1.1 Wound care, pain control, activity as per orthopedics Continue incentive spirometry Hemoglobin stable Advised to follow-up with PCP, orthopedics on discharge Paroxysmal atrial fibrillation: Given multiple episodes of postsurgical hematomas, patient prefers to be off Coumadin for now Advised to follow-up with primary care physician/manager house for further rec ommendation on anticoagulation Continue sotalol Other chronic medical conditions: Continue with/resume home meds as able Hypertension, continue home amlodipine and lisinopril. Dyslipidemia: Continue home rosuvastatin Irritable bowel syndrome/fibromyalgia: Patient reports chronic loose stools, as needed bowel regimen given patient is on opiate pain medication. Continue home medications. DVT prophylaxis: SCDs CODE STATUS: Full code Admission and Anticipated Discharge Date Admission Date: April 25, 2024 Subjective Patient is seen and examined at bedside Back pain at surgical site is controlled Denies any chest pain, dyspnea, nausea, vomiting, abdominal pain Discussed with patient's family at bedside Plan to be discharged home today Review of Systems Review of Systems: All systems reviewed & are unremarkable except as noted in Subjective Physical Exam Physical Exam: Physical Exam: Vitals signs as noted above General Appearance:Moderately built and nourished, no apparent distress Head: normocephalic, Atraumatic Eyes: normal inspection, EOMI Neck: supple, Trachea midline Respiratory/Chest: Normal breath sounds, CTA, No accessory muscle use Cardiovascular: S1, S2, No murmur Abdomen/GI:Soft, Non tender, Bowel sounds present Back: Surgical site in dressing,+Drain Extremities/Musculoskeletal:normal inspection, no edema Neurologic/Psych:AAOX3, grossly no focal neurological deficits Skin: normal color, warm Results & Data Results & Data Vital Signs (Past 12 Hours) Vital Signs Temp Pulse Resp BP Pulse Ox O2 Del Method O2 Flow Rate 04/26/24 07:33 37.3 C 63 18 133/70 93 Room Air 04/26/24 04:07 36.8 C 64 16 145/81 H 96 Nasal Cannula 2 08/21/24 23:24 36.7 C 67 18 120/70 98 Nasal Cannula 2 Laboratory Results Short CBC 04/26/24 Range/Units 05:34 WBC 10.61 (4.8-10.8) K/ul Hgb 10.6 L (12.0-16.0) g/dl Hct 34.3 L (37.0-47.0) % Plt Count 356 (130-400) K/uL BMP 04/26/24 05:34 Sodium 136 Potassium 4.1 Chloride 103 Carbon Dioxide 28 BUN 9 Creatinine 0.56 L Glucose 135 H Calcium 9.0
--- NOTE | 2024-05-01 05:11 | Coding Query ---
CODING QUERY To promote full compliance with coding requirements relating to patient care, provider participation is requested in all cases of facilities maintenance supervisor uncertainty. Please assist us with the question(s) below: Coding Question(s): Can you please confirm the site of the hematoma evacuation? Epidural hematoma (x ) Musculoskeletal hematoma ( ) Other, please specify ( ) . Physician's Response(s): Thank you Tyesha Pena Principal Diagnosis: "that condition established after study, to be chiefly responsible for occasioning the admission of the patient to the hospital for care." Co-Existing Principal Diagnosis: "when two or more diagnoses equally meet the criteria for principal diagnosis as determined by the circumstances of admission, diagnostic work up, and/or therapy provided, and the Alphabetic Index, Tabular List, or another coding guideline does not provide sequencing direction, any one of the diagnoses may be sequenced first." "When the physician has documented what appears to be a current diagnosis in the body of the record, but has not included the diagnosis in the final diagnostic statement, the physician should be asked whether the diagnosis should be added." ([facility] 2 QTR90. p3-4) CECIL
== END 2024-04-26 10:26 | disposition home or self-care (01) | DRG 908 ==
LOC: ED 00:17 → 3E 06:36 → OR 06:38 → 3E 06:39